=== PATIENT | female | born 1935 | race Caucasian/White ===

== ENCOUNTER 2017-09-01 16:14 | Emergency (ER) | payer MEDICARE, BC ==
[~2017-09-01 16:14] MED LIST: ATEN50TA PO; ATOR40TA16 PO; Aspirin Chew PO; BOSW5TAB PO; COQ-50CA2 PO; FOLI5CAP PO; LOSA100T PO; METH2.5T PO; PLAV75TA29 PO; VESI10TA PO
[2017-09-01 16:17] VITALS: BP 142/68; PULSE 52; RESP 18; TEMP 97.7; O2SAT 95
--- NOTE | 2017-09-01 17:00 | PD ---
HPI Chief Complaint: Skin Problem Time Seen by Provider: 16:46 Travel History International Travel<30 days: No Contact w/Intl Traveler<30days: No Traveled to known affect area: No History of Present Illness HPI 82-year-old female here with who gives history complaining of an ulcer to the lower left leg for 3 days. She has a history of chronic venous stasis with ulceration. He states that the area has had a blister but popped and now has profuse clear drainage. Apparently she has had these before but he is concerned about the drainage today. He has tried to dress the wound but continues to leak through. She has no complaints of pain, fever, chills, chest pain, or shortness of breath. Denies trauma or injury to the area. PFSH Past Medical History Arthritis: Yes (l shoulder) Atrial Fibrillation: Yes Autoimmune Disease: Yes (ra) Heart Rhythm Problems: Yes (A FIB) Cardiac Catheterization: Yes Cardiovascular Problems: Yes (a fib) High Cholesterol: Yes Cerebrovascular Accident: No Coronary Artery Disease: Yes Diabetes: No Diminished Hearing: No Genitourinary: Yes (incontinent) Hypertension: Yes Migraines: Yes (pt says she has cluster headaches) ?: Not Para: 4 Past Surgical History Coronary Stent: Yes Eye Surgery: Yes (bilat cataracts) Gynecologic Surgery: Yes (hysterectomy) Hysterectomy: Yes Tonsillectomy: Yes Social History Alcohol Use: Yes (occ) Tobacco Use: No Substance Use: No Allergies-Medications (Allergen,Severity, Reaction): Coded Allergies: grass pollen (Unverified Allergy, Intermediate, Sneezing, 09/01/17) *MDRO Multi-Drug Resistant Organism (Verified Adverse Reaction, Unknown, 09/01/17) 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 Reported Meds & Prescriptions Reported Meds & Active Scripts Active Plavix (Clopidogrel Bisulfate) 75 Mg Tab 75 Mg PO DAILY 30 Days Reported Osteo Bi-Flex One A Day (Quyxpkbix-Rdiojwcumpm-Tgqbnfq) 1 Tab 1 Tab PO DAILY Coq-10 (Coenzyme Q10 (Ubidecarenone)) 50 Mg Cap 50 Cap PO DAILY Atorvastatin (Atorvastatin Calcium) 40 Mg Tab 40 Mg PO HS Losartan (Losartan Potassium) 100 Mg Tab 100 Mg PO DAILY Review of Systems Except as stated in HPI: all other systems reviewed are Neg Physical Exam Narrative GENERAL: Well-nourished, well-developed patient morbidly obese SKIN: Focused skin assessment warm/dry. Left medial aspect of lower extremity: 6 cm round ulcer with clear drainage, no surrounding erythema, exudate, edema, bleeding. No lymphangitic Spread. Posterior aspect of leg with slight erythema but no ulceration HEAD: Normocephalic. EYES: No scleral icterus. No injection or drainage. NECK: Supple, trachea midline. No JVD or lymphadenopathy. CARDIOVASCULAR: Regular rate and rhythm without murmurs, gallops, or rubs. RESPIRATORY: Breath sounds equal bilaterally. No accessory muscle use. MUSCULOSKELETAL: No cyanosis, or edema. Pulse motor sensory intact BACK: Nontender without obvious deformity. No CVA tenderness. Data Data Last Documented VS Vital Signs Date Time Temp Pulse Resp B/P (MAP) Pulse Ox O2 Delivery O2 Flow Rate FiO2 09/01/17 16:17 97.7 52 18 142/68 (92) 95 Orders Orders Wound Care (09/01/17 17:16) MDM Medical Decision Making Medical Screen Exam Complete: Yes Emergency Medical Condition: Yes Differential Diagnosis Left lower leg ulcer versus cellulitis versus stasis dermatitis Narrative Course brought patient here today because he was concerned about an ulcer on the medial aspect of the lower left leg. She does have a history of chronic ulcers on her legs and has been treated for this prior. He states that is draining profusely clear liquid. Patient denies any pain to the area with motor, neuro, and sensory intact. Physical exam : The aspects of left lower extremity shows a 6 cm round ulcer with perfuse clear drainage, without bleeding, exudate The posterior portion of her lower left leg appears slightly erythematous with the beginning of skin breakdown, without lymph angiopathic Spread, exudate, or bleeding. She denies fever, chills, chest pain, short of breath. states she has an appointment with a wound care clinic up at [facility] this week for this problem. I recommend he keep this appointment for her and establish care with wound care. Diagnosis Primary Impression: Leg wound, left Qualified Codes: S81.802A - Unspecified open wound, left lower leg, initial encounter Referrals: [facility] Primary Care Physician Additional Instructions: Keep area dry. Change to dry dressings multiple times a day. Keep the appointment for wound care this week. Keep the leg elevated to reduce the leg and be mindful of pressure on the skin. If she develops increased redness, swelling, or pain or develops a fever return to the emergency department for treatment evaluation. Disposition: 01 DISCHARGE HOME Condition: Stable Jessica Hicks Sep 01, 2017 17:00
[2017-09-06] MEDS ORDERED: ATOR10TA15 PO (14:55)
[2017-09-06] MEDS ORDERED: CARV3.12 PO (14:55)
[2017-09-13] MEDS ORDERED: LEVA750T9 PO (12:04)
== END 2017-09-01 17:43 | disposition home or self-care (01) ==
LOC: PHED 16:14
DX: S81.802A Unspecified open wound, left lower leg, initial encounter (principal); I10 Essential (primary) hypertension; E78.00 Pure hypercholesterolemia, unspecified; Z87.39 Personal history of other diseases of the musculoskeletal system and connective tissue; Z86.2 Personal history of diseases of the blood and blood-forming organs and certain disorders involving the immune mechanism; Z86.79 Personal history of other diseases of the circulatory system; Z87.448 Personal history of other diseases of urinary system; Z86.69 Personal history of other diseases of the nervous system and sense organs; X58.XXXA Exposure to other specified factors, initial encounter
CPT/HCPCS: 99282

== ENCOUNTER 2017-11-05 14:18 | Emergency (ER) | payer MEDICARE, BC ==
[~2017-11-05 14:18] MED LIST changes: -ATEN50TA PO; +ATOR10TA15 PO; -ATOR40TA16 PO; -Aspirin Chew PO; +CARV3.12 PO; -FOLI5CAP PO; -METH2.5T PO; -VESI10TA PO
[2017-11-05 14:23] VITALS: BP 174/87; PULSE 50; RESP 22; TEMP 97.6; O2SAT 90
[2017-11-05] MEDS ORDERED: SILVER NITR/POTASSIUM NITRATE APPLICATORS TOPICAL ONE (15:00)
[2017-11-05] MEDS ORDERED: GELATIN 12 MM/7 MM FOAM TOPICAL ONE (15:00)
--- NOTE | 2017-11-05 15:03 | PD ---
HPI Chief Complaint: Bleeding Time Seen by Provider: 14:51 Travel History International Travel<30 days: No Contact w/Intl Traveler<30days: No Traveled to known affect area: No History of Present Illness HPI The patient was seen and examined in the presence of the nurse. This patient complains of bleeding from her chronic left leg ulcer. She's had her ulcer for 2 months and goes to wound care regularly. was changing the dressing about an hour ago and it started to bleed. They couldn't get the bleeding to stop so came in. She does take daily Plavix. No other blood thinners. No injury to it. She did not complain of being dyspneic but she looks short of breath. Symptoms severity is moderate. No alleviating factors. Symptoms exacerbated by her Plavix therapy. Denies ever smoking. Denies fever or cough or chest pain. PFSH Past Medical History Hx Anticoagulant Therapy: Yes (PLAVIX) Arthritis: Yes (l shoulder) Atrial Fibrillation: Yes Autoimmune Disease: Yes (ra) Heart Rhythm Problems: Yes (A FIB) Cardiac Catheterization: Yes Cardiovascular Problems: Yes (HI) High Cholesterol: Yes Cerebrovascular Accident: No Coronary Artery Disease: Yes Diabetes: No Diminished Hearing: No Genitourinary: Yes (incontinent) Hypertension: Yes Migraines: Yes (pt says she has cluster headaches) Tetanus Vaccination: < 5 Years Influenza Vaccination: Yes Para: 4 Past Surgical History Coronary Stent: Yes Eye Surgery: Yes (bilat cataracts) Gynecologic Surgery: Yes (hysterectomy) Hysterectomy: Yes Tonsillectomy: Yes Other Surgery: Yes Social History Alcohol Use: No Tobacco Use: No Substance Use: No Allergies-Medications (Allergen,Severity, Reaction): Coded Allergies: grass pollen (Verified Allergy, Intermediate, Sneezing, 11/05/17) *MDRO Multi-Drug Resistant Organism (Verified Adverse Reaction, Unknown, 11/05/17) 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 Reported Meds & Prescriptions Reported Meds & Active Scripts Active Plavix (Clopidogrel Bisulfate) 75 Mg Tab 75 Mg PO DAILY 30 Days Reported Atorvastatin (Atorvastatin Calcium) 10 Mg Tab 10 Mg PO HS Carvedilol 3.125 Mg Tab 3.125 Mg PO BID Osteo Bi-Flex One A Day (Ldiiforpe-Phbydjexfoi-Kcisjce) 1 Tab 1 Tab PO DAILY Coq-10 (Coenzyme Q10 (Ubidecarenone)) 50 Mg Cap 50 Cap PO DAILY Losartan (Losartan Potassium) 100 Mg Tab 100 Mg PO DAILY Review of Systems General / Constitutional: No: Fever Eyes: No: Visual changes HENT: No: Headaches Cardiovascular: No: Chest Pain or Discomfort Respiratory: No: Shortness of Breath Gastrointestinal: No: Abdominal Pain Genitourinary: No: Dysuria Musculoskeletal: No: Pain Skin: No Rash Neurologic: No: Weakness Psychiatric: No: Depression Endocrine: No: Polydipsia Hematologic/Lymphatic: No: Easy Bruising Physical Exam Narrative GENERAL: Well-nourished, well-developed patient who is short of breath . SKIN: Focused skin assessment reveals no rash and nodules. Skin is Warm and dry. HEAD: Atraumatic. Normocephalic. EYES: Pupils equal and round. No scleral icterus. No injection or drainage. ENT: No nasal bleeding or discharge. Mucous membranes pink and moist. NECK: Trachea midline. No JVD. CARDIOVASCULAR: Regular rate and rhythm. No murmur appreciated. RESPIRATORY: Positive accessory muscle use. Clear to auscultation. Breath sounds equal bilaterally. GASTROINTESTINAL: Abdomen soft, morbidly obese, non-tender, nondistended. Hepatic and splenic margins not palpable. MUSCULOSKELETAL: No obvious deformities. No clubbing. No cyanosis. Symmetric edema the feet and legs. Patient has a ulcer on the medial aspect of the left lower leg. This 2 areas of scant oozing. No sign of infection NEUROLOGICAL: Awake and alert. No obvious cranial nerve deficits. Motor grossly within normal limits. Normal speech. PSYCHIATRIC: Appropriate mood and affect; insight and judgment normal. Data Data Last Documented VS Vital Signs Date Time Temp Pulse Resp B/P (MAP) Pulse Ox O2 Delivery O2 Flow Rate FiO2 11/05/17 16:17 60 16 173/72 (105) 96 Nasal Cannula 2.00 11/05/17 14:23 97.6 Orders Orders Silver Nitrate Applicators (Silver Nitra (11/05/17 15:00) Gelatin 12 Mm/7 Mm Top (Gelfoam 12 Mm/7 (11/05/17 15:00) Electrocardiogram (11/05/17 ) Iv Access Insert/Monitor (11/05/17 15:19) Complete Blood Count With Diff (11/05/17 15:19) Basic Metabolic Panel (Bmp) (11/05/17 15:19) B-Type Natriuretic Peptide (11/05/17 15:19) Chest, Single Ap (11/05/17 ) Furosemide Inj (Lasix Inj) (11/05/17 16:00) Labs Laboratory Tests Test 11/05/17 15:51 White Blood Count 5.8 TH/MM3 Red Blood Count 4.42 MIL/MM3 Hemoglobin 12.4 GM/DL Hematocrit 38.0 % Mean Corpuscular Volume 85.9 FL Mean Corpuscular Hemoglobin 28.0 PG Mean Corpuscular Hemoglobin Concent 32.6 % Red Cell Distribution Width 14.9 % Platelet Count 193 TH/MM3 Mean Platelet Volume 10.0 FL Neutrophils (%) (Auto) 63.8 % Lymphocytes (%) (Auto) 19.7 % Monocytes (%) (Auto) 13.7 % Eosinophils (%) (Auto) 2.0 % Basophils (%) (Auto) 0.8 % Neutrophils # (Auto) 3.8 TH/MM3 Lymphocytes # (Auto) 1.1 TH/MM3 Monocytes # (Auto) 0.8 TH/MM3 Eosinophils # (Auto) 0.1 TH/MM3 Basophils # (Auto) 0.0 TH/MM3 CBC Comment DIFF FINAL Differential Comment Blood Urea Nitrogen 15 MG/DL Creatinine 0.72 MG/DL Random Glucose 117 MG/DL Calcium Level 9.7 MG/DL Sodium Level 143 MEQ/L Potassium Level 4.1 MEQ/L Chloride Level 108 MEQ/L Carbon Dioxide Level 28.2 MEQ/L Anion Gap 7 MEQ/L Estimat Glomerular Filtration Rate 78 ML/MIN B-Type Natriuretic Peptide 394 PG/ML MDM Medical Decision Making Medical Screen Exam Complete: Yes Emergency Medical Condition: Yes Medical Record Reviewed: Yes Differential Diagnosis Chronic wound, medication side effect, abrasion Narrative Course I have reviewed the patient's electronic medical record. Reviewed her last wound care visit which was about 2 weeks ago Procedure note: I used 3 silver nitrate sticks to chemically cauterize the 2 areas that were oozing blood. I then applied a layer of Gelfoam to each I then padded with 4 x 4's and wrapped with Millicent in a slight pressure dressing The patient is visibly dyspneic so I have evaluated that I reviewed her chest x-ray which shows cardiomegaly with a slight positive fluid balance I reviewed her EKG which shows bradycardia with a PVC but no ST elevation CBC and metabolic profile reviewed and reasonably normal I ordered 40 g IV Lasix but patient has been refused as they do not want to urinate here says she's been like this for years and is no different than her baseline A lot of this is body habitus I believe. She is morbidly obese. May have a slight degree of pulmonary edema I wrote her 5 days of oral Lasix She should discuss this with her primary physician. Diagnosis Primary Impression: Varicose veins of lower extremities with ulcer Qualified Codes: I83.029 - Varicose veins of left lower extremity with ulcer of unspecified site Additional Impressions: Hemorrhage of skin lesion Pulmonary edema Qualified Codes: J81.1 - Chronic pulmonary edema Morbid obesity Additional Instructions: The patient was advised to follow up with their physician and return if they worsen. Med/Other Pt SpecificInfo: Prescription(s) given Scripts Furosemide (Lasix) 20 Mg Tab 20 MG PO DAILY, #5 TAB 0 Refills Prov: Fab Powell MD 11/05/17 Disposition: 01 DISCHARGE HOME Condition: Stable Fab Powell MD Nov 05, 2017 15:03
--- NOTE | 2017-11-05 15:44 | RADRPT ---
EXAM DATE/TIME: 11/05/2017 15:28 [facility] COMPARISON: CHEST SINGLE AP, October 11, 2016, 23:40. INDICATIONS : Shortness of breath. MEDICAL HISTORY : Hypertension. Myocardial infarction. Cholelithiasis. SURGICAL HISTORY : None. ENCOUNTER: Initial ACUITY: 1 year PAIN SCORE: 0/10 LOCATION: Bilateral chest FINDINGS: Prominent cardiomegaly with prominent central pulmonary arteries. Mild stable diffuse interstitial pr ominence. Remainder of the exam is unchanged. CONCLUSION: 1. Prominent cardiomegaly with mild positive fluid balance. Damon Villanueva MD on November 05, 2017 at 15:41 Board Certified Radiologist. This report was verified electronically.
[2017-11-05 15:59] LABS: AUTOMATED NEUTROPHIL # 3.8 TH/MM3 (1.8-7.7); BASOPHIL % 0.8 % (0.0-2.0); EOSINOPHIL # 0.1 TH/MM3 (0-0.4); HEMO FLAGS DIFF FINAL; LYMPH % 19.7 % (9.0-44.0); LYMPHOCYTE # 1.1 TH/MM3 (1.0-4.8); MEAN CELL VOLUME 85.9 FL (80.0-100.0); MEAN CORPUSCULAR HGB CONC 32.6 % (32.0-36.0); MONO % 13.7 % (0.0-8.0); NEUT % 63.8 % (16.0-70.0); PLATELET COUNT 193 TH/MM3 (150-450); RED BLOOD COUNT 4.42 MIL/MM3 (4.00-5.30); RED CELL DISTRIBUTION WIDTH 14.9 % (11.6-17.2); WHITE BLOOD COUNT 5.8 TH/MM3 (4.0-11.0)
[2017-11-05] MEDS ORDERED: FUROSEMIDE 40 MG/4 ML VIAL IV PUSH ONE (16:00)
[2017-11-05 16:07] LABS: POTASSIUM 4.1 MEQ/L (3.5-5.1)
[2017-11-05 16:10] LABS: BICARBONATE 28.2 MEQ/L (21.0-32.0)
[2017-11-05 16:17] VITALS: BP 173/72; PULSE 60; RESP 16; O2SAT 96
[2017-11-05] MEDS ORDERED: FURO1TAB62 PO (16:23)
--- NOTE | 2017-11-06 15:51 | EKG ---
Date Performed: 11/05/2017 Time Performed: 16:02:02 PTAGE: 82 years EKG: SUPRAVENTRICULAR BRADYCARDIA MARKED LEFT AXIS DEVIATION POSSIBLE ANTERIOR MYOCARDIAL INFARC TION ABNORMAL ECG PREVIOUS TRACING : 10/13/2016 10.15 DOCTOR: Wilian Potter Interpretating Date/Time 11/06/2017 15:49:36
== END 2017-11-05 16:52 | disposition home or self-care (01) ==
LOC: PHED 14:18
DX: I83.029 Varicose veins of left lower extremity with ulcer of unspecified site (principal); L97.929 Non-pressure chronic ulcer of unspecified part of left lower leg with unspecified severity; J81.1 Chronic pulmonary edema; E66.01 Morbid (severe) obesity due to excess calories; E78.00 Pure hypercholesterolemia, unspecified; I10 Essential (primary) hypertension; R06.02 Shortness of breath; Z79.02 Long term (current) use of antithrombotics/antiplatelets
CPT/HCPCS: 17250; 71010; 80048; 83880; 85025; 93005; 96374; 99285; J1940

== ENCOUNTER 2017-11-25 14:31 | Inpatient (IN) | payer MEDICARE, BC ==
[~2017-11-25] VITALS: Ht 170.2 cm; Wt 116.0 kg
[2017-11-25] VITALS (16 sets, daily range): BP systolic 87–152; BP diastolic 49–112; PULSE 40–62; RESP 15–32; TEMP 97.5–97.8; O2SAT 90–100
[~2017-11-25 14:31] MED LIST changes: +FURO1TAB62 PO; +GADODIAMIDE PF 287 MG/ML 20 ML VIAL (for RAD MRI) IV PUSH ONE
--- NOTE | 2017-11-25 14:57 | PD ---
HPI Chief Complaint: Altered Mental Status Time Seen by Provider: 14:47 Travel History International Travel<30 days: No Contact w/Intl Traveler<30days: No Traveled to known affect area: No History of Present Illness HPI The patient is a 82-year-old female who presents to the emergency department via EMS from home for altered mental status. According to EMS the patient was not feeling well on Saturday, slept most of Saturday and Saturday. The patient's family attempted to awaken her today and stated that she had an altered mental status and possible facial droop. EMS arrived the patient was hypoxic, satting in the low 80s on room air. The patient was placed on a nonrebreather which brought her saturation levels up into the 90s. The patient' s blood glucose upon arrival was just greater than 100. Upon arrival the patient is somewhat lethargic, will open eyes to commands and follows some simple commands, but is lethargic. The patient is somewhat altered, does not give a good review of systems or history. PFSH Past Medical History Hx Anticoagulant Therapy: Yes Arthritis: Yes (l shoulder) Atrial Fibrillation: Yes Autoimmune Disease: Yes (ra) Heart Rhythm Problems: Yes (A FIB) Cardiac Catheterization: Yes Cardiovascular Problems: Yes ([place]) High Cholesterol: Yes Cerebrovascular Accident: No Coronary Artery Disease: Yes Diabetes: No Diminished Hearing: No Genitourinary: Yes (incontinent) Hypertension: Yes Migraines: Yes (pt says she has cluster headaches) Para: 4 Past Surgical History Coronary Stent: Yes Eye Surgery: Yes (bilat cataracts) Gynecologic Surgery: Yes (hysterectomy) Hysterectomy: Yes Tonsillectomy: Yes Other Surgery: Yes Social History Alcohol Use: No Tobacco Use: No Substance Use: No Allergies-Medications (Allergen,Severity, Reaction): Coded Allergies: grass pollen (Verified Allergy, Intermediate, Sneezing, 11/08/17) *MDRO Multi-Drug Resistant Organism (Verified Adverse Reaction, Unknown, 11/08/17) 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 Reported Meds & Prescriptions Reported Meds & Active Scripts Active Plavix (Clopidogrel Bisulfate) 75 Mg Tab 75 Mg PO DAILY 30 Days Reported Melatonin 5 Mg Tab 5 Mg PO HS Atorvastatin (Atorvastatin Calcium) 10 Mg Tab 10 Mg PO HS Carvedilol 3.125 Mg Tab 3.125 Mg PO BID Osteo Bi-Flex One A Day (Rdxwmdzqm-Riauhkgueoq-Oobkltb) 1 Tab 1 Tab PO DAILY Coq-10 (Coenzyme Q10 (Ubidecarenone)) 50 Mg Cap 50 Cap PO DAILY Losartan (Losartan Potassium) 100 Mg Tab 100 Mg PO DAILY Review of Systems ROS Limitations: Clinical Condition, Altered Mental Status Except as stated in HPI: all other systems reviewed are Neg Neurologic: Positive: Change in Mentation Physical Exam Narrative GENERAL: Eyes closed, lethargic, 82-year-old female appears her stated age. SKIN: Edematous, swelling noted in the periorbital area as well as the lower extremities bilaterally. HEAD: Atraumatic. Normocephalic. EYES: Periorbital edema. Pupils are 2 mm bilateral. ENT: No nasal bleeding or discharge. Dry mucous membranes. NECK: Trachea midline. No JVD. CARDIOVASCULAR: Regular rate and rhythm. No murmur appreciated. Heart rate in the 60s. RESPIRATORY: No accessory muscle use. Diminished breath sounds in the bases. GASTROINTESTINAL: Abdomen soft, large pannus. Back: Stage I sacral decubitus ulcer noted. MUSCULOSKELETAL: Edema to lower extremity is bilateral. Lesion noted on the posterior aspect the left lower extremity with mild crusting. NEUROLOGICAL: Eyes closed, will open to command. Lethargic. Speaks in one to 2 word sentences, does not answer questions appropriately. Squeezes hands bilaterally to command. Draw was legs to pain. PSYCHIATRIC: Unable to assess. Data Data Last Documented VS Vital Signs Date Time Temp Pulse Resp B/P (MAP) Pulse Ox O2 Delivery O2 Flow Rate FiO2 11/25/17 17:14 44 107/56 (73) 11/25/17 16:59 100 11/25/17 16:55 26 98 11/25/17 16:03 6.00 11/25/17 14:54 Nasal Cannula 11/25/17 14:46 97.5 Orders Orders Electrocardiogram (11/25/17 14:48) Ammonia (11/25/17 14:48) Complete Blood Count With Diff (11/25/17 14:48) Comprehensive Metabolic Panel (11/25/17 14:48) Creatine Kinase (Cpk) (11/25/17 14:48) Prothrombin Time / Inr (Pt) (11/25/17 14:48) Act Partial Throm Time (Ptt) (11/25/17 14:48) Troponin I (11/25/17 14:48) Thyroid Stimulating Hormone (11/25/17 14:48) Urinalysis - C+S If Indicated (11/25/17 14:48) Lactic Acid Sepsis Protocol (11/25/17 14:48) Arterial Blood Gas (Abg) (11/25/17 14:48) Blood Culture (11/25/17 14:48) Chest, Single Ap (11/25/17 14:48) Ct Brain W/O Iv Contrast(Rout) (11/25/17 14:48) Blood Glucose (11/25/17 14:48) Ecg Monitoring (11/25/17 14:48) Iv Access Insert/Monitor (11/25/17 14:48) Oximetry (11/25/17 14:48) Sodium Chloride 0.9% Flush (Ns Flush) (11/25/17 15:00) Drug Screen, Random Urine (11/25/17 14:48) Alcohol (Ethanol) (11/25/17 14:48) Urine Culture (11/25/17 15:03) B-Type Natriuretic Peptide (11/25/17 15:44) Etomidate Inj (Amidate Inj) (11/25/17 17:00) Succinylcholine Inj (Quelicin Inj) (11/25/17 17:00) Etomidate Inj (Amidate Inj) (11/25/17 16:48) Succinylcholine Inj (Quelicin Inj) (11/25/17 16:48) Chest, Single Ap (11/25/17 ) Sodium Chlorid 0.9% 500 Ml Inj (Ns 500 M (11/25/17 17:15) Propofol 1000 Mg/100 Ml Inj (Diprivan 10 (11/25/17 17:15) ^ Infusion (11/25/17 17:01) RASS (11/25/17 17:01) Neurological Rass Scale RUBINA.Q2H (11/25/17 17:01) Bart-Gastric Tube Insert/Mon (11/25/17 17:02) Urinary Catheter Insert/Apply (11/25/17 17:02) Admit Order (Ed Use Only) (11/25/17 17:12) Labs Laboratory Tests Test 11/25/17 14:55 11/25/17 14:57 11/25/17 15:03 11/25/17 15:30 White Blood Count 8.3 TH/MM3 Red Blood Count 4.52 MIL/MM3 Hemoglobin 13.2 GM/DL Hematocrit 40.3 % Mean Corpuscular Volume 89.1 FL Mean Corpuscular Hemoglobin 29.1 PG Mean Corpuscular Hemoglobin Concent 32.7 % Red Cell Distribution Width 16.3 % Platelet Count 179 TH/MM3 Mean Platelet Volume 10.5 FL Neutrophils (%) (Auto) 74.7 % Lymphocytes (%) (Auto) 13.8 % Monocytes (%) (Auto) 11.0 % Eosinophils (%) (Auto) 0.1 % Basophils (%) (Auto) 0.4 % Neutrophils # (Auto) 6.2 TH/MM3 Lymphocytes # (Auto) 1.1 TH/MM3 Monocytes # (Auto) 0.9 TH/MM3 Eosinophils # (Auto) 0.0 TH/MM3 Basophils # (Auto) 0.0 TH/MM3 CBC Comment DIFF FINAL Differential Comment Prothrombin Time 11.8 SEC Prothromb Time International Ratio 1.2 RATIO Activated Partial Thromboplast Time 23.6 SEC Blood Urea Nitrogen 30 MG/DL Creatinine 0.90 MG/DL Random Glucose 139 MG/DL Total Protein 6.9 GM/DL Albumin 3.5 GM/DL Calcium Level 9.8 MG/DL Alkaline Phosphatase 100 U/L Aspartate Amino Transf (AST/SGOT) 29 U/L Alanine Aminotransferase (ALT/SGPT) 33 U/L Total Bilirubin 0.7 MG/DL Sodium Level 145 MEQ/L Potassium Level 4.5 MEQ/L Chloride Level 109 MEQ/L Carbon Dioxide Level 32.2 MEQ/L Anion Gap 4 MEQ/L Estimat Glomerular Filtration Rate 60 ML/MIN Total Creatine Kinase 50 U/L Troponin I 0.04 NG/ML Thyroid Stimulating Hormone 3rd Gen 2.640 uIU/ML Ethyl Alcohol Level LESS THAN 3 MG/DL Lactic Acid Level 1.2 mmol/L Ammonia 25 MCMOL/L Urine Color DARK-YELLOW Urine Turbidity HAZY Urine pH 6.0 Urine Specific [place] 1.027 Urine Protein 100 mg/dL Urine Glucose (UA) NEG mg/dL Urine Ketones TRACE mg/dL Urine Occult Blood NEG Urine Nitrite NEG Urine Bilirubin NEG Urine Urobilinogen LESS THAN 2.0 MG/DL Urine Leukocyte Esterase SMALL Urine WBC 3 /hpf Urine Squamous Epithelial Cells 3 /hpf Urine Bacteria OCC /hpf Urine Hyaline Casts 6 /lpf Urine Granular Casts 4 /lpf Urine Mucus FEW /lpf Microscopic Urinalysis Comment CATH-CULTURE IND Urine Opiates Screen NEG Urine Barbiturates Screen NEG Urine Amphetamines Screen NEG Urine Benzodiazepines Screen NEG Urine Cocaine Screen NEG Urine Cannabinoids Screen NEG Test 11/25/17 16:04 Blood Gas Puncture Site RT RADIAL Blood Gas Patient Temperature 98.6 Blood Gas HCO3 32 mmol/L Blood Gas Base Excess 5.3 mmol/L Blood Gas Oxygen Saturation 86 % Arterial Blood pH 7.24 Arterial Blood Partial Pressure CO2 79 mmHg Arterial Blood Partial Pressure O2 64 mmHG Arterial Blood Oxygen Content 15.7 Vol % Arterial Blood Carboxyhemoglobin 1.5 % Arterial Blood Methemoglobin 0.4 % Blood Gas Hemoglobin 12.9 G/DL Oxygen Delivery Device ROOM AIR Blood Gas Inspired Oxygen 21 % [facility] Medical Decision Making Medical Screen Exam Complete: Yes Emergency Medical Condition: Yes Medical Record Reviewed: Yes Interpretation(s) EKG reveals supraventricular bradycardia. No visible P waves. QRS slightly enlarged at 118 seconds. May be junctional rhythm. Last Impressions Head CT 11/25/17 1448 Signed Impressions: Service Date/Time: Saturday, November 25, 2017 15:17 - CONCLUSION: Slight atrophic and small vessel ischemic changes without any evidence for acute hemorrhage or mass effect. Karan Modi MD Chest X-Ray 11/25/17 1448 Signed Impressions: Service Date/Time: Saturday, November 25, 2017 15:28 - CONCLUSION: Worsening pulmonary edema. Karan Modi MD Laboratory Tests Test 11/25/17 14:55 11/25/17 14:57 11/25/17 15:03 11/25/17 15:30 White Blood Count 8.3 TH/MM3 Red Blood Count 4.52 MIL/MM3 Hemoglobin 13.2 GM/DL Hematocrit 40.3 % Mean Corpuscular Volume 89.1 FL Mean Corpuscular Hemoglobin 29.1 PG Mean Corpuscular Hemoglobin Concent 32.7 % Red Cell Distribution Width 16.3 % Platelet Count 179 TH/MM3 Mean Platelet Volume 10.5 FL Neutrophils (%) (Auto) 74.7 % Lymphocytes (%) (Auto) 13.8 % Monocytes (%) (Auto) 11.0 % Eosinophils (%) (Auto) 0.1 % Basophils (%) (Auto) 0.4 % Neutrophils # (Auto) 6.2 TH/MM3 Lymphocytes # (Auto) 1.1 TH/MM3 Monocytes # (Auto) 0.9 TH/MM3 Eosinophils # (Auto) 0.0 TH/MM3 Basophils # (Auto) 0.0 TH/MM3 CBC Comment DIFF FINAL Differential Comment Prothrombin Time 11.8 SEC Prothromb Time International Ratio 1.2 RATIO Activated Partial Thromboplast Time 23.6 SEC Blood Urea Nitrogen 30 MG/DL Creatinine 0.90 MG/DL Random Glucose 139 MG/DL Total Protein 6.9 GM/DL Albumin 3.5 GM/DL Calcium Level 9.8 MG/DL Alkaline Phosphatase 100 U/L Aspartate Amino Transf (AST/SGOT) 29 U/L Alanine Aminotransferase (ALT/SGPT) 33 U/L Total Bilirubin 0.7 MG/DL Sodium Level 145 MEQ/L Potassium Level 4.5 MEQ/L Chloride Level 109 MEQ/L Carbon Dioxide Level 32.2 MEQ/L Anion Gap 4 MEQ/L Estimat Glomerular Filtration Rate 60 ML/MIN Total Creatine Kinase 50 U/L Troponin I 0.04 NG/ML Thyroid Stimulating Hormone 3rd Gen 2.640 uIU/ML Ethyl Alcohol Level LESS THAN 3 MG/DL Lactic Acid Level 1.2 mmol/L Ammonia 25 MCMOL/L Urine Color DARK-YELLOW Urine Turbidity HAZY Urine pH 6.0 Urine Specific [place] 1.027 Urine Protein 100 mg/dL Urine Glucose (UA) NEG mg/dL Urine Ketones TRACE mg/dL Urine Occult Blood NEG Urine Nitrite NEG Urine Bilirubin NEG Urine Urobilinogen LESS THAN 2.0 MG/DL Urine Leukocyte Esterase SMALL Urine WBC 3 /hpf Urine Squamous Epithelial Cells 3 /hpf Urine Bacteria OCC /hpf Urine Hyaline Casts 6 /lpf Urine Granular Casts 4 /lpf Urine Mucus FEW /lpf Microscopic Urinalysis Comment CATH-CULTURE IND Urine Opiates Screen NEG Urine Barbiturates Screen NEG Urine Amphetamines Screen NEG Urine Benzodiazepines Screen NEG Urine Cocaine Screen NEG Urine Cannabinoids Screen NEG Test 11/25/17 16:04 Blood Gas Puncture Site RT RADIAL Blood Gas Patient Temperature 98.6 Blood Gas HCO3 32 mmol/L Blood Gas Base Excess 5.3 mmol/L Blood Gas Oxygen Saturation 86 % Arterial Blood pH 7.24 Arterial Blood Partial Pressure CO2 79 mmHg Arterial Blood Partial Pressure O2 64 mmHG Arterial Blood Oxygen Content 15.7 Vol % Arterial Blood Carboxyhemoglobin 1.5 % Arterial Blood Methemoglobin 0.4 % Blood Gas Hemoglobin 12.9 G/DL Oxygen Delivery Device ROOM AIR Blood Gas Inspired Oxygen 21 % Differential Diagnosis Differential diagnosis includes delirium, subdural hemorrhage, STEMI, ACS, hyponatremia, UTI, pneumonia, medication side effect, CVA. Narrative Course IV was established, labs are drawn and sent, and the patient was placed on cardiac telemetry monitoring and continuous pulse oximetry monitoring. EKG was ordered and interpreted. Chest x-rays obtained. CT the brain was obtained. Chest x-rays reveals pulmonary edema, however, this may be related to CHF, the patient is not hypoxic and has elevated CO2. CT of the brain is negative. Laboratory evaluation is unremarkable except for elevated BUN. However, ABG does reveal CO2 of 79 with bicarbonate which is within normal range. I reviewed an old ABG, patient is not a chronic retainer, appears to have acute CO2 narcosis. I do discussion with the at bedside, he states the patient does not smoke and has never had this problem before. The patient was given a trial of BiPAP, however, did not tolerated, was hypoxic in the 80s. The patient was hard to arouse, therefore, was intubated for airway protection and to help alleviate the CO2 narcosis. The also states the patient does not use opiates. The patient continued to be altered, unarousable, therefore, the patient was intubated to protect her airway. Post intubation chest x-ray was obtained. The patient wasn't ministered IV fluids and an oral gastric tube was placed. Singh catheter was placed. Post intubation chest x-ray was obtained. The patient was placed on a propofol drip. The on-call telegraph service rater was paged for admission. The patient has CO2 narcosis, may be secondary to brainstem infarct as there is no other obvious reason a CO2 narcosis. I discussed the possibility of CTA versus MRI/MRA with the telegraph service rater. The patient's Critical Care Narrative Aggregate critical care time was 45 minutes. Time to perform other separately billable procedures was not included in the critical care time. My time did not include minutes spent treating any other patients simultaneously or on activities that did not directly contribute to the patient's treatment. The services I provided to this patient were to treat and/or prevent clinically significant deterioration that could result in: Anoxia, hypoxia, aspiration, . I provided critical care services requiring my management, as noted below: Chart data review, documentation time, medication orders and management, vital sign assessments/reviewing monitor data, ordering and reviewing lab tests, ordering and interpreting/reviewing x-rays and diagnostic studies, care of the patient and discussion of the patient with the admitting physicians. Procedures Procedure Narrative INTUBATION: The patient was put in optimal position for the procedure. Rapid sequence intubation was initiated by me using 20 milligrams of etomidate IV and 100 milligrams of succinylcholine IV. The patient was intubated with a 7.5 cuffed endotracheal tube. Tube placement was confirmed by visualization of the tube and balloon passing through the cords, capnometry and subsequent chest x- ray. Breath sounds were equal and well aerated bilaterally postintubation. No breath sounds over stomach. Patient tolerated procedure well. Physician Communication Physician Communication The on-call telegraph service rater was paged for admission. I discussed the patient with Dr. Dawson who agrees with admission. Diagnosis Primary Impression: CO2 narcosis Additional Impression: Altered mental status Qualified Codes: R41.82 - Altered mental status, unspecified Admitting Information Admitting Physician Requests: Admit Condition: Serious Good Pérez MD Nov 25, 2017 14:57
[2017-11-25 15:25] LABS: INTERNATIONAL NORMALIZED RATIO 1.2 RATIO; PROTHROMBIN TIME - PATIENT 11.8 SEC (9.8-11.6)
[2017-11-25 15:26] LABS: AUTOMATED NEUTROPHIL # 6.2 TH/MM3 (1.8-7.7); BASOPHIL % 0.4 % (0.0-2.0); EOSINOPHIL % 0.1 % (0.0-4.0); HEMATOCRIT 40.3 % (35.0-46.0); HEMOGLOBIN 13.2 GM/DL (11.6-15.3); LYMPH % 13.8 % (9.0-44.0); LYMPHOCYTE # 1.1 TH/MM3 (1.0-4.8); MEAN CELL VOLUME 89.1 FL (80.0-100.0); MEAN CORPUSCULAR HEMOGLOBIN 29.1 PG (27.0-34.0); MEAN CORPUSCULAR HGB CONC 32.7 % (32.0-36.0); MEAN PLATELET VOLUME 10.5 FL (7.0-11.0); MONOCYTE # 0.9 TH/MM3 (0-0.9); NEUT % 74.7 % (16.0-70.0); PLATELET COUNT 179 TH/MM3 (150-450); RED BLOOD COUNT 4.52 MIL/MM3 (4.00-5.30); RED CELL DISTRIBUTION WIDTH 16.3 % (11.6-17.2); WHITE BLOOD COUNT 8.3 TH/MM3 (4.0-11.0)
[2017-11-25] MEDS ORDERED: MELA5 PO (15:29)
[2017-11-25 15:30] LABS: ALBUMIN 3.5 GM/DL (3.4-5.0); ALT (GPT) 33 U/L (10-53); AST (GOT) 29 U/L (15-37); BICARBONATE 32.2 MEQ/L (21.0-32.0); BLOOD UREA NITROGEN 30 MG/DL (7-18); CALCIUM 9.8 MG/DL (8.5-10.1); CHLORIDE 109 MEQ/L (98-107); GLOMERULAR FILTRATION RATE 60 ML/MIN (>89); GLUCOSE,RANDOM 139 MG/DL (74-106); SODIUM (NA) 145 MEQ/L (136-145)
[2017-11-25 15:30] LABS: BACTERIA, URINE OCC /hpf; BILIRUBIN, URINE NEG (NEG); BLOOD, URINE NEG (NEG); GLUCOSE,URINE NEG (NEG); HYALINE CAST, URINE 6 /lpf (RARE); KETONE, URINE TRACE mg/dL (NEG); MUCUS URINE FEW /lpf (OCC); NITRITE,URINE NEG (NEG); SQUAMOUS EPITHELIAL CELL URINE 3 /hpf (0-5); URINE COLOR DARK-YELLOW (YELLW/STRAW); URINE LEUKOCYTE ESTERASE SMALL (NEG)
[2017-11-25 15:40] LABS: ALKALINE PHOSPHATASE 100 U/L (45-117); TOTAL BILIRUBIN ADULT 0.7 MG/DL (0.2-1.0); TOTAL PROTEIN 6.9 GM/DL (6.4-8.2); TROPONIN I 0.04 NG/ML (0.02-0.05)
--- NOTE | 2017-11-25 15:43 | RADRPT ---
EXAM DATE/TIME: 11/25/2017 15:17 [facility] COMPARISON: No previous studies available for comparison. INDICATIONS : Altered mental status. RADIATION DOSE: 40.82 CTDIvol (mGy) MEDICAL HISTORY : Cardiovascular disease. Rheumatoid arthritis. Hypertension. SURGICAL HISTORY : Hysterectomy. ENCOUNTER: Initial ACUITY: 1 day PAIN SCALE: Non-responsive LOCATION: cranial TECHNIQUE: Multiple contiguous axial images were obtained of the head. Using automated exposure control and adj ustment of the mA and/or kV according to patient size, radiation dose was kept as low as reasonably a chievable to obtain optimal diagnostic quality images. DICOM format image data is available electro nically for review and comparison. FINDINGS: There is no evidence for intracranial hemorrhage, mass effect, mass lesions, or edema. The visualize d bony structures appear intact. Slight degree of brain atrophy is seen. Slight periventricular whit e matter changes are seen nonspecific mostly consistent with chronic small vessel ischemic changes. There are no signs of acute infarction for technique. CONCLUSION: Slight atrophic and small vessel ischemic changes without any evidence for acute hemorrhage or mass effect. Karan Modi MD on November 25, 2017 at 15:39 Board Certified Radiologist. This report was verified electronically.
--- NOTE | 2017-11-25 15:48 | RADRPT ---
EXAM DATE/TIME: 11/25/2017 15:28 [facility] COMPARISON: CHEST SINGLE AP, November 05, 2017, 15:28. INDICATIONS : Shortness of breath. MEDICAL HISTORY : Hypertension. Myocardial infarction. Cholelithiasis. SURGICAL HISTORY : None. ENCOUNTER: Initial ACUITY: 1 day PAIN SCORE: Non-responsive. LOCATION: Bilateral chest FINDINGS: There is worsening of bilateral parenchymal process mostly worsening pulmonary edema to a moderate de gree. Slight cardiomegaly has not changed. CONCLUSION: Worsening pulmonary edema. Karan Modi MD on November 25, 2017 at 15:45 Board Certified Radiologist. This report was verified electronically.
[2017-11-25] MEDS ORDERED: SUCCINYLCHOLINE CHLORIDE 200 MG/10 ML VIAL ONE (16:48)
[2017-11-25] MEDS ORDERED: ETOMIDATE 40 MG/20 ML VIAL ONE (16:48)
[2017-11-25] MEDS: SODIUM CHLORIDE 0.9% FLUSH 10 ML FLUSH IV FLUSH PRN (16:59)
[2017-11-25] MEDS ORDERED: ETOMIDATE 20 MG/10 ML VIAL IV PUSH ONE (17:00)
[2017-11-25] MEDS ORDERED: SUCCINYLCHOLINE CHLORIDE 200 MG/10 ML VIAL IV PUSH ONE (17:00)
[2017-11-25] MEDS ORDERED: SODIUM CHLORID 0.9% 500 ML INJ 500 ML IV ONE (17:15)
[2017-11-25] MEDS ORDERED: PROPOFOL 1000 MG/100 ML INJ 100 ML IV PRN (17:15)
--- NOTE | 2017-11-25 17:23 | HHI.HP ---
[facility] Service Critical Care Medicine Primary Care Physician Santiago Sethi, DO Admission Diagnosis CO2 narcosis, AMS, rule out basilar infarct Diagnosis: Chief Complaint: altered mental status Travel History International Travel<30 Days: No Contact w/Intl Traveler <30 Da: No Traveled to Known Affected Are: No History of Present Illness This is an 82-year-old female who has history of a prior NE back in 2016 as well as chronic orthopedic problems of her left shoulder as well as a non-'s healing wound on her left foot who was last seen normal on Saturday. Her reports that on Saturday she was lethargic and difficult to arouse and laid in bed all day. Today he reports that she was nearly unarousable and difficult to get into a wheelchair. He called 911 and EMS brought the patient in. Upon arrival to the emergency department, the patient was hypoxic with SPO2 in the low 80s on room air. ABG done in the emergency department had a pH of 7.24, PCO2 79, PO2 64. She was emergently intubated for declining mental status. Chest x-ray shows bilateral pulmonary opacities which are concerning for pulmonary edema. In addition she has significant sinus bradycardia although this is hemodynamically stable. CT brain was negative for acute bleed. Due to her significant altered mental status, MRI, MRA, MRV were done without significant abnormality. Unfortunately no definite information is available from the patient due to her altered mental status and intubation. ROS is unobtainable. I did talk to her who denies her having any recent changes in medical status, no fevers, no chills, no chest pain, shortness breath, nausea, vomiting, diarrhea, or any other symptoms that concerned him, and he states that she was in her usual state of health up until Saturday. 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 Past Medical History Left shoulder arthritis Atrial fibrillation Rheumatoid arthritis Prior NE in 2016 High cholesterol Coronary artery disease Urinary incontinence Hypertension Migraines Past Surgical History Hysterectomy Tonsillectomy Bilateral cataracts Coronary stents Reported Medications Plavix (Clopidogrel Bisulfate) 75 Mg Tab 75 Mg PO DAILY 30 Days Melatonin 5 Mg Tab 5 Mg PO HS Atorvastatin (Atorvastatin Calcium) 10 Mg Tab 10 Mg PO HS Carvedilol 3.125 Mg Tab 3.125 Mg PO BID Osteo Bi-Flex One A Day (Ewnheripm-Gnubmhfpkly-Bjwtqmx) 1 Tab 1 Tab PO DAILY Coq-10 (Coenzyme Q10 (Ubidecarenone)) 50 Mg Cap 50 Cap PO DAILY Losartan (Losartan Potassium) 100 Mg Tab 100 Mg PO DAILY Active Ordered Medications See MAR Family History Reviewed by the and found to be noncontributory to her acute illness. Social History denies tobacco, EtOH, drugs of abuse Physical Exam Vital Signs Vital Signs Date Time Temp Pulse Resp B/P (MAP) Pulse Ox O2 Delivery O2 Flow Rate FiO2 11/25/17 17:14 44 107/56 (73) 11/25/17 16:59 100 11/25/17 16:55 56 26 87/49 (62) 98 11/25/17 16:03 48 20 131/61 (84) 94 6.00 11/25/17 14:54 90 Nasal Cannula 4.00 11/25/17 14:46 97.5 62 32 135/68 (90) 91 Physical Exam GENERAL: Elderly female, obese, lying in bed, acutely ill, intubated, obtunded HEENT: Normocephalic. Atraumatic. Pupils equal, round, reactive, conjugate. Mucous membranes are moist NECK: Trachea is midline. No JVD. CHEST: Chest rise. Bilateral coarse rales. FiO2 100%. SPO2 98%. CARDIOVASCULAR: Bradycardic rate, appears regular rhythm. Heart rate in the low 30s. Blood pressure 117 systolic. ABDOMEN: Obese, Soft, nontender, nondistended. No guarding. MUSCULOSKELETAL: Pulses 2+. 1+ pitting edema peripherally. NEUROLOGICAL: RASS -4. Recently intubated. Patient does not open eyes to deep stimulation. However, on sternal rub with multiple reorientation attempts, patient will give bilateral thumbs up follows commands intermittently. Moves all 4 extremity spontaneously. Positive cough. Positive gag. Laboratory Laboratory Tests Test 11/25/17 14:55 11/25/17 14:57 11/25/17 15:03 11/25/17 15:30 White Blood Count 8.3 Red Blood Count 4.52 Hemoglobin 13.2 Hematocrit 40.3 Mean Corpuscular Volume 89.1 Mean Corpuscular Hemoglobin 29.1 Mean Corpuscular Hemoglobin Concent 32.7 Red Cell Distribution Width 16.3 Platelet Count 179 Mean Platelet Volume 10.5 Neutrophils (%) (Auto) 74.7 Lymphocytes (%) (Auto) 13.8 Monocytes (%) (Auto) 11.0 Eosinophils (%) (Auto) 0.1 Basophils (%) (Auto) 0.4 Neutrophils # (Auto) 6.2 Lymphocytes # (Auto) 1.1 Monocytes # (Auto) 0.9 Eosinophils # (Auto) 0.0 Basophils # (Auto) 0.0 CBC Comment DIFF FINAL Differential Comment Prothrombin Time 11.8 Prothromb Time International Ratio 1.2 Activated Partial Thromboplast Time 23.6 Blood Urea Nitrogen 30 Creatinine 0.90 Random Glucose 139 Total Protein 6.9 Albumin 3.5 Calcium Level 9.8 Alkaline Phosphatase 100 Aspartate Amino Transf (AST/SGOT) 29 Alanine Aminotransferase (ALT/SGPT) 33 Total Bilirubin 0.7 Sodium Level 145 Potassium Level 4.5 Chloride Level 109 Carbon Dioxide Level 32.2 Anion Gap 4 Estimat Glomerular Filtration Rate 60 Total Creatine Kinase 50 Troponin I 0.04 Thyroid Stimulating Hormone 3rd Gen 2.640 Ethyl Alcohol Level LESS THAN 3 Lactic Acid Level 1.2 Ammonia 25 Urine Color DARK-YELLOW Urine Turbidity HAZY Urine pH 6.0 Urine Specific [place] 1.027 Urine Protein 100 Urine Glucose (UA) NEG Urine Ketones TRACE Urine Occult Blood NEG Urine Nitrite NEG Urine Bilirubin NEG Urine Urobilinogen LESS THAN 2.0 Urine Leukocyte Esterase SMALL Urine WBC 3 Urine Squamous Epithelial Cells 3 Urine Bacteria OCC Urine Hyaline Casts 6 Urine Granular Casts 4 Urine Mucus FEW Microscopic Urinalysis Comment CATH-CULTURE IND Urine Opiates Screen NEG Urine Barbiturates Screen NEG Urine Amphetamines Screen NEG Urine Benzodiazepines Screen NEG Urine Cocaine Screen NEG Urine Cannabinoids Screen NEG Test 11/25/17 16:04 Blood Gas Puncture Site RT RADIAL Blood Gas Patient Temperature 98.6 Blood Gas HCO3 32 Blood Gas Base Excess 5.3 Blood Gas Oxygen Saturation 86 Arterial Blood pH 7.24 Arterial Blood Partial Pressure CO2 79 Arterial Blood Partial Pressure O2 64 Arterial Blood Oxygen Content 15.7 Arterial Blood Carboxyhemoglobin 1.5 Arterial Blood Methemoglobin 0.4 Blood Gas Hemoglobin 12.9 Oxygen Delivery Device ROOM AIR Blood Gas Inspired Oxygen 21 Date/Time Source Procedure Growth Status 11/25/17 15:00 Blood Peripheral Aerobic Blood Culture Pending Received 11/25/17 15:00 Blood Peripheral Anaerobic Blood Culture Pending Received 11/25/17 15:03 Urine Clean Catch Urine Culture Pending Received Result Diagram: 11/25/17 1455 11/25/17 1455 Imaging Last Impressions Head CT 11/25/17 1448 Signed Impressions: Service Date/Time: Saturday, November 25, 2017 15:17 - CONCLUSION: Slight atrophic and small vessel ischemic changes without any evidence for acute hemorrhage or mass effect. Karan Modi MD Chest X-Ray 11/25/17 1448 Signed Impressions: Service Date/Time: Saturday, November 25, 2017 15:28 - CONCLUSION: Worsening pulmonary edema. Karan Modi MD Neck Magnetic Resonance Angiography 11/25/17 0000 Signed Impressions: Service Date/Time: Saturday, November 25, 2017 18:46 - CONCLUSION: Normal examination. Karan Modi MD Head Magnetic Resonance Angiography 11/25/17 0000 Signed Impressions: Service Date/Time: Saturday, November 25, 2017 18:46 - CONCLUSION: Normal examination. Karan Modi MD Brain MRI 11/25/17 0000 Signed Impressions: Service Date/Time: Saturday, November 25, 2017 18:46 - CONCLUSION: Chronic atrophic changes without any evidence for acute hemorrhage or mass effect. MD Mu Boyer VTE Risk Assessment Joãorini VTE Risk Assessment: Mod/High Risk (score >= 2) Caprini Risk Assessment Model Point Value = 1 Point Value = 2 Point Value = 3 Point Value = 5 Age 41-60 Minor surgery BMI > 25 kg/m2 Swollen legs Varicose veins or History of unexplained or recurrent spontaneous Oral contraceptives or hormone replacement Sepsis (< 1 month) Serious lung disease, including pneumonia (< 1 month) Abnormal pulmonary function Acute myocardial infarction Congestive heart failure (< 1 month) History of inflammatory bowel disease Medical patient at bed rest Age 61-74 Arthroscopic surgery Major open surgery (> 45 min) Laparoscopic surgery (> 45 min) Malignancy Confined to bed (> 72 hours) Immobilizing plaster cast Central venous access Age >= 75 History of VTE Family history of VTE Factor V Leiden Prothrombin [id number] Lupus anticoagulant Anticardiolipin antibodies Elevated serum homocysteine Heparin-induced thrombocytopenia Other congenital or acquired thrombophilia Stroke (< 1 month) Elective arthroplasty Hip, pelvis, or leg fracture Acute spinal cord injury (< 1 month) Prophylaxis Regimen Total Risk Factor Score Risk Level Prophylaxis Regimen 0-1 Low Early ambulation 2 Moderate Order ONE of the following: *Sequential Compression Device (SCD) *Heparin 5000 units SQ BID 3-4 Higher Order ONE of the following medications: *Heparin 5000 units SQ TID *Enoxaparin/Lovenox 40 mg SQ daily (WT < 150 kg, CrCl > 30 mL/min) *Enoxaparin/Lovenox 30 mg SQ daily (WT < 150 kg, CrCl > 10-29 mL/min) *Enoxaparin/Lovenox 30 mg SQ BID (WT < 150 kg, CrCl > 30 mL/min) AND/OR *Sequential Compression Device (SCD) 5 or more Highest Order ONE of the following medications: *Heparin 5000 units SQ TID (Preferred with Epidurals) *Enoxaparin/Lovenox 40 mg SQ daily (WT < 150 kg, CrCl > 30 mL/min) *Enoxaparin/Lovenox 30 mg SQ daily (WT < 150 kg, CrCl > 10-29 mL/min) *Enoxaparin/Lovenox 30 mg SQ BID (WT < 150 kg, CrCl > 30 mL/min) AND *Sequential Compression Device (SCD) Assessment and Plan Assessment and Plan Assessment: 82-year-old female with no prior history of CVA or mental status changes presents with acute encephalopathy of unknown etiology along with acute hypercarbic and hypoxic respiratory failure, what appears to be pulmonary edema , and bradycardia. This certainly could be CHF exacerbation with hypercarbia leading to CO2 narcosis and hypercarbic encephalopathy. However, the patient does not have a history of CHF exacerbation. BNP is slightly elevated. We'll obtain 2-D echo. We'll gently diuresis. Patient's bradycardia is not hemodynamically significant or symptomatic at the moment. We'll monitor clinically. Remains critically ill. We'll admit to ICU. Active problems: Acute encephalopathy Acute hypoxic and hypercarbic respiratory failure Pulmonary edema- acute, unknown etiology Possible congestive heart failure exacerbation Acute bradycardia- unknown etiology Plan: Admit to ICU Frequent neuro checks Avoid long-acting sedating meds Fentanyl IV for sedation Wean FiO2 for goal SPO2 greater than 90% No wheezing mechanical ventilation until mental status improves Vent bundle Head of bed at 30 Nebs 2-D echo Atropine if bradycardia become symptomatic Trend troponins. First set is negative Follow-up TSH, free T4 Lasix 40 MG IV [address] orogastric tube to suction ICU electrolyte protocol Daily BMP, CBC Sliding scale insulin, medium scale, every 6 Subcutaneous heparin, SCDs, IV Pepcid Discussed her care at length with the ER physician as well as the patient's at bedside. This patient remains critically ill with one or more organ systems which are or may become a threat to life. I have spent in excess of 58 minutes discontinuously in the care and management of this patient. This time is exclusive of procedures, and includes, but is not limited to, evaluation of the patient, review of the medical record, discussions with family, consultants, nursing staff, or respiratory therapy, and documentation in the medical record. Jose Daniel Dawson MD Nov 25, 2017 17:23
[2017-11-25] MEDS ORDERED: CHLORHEXIDINE GLUCONATE 2 % 1 PACK (2 CLOTHS) TOP PRN (17:30)
[2017-11-25] MEDS ORDERED: POTASSIUM PHOSPHATE INJ 30 MMOL in SODIUM CHLOR 0.9% 250 ML INJ 250 ML IV PRN (17:30)
[2017-11-25] MEDS ORDERED: POTASSIUM CHLOR 40 MEQ PREMIX 100 ML IV PRN ×2 (17:30)
[2017-11-25] MEDS ORDERED: POTASSIUM CHLOR 20 MEQ PREMIX 100 ML IV PRN ×2 (17:30)
[2017-11-25] MEDS ORDERED: MAGNESIUM OXIDE 400 MG TAB PO PRN (17:30)
[2017-11-25] MEDS ORDERED: MAGNESIUM SULFATE INJ 2 GM in SODIUM CHLORIDE 0.9% INJ 96 ML IV PRN (17:30)
[2017-11-25] MEDS ORDERED: SODIUM PHOSPHATE INJ 30 MMOL in SODIUM CHLOR 0.9% 250 ML INJ 240 ML IV PRN (17:30)
[2017-11-25] MEDS ORDERED: POTASSIUM PHOSPHATE MONOBASIC 500 MG TAB PO PRN (17:30)
[2017-11-25] MEDS ORDERED: MAGNESIUM HYDROXIDE SUSP 30 ML CUP PO PRN (17:30)
[2017-11-25] MEDS ORDERED: POTASSIUM CHLORIDE 25 MEQ EFFERVESCENT TAB PO PRN (17:30)
[2017-11-25] MEDS ORDERED: MISCELLANEOUS NURSING INFORMATION XX SCH (17:30)
[2017-11-25] MEDS ORDERED: MAGNESIUM SULFATE INJ 4 GM in SODIUM CHLORIDE 0.9% INJ 92 ML IV PRN (17:30)
[2017-11-25] MEDS ORDERED: RESP: ALBUTEROL 2.5 MG/IPRATROPIUM 0.5 MG NEB (PRN) INH (17:30)
[2017-11-25] MEDS ORDERED: DEXTROSE 50% IN WATER 50 ML VIAL(D50) IV PUSH PRN (17:30)
[2017-11-25] MEDS ORDERED: ONDANSETRON HCL 4 MG/2 ML VIAL IV PUSH PRN (17:30)
[2017-11-25] MEDS ORDERED: POTASSIUM PHOSPHATE MONOBASIC 500 MG TAB PO/TUBE PRN (17:30)
[2017-11-25] MEDS ORDERED: CEFEPIME INJ 1,000 MG in SODIUM CHLORIDE 0.9% INJ 100 ML IV ONE (17:45)
[2017-11-25] MEDS ORDERED: FUROSEMIDE 40 MG/4 ML VIAL IV PUSH ONE ×2 (17:45→23:59)
[2017-11-25] MEDS ORDERED: AZITHROMYCIN INJ 500 MG in SODIUM CHLOR 0.9% 250 ML INJ 250 ML IV ONE (17:45)
--- NOTE | 2017-11-25 17:53 | RADRPT ---
EXAM DATE/TIME: 11/25/2017 17:10 [facility] COMPARISON: CHEST SINGLE AP, November 25, 2017, 15:28. INDICATIONS : Post intubation MEDICAL HISTORY : Hypertension. Myocardial infarction. Cholelithiasis SURGICAL HISTORY : None. ENCOUNTER: Subsequent ACUITY: 1 day PAIN SCORE: Non-responsive. LOCATION: Bilateral chest FINDINGS: ET tube is present with tip overlapping approximately 1 cm above the sandra. Cardiomegaly has not tien nged, however there is further progression of air space process bilaterally mainly in the right lung. CONCLUSION: Worsening airspace process probably worsening pulmonary edema. Karan Modi MD on November 25, 2017 at 17:50 Board Certified Radiologist. This report was verified electronically.
[2017-11-25] MEDS ORDERED: fentaNYL DRIP 250 ML IV PRN (18:00)
[2017-11-25] MEDS ORDERED: SODIUM CHLOR 0.9% 1000 ML INJ 1,000 ML IV SCH (18:00)
[2017-11-25] MEDS ORDERED: ATROPINE SULFATE 1 MG/ML VIAL ONE (18:21)
--- NOTE | 2017-11-25 19:36 | RADRPT ---
EXAM DATE/TIME: 11/25/2017 18:46 [facility] COMPARISON: CT BRAIN W/O CONTRAST, November 25, 2017, 15:17. INDICATIONS : CVA. MEDICAL HISTORY : Rheumatoid arthritis. Hypertension. SURGICAL HISTORY : Hysterectomy. Coronary artery stent. Tonsillectomy. ENCOUNTER: Initial ACUITY: 1 day PAIN SCORE: 0/10 LOCATION: cranial TECHNIQUE: Multiplanar, multisequence MRI of the brain was performed without contrast. FINDINGS: There is no evidence for intracranial hemorrhage, mass effect, mass lesions, edema, or extra-axial fl uid collections. There are no signs of acute infarction for technique. The diffusion portion is unre markable. Slight degree of brain atrophy is seen. Slight opacification of the mastoid air cells is id entified chronic in nature. CONCLUSION: Chronic atrophic changes without any evidence for acute hemorrhage or mass effect. Karan Modi MD on November 25, 2017 at 19:32 Board Certified Radiologist. This report was verified electronically.
--- NOTE | 2017-11-25 19:39 | RADRPT ---
EXAM DATE/TIME: 11/25/2017 18:46 [place] Corrected on: November 25, 2017; [facility] COMPARISON: No previous studies available for comparison. INDICATIONS : CVA. MEDICAL HISTORY : Hypertension. Rheumatoid arthritis. SURGICAL HISTORY : Hysterectomy. Coronary artery stent. Tonsillectomy. ENCOUNTER: Initial ACUITY: 1 day PAIN SCORE: 0/10 LOCATION: cranial Please note a normal MRA of the brain does not entirely exclude the possibility of a small aneurysm, nor the possibility of distal intracranial vessel disease. TECHNIQUE: 3D time of flight MRA was performed. Source images, multiplanar STS MIP, and 3D volume MIP reconstru ctions were reviewed. FINDINGS: There is excellent visualization of the major intracranial arteries out to the second-order branch ve ssels. There is no evidence for aneurysm, vessel truncation or stenosis, and no evidence for vascula r malformation. CONCLUSION: Normal examination. Karan Modi MD on November 25, 2017 at 19:45 Board Certified Radiologist. This report was verified electronically.
--- NOTE | 2017-11-25 19:46 | RADRPT ---
EXAM DATE/TIME: 11/25/2017 18:46 [facility] COMPARISON: MRA BRAIN W/O CONTRAST, November 25, 2017, 18:46. MRI BRAIN W/O CONTRAST, November 25, 2017, 18:46. INDICATIONS : CVA. CONTRAST: 20 cc Omniscan (gadodiamide) IV MEDICAL HISTORY : Rheumatoid arthritis. Hypertension. SURGICAL HISTORY : Coronary artery stent. Hysterectomy. Tonsillectomy. ENCOUNTER: Initial ACUITY: 1 day PAIN SCORE: 0/10 LOCATION: neck Percent stenosis is calculated using the diameter of the stenotic region over the diameter of the nor mal distal internal carotid artery. TECHNIQUE: Bolus infused MRA of the extracranial circulation was performed using a neurovascular coil. Post pro cessing was performed including rotating subvolume maximum intensity projections of each carotid benny ry, rotating full volume maximum intensity projections of both carotid arteries, sagittal and coronal sliding thin slab reformations of each carotid artery, and left oblique sliding thin slab reformatio n through the aortic arch to include the origin of the arch branch vessels. FINDINGS: AORTIC ARCH: There is a three vessel origin of the great vessels from the aorta. No evidence of ostial narrowing. RIGHT CAROTID: The common carotid artery is intact. The carotid bulb has a normal configuration without ulceration or narrowing. The internal carotid artery lumen is smooth without stenosis. The external carotid ar tejal is intact. LEFT CAROTID: The common carotid artery is intact. The carotid bulb has a normal configuration without ulceration or narrowing. The internal carotid artery lumen is smooth without stenosis. The external carotid ar tejal is intact. VERTEBRALS: The vertebral arteries have a symmetric diameter. No stenotic lesions are seen. CONCLUSION: Normal examination. Karan Modi MD on November 25, 2017 at 19:43 Board Certified Radiologist. This report was verified electronically.
[2017-11-25] MEDS: INSULIN NovoLIN REGULAR SUPPLEMENTAL SCALE SQ SCH ×2 (20:00→22:17)
[2017-11-25] MEDS: CHLORHEXIDINE 0.12% (ORAL KIT) 15 ML CUP MT SCH (21:25)
[2017-11-25] MEDS: DOCUSATE SODIUM 50 MG/SENNA 8.6 MG TAB PO SCH (21:26)
[2017-11-25] MEDS: FAMOTIDINE 20 MG/2 ML VIAL IV PUSH SCH (21:26)
[2017-11-25] MEDS ORDERED: ASPIRIN 81 MG CHEW TAB CHEW ONE (21:30)
[2017-11-25] MEDS: RESP: ALBUTEROL 2.5 MG/IPRATROPIUM 0.5 MG NEB (SCH) INH (21:44)
[2017-11-25 21:47] LABS: TROPONIN I 0.03 NG/ML (0.02-0.05)
[2017-11-25] MEDS ORDERED: POTASSIUM CHLORIDE 25 MEQ EFFERVESCENT TAB OG-TUBE ONE (22:00)
[2017-11-25] MEDS: ENOXAPARIN SODIUM 60 MG/0.6 ML SYRINGE SQ SCH (22:02)
[2017-11-25 22:25] LABS: MAGNESIUM 2.3 MG/DL (1.5-2.5)
[2017-11-25 22:42] LABS: FREE T4 1.06 NG/DL (0.76-1.46)
[2017-11-25] MEDS ORDERED: OSELTAMIVIR PHOSPHATE 6 MG/ML 60 ML SUSP OG-TUBE SCH (23:45)
[2017-11-26] VITALS (15 sets, daily range): BP systolic 99–143; BP diastolic 54–63; PULSE 39–54; RESP 15–27; TEMP 97.3–98.8; O2SAT 94–100
[2017-11-26] MEDS: OSELTAMIVIR PHOSPHATE 75 MG CAP OG-TUBE SCH ×3 (01:52→19:58)
[2017-11-26] MEDS: RESP: ALBUTEROL 2.5 MG/IPRATROPIUM 0.5 MG NEB (SCH) INH ×4 (03:07→19:47)
[2017-11-26] MEDS: CHLORHEXIDINE GLUCONATE 2 % 1 PACK (2 CLOTHS) TOP SCH (04:00)
--- NOTE | 2017-11-26 04:52 | RADRPT ---
EXAM DATE/TIME: 11/26/2017 03:49 [facility] COMPARISON: CHEST SINGLE AP, November 25, 2017, 17:10. INDICATIONS : Short of breath. MEDICAL HISTORY : Hypertension. Myocardial infarction. Cholelithiasis SURGICAL HISTORY : None. ENCOUNTER: Subsequent ACUITY: 2 days PAIN SCORE: 0/10 LOCATION: Bilateral chest FINDINGS: A single portable frontal view the chest shows an endotracheal tube with the tip 1 cm from the sandra . Nasogastric tube courses off the inferior margin of the film. Some worsening of bilateral intra-fahad eolar infiltrates most pronounced within the right base. No effusions. Significant cardiomegaly. CONCLUSION: Slight worsening of bilateral pulmonary infiltrates. Pete Kearney Jr., MD on November 26, 2017 at 4:49 Board Certified Radiologist. This report was verified electronically.
[2017-11-26] MEDS: INSULIN NovoLIN REGULAR SUPPLEMENTAL SCALE SQ SCH ×4 (05:25→23:59)
[2017-11-26 05:31] LABS: BICARBONATE 34.8 MEQ/L (21.0-32.0); CALCIUM 10.3 MG/DL (8.5-10.1); CREATININE 0.93 MG/DL (0.50-1.00)
[2017-11-26 05:35] LABS: TROPONIN I 0.04 NG/ML (0.02-0.05)
[2017-11-26 08:09] LABS: HEMATOCRIT 36.5 % (35.0-46.0); HEMOGLOBIN 12.2 GM/DL (11.6-15.3); MEAN CELL VOLUME 87.9 FL (80.0-100.0); MEAN CORPUSCULAR HEMOGLOBIN 29.3 PG (27.0-34.0); MEAN CORPUSCULAR HGB CONC 33.3 % (32.0-36.0); MEAN PLATELET VOLUME 10.2 FL (7.0-11.0); PLATELET COUNT 145 TH/MM3 (150-450); RED BLOOD COUNT 4.15 MIL/MM3 (4.00-5.30); WHITE BLOOD COUNT 8.4 TH/MM3 (4.0-11.0)
[2017-11-26] MEDS: CLOPIDOGREL 75 MG TAB PO SCH (08:40)
[2017-11-26] MEDS: DOCUSATE SODIUM 50 MG/SENNA 8.6 MG TAB PO SCH ×2 (08:40→19:59)
[2017-11-26] MEDS: CHLORHEXIDINE 0.12% (ORAL KIT) 15 ML CUP MT SCH ×2 (08:41→19:57)
[2017-11-26] MEDS: FAMOTIDINE 20 MG/2 ML VIAL IV PUSH SCH ×2 (08:41→19:58)
[2017-11-26] MEDS: FREE WATER G-TUBE SCH ×2 (16:58→19:59)
[2017-11-26] MEDS ORDERED: FUROSEMIDE 40 MG/4 ML VIAL IV PUSH ONE (17:00)
--- NOTE | 2017-11-26 17:55 | EKG ---
Date Performed: 11/25/2017 Time Performed: 15:08:17 PTAGE: 82 years EKG: SUPRAVENTRICULAR BRADYCARDIA MARKED RIGHT AXIS DEVIATION POSSIBLE ANTERIOR MYOCARDIAL INFAR CTION ABNORMAL ECG PREVIOUS TRACING 11/05/2017 @ 16.02.02 Compared to prior tracing no significant change DOCTOR: Edna Landers Interpretating Date/Time 11/26/2017 17:54:03
--- NOTE | 2017-11-26 19:09 | HHI.CCPN ---
Subjective Remarks/Hospital Course Hospital Course: This is an 82-year-old female who has history of a prior [place] back in 2016 as well as chronic orthopedic problems of her left shoulder as well as a non-'s healing wound on her left foot who was last seen normal on Saturday. Her reports that on Saturday she was lethargic and difficult to arouse and laid in bed all day. Today he reports that she was nearly unarousable and difficult to get into a wheelchair. He called 911 and EMS brought the patient in. Upon arrival to the emergency department, the patient was hypoxic with SPO2 in the low 80s on room air. ABG done in the emergency department had a pH of 7.24, PCO2 79, PO2 64. She was emergently intubated for declining mental status. Chest x-ray shows bilateral pulmonary opacities which are concerning for pulmonary edema. In addition she has significant sinus bradycardia although this is hemodynamically stable. CT brain was negative for acute bleed. Due to her significant altered mental status, MRI, MRA, MRV were done without significant abnormality. Unfortunately no definite information is available from the patient due to her altered mental status and intubation. ROS is unobtainable. I did talk to her who denies her having any recent changes in medical status, no fevers, no chills, no chest pain, shortness breath, nausea, vomiting, diarrhea, or any other symptoms that concerned him, and he states that she was in her usual state of health up until Saturday. Subjective: 11/26: flu+. also with chf and elevated bnp. diuresed successfully overnight. abg improving. hypoxia improving. following commands. remainder of neuro workup negative. Objective Vital Signs Date Time Temp Pulse Resp B/P (MAP) Pulse Ox O2 Delivery O2 Flow Rate FiO2 11/26/17 18:00 50 11/26/17 17:30 Nasal Cannula 4 11/26/17 17:30 96 11/26/17 16:00 98.8 25 115/56 (75) 11/26/17 16:00 40 Intake and Output 11/26/17 11/26/17 11/27/17 08:00 16:00 00:00 Intake Total 39 ml 125 ml Output Total 4550 ml 400 ml Balance -4511 ml -275 ml Result Diagram: 11/26/17 0737 11/26/17 0445 Other Results Microbiology Date/Time Source Procedure Growth Status 11/25/17 20:00 Nasal Aspirate Influenza Types A,B Antigen ([place]) - Final Positive For Flu A Antigen Complete 11/25/17 21:45 Urine Catheterized Urine Legionella Antigen - Final PRESUMPTIVE NEGATIVE FOR LEGIONELLA P... Complete Laboratory Tests Test 11/25/17 21:30 Blood Gas Puncture Site RT RADIAL Blood Gas Patient Temperature 98.6 Blood Gas HCO3 31 mmol/L (22-26) Blood Gas Base Excess 6.9 mmol/L (-2-2) Blood Gas Oxygen Saturation 94 % (90-100) Arterial Blood pH 7.42 (7.380-7.420) Arterial Blood Partial Pressure CO2 49 mmHg (38-42) Arterial Blood Partial Pressure O2 79 mmHg (61-120) Arterial Blood Oxygen Content 16.5 Vol % (12.0-20.0) Arterial Blood Carboxyhemoglobin 1.2 % (0-4) Arterial Blood Methemoglobin 1.1 % (0-2) Blood Gas Hemoglobin 12.5 G/DL (12.0-16.0) Oxygen Delivery Device VENTILATOR Blood Gas Ventilator Setting AC15/500/5PEEP/40% Blood Gas Inspired Oxygen 40 % Imaging Last Impressions Head CT 11/25/17 1448 Signed Impressions: Service Date/Time: Saturday, November 25, 2017 15:17 - CONCLUSION: Slight atrophic and small vessel ischemic changes without any evidence for acute hemorrhage or mass effect. Karan Modi MD Chest X-Ray 11/25/17 1448 Signed Impressions: Service Date/Time: Saturday, November 25, 2017 15:28 - CONCLUSION: Worsening pulmonary edema. Karan Modi MD Neck Magnetic Resonance Angiography 11/25/17 0000 Signed Impressions: Service Date/Time: Saturday, November 25, 2017 18:46 - CONCLUSION: Normal examination. Karan Modi MD Head Magnetic Resonance Angiography 11/25/17 0000 Signed Impressions: Service Date/Time: Saturday, November 25, 2017 18:46 - CONCLUSION: Normal examination. Karan Modi MD Brain MRI 11/25/17 0000 Signed Impressions: Service Date/Time: Saturday, November 25, 2017 18:46 - CONCLUSION: Chronic atrophic changes without any evidence for acute hemorrhage or mass effect. Karan Modi MD Objective Remarks GENERAL: Elderly female, obese, lying in bed, acutely ill, intubated HEENT: Normocephalic. Atraumatic. Pupils equal, round, reactive, conjugate. Mucous membranes are moist NECK: Trachea is midline. No JVD. CHEST: Chest rise. Bilateral coarse rales improving. FiO2 40% CARDIOVASCULAR: Bradycardic rate, appears regular rhythm. Heart rate in the 50s. ABDOMEN: Obese, Soft, nontender, nondistended. No guarding. MUSCULOSKELETAL: Pulses 2+. 1+ pitting edema peripherally. NEUROLOGICAL: RASS -2. follows commands intermittently. A/P Assessment and Plan Assessment: 82-year-old female with Influenza pneumonia and CHF exacerbation and associated hypoxic respiratory failure. remains critically ill, hypoxic, and with multiple organ dysfunction. not improving and off pathway. Active problems: Acute encephalopathy- improving Acute hypoxic and hypercarbic respiratory failure Pulmonary edema- acute congestive heart failure exacerbation- unknown type Acute bradycardia- improving Influenza pneumonia Plan: remain in ICU Frequent neuro checks Avoid long-acting sedating meds Fentanyl IV for sedation Wean FiO2 for goal SPO2 greater than 90% start daily sbt's Vent bundle Head of bed at 30 Nebs 2-D echo still pending. Lasix 40 MG IV 1 Diamox 500mg iv x 1. start tube feeds. ICU electrolyte protocol Daily BMP, CBC Sliding scale insulin, medium scale, every 6 Subcutaneous heparin, SCDs, IV Pepcid Tamiflu This patient remains critically ill with one or more organ systems which are or may become a threat to life. I have spent in excess of 31 minutes discontinuously in the care and management of this patient. This time is exclusive of procedures, and includes, but is not limited to, evaluation of the patient, review of the medical record, discussions with family, consultants, nursing staff, or respiratory therapy, and documentation in the medical record. Jose Daniel Dawson MD Nov 26, 2017 19:09
[2017-11-26] MEDS: ATORVASTATIN 10 MG TAB PO SCH (19:58)
[2017-11-26] MEDS: ENOXAPARIN SODIUM 60 MG/0.6 ML SYRINGE SQ SCH (21:34)
[2017-11-27] VITALS (10 sets, daily range): BP systolic 117–148; BP diastolic 58–89; PULSE 49–77; RESP 9–32; TEMP 97.5–98.3; O2SAT 93–100
[2017-11-27] MEDS: RESP: ALBUTEROL 2.5 MG/IPRATROPIUM 0.5 MG NEB (SCH) INH ×2 (02:52→07:53)
[2017-11-27] MEDS: CHLORHEXIDINE GLUCONATE 2 % 1 PACK (2 CLOTHS) TOP SCH (04:00)
[2017-11-27 05:19] LABS: HEMATOCRIT 37.5 % (35.0-46.0); HEMOGLOBIN 12.4 GM/DL (11.6-15.3); MEAN CELL VOLUME 88.2 FL (80.0-100.0); MEAN CORPUSCULAR HEMOGLOBIN 29.2 PG (27.0-34.0); MEAN CORPUSCULAR HGB CONC 33.1 % (32.0-36.0); MEAN PLATELET VOLUME 10.8 FL (7.0-11.0); PLATELET COUNT 145 TH/MM3 (150-450); RED BLOOD COUNT 4.25 MIL/MM3 (4.00-5.30); RED CELL DISTRIBUTION WIDTH 15.9 % (11.6-17.2); WHITE BLOOD COUNT 7.1 TH/MM3 (4.0-11.0)
[2017-11-27 05:40] LABS: BICARBONATE 36.7 MEQ/L (21.0-32.0); CALCIUM 9.5 MG/DL (8.5-10.1); CREATININE 0.92 MG/DL (0.50-1.00)
[2017-11-27] MEDS: INSULIN NovoLIN REGULAR SUPPLEMENTAL SCALE SQ SCH ×3 (06:00→21:00)
[2017-11-27] MEDS: FREE WATER G-TUBE SCH (06:00)
[2017-11-27] MEDS ORDERED: POTASSIUM CHLORIDE 25 MEQ EFFERVESCENT TAB PO ONE (07:30)
[2017-11-27] MEDS ORDERED: MAGNESIUM SULFATE 4 GM PREMIX 100 ML IV ONE (07:30)
--- NOTE | 2017-11-27 07:30 | HHI.CCPN ---
Subjective Remarks/Hospital Course Hospital Course: This is an 82-year-old female who has history of a prior AK back in 2016 as well as chronic orthopedic problems of her left shoulder as well as a non-'s healing wound on her left foot who was last seen normal on Saturday. Her reports that on Saturday she was lethargic and difficult to arouse and laid in bed all day. Today he reports that she was nearly unarousable and difficult to get into a wheelchair. He called 911 and EMS brought the patient in. Upon arrival to the emergency department, the patient was hypoxic with SPO2 in the low 80s on room air. ABG done in the emergency department had a pH of 7.24, PCO2 79, PO2 64. She was emergently intubated for declining mental status. Chest x-ray shows bilateral pulmonary opacities which are concerning for pulmonary edema. In addition she has significant sinus bradycardia although this is hemodynamically stable. CT brain was negative for acute bleed. Due to her significant altered mental status, MRI, MRA, MRV were done without significant abnormality. Unfortunately no definite information is available from the patient due to her altered mental status and intubation. ROS is unobtainable. I did talk to her who denies her having any recent changes in medical status, no fevers, no chills, no chest pain, shortness breath, nausea, vomiting, diarrhea, or any other symptoms that concerned him, and he states that she was in her usual state of health up until Saturday. Subjective: 1: flu+. also with chf and elevated bnp. diuresed successfully overnight. abg improving. hypoxia improving. following commands. remainder of neuro workup negative. 11/27: self-extubated overnight. on 3L nc. doing well. good diuresis yesterday. hypokalemia with small run of v. tach this AM. ordered K and Mg replacements. passed nursing bedside swallow eval. Objective Vital Signs Date Time Temp Pulse Resp B/P (MAP) Pulse Ox O2 Delivery O2 Flow Rate FiO2 11/27/17 04:00 98.1 52 9 117/61 (79) 96 11/27/17 02:52 Nasal Cannula 4.00 11/26/17 16:00 40 Intake and Output 11/27/17 11/27/17 11/27/17 07:59 15:59 23:59 Intake Total 0 ml Output Total 950 ml Balance -950 ml Result Diagram: 11/27/17 0346 11/27/17 0346 Other Results Microbiology Date/Time Source Procedure Growth Status 11/25/17 20:00 Nasal Aspirate Influenza Types A,B Antigen ([facility]) - Final Positive For Flu A Antigen Complete 11/25/17 21:45 Urine Catheterized Urine Legionella Antigen - Final PRESUMPTIVE NEGATIVE FOR LEGIONELLA P... Complete Imaging Last Impressions Head CT 11/25/17 1448 Signed Impressions: Service Date/Time: Saturday, November 25, 2017 15:17 - CONCLUSION: Slight atrophic and small vessel ischemic changes without any evidence for acute hemorrhage or mass effect. Karan Modi MD Chest X-Ray 11/25/17 1448 Signed Impressions: Service Date/Time: Saturday, November 25, 2017 15:28 - CONCLUSION: Worsening pulmonary edema. Karan Modi MD Neck Magnetic Resonance Angiography 11/25/17 0000 Signed Impressions: Service Date/Time: Saturday, November 25, 2017 18:46 - CONCLUSION: Normal examination. Karan Modi MD Head Magnetic Resonance Angiography 11/25/17 0000 Signed Impressions: Service Date/Time: Saturday, November 25, 2017 18:46 - CONCLUSION: Normal examination. Karan Modi MD Brain MRI 11/25/17 0000 Signed Impressions: Service Date/Time: Saturday, November 25, 2017 18:46 - CONCLUSION: Chronic atrophic changes without any evidence for acute hemorrhage or mass effect. Karan Modi MD Objective Remarks GENERAL: Elderly female, obese, sitting in bed, no acute distress. HEENT: Normocephalic. Atraumatic. Pupils equal, round, reactive, conjugate. Mucous membranes are moist NECK: Trachea is midline. No JVD. CHEST: nc o2. equal chest rise. unlabored. CARDIOVASCULAR: normal rate, regular rhythm. sinus by tele. ABDOMEN: Obese, Soft, nontender, nondistended. No guarding. MUSCULOSKELETAL: Pulses 2+. 1+ pitting edema peripherally. NEUROLOGICAL: RASS 0. follows commands. A/P Assessment and Plan Assessment: 82-year-old female with Influenza pneumonia and CHF exacerbation and associated hypoxic respiratory failure. now improving. replacing electrolytes. advance diet. PT consult. OOB. aggressive pulmonary toilet. continue Tamiflu. Active problems: Acute encephalopathy- resolved. Acute hypoxic and hypercarbic respiratory failure - improving. Pulmonary edema- acute, improving. congestive heart failure exacerbation- unknown type Acute bradycardia- resolved. Influenza pneumonia Hypokalemia with frequent PVCs/short run of v. Tach Contraction metabolic alkalosis Plan: advance diet PT consult OOB aggressive pulmonary toilet. wean o2 by nc for goal spo2 > 90% kcl 50meq PO + 60 meq iv magnesium sulfate 4gm iv recheck electrolytes diamox 500mg iv q8h x 3 doses may need further diuresis, but will hold pending electrolyte replacement continue tele. Nebs 2-D echo still pending. Daily BMP, CBC Sliding scale insulin, medium scale, every 6 Subcutaneous heparin, SCDs Tamiflu If remains stable throughout the morning without further dysrhythmias, can transfer out of ICU. will consult hospitalist service for ongoing management. Jose Daniel Dawson MD Nov 27, 2017 07:30
[2017-11-27] MEDS: CHLORHEXIDINE 0.12% (ORAL KIT) 15 ML CUP MT SCH ×2 (07:52→20:00)
[2017-11-27] MEDS: CLOPIDOGREL 75 MG TAB PO SCH (07:54)
[2017-11-27] MEDS: OSELTAMIVIR PHOSPHATE 75 MG CAP OG-TUBE SCH ×2 (07:54→20:39)
[2017-11-27] MEDS: DOCUSATE SODIUM 50 MG/SENNA 8.6 MG TAB PO SCH ×2 (07:54→20:40)
[2017-11-27] MEDS: FAMOTIDINE 20 MG/2 ML VIAL IV PUSH SCH ×2 (07:54→20:39)
[2017-11-27] MEDS: SODIUM CHLORIDE 0.9% FLUSH 10 ML FLUSH IV FLUSH PRN (07:55)
[2017-11-27] MEDS ORDERED: MAGNESIUM SULFATE INJ 4 GM in SODIUM CHLORIDE 0.9% INJ 92 ML IV ONE (08:15)
[2017-11-27] MEDS: POTASSIUM CHLOR 20 MEQ PREMIX 100 ML IV SCH ×3 (08:27→12:11)
--- NOTE | 2017-11-27 13:14 | ECHRPT ---
Indication: HEART FAILURE CONCLUSIONS The left ventricular systolic function is low normal with an estimated ejection fraction in the rang e of 50- 55%. Normal left ventricular size. Moderate concentric left ventricular hypertrophy. No regional wall motion abnormalities are present. Mild thickening of the mitral valve leaflets. Trace mitral valve regurgitation. Mild mitral annular calcification. Aortic valve sclerosis is present. Mild pulmonary valve regurgitation. BP: 114 / 54 HR: 39 Rhythm: Atrial fibrillation MEASUREMENTS (Male / Female) Normal Values Technical Quality:Fair 2D ECHO LV Diastolic Diameter PLAX 3.6 cm 4.2 - 5.9 / 3.9 - 5.3 cm LV Systolic Diameter PLAX 2.5 cm IVS Diastolic Thickness 1.7 cm 0.6 - 1.0 / 0.6 - 0.9 cm LVPW Diastolic Thickness 1.7 cm 0.6 - 1.0 / 0.6 - 0.9 cm LV Relative Wall Thickness 0.9 RV Internal Dim ED PLAX 2.6 cm LVOT Diameter 1.9 cm LV Ejection Fraction MOD 4C 52.9 % LV Cardiac Index MOD 4C 590.5 cm/minm LV Ejection Fraction 4C AL 57.9 % LV Cardiac Index 4C AL 664.3 cm/minm M-MODE Aortic Root Diameter MM 3.2 cm LA Systolic Diameter MM 3.7 cm LA Ao Ratio MM 1.2 AV Cusp Separation MM 2.0 cm DOPPLER AV Peak Velocity 166.0 cm/s AV Peak Gradient 11.0 mmHg LVOT Peak Velocity 110.0 cm/s LVOT Peak Gradient 4.8 mmHg AV Area Cont Eq pk 1.9 cm MV Area PHT 2.9 cm LV E' Lateral Velocity 7.4 cm/s LV E' Septal Velocity 3.5 cm/s PV Peak Velocity 136.0 cm/s PV Peak Gradient 7.4 mmHg FINDINGS LEFT VENTRICLE The left ventricular systolic function is low normal with an estimated ejection fraction in the rang e of 50- 55%. Normal left ventricular size. Moderate concentric left ventricular hypertrophy. No regional wall motion abnormalities are present. RIGHT VENTRICLE Normal right ventricular size and systolic function. LEFT ATRIUM The left atrial size is normal. RIGHT ATRIUM The right atrial size is normal. ATRIAL SEPTUM Normal atrial septal thickness without atrial level shunting by limited color doppler interrogation. AORTA The aortic root and proximal ascending aorta are normal in size on limited imaging. MITRAL VALVE Mild thickening of the mitral valve leaflets. Trace mitral valve regurgitation. Mild mitral annular calcification. AORTIC VALVE Trileaflet aortic valve. Aortic valve sclerosis is present. TRICUSPID VALVE Structurally normal tricuspid valve. No tricuspid valve stenosis or regurgitation. PULMONARY VALVE Mild pulmonary valve regurgitation. VESSELS The inferior vena cava is normal in size. PERICARDIUM No pericardial effusion. Ubaldo Pearl MD (Electronically Signed) Final Date:27 November 2017 13:13
[2017-11-27] MEDS: ENOXAPARIN SODIUM 60 MG/0.6 ML SYRINGE SQ SCH (20:40)
[2017-11-27] MEDS: ATORVASTATIN 10 MG TAB PO SCH (20:40)
[2017-11-28] VITALS (12 sets, daily range): BP systolic 125–149; BP diastolic 58–87; PULSE 55–69; RESP 16–23; TEMP 97.8–98.8; O2SAT 93–100
[2017-11-28] MEDS: CHLORHEXIDINE GLUCONATE 2 % 1 PACK (2 CLOTHS) TOP SCH (04:00)
[2017-11-28 04:52] LABS: BICARBONATE 32.7 MEQ/L (21.0-32.0); CALCIUM 9.3 MG/DL (8.5-10.1); CREATININE 0.76 MG/DL (0.50-1.00)
[2017-11-28 04:56] LABS: HEMATOCRIT 39.4 % (35.0-46.0); HEMOGLOBIN 12.6 GM/DL (11.6-15.3); MEAN CELL VOLUME 89.8 FL (80.0-100.0); MEAN CORPUSCULAR HEMOGLOBIN 28.8 PG (27.0-34.0); MEAN CORPUSCULAR HGB CONC 32.1 % (32.0-36.0); MEAN PLATELET VOLUME 10.6 FL (7.0-11.0); PLATELET COUNT 137 TH/MM3 (150-450); RED BLOOD COUNT 4.38 MIL/MM3 (4.00-5.30); RED CELL DISTRIBUTION WIDTH 16.4 % (11.6-17.2); WHITE BLOOD COUNT 6.2 TH/MM3 (4.0-11.0)
[2017-11-28] MEDS: INSULIN NovoLIN REGULAR SUPPLEMENTAL SCALE SQ SCH ×2 (06:00)
[2017-11-28] MEDS: CHLORHEXIDINE 0.12% (ORAL KIT) 15 ML CUP MT SCH ×2 (08:00→21:10)
[2017-11-28] MEDS: CLOPIDOGREL 75 MG TAB PO SCH (08:56)
[2017-11-28] MEDS: DOCUSATE SODIUM 50 MG/SENNA 8.6 MG TAB PO SCH ×2 (08:56→21:03)
[2017-11-28] MEDS: OSELTAMIVIR PHOSPHATE 75 MG CAP OG-TUBE SCH ×2 (08:56→21:03)
[2017-11-28] MEDS: SODIUM CHLORIDE 0.9% FLUSH 10 ML FLUSH IV FLUSH PRN (08:57)
[2017-11-28] MEDS: FAMOTIDINE 20 MG/2 ML VIAL IV PUSH SCH ×2 (08:57→21:09)
--- NOTE | 2017-11-28 09:54 | HHI.PR ---
Subjective Remarks The patient appeared comfortable. She had no acute complaints. Her was at the bedside and seemed interested in hospice services. He said the patient has been quite difficult to take care of at home prior to getting sick. Discussed with nursing. Objective Vitals Vital Signs Date Time Temp Pulse Resp B/P (MAP) Pulse Ox O2 Delivery O2 Flow Rate FiO2 11/28/17 09:09 98.6 67 16 125/63 (83) 98 11/28/17 05:45 98.8 69 23 134/84 (101) 96 11/28/17 00:00 97.9 68 21 130/75 (93) 98 11/27/17 21:00 98.1 70 20 133/80 (97) 100 11/27/17 19:30 98 Simple Mask 6.00 11/27/17 19:03 97.5 73 22 136/89 (105) 93 11/27/17 16:00 97.6 76 32 148/73 (98) 94 11/27/17 12:00 97.9 77 29 118/63 (81) 96 I/O 11/27/17 11/27/17 11/27/17 11/28/17 11/28/17 11/28/17 07:00 15:00 23:00 07:00 15:00 23:00 Intake Total 0 ml 400 ml 600 ml 100 ml Output Total 950 ml 525 ml 400 ml Balance -950 ml 400 ml 75 ml -300 ml Intake Oral 0 ml 600 ml 100 ml IV Total 400 ml Output Urine Total 950 ml 525 ml 400 ml # Bowel Movements 0 0 0 Result Diagram: 11/28/17 0356 11/28/17 0356 Imaging Last Impressions Chest X-Ray 11/26/17 0600 Signed Impressions: Service Date/Time: Sunday, November 26, 2017 03:49 - CONCLUSION: Slight worsening of bilateral pulmonary infiltrates. Pete Kearney Jr., MD Head CT 11/25/17 1448 Signed Impressions: Service Date/Time: Saturday, November 25, 2017 15:17 - CONCLUSION: Slight atrophic and small vessel ischemic changes without any evidence for acute hemorrhage or mass effect. Karan Modi MD Neck Magnetic Resonance Angiography 11/25/17 0000 Signed Impressions: Service Date/Time: Saturday, November 25, 2017 18:46 - CONCLUSION: Normal examination. Karan Modi MD Head Magnetic Resonance Angiography 11/25/17 0000 Signed Impressions: Service Date/Time: Saturday, November 25, 2017 18:46 - CONCLUSION: Normal examination. Karan Modi MD Brain MRI 11/25/17 0000 Signed Impressions: Service Date/Time: Saturday, November 25, 2017 18:46 - CONCLUSION: Chronic atrophic changes without any evidence for acute hemorrhage or mass effect. Karan Modi MD Objective Remarks GENERAL: Elderly female in no acute distress. HEENT: Normocephalic. Atraumatic. Pupils equal, round, reactive, conjugate. Mucous membranes are moist NECK: Trachea is midline. No JVD. CHEST: Decreased breath sounds. CARDIOVASCULAR: normal rate, regular rhythm. ABDOMEN: Obese, Soft, nontender, nondistended. No guarding. MUSCULOSKELETAL: Pulses 2+. 1+ pitting edema peripherally. NEUROLOGICAL: Awake and alert. Follows commands. Procedures Intubation Medications and IVs Current Medications Medications (Trade) Dose Ordered Sig/Rodri Route Start Time Stop Time Status Last Admin (NS Flush) 2 ml UNSCH PRN IV FLUSH 11/25/17 15:00 11/28/17 08:57 (Peridex 0.12% Liq) 15 ml BID@08,20 MT 11/25/17 20:00 11/26/17 08:41 (D50w (Vial) Inj) 25 ml UNSCH PRN IV PUSH 11/25/17 17:30 (NovoLIN R SUPPLEMENTAL SCALE) 1 Q6HR SQ 11/25/17 18:00 (Duoneb Neb) 1 ampule Q2HR NEB PRN INH 11/25/17 17:30 (Pepcid Inj) 20 mg Q12HR IV PUSH 11/25/17 21:00 11/28/17 08:57 (Zofran Inj) 4 mg Q6H PRN IV PUSH 11/25/17 17:30 Miscellaneous Information 1 Q361D XX 11/25/17 17:30 11/25/17 20:00 (Chlorhexidine 2% Cloth) 3 pack Taper DAILY@04 TOP 11/26/17 04:00 11/22/18 03:59 11/27/17 04:00 (Chlorhexidine 2% Cloth) 3 pack UNSCH PRN TOP 11/25/17 17:30 (Kami-Colace) 1 tab BID PO 11/25/17 21:00 11/28/17 08:56 (Milk Of Magnesia Liq) 30 ml Q12H PRN PO 11/25/17 17:30 (Lipitor) 10 mg HS PO 11/26/17 21:00 11/27/17 20:40 (Plavix) 75 mg DAILY PO 11/26/17 09:00 11/28/17 08:56 (Lovenox Inj) 50 mg Q24H SQ 11/25/17 22:00 11/27/17 20:40 (Tamiflu) 75 mg BID OG-TUBE 11/25/17 23:50 11/28/17 08:56 A/P Assessment and Plan Acute hypoxic and hypercarbic respiratory failure/ Acute diastolic CHF The pt had worsening bilateral infiltrates and pulmonary edema. The pt is Flu positive. She was intubated and self-extubated. Repeat ABG with elevated PCO2. Repeat chest x-ray with parenchymal changes indicating vascular congestion. Echocardiogram with ejection fraction 50-55%. - Resume BiPAP. May need to transfer back to intensive care unit. - Diuresis with IV Lasix. - nebs. - Continue Tamiflu. - aggressive pulmonary toilet. Acute encephalopathy The pt continues to act confused. Secondary to elevated CO2 level. - PT/ OT. - neuro checks. - treatment as above. Bradycardia With frequent PVCs/short run of v. Tach. Seems resolved. - hold Coreg. - replete electrolytes and monitor. - telemetry. Contraction metabolic alkalosis Improving. - s/p Diamox 500mg iv q8h x 3 doses. - Monitor BMP while diuresing. Goals of care The patient's seems interested in hospice services. - Palliative care consult requested. PPx: Subcutaneous heparin, SCDs Discharge Planning Palliative care consult requested Trevon Steele DO Nov 28, 2017 09:54
[2017-11-28] MEDS ORDERED: POTASSIUM CHLORIDE 25 MEQ EFFERVESCENT TAB PO ONE (10:00)
--- NOTE | 2017-11-28 10:33 | RADRPT ---
EXAM DATE/TIME: 11/28/2017 09:59 [facility] COMPARISON: CHEST SINGLE AP, October 11, 2016, 23:40. CHEST SINGLE AP, November 26, 2017, 3:49. INDICATIONS : Short of breath. MEDICAL HISTORY : Rheumatoid arthritis. Hypertension. SURGICAL HISTORY : Hysterectomy. Coronary artery stent. Tonsillectomy. ENCOUNTER: Subsequent ACUITY: 3 days PAIN SCORE: 0/10 LOCATION: Bilateral chest FINDINGS: The heart is enlarged. There is prominence of the pulmonary circulation bilaterally suggesting pulmon piter artery hypertension. There is diffuse interstitial prominence and small effusions suggesting stephen estive failure. The patient has been extubated since previous of 11/26/17. The overall appearance of t he pulmonary parenchyma has improved since that time. CONCLUSION: 1. Cardiomegaly with pleural-parenchymal changes as above. The appearance of the parenchyma has impro demarco since previous exam. Jackson Ware MD on November 28, 2017 at 10:29 Board Certified Radiologist. This report was verified electronically.
[2017-11-28] MEDS ORDERED: FUROSEMIDE 40 MG/4 ML VIAL IV PUSH ONE (11:00)
--- NOTE | 2017-11-28 12:00 | PD.CONS ---
Consult Service Palliative Care . Consult Requested By Dr. Steele . Primary Care Physician Santiago Sethi DO . Reason for Consultation a. To assist with evaluation and management of symptoms including: dyspnea, debility b. To assist medical decision maker(s) with: better understanding of current medical conditions; weighing benefits/burdens of medical treatment options; making medical treatment decisions. HPI History of Present Illness Ms. Villarreal is an 82 year old female with arthritis, atrial fibrillation, prior [place] in 2016, high cholesterol, nonhealing wound on left foot CAD, hypertension and migraines who presented to [facility] ED on 11/25/2017 for evaluation of altered mental status. Patient was last seen normal the morning before. Family reported the patient slept most of the day Saturday and Saturday, and when they attempt to wake her they noted her altered mental status and possible facial droop. EMS reports the patient was hypoxic upon their arrival with oxygen saturations in the low 80s on room air. Patient was placed on a non-rebreather and her oxygen saturations increased into the 90s. ABG done in the emergency department had a pH of 7.24, PCO2 79, PO2 64. She was emergently intubated for declining mental status. Chest x-ray shows bilateral pulmonary opacities which are concerning for pulmonary edema. In addition she has significant sinus bradycardia although this is hemodynamically stable. CT brain was negative for acute bleed. Due to her significant altered mental status, MRI, MRA, MRV were done without significant abnormality. + Influenza; additionally CHF exacerbation with elevated BNP. Patient was diuresed overnight, hypoxia is improving. Patient self-extubated overnight on 11/27/2017; oxygen saturation stable on 3 L via nasal cannula. Patient is hypokalemic having dysrhythmias in the a.m, receiving electrolyte replacements. Patient transferred to the floor; spouse verbalizing concerns has had an ongoing decline and is becoming difficult to care for. Palliative Care was consulted to assist with symptom management and to discuss with the family the benefits and burdens of her current illnesses and the options regarding future care. . Function/Cognitive Trajectory Patient lives with her , Brady who reports the patient has been nonambulatory for 4 years and requires moderate to maximum assist to transfer. Requiring increased assistance. He reported she has had increased confusion over the past 2-3 months and requiring more assistance with ADLs. The patient has had 2 falls in the past year, rolling out of bed and when attempting to stand to transfer. Patient's reporting the patient has been having an ongoing decline. 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 Past Medical History Left shoulder arthritis Atrial fibrillation Rheumatoid arthritis Prior [place] in 2016 High cholesterol Coronary artery disease Urinary incontinence Hypertension Migraines . Past Surgical History Hysterectomy Tonsillectomy Bilateral cataracts Coronary stents . Reported Medications Plavix (Clopidogrel Bisulfate) 75 Mg Tab 75 Mg PO DAILY 30 Days Melatonin 5 Mg Tab 5 Mg PO HS Atorvastatin (Atorvastatin Calcium) 10 Mg Tab 10 Mg PO HS Carvedilol 3.125 Mg Tab 3.125 Mg PO BID Osteo Bi-Flex One A Day (Ermvvnlkq-Idiubsiqatg-Hliwqer) 1 Tab 1 Tab PO DAILY Coq-10 (Coenzyme Q10 (Ubidecarenone)) 50 Mg Cap 50 Cap PO DAILY Losartan (Losartan Potassium) 100 Mg Tab 100 Mg PO DAILY . Current Medications Medications (Trade) Dose Ordered Sig/Rodri Route Start Time Stop Time Status Last Admin (NS Flush) 2 ml UNSCH PRN IV FLUSH 11/25/17 15:00 11/28/17 08:57 (Peridex 0.12% Liq) 15 ml BID@08,20 MT 11/25/17 20:00 11/28/17 08:00 (D50w (Vial) Inj) 25 ml UNSCH PRN IV PUSH 11/25/17 17:30 (Duoneb Neb) 1 ampule Q2HR NEB PRN INH 11/25/17 17:30 (Pepcid Inj) 20 mg Q12HR IV PUSH 11/25/17 21:00 11/28/17 08:57 (Zofran Inj) 4 mg Q6H PRN IV PUSH 11/25/17 17:30 Miscellaneous Information 1 Q361D XX 11/25/17 17:30 11/25/17 20:00 (Chlorhexidine 2% Cloth) 3 pack Taper DAILY@04 TOP 11/26/17 04:00 11/22/18 03:59 11/27/17 04:00 (Chlorhexidine 2% Cloth) 3 pack UNSCH PRN TOP 11/25/17 17:30 (Kami-Colace) 1 tab BID PO 11/25/17 21:00 11/28/17 08:56 (Milk Of Magnesia Liq) 30 ml Q12H PRN PO 11/25/17 17:30 (Lipitor) 10 mg HS PO 11/26/17 21:00 11/27/17 20:40 (Plavix) 75 mg DAILY PO 11/26/17 09:00 11/28/17 08:56 (Lovenox Inj) 50 mg Q24H SQ 11/25/17 22:00 11/27/17 20:40 (Tamiflu) 75 mg BID OG-TUBE 11/25/17 23:50 11/28/17 08:56 (Lasix Inj) 20 mg BID@ IV PUSH 11/28/17 18:00 . Family History Pending further conversation with family . Substance Use Tobacco: None known Alcohol: None known Prescription med abuse: None known Illicits: None known . Psychosocial History Pending conversation with family. . Spiritual/Cultural Factors [employer] [facility] . Documented care wishes: No documented care wishes are available at this time. . Today's verbally stated goals: Patient having increasing respiratory distress, placed on BiPAP with limited insight/judgment of her current clinical conditions and some confusion. Unable to verbalize medical treatment goals at this time. . Family/friends goals: Pending conversation with family . Ethical and Legal Issues No known ethical and legal issues impacting care at this time. . Physical Exam Vital Signs Date Time Temp Pulse Resp B/P (MAP) Pulse Ox O2 Delivery O2 Flow Rate FiO2 11/28/17 09:09 98.6 67 16 125/63 (83) 98 11/28/17 05:45 98.8 69 23 134/84 (101) 96 11/28/17 00:00 97.9 68 21 130/75 (93) 98 11/27/17 21:00 98.1 70 20 133/80 (97) 100 11/27/17 19:30 98 Simple Mask 6.00 11/27/17 19:03 97.5 73 22 136/89 (105) 93 11/27/17 16:00 97.6 76 32 148/73 (98) 94 11/27/17 12:00 97.9 77 29 118/63 (81) 96 . . Exam CONSTITUTIONAL/GENERAL: This is an adequately nourished elderly, female patient on BiPAP. TUBES/LINES/DRAINS: SKIN: No jaundice, rashes, or lesions. Ecchymoses on upper extremities. No wounds seen anteriorly. Skin temperature appropriate. Not diaphoretic. HEAD: Atraumatic. Normocephalic. EYES: Pupils equal and round and reactive. Extraocular motions intact. No scleral icterus. No injection or drainage. . ENT: Hearing grossly normal. Nose without bleeding or purulent drainage. NECK: Trachea midline. CARDIOVASCULAR: Regular rate and rhythm without murmurs, gallops, or rubs. No JVD. Peripheral pulses symmetric. RESPIRATORY/CHEST: Symmetric, unlabored respirations. Clear to auscultation. Breath sounds decreased bilaterally. No wheezes, rales, or rhonchi. GASTROINTESTINAL: Abdomen soft, non-tender, nondistended. No hepato-splenomegaly , or palpable masses. No guarding. Bowel sounds present. GENITOURINARY: Without palpable bladder distension. Singh catheter in place. MUSCULOSKELETAL: Extremities without clubbing, cyanosis, or edema. No mottling or clubbing. LYMPHATICS: No palpable cervical or supraclavicular adenopathy. NEUROLOGICAL: Awake, slightly confused. Having difficulty following simple commands. PSYCHIATRIC: No obvious anxiety/depression. no apparent hallucinations or other psychotic thought process. . Diagnostic Tests Laboratory Laboratory Tests Test 11/25/17 14:55 11/25/17 14:57 11/25/17 15:03 11/25/17 15:30 White Blood Count 8.3 TH/MM3 (4.0-11.0) Red Blood Count 4.52 MIL/MM3 (4.00-5.30) Hemoglobin 13.2 GM/DL (11.6-15.3) Hematocrit 40.3 % (35.0-46.0) Mean Corpuscular Volume 89.1 FL (80.0-100.0) Mean Corpuscular Hemoglobin 29.1 PG (27.0-34.0) Mean Corpuscular Hemoglobin Concent 32.7 % (32.0-36.0) Red Cell Distribution Width 16.3 % (11.6-17.2) Platelet Count 179 TH/MM3 (150-450) Mean Platelet Volume 10.5 FL (7.0-11.0) Neutrophils (%) (Auto) 74.7 % (16.0-70.0) Lymphocytes (%) (Auto) 13.8 % (9.0-44.0) Monocytes (%) (Auto) 11.0 % (0.0-8.0) Eosinophils (%) (Auto) 0.1 % (0.0-4.0) Basophils (%) (Auto) 0.4 % (0.0-2.0) Neutrophils # (Auto) 6.2 TH/MM3 (1.8-7.7) Lymphocytes # (Auto) 1.1 TH/MM3 (1.0-4.8) Monocytes # (Auto) 0.9 TH/MM3 (0-0.9) Eosinophils # (Auto) 0.0 TH/MM3 (0-0.4) Basophils # (Auto) 0.0 TH/MM3 (0-0.2) CBC Comment DIFF FINAL Differential Comment Prothrombin Time 11.8 SEC (9.8-11.6) Prothromb Time International Ratio 1.2 RATIO Activated Partial Thromboplast Time 23.6 SEC (24.3-30.1) Blood Urea Nitrogen 30 MG/DL (7-18) Creatinine 0.90 MG/DL (0.50-1.00) Random Glucose 139 MG/DL (74-106) Total Protein 6.9 GM/DL (6.4-8.2) Albumin 3.5 GM/DL (3.4-5.0) Calcium Level 9.8 MG/DL (8.5-10.1) Alkaline Phosphatase 100 U/L (45-117) Aspartate Amino Transf (AST/SGOT) 29 U/L (15-37) Alanine Aminotransferase (ALT/SGPT) 33 U/L (10-53) Total Bilirubin 0.7 MG/DL (0.2-1.0) Sodium Level 145 MEQ/L (136-145) Potassium Level 4.5 MEQ/L (3.5-5.1) Chloride Level 109 MEQ/L (98-107) Carbon Dioxide Level 32.2 MEQ/L (21.0-32.0) Anion Gap 4 MEQ/L (5-15) Estimat Glomerular Filtration Rate 60 ML/MIN (>89) Total Creatine Kinase 50 U/L (26-192) Troponin I 0.04 NG/ML (0.02-0.05) Free Thyroxine 1.06 NG/DL (0.76-1.46) Thyroid Stimulating Hormone 3rd Gen 2.640 uIU/ML (0.358-3.740) Ethyl Alcohol Level LESS THAN 3 MG/DL (0-5) Lactic Acid Level 1.2 mmol/L (0.4-2.0) Ammonia 25 MCMOL/L (11-32) Urine Color DARK-YELLOW (YELLW/STRAW) Urine Turbidity HAZY (CLEAR) Urine pH 6.0 (5.0-8.5) Urine Specific [place] 1.027 (1.002-1.035) Urine Protein 100 mg/dL (NEG-TRACE) Urine Glucose (UA) NEG mg/dL (NEG) Urine Ketones TRACE mg/dL (NEG) Urine Occult Blood NEG (NEG) Urine Nitrite NEG (NEG) Urine Bilirubin NEG (NEG) Urine Urobilinogen LESS THAN 2.0 MG/DL (LESS Urine Leukocyte Esterase SMALL (NEG) Urine WBC 3 /hpf (0-5) Urine Squamous Epithelial Cells 3 /hpf (0-5) Urine Bacteria OCC /hpf (NONE) Urine Hyaline Casts 6 /lpf (RARE) Urine Granular Casts 4 /lpf (NONE) Urine Mucus FEW /lpf (OCC) Microscopic Urinalysis Comment CATH-CULTURE IND Urine Opiates Screen NEG (NEG) Urine Barbiturates Screen NEG (NEG) Urine Amphetamines Screen NEG (NEG) Urine Benzodiazepines Screen NEG (NEG) Urine Cocaine Screen NEG (NEG) Urine Cannabinoids Screen NEG (NEG) B-Type Natriuretic Peptide 467 PG/ML (0-100) Test 11/25/17 16:04 11/25/17 19:45 11/25/17 21:17 11/25/17 21:30 Blood Gas Puncture Site RT RADIAL RT RADIAL Blood Gas Patient Temperature 98.6 98.6 Blood Gas HCO3 32 mmol/L (22-26) 31 mmol/L (22-26) Blood Gas Base Excess 5.3 mmol/L (-2-2) 6.9 mmol/L (-2-2) Blood Gas Oxygen Saturation 86 % (90-100) 94 % (90-100) Arterial Blood pH 7.24 (7.380-7.420) 7.42 (7.380-7.420) Arterial Blood Partial Pressure CO2 79 mmHg (38-42) 49 mmHg (38-42) Arterial Blood Partial Pressure O2 64 mmHG (61-120) 79 mmHg (61-120) Arterial Blood Oxygen Content 15.7 Vol % (12.0-20.0) 16.5 Vol % (12.0-20.0) Arterial Blood Carboxyhemoglobin 1.5 % (0-4) 1.2 % (0-4) Arterial Blood Methemoglobin 0.4 % (0-2) 1.1 % (0-2) Blood Gas Hemoglobin 12.9 G/DL (12.0-16.0) 12.5 G/DL (12.0-16.0) Oxygen Delivery Device ROOM AIR VENTILATOR Blood Gas Inspired Oxygen 21 % 40 % Nasal Screen MRSA (PCR) MRSA NOT DETECTED (NOT Magnesium Level 2.3 MG/DL (1.5-2.5) Troponin I 0.03 NG/ML (0.02-0.05) Blood Gas Ventilator Setting AC15/500/5PEEP/40% Test 11/26/17 04:45 11/26/17 07:37 11/26/17 09:55 11/27/17 03:46 Blood Urea Nitrogen 28 MG/DL (7-18) 24 MG/DL (7-18) Creatinine 0.93 MG/DL (0.50-1.00) 0.92 MG/DL (0.50-1.00) Random Glucose 76 MG/DL (74-106) 81 MG/DL (74-106) Calcium Level 10.3 MG/DL (8.5-10.1) 9.5 MG/DL (8.5-10.1) Sodium Level 146 MEQ/L (136-145) 145 MEQ/L (136-145) Potassium Level 3.8 MEQ/L (3.5-5.1) 2.9 MEQ/L (3.5-5.1) Chloride Level 107 MEQ/L (98-107) 104 MEQ/L (98-107) Carbon Dioxide Level 34.8 MEQ/L (21.0-32.0) 36.7 MEQ/L (21.0-32.0) Anion Gap 4 MEQ/L (5-15) 4 MEQ/L (5-15) Estimat Glomerular Filtration Rate 58 ML/MIN (>89) 59 ML/MIN (>89) Troponin I 0.04 NG/ML (0.02-0.05) 0.05 NG/ML (0.02-0.05) White Blood Count 8.4 TH/MM3 (4.0-11.0) 7.1 TH/MM3 (4.0-11.0) Red Blood Count 4.15 MIL/MM3 (4.00-5.30) 4.25 MIL/MM3 (4.00-5.30) Hemoglobin 12.2 GM/DL (11.6-15.3) 12.4 GM/DL (11.6-15.3) Hematocrit 36.5 % (35.0-46.0) 37.5 % (35.0-46.0) Mean Corpuscular Volume 87.9 FL (80.0-100.0) 88.2 FL (80.0-100.0) Mean Corpuscular Hemoglobin 29.3 PG (27.0-34.0) 29.2 PG (27.0-34.0) Mean Corpuscular Hemoglobin Concent 33.3 % (32.0-36.0) 33.1 % (32.0-36.0) Red Cell Distribution Width 16.0 % (11.6-17.2) 15.9 % (11.6-17.2) Platelet Count 145 TH/MM3 (150-450) 145 TH/MM3 (150-450) Mean Platelet Volume 10.2 FL (7.0-11.0) 10.8 FL (7.0-11.0) Test 11/28/17 03:56 11/28/17 10:19 White Blood Count 6.2 TH/MM3 (4.0-11.0) Red Blood Count 4.38 MIL/MM3 (4.00-5.30) Hemoglobin 12.6 GM/DL (11.6-15.3) Hematocrit 39.4 % (35.0-46.0) Mean Corpuscular Volume 89.8 FL (80.0-100.0) Mean Corpuscular Hemoglobin 28.8 PG (27.0-34.0) Mean Corpuscular Hemoglobin Concent 32.1 % (32.0-36.0) Red Cell Distribution Width 16.4 % (11.6-17.2) Platelet Count 137 TH/MM3 (150-450) Mean Platelet Volume 10.6 FL (7.0-11.0) Blood Urea Nitrogen 20 MG/DL (7-18) Creatinine 0.76 MG/DL (0.50-1.00) Random Glucose 133 MG/DL (74-106) Calcium Level 9.3 MG/DL (8.5-10.1) Sodium Level 146 MEQ/L (136-145) Potassium Level 3.5 MEQ/L (3.5-5.1) Chloride Level 108 MEQ/L (98-107) Carbon Dioxide Level 32.7 MEQ/L (21.0-32.0) Anion Gap 5 MEQ/L (5-15) Estimat Glomerular Filtration Rate 73 ML/MIN (>89) Blood Gas Puncture Site RT RADIAL Blood Gas Patient Temperature 98.6 Blood Gas HCO3 31 mmol/L (22-26) Blood Gas Base Excess 5.5 mmol/L (-2-2) Blood Gas Oxygen Saturation 91 % (90-100) Arterial Blood pH 7.32 (7.380-7.420) Arterial Blood Partial Pressure CO2 62 mmHg (38-42) Arterial Blood Partial Pressure O2 69 mmHg (61-120) Arterial Blood Oxygen Content 15.7 Vol % (12.0-20.0) Arterial Blood Carboxyhemoglobin 1.5 % (0-4) Arterial Blood Methemoglobin 0.8 % (0-2) Blood Gas Hemoglobin 12.3 G/DL (12.0-16.0) Oxygen Delivery Device NASAL CANNULA Blood Gas Liter Flow 3 L/M Result Diagram: 11/28/17 0356 11/28/17 0356 Microbiology Microbiology Date/Time Source Procedure Growth Status 11/25/17 15:00 Blood Peripheral Aerobic Blood Culture - Preliminary NO GROWTH IN 3 DAYS Resulted 11/25/17 15:00 Blood Peripheral Anaerobic Blood Culture - Preliminary NO GROWTH IN 3 DAYS Resulted 11/25/17 14:55 Blood Peripheral Aerobic Blood Culture - Preliminary NO GROWTH IN 3 DAYS Resulted 11/25/17 14:55 Blood Peripheral Anaerobic Blood Culture - Preliminary NO GROWTH IN 3 DAYS Resulted 11/25/17 20:00 Nasal Aspirate Influenza Types A,B Antigen ([place]) - Final Positive For Flu A Antigen Complete 11/25/17 21:45 Urine Catheterized Urine Legionella Antigen - Final PRESUMPTIVE NEGATIVE FOR LEGIONELLA P... Complete 11/25/17 15:03 Urine Clean Catch Urine Culture - Final <10,000 CFU/ML GRAM POSITIVE LUDIN Complete Imaging Last 72 hours Impressions Chest X-Ray 11/28/17 0000 Signed Impressions: Service Date/Time: November 09:59 - CONCLUSION: 1. Cardiomegaly with pleural-parenchymal changes as above. The appearance of the parenchyma has improved since previous exam. Jackson Ware MD Chest X-Ray 11/26/17 0600 Signed Impressions: Service Date/Time: Sunday, November 26, 2017 03:49 - CONCLUSION: Slight worsening of bilateral pulmonary infiltrates. Pete Kearney Jr., MD . Procedures 11/25/2017: Intubation 11/27/2017: Self extubation . Patient/Family Conference Issues Discussed: . Assessment and Plan Disease Oriented Problem List: (1) Acute encephalopathy (2) Influenza (3) CHF (congestive heart failure) (4) Acute respiratory failure with hypoxia and hypercarbia (5) CO2 narcosis (6) Atrial fibrillation Symptom Scale: (1) Debility 0-10 Scale: Unable to quantify (2) Dyspnea 0-10 Scale: Unable to quantify Pertinent Non-Medical Issues Psychosocial: Pending conversation with family. Spiritual: [facility] Legal: Per [place] statutes, in the absence of written advanced directives healthcare proxy decision-making falls to the patient's spouse Ethical issues impacting care: No known ethical issues impacting care at this time. . Important Contacts Christopher Villarreal, spouse: [phone] Alba Gregorio, daughter: [phone] . Code Status: Full Code Plan * FULL CODE * Decision-making: Per [place] statutes, in the absence of written advanced directives healthcare proxy decision-making falls to the patient's . * Goals remain aggressive pending further conversations with patient/family. * Palliative care and bedside nurse (Daisy) attempted to contact patient's and daughter several times. Messages were left on the patient's 's voicemail with palliative care contact information; unable to leave a message with the patient's daughter. * Patient was transferred to critical care this afternoon secondary to increasing respiratory distress, going attempts to reach which patient's family. * Care will continue to follow this patient throughout her hospitalization to establish trust, assist with symptom management. . Thank you for the opportunity to participate in the care of Ms. Villarreal. . Attestation To help prompt me to consider important information that might be impacting today's encounter and assessment, information from prior notes written by myself or my colleagues may have been "brought forward" into today's note. My signature on this note, however, is an attestation that I personally performed the exam, history, and/or decision-making noted today, and, unless otherwise indicated, the interactions with patient, family, and staff as well as the review of records all occurred today. I also attest that the listed assessment and stated plan reflect my best clinical judgment today based on the combination of historical information, prior notes, and today's exam/ interactions. When time spent is documented, it refers only to time spent today by the signer, or if indicated, combined time spent today by collaborating physician/nurse practitioner. . Michelle Garcia Nov 28, 2017 11:59
[2017-11-28] MEDS: FUROSEMIDE 20 MG/2 ML VIAL IV PUSH SCH (17:39)
[2017-11-28] MEDS: ATORVASTATIN 10 MG TAB PO SCH (21:03)
[2017-11-28] MEDS: ENOXAPARIN SODIUM 60 MG/0.6 ML SYRINGE SQ SCH (21:09)
[2017-11-29] VITALS (23 sets, daily range): BP systolic 108–165; BP diastolic 58–84; PULSE 53–84; RESP 17–33; TEMP 97.9–98.3; O2SAT 83–100
[2017-11-29 01:14] LABS: CALCIUM 9.3 MG/DL (8.5-10.1); CREATININE 0.71 MG/DL (0.50-1.00)
[2017-11-29] MEDS ORDERED: POTASSIUM CHLORIDE 25 MEQ EFFERVESCENT TAB PO ONE ×3 (01:30→17:15)
[2017-11-29] MEDS: CHLORHEXIDINE GLUCONATE 2 % 1 PACK (2 CLOTHS) TOP SCH (04:00)
[2017-11-29 04:29] LABS: HEMATOCRIT 38.3 % (35.0-46.0); HEMOGLOBIN 12.5 GM/DL (11.6-15.3); MEAN CELL VOLUME 88.8 FL (80.0-100.0); MEAN CORPUSCULAR HGB CONC 32.7 % (32.0-36.0); MEAN PLATELET VOLUME 10.2 FL (7.0-11.0); PLATELET COUNT 144 TH/MM3 (150-450); RED BLOOD COUNT 4.32 MIL/MM3 (4.00-5.30); RED CELL DISTRIBUTION WIDTH 15.6 % (11.6-17.2); WHITE BLOOD COUNT 5.6 TH/MM3 (4.0-11.0)
[2017-11-29 04:46] LABS: BICARBONATE 34.7 MEQ/L (21.0-32.0); CALCIUM 9.5 MG/DL (8.5-10.1); CREATININE 0.77 MG/DL (0.50-1.00); MAGNESIUM 2.1 MG/DL (1.5-2.5)
[2017-11-29] MEDS: CHLORHEXIDINE 0.12% (ORAL KIT) 15 ML CUP MT SCH ×2 (08:00→20:43)
[2017-11-29] MEDS: FAMOTIDINE 20 MG/2 ML VIAL IV PUSH SCH ×2 (09:00→20:43)
[2017-11-29] MEDS: OSELTAMIVIR PHOSPHATE 75 MG CAP OG-TUBE SCH ×2 (09:00→20:43)
[2017-11-29] MEDS: DOCUSATE SODIUM 50 MG/SENNA 8.6 MG TAB PO SCH ×2 (09:49→20:43)
[2017-11-29] MEDS: FUROSEMIDE 20 MG/2 ML VIAL IV PUSH SCH ×2 (09:49→18:47)
[2017-11-29] MEDS: CLOPIDOGREL 75 MG TAB PO SCH (09:50)
--- NOTE | 2017-11-29 11:03 | RADRPT ---
EXAM DATE/TIME: 11/29/2017 10:14 [facility] COMPARISON: CHEST SINGLE AP, November 28, 2017, 9:59. INDICATIONS : Respiratory failure MEDICAL HISTORY : Chronic obstructive pulmonary disease. SURGICAL HISTORY : None. ENCOUNTER: Subsequent ACUITY: 4 - 6 days PAIN SCORE: Non-responsive. LOCATION: Bilateral chest FINDINGS: The heart is enlarged. Perihilar and bibasilar patchiness is noted consistent with pulmonary vascular congestion or pneumonia. Clinical correlation is recommended. Degenerative changes and scoliosis of the thoracic spine are noted. CONCLUSION: 1. Perihilar and bibasilar patchiness consistent with pulmonary vascular congestion or pneumonia. Cli nical correlation is recommended. 2. Cardiomegaly. 3. Degenerative changes and scoliosis of the thoracic spine. Anshul Beck MD on November 29, 2017 at 10:52 Board Certified Radiologist. This report was verified electronically.
--- NOTE | 2017-11-29 11:27 | HHI.PR ---
Subjective Remarks The patient had no acute concerns. She says she was breathing well. She denied any pain. Discussed with nursing at the bedside. Objective Vitals Vital Signs Date Time Temp Pulse Resp B/P (MAP) Pulse Ox O2 Delivery O2 Flow Rate FiO2 11/29/17 06:00 84 11/29/17 04:00 98.3 59 17 110/58 (75) 98 11/29/17 04:00 98 Partial Non-Rebreather 15.00 11/29/17 04:00 59 11/29/17 03:13 99 Non-Rebreather 15.00 11/29/17 02:00 57 11/29/17 00:00 93 Bi-Pap 50 11/29/17 00:00 60 11/29/17 00:00 98.0 60 18 112/61 (78) 97 11/28/17 23:00 95 Non-Rebreather 15.00 11/28/17 20:00 97.8 67 16 128/77 (94) 93 11/28/17 20:00 93 Bi-Pap 50 11/28/17 19:29 98 BiPAP 11/28/17 19:23 98 50 11/28/17 16:00 96 Bi-Pap 50 11/28/17 16:00 98.3 55 21 128/58 (81) 94 11/28/17 15:00 94 Bi-Pap 50 11/28/17 14:23 98 40 11/28/17 12:24 98 BiPAP 40 11/28/17 12:23 98 40 11/28/17 12:00 98.6 65 18 149/87 (107) 100 I/O 11/28/17 11/28/17 11/28/17 11/29/17 11/29/17 11/29/17 07:00 15:00 23:00 07:00 15:00 23:00 Intake Total 100 ml 120 ml Output Total 400 ml 850 ml 600 ml Balance -300 ml -850 ml -480 ml Intake Oral 100 ml 120 ml Output Urine Total 400 ml 850 ml 600 ml # Bowel Movements 0 0 Result Diagram: 11/29/17 0322 11/29/17 0322 Imaging Last Impressions Chest X-Ray 11/29/17 0000 Signed Impressions: Service Date/Time: Wednesday, November 29, 2017 10:14 - CONCLUSION: 1. Perihilar and bibasilar patchiness consistent with pulmonary vascular congestion or pneumonia. Clinical correlation is recommended. 2. Cardiomegaly. 3. Degenerative changes and scoliosis of the thoracic spine. Anshul Beck MD Head CT 11/25/17 1448 Signed Impressions: Service Date/Time: Saturday, November 25, 2017 15:17 - CONCLUSION: Slight atrophic and small vessel ischemic changes without any evidence for acute hemorrhage or mass effect. Karan Modi MD Neck Magnetic Resonance Angiography 11/25/17 0000 Signed Impressions: Service Date/Time: Saturday, November 25, 2017 18:46 - CONCLUSION: Normal examination. Karan Modi MD Head Magnetic Resonance Angiography 11/25/17 0000 Signed Impressions: Service Date/Time: Saturday, November 25, 2017 18:46 - CONCLUSION: Normal examination. Karan Modi MD Brain MRI 11/25/17 0000 Signed Impressions: Service Date/Time: Saturday, November 25, 2017 18:46 - CONCLUSION: Chronic atrophic changes without any evidence for acute hemorrhage or mass effect. Karan Modi MD Objective Remarks GENERAL: Elderly female in no acute distress. HEENT: Normocephalic. Atraumatic. Pupils equal, round, reactive, conjugate. Mucous membranes are moist NECK: Trachea is midline. No JVD. CHEST: Decreased breath sounds. CARDIOVASCULAR: normal rate, regular rhythm. ABDOMEN: Obese, Soft, nontender, nondistended. No guarding. MUSCULOSKELETAL: Pulses 2+. 1+ pitting edema peripherally. NEUROLOGICAL: Awake and alert. Follows commands. Procedures Intubation Medications and IVs Current Medications Medications (Trade) Dose Ordered Sig/Rodri Route Start Time Stop Time Status Last Admin (NS Flush) 2 ml UNSCH PRN IV FLUSH 11/25/17 15:00 11/28/17 08:57 (Peridex 0.12% Liq) 15 ml BID@08,20 MT 11/25/17 20:00 11/28/17 21:10 (D50w (Vial) Inj) 25 ml UNSCH PRN IV PUSH 11/25/17 17:30 (Duoneb Neb) 1 ampule Q2HR NEB PRN INH 11/25/17 17:30 (Pepcid Inj) 20 mg Q12HR IV PUSH 11/25/17 21:00 11/28/17 21:09 (Zofran Inj) 4 mg Q6H PRN IV PUSH 11/25/17 17:30 Miscellaneous Information 1 Q361D XX 11/25/17 17:30 11/25/17 20:00 (Chlorhexidine 2% Cloth) 3 pack Taper DAILY@04 TOP 11/26/17 04:00 11/22/18 03:59 11/29/17 04:00 (Chlorhexidine 2% Cloth) 3 pack UNSCH PRN TOP 11/25/17 17:30 (Kami-Colace) 1 tab BID PO 11/25/17 21:00 11/29/17 09:49 (Milk Of Magnronni Liq) 30 ml Q12H PRN PO 11/25/17 17:30 (Lipitor) 10 mg HS PO 11/26/17 21:00 11/28/17 21:03 (Plavix) 75 mg DAILY PO 11/26/17 09:00 11/29/17 09:50 (Lovenox Inj) 50 mg Q24H SQ 11/25/17 22:00 11/28/17 21:09 (Tamiflu) 75 mg BID OG-TUBE 11/25/17 23:50 11/28/17 21:03 (Lasix Inj) 20 mg BID@ IV PUSH 11/28/17 18:00 11/29/17 09:49 A/P Assessment and Plan Acute hypoxic and hypercarbic respiratory failure/ Acute diastolic CHF The pt had worsening bilateral infiltrates and pulmonary edema. The pt is Flu positive. She was intubated and self-extubated. Repeat ABG with elevated PCO2. Repeat chest x-ray with parenchymal changes indicating vascular congestion. Echocardiogram with ejection fraction 50-55%. Latest ABG with PCO2 of 72. - Resume BiPAP. Increase FiO2. - Diuresis with IV Lasix. - nebs. - Continue Tamiflu. - aggressive pulmonary toilet. Acute encephalopathy The pt continues to act confused. Secondary to elevated CO2 level. - PT/ OT. - neuro checks. - treatment as above. Bradycardia With frequent PVCs/short run of v. Tach. Seems resolved. - hold Coreg. - replete electrolytes and monitor. - telemetry. Contraction metabolic alkalosis Improving. - s/p Diamox 500mg iv q8h x 3 doses. - Monitor BMP while diuresing. Goals of care The patient's seems interested in hospice services. - Palliative care consult appreciated. PPx: Subcutaneous heparin, SCDs Discharge Planning Reconsult class b driver if respiratory status does not improve on BiPAP. Keep in ICU. Trevon Steele DO Nov 29, 2017 11:27
[2017-11-29 16:05] LABS: BICARBONATE 36.1 MEQ/L (21.0-32.0); CALCIUM 9.7 MG/DL (8.5-10.1); CREATININE 0.7 MG/DL (0.50-1.00)
--- NOTE | 2017-11-29 17:48 | HHI.HCPN ---
Reason for visit a. To assist with evaluation and management of symptoms including: dyspnea, debility b. To assist medical decision maker(s) with: better understanding of current medical conditions; weighing benefits/burdens of medical treatment options; making medical treatment decisions. Subjective/Interval History Follow-up visit for symptom management and clarification of medical treatment goals. Patient admitted on with acute hypoxic and hypercarbic respiratory failure/acute diastolic CHF; she is influenza positive. Most recent echocardiogram with EF 50-55%. Patient was transferred to [facility] from the floor on 11/28/2017 secondary to increasing respiratory distress. Earlier this morning the patient was tolerating 15 L via nonrebreather but had to BP placed back on the BiPAP. A follow-up chest x-ray today showed perihilar and bibasilar patchiness consistent with pulmonary vascular congestion or pneumonia and cardiomegaly. Lab work reviewed: =WBC: 5.6, hemoglobin 12.5, hematocrit 38.3, platelets 144 =Sodium: 145, potassium 3.5, chloride 105, carbon dioxide 36.1, glucose 86, calcium 9.7 =BUN: 20, creatinine 0.70, GFR 81 Patient lives with her , Brady who reports the patient has been nonambulatory for 4 years and requires moderate to maximum assist to transfer. Requiring increased assistance. He reported she has had increased confusion over the past 2-3 months and requiring more assistance with ADLs. The patient has had 2 falls in the past year, rolling out of bed and when attempting to stand to transfer. Patient's reporting the patient has been having an ongoing decline. She is pleasantly confused, able to answer some simple questions appropriately. CT head on one/one was negative for acute process; due to her significant altered mental status on exam, MRI, MRA, MRV were done without significant abnormality. . Family/friend interactions Met with patient's and the family conference room. We discussed patient 's baseline cognition and performance status in addition to the current hospitalization. Patient's spouse verbalized his plan was to get her back to home as soon as possible; he stated he had no idea how ill his and was appropriately tearful. Mr. Villarreal verbalizes ongoing aggressive goals. He states should the patient have increasing respiratory distress he would want her re-intubated, and he would want everything done to keep her going. Hospice was introduced, and the patient was amenable to this discussion. He states his has declined a significantly over recent months but he does not feel she or he is ready for hospice at this time. . Advance Directives Advance Directive Specifics Documented care wishes: No documented care wishes are available at this time. . Significant change in goals: Goals remain aggressive up to and including cardiopulmonary resuscitation. . Objective Vital Signs Date Time Temp Pulse Resp B/P (MAP) Pulse Ox O2 Delivery O2 Flow Rate FiO2 11/29/17 13:00 94 60 11/29/17 06:00 84 11/29/17 04:00 98.3 59 17 110/58 (75) 98 11/29/17 04:00 98 Partial Non-Rebreather 15.00 11/29/17 04:00 59 11/29/17 03:13 99 Non-Rebreather 15.00 11/29/17 02:00 57 11/29/17 00:00 93 Bi-Pap 50 11/29/17 00:00 60 11/29/17 00:00 98.0 60 18 112/61 (78) 97 11/28/17 23:00 95 Non-Rebreather 15.00 11/28/17 20:00 97.8 67 16 128/77 (94) 93 11/28/17 20:00 93 Bi-Pap 50 11/28/17 19:29 98 BiPAP 11/28/17 19:23 98 50 Intake & Output 11/29/17 11/29/17 07:00 19:00 Intake Total 120 ml Output Total 600 ml Balance -480 ml Intake Oral 120 ml Output Urine Total 600 ml # Bowel Movements 0 . Physical Exam CONSTITUTIONAL/GENERAL: This is an adequately nourished elderly, female patient on BiPAP. TUBES/LINES/DRAINS: PIV 2, BiPAP, per weight catheter SKIN: Left lower leg wound redness, open to air. Left inner arm forearm ecchymosis. Skin temperature appropriate. Not diaphoretic. HEAD: Atraumatic. Normocephalic. EYES: Pupils equal and round and reactive. Extraocular motions intact. No scleral icterus. No injection or drainage. . ENT: Hearing grossly normal. Nose without bleeding or purulent drainage. NECK: Trachea midline. CARDIOVASCULAR: Atrial fibrillation. Peripheral pulses symmetric. RESPIRATORY/CHEST: On BiPAP. Coarse air exchange throughout; upper lobes diminished bilaterally. GASTROINTESTINAL: Abdomen soft, non-tender, nondistended. No guarding. Bowel sounds present. GENITOURINARY: Without palpable bladder distension. MUSCULOSKELETAL: Extremities without clubbing, cyanosis. No mottling or clubbing. LYMPHATICS: No palpable cervical or supraclavicular adenopathy. NEUROLOGICAL: Awake, slightly confused. Having difficulty following simple commands. PSYCHIATRIC: No obvious anxiety/depression. no apparent hallucinations or other psychotic thought process. . Diagnostic Tests Laboratory Laboratory Tests Test 11/27/17 03:46 11/28/17 03:56 11/28/17 10:19 11/29/17 00:19 White Blood Count 7.1 TH/MM3 (4.0-11.0) 6.2 TH/MM3 (4.0-11.0) Red Blood Count 4.25 MIL/MM3 (4.00-5.30) 4.38 MIL/MM3 (4.00-5.30) Hemoglobin 12.4 GM/DL (11.6-15.3) 12.6 GM/DL (11.6-15.3) Hematocrit 37.5 % (35.0-46.0) 39.4 % (35.0-46.0) Mean Corpuscular Volume 88.2 FL (80.0-100.0) 89.8 FL (80.0-100.0) Mean Corpuscular Hemoglobin 29.2 PG (27.0-34.0) 28.8 PG (27.0-34.0) Mean Corpuscular Hemoglobin Concent 33.1 % (32.0-36.0) 32.1 % (32.0-36.0) Red Cell Distribution Width 15.9 % (11.6-17.2) 16.4 % (11.6-17.2) Platelet Count 145 TH/MM3 (150-450) 137 TH/MM3 (150-450) Mean Platelet Volume 10.8 FL (7.0-11.0) 10.6 FL (7.0-11.0) Blood Urea Nitrogen 24 MG/DL (7-18) 20 MG/DL (7-18) 19 MG/DL (7-18) Creatinine 0.92 MG/DL (0.50-1.00) 0.76 MG/DL (0.50-1.00) 0.71 MG/DL (0.50-1.00) Random Glucose 81 MG/DL (74-106) 133 MG/DL (74-106) 92 MG/DL (74-106) Calcium Level 9.5 MG/DL (8.5-10.1) 9.3 MG/DL (8.5-10.1) 9.3 MG/DL (8.5-10.1) Sodium Level 145 MEQ/L (136-145) 146 MEQ/L (136-145) 146 MEQ/L (136-145) Potassium Level 2.9 MEQ/L (3.5-5.1) 3.5 MEQ/L (3.5-5.1) 3.4 MEQ/L (3.5-5.1) Chloride Level 104 MEQ/L (98-107) 108 MEQ/L (98-107) 107 MEQ/L (98-107) Carbon Dioxide Level 36.7 MEQ/L (21.0-32.0) 32.7 MEQ/L (21.0-32.0) 35.0 MEQ/L (21.0-32.0) Anion Gap 4 MEQ/L (5-15) 5 MEQ/L (5-15) 4 MEQ/L (5-15) Estimat Glomerular Filtration Rate 59 ML/MIN (>89) 73 ML/MIN (>89) 79 ML/MIN (>89) Blood Gas Puncture Site RT RADIAL Blood Gas Patient Temperature 98.6 Blood Gas HCO3 31 mmol/L (22-26) Blood Gas Base Excess 5.5 mmol/L (-2-2) Blood Gas Oxygen Saturation 91 % (90-100) Arterial Blood pH 7.32 (7.380-7.420) Arterial Blood Partial Pressure CO2 62 mmHg (38-42) Arterial Blood Partial Pressure O2 69 mmHg (61-120) Arterial Blood Oxygen Content 15.7 Vol % (12.0-20.0) Arterial Blood Carboxyhemoglobin 1.5 % (0-4) Arterial Blood Methemoglobin 0.8 % (0-2) Blood Gas Hemoglobin 12.3 G/DL (12.0-16.0) Oxygen Delivery Device NASAL CANNULA Blood Gas Liter Flow 3 L/M Test 11/29/17 03:22 11/29/17 09:10 11/29/17 15:15 White Blood Count 5.6 TH/MM3 (4.0-11.0) Red Blood Count 4.32 MIL/MM3 (4.00-5.30) Hemoglobin 12.5 GM/DL (11.6-15.3) Hematocrit 38.3 % (35.0-46.0) Mean Corpuscular Volume 88.8 FL (80.0-100.0) Mean Corpuscular Hemoglobin 29.0 PG (27.0-34.0) Mean Corpuscular Hemoglobin Concent 32.7 % (32.0-36.0) Red Cell Distribution Width 15.6 % (11.6-17.2) Platelet Count 144 TH/MM3 (150-450) Mean Platelet Volume 10.2 FL (7.0-11.0) Blood Urea Nitrogen 20 MG/DL (7-18) 20 MG/DL (7-18) Creatinine 0.77 MG/DL (0.50-1.00) 0.70 MG/DL (0.50-1.00) Random Glucose 92 MG/DL (74-106) 86 MG/DL (74-106) Calcium Level 9.5 MG/DL (8.5-10.1) 9.7 MG/DL (8.5-10.1) Magnesium Level 2.1 MG/DL (1.5-2.5) Sodium Level 145 MEQ/L (136-145) 145 MEQ/L (136-145) Potassium Level 3.1 MEQ/L (3.5-5.1) 3.4 MEQ/L (3.5-5.1) Chloride Level 105 MEQ/L (98-107) 105 MEQ/L (98-107) Carbon Dioxide Level 34.7 MEQ/L (21.0-32.0) 36.1 MEQ/L (21.0-32.0) Anion Gap 5 MEQ/L (5-15) 4 MEQ/L (5-15) Estimat Glomerular Filtration Rate 72 ML/MIN (>89) 81 ML/MIN (>89) Blood Gas Puncture Site RT RADIAL Blood Gas Patient Temperature 98.6 Blood Gas HCO3 34 mmol/L (22-26) Blood Gas Base Excess 7.4 mmol/L (-2-2) Blood Gas Oxygen Saturation 97 % (90-100) Arterial Blood pH 7.30 (7.380-7.420) Arterial Blood Partial Pressure CO2 72 mmHg (38-42) Arterial Blood Partial Pressure O2 212 mmHg (61-120) Arterial Blood Oxygen Content 16.5 Vol % (12.0-20.0) Arterial Blood Carboxyhemoglobin 0.9 % (0-4) Arterial Blood Methemoglobin 1.1 % (0-2) Blood Gas Hemoglobin 11.7 G/DL (12.0-16.0) Oxygen Delivery Device Non-Rebreathing Mask Blood Gas Liter Flow 15 L/M Blood Gas Inspired Oxygen 100 % . Result Diagram: 11/29/17 0322 11/29/17 1515 Imaging Last 72 hours Impressions Chest X-Ray 11/29/17 0000 Signed Impressions: Service Date/Time: Wednesday, November 29, 2017 10:14 - CONCLUSION: 1. Perihilar and bibasilar patchiness consistent with pulmonary vascular congestion or pneumonia. Clinical correlation is recommended. 2. Cardiomegaly. 3. Degenerative changes and scoliosis of the thoracic spine. Anshul Beck MD Chest X-Ray 11/28/17 0000 Signed Impressions: Service Date/Time: November 09:59 - CONCLUSION: 1. Cardiomegaly with pleural-parenchymal changes as above. The appearance of the parenchyma has improved since previous exam. Jackson Ware MD . Procedures 11/25/2017: Intubation 11/27/2017: Self extubation . Assessment and Plan Disease Oriented Problem List: (1) Acute encephalopathy (2) Influenza (3) CHF (congestive heart failure) (4) Acute respiratory failure with hypoxia and hypercarbia (5) CO2 narcosis (6) Atrial fibrillation Symptom Scale: (1) Debility 0-10 Scale: Unable to quantify (2) Dyspnea 0-10 Scale: Unable to quantify Pertinent Non-Medical Issues Psychosocial: Pending conversation with family. Spiritual: [employer] Legal: Per [place] statutes, in the absence of written advanced directives healthcare proxy decision-making falls to the patient's spouse Ethical issues impacting care: No known ethical issues impacting care at this time. . Important Contacts Christopher Villarreal, spouse: [phone] Alba Gregorio, daughter: [phone] . Code Status: Full Code Plan * FULL CODE * Decision-making: Per [place] statutes, in the absence of written advanced directives healthcare proxy decision-making falls to the patient's . * Discussed patient with bedside nurse, Naila * Met with patient's and the family conference room. We discussed patient's baseline cognition and performance status in addition to the current hospitalization. Patient's spouse verbalized his plan was to get her back to home as soon as possible; he stated he had no idea how ill his and was appropriately tearful. Mr. Villarreal verbalizes ongoing aggressive goals. He states should the patient have increasing respiratory distress he would want her re-intubated, and he would want everything done to keep her going. Hospice was introduced, and the patient was amenable to this discussion. He states his has declined a significantly over recent months but he does not feel she or he is ready for hospice at this time. AGGRESSIVE GOALS * Symptom management- dyspnea: Patient admitted on with acute hypoxic and hypercarbic respiratory failure/acute diastolic CHF. + Influenza. Intubated on 11/25/17; self extubated 11/27/17 and transfer to floor; transferred back to [facility] on 11/28/17 on 12/27 increasing respiratory distress. On BiPAP this morning. A follow-up chest x-ray today showed perihilar and bibasilar patchiness consistent with pulmonary vascular congestion or pneumonia and cardiomegaly. * Symptom management - debility: Patient lives with her , Brady who reports the patient has been nonambulatory for 4 years and requires moderate to maximum assist to transfer. Requiring increased assistance. He reported she has had increased confusion over the past 2-3 months and requiring more assistance with ADLs. The patient has had 2 falls in the past year, rolling out of bed and when attempting to stand to transfer. Spouse hopes to bring patient home upon discharge. However if patient survives hospitalization and goals remain aggressive, she will likely need placement at SNF for rehabilitation. * Palliative Care will continue to follow this patient throughout her hospitalization to establish trust, assist with symptom management. . Attestation To help prompt me to consider important information that might be impacting today's encounter and assessment, information from prior notes written by myself or my colleagues may have been "brought forward" into today's note. My signature on this note, however, is an attestation that I personally performed the exam, history, and/or decision-making noted today, and, unless otherwise indicated, the interactions with patient, family, and staff as well as the review of records all occurred today. I also attest that the listed assessment and stated plan reflect my best clinical judgment today based on the combination of historical information, prior notes, and today's exam/ interactions. When time spent is documented, it refers only to time spent today by the signer, or if indicated, combined time spent today by collaborating physician/nurse practitioner. Michelle Garcia Nov 29, 2017 17:48
[2017-11-29] MEDS: ATORVASTATIN 10 MG TAB PO SCH (20:43)
[2017-11-29] MEDS: ENOXAPARIN SODIUM 60 MG/0.6 ML SYRINGE SQ SCH (20:44)
[2017-11-30] VITALS (17 sets, daily range): BP systolic 102–149; BP diastolic 52–92; PULSE 70–91; RESP 16–30; TEMP 97.5–98.3; O2SAT 93–100
[2017-11-30] MEDS: CHLORHEXIDINE GLUCONATE 2 % 1 PACK (2 CLOTHS) TOP SCH (04:00)
[2017-11-30 06:02] LABS: HEMATOCRIT 37.7 % (35.0-46.0); HEMOGLOBIN 12.2 GM/DL (11.6-15.3); MEAN CELL VOLUME 88.7 FL (80.0-100.0); MEAN CORPUSCULAR HEMOGLOBIN 28.7 PG (27.0-34.0); MEAN CORPUSCULAR HGB CONC 32.3 % (32.0-36.0); MEAN PLATELET VOLUME 10.3 FL (7.0-11.0); PLATELET COUNT 132 TH/MM3 (150-450); RED BLOOD COUNT 4.25 MIL/MM3 (4.00-5.30); WHITE BLOOD COUNT 4.4 TH/MM3 (4.0-11.0)
[2017-11-30 06:33] LABS: CALCIUM 9.6 MG/DL (8.5-10.1); CREATININE 0.71 MG/DL (0.50-1.00)
[2017-11-30] MEDS: CHLORHEXIDINE 0.12% (ORAL KIT) 15 ML CUP MT SCH ×2 (08:00→20:00)
[2017-11-30] MEDS: DOCUSATE SODIUM 50 MG/SENNA 8.6 MG TAB PO SCH ×2 (10:07→22:58)
[2017-11-30] MEDS: OSELTAMIVIR PHOSPHATE 75 MG CAP OG-TUBE SCH ×2 (10:07→22:58)
[2017-11-30] MEDS: FAMOTIDINE 20 MG/2 ML VIAL IV PUSH SCH ×2 (10:08→22:59)
[2017-11-30] MEDS: CLOPIDOGREL 75 MG TAB PO SCH (10:08)
[2017-11-30] MEDS: FUROSEMIDE 20 MG/2 ML VIAL IV PUSH SCH (10:08)
[2017-11-30] MEDS ORDERED: POLYETHYLENE GLYCOL 17 GM PKG PO ONE (11:30)
[2017-11-30] MEDS ORDERED: LACTULOSE SYRUP 20 GM/30 ML CUP PO ONE (11:30)
--- NOTE | 2017-11-30 11:30 | HHI.PR ---
Subjective Remarks The patient was on BiPAP. She was confused as to where she was and what happened to her. Discussed with nursing who had no acute concerns and reported good urine output. Objective Vitals Vital Signs Date Time Temp Pulse Resp B/P (MAP) Pulse Ox O2 Delivery O2 Flow Rate FiO2 11/30/17 10:00 81 11/30/17 09:26 93 Nasal Cannula 4.00 11/30/17 08:16 100 45 11/30/17 08:00 81 11/30/17 08:00 98.3 77 16 130/85 (100) 96 11/30/17 08:00 81 11/30/17 08:00 Bi-Pap 60 11/30/17 06:00 81 11/30/17 04:00 98.3 70 16 102/52 (69) 96 11/30/17 04:00 Bi-Pap 60 11/30/17 04:00 70 11/30/17 03:03 98 BiPAP 11/30/17 02:58 98 60 11/30/17 02:00 78 11/30/17 00:00 91 11/30/17 00:00 Bi-Pap 60 11/30/17 00:00 98.0 91 18 120/72 (88) 97 11/29/17 23:12 95 60 11/29/17 22:00 73 11/29/17 20:00 97.9 65 20 140/77 (98) 95 11/29/17 20:00 Bi-Pap 60 11/29/17 20:00 65 11/29/17 19:38 98 BiPAP 11/29/17 19:34 98 60 11/29/17 18:00 63 28 94 11/29/17 18:00 Bi-Pap 60 11/29/17 18:00 63 11/29/17 17:00 56 29 165/79 (107) 100 11/29/17 17:00 56 11/29/17 16:00 Bi-Pap 60 11/29/17 16:00 60 11/29/17 16:00 60 29 98 11/29/17 15:00 68 33 98 11/29/17 15:00 68 11/29/17 14:00 Bi-Pap 60 11/29/17 14:00 60 11/29/17 14:00 60 22 11/29/17 13:00 94 60 11/29/17 13:00 63 24 147/70 (95) 95 11/29/17 13:00 63 11/29/17 12:01 66 25 147/84 (105) 86 11/29/17 12:01 66 11/29/17 12:00 Bi-Pap 60 11/29/17 12:00 61 26 85 11/29/17 12:00 61 I/O 11/29/17 11/29/17 11/29/17 11/30/17 11/30/17 11/30/17 07:00 15:00 23:00 07:00 15:00 23:00 Intake Total 120 ml 240 ml 400 ml Output Total 600 ml 800 ml 700 ml Balance -480 ml -560 ml -300 ml Intake Oral 120 ml 240 ml 400 ml Output Urine Total 600 ml 800 ml 700 ml # Bowel Movements 0 0 0 Result Diagram: 11/30/17 0505 11/30/17 0505 Imaging Last Impressions Chest X-Ray 11/29/17 0000 Signed Impressions: Service Date/Time: Wednesday, November 29, 2017 10:14 - CONCLUSION: 1. Perihilar and bibasilar patchiness consistent with pulmonary vascular congestion or pneumonia. Clinical correlation is recommended. 2. Cardiomegaly. 3. Degenerative changes and scoliosis of the thoracic spine. Anshul Beck MD Head CT 11/25/17 1448 Signed Impressions: Service Date/Time: Saturday, November 25, 2017 15:17 - CONCLUSION: Slight atrophic and small vessel ischemic changes without any evidence for acute hemorrhage or mass effect. Karan Modi MD Neck Magnetic Resonance Angiography 11/25/17 0000 Signed Impressions: Service Date/Time: Saturday, November 25, 2017 18:46 - CONCLUSION: Normal examination. Karan Modi MD Head Magnetic Resonance Angiography 11/25/17 0000 Signed Impressions: Service Date/Time: Saturday, November 25, 2017 18:46 - CONCLUSION: Normal examination. Karan Modi MD Brain MRI 11/25/17 0000 Signed Impressions: Service Date/Time: Saturday, November 25, 2017 18:46 - CONCLUSION: Chronic atrophic changes without any evidence for acute hemorrhage or mass effect. Karan Modi MD Objective Remarks GENERAL: Elderly female in no acute distress. HEENT: Normocephalic. Atraumatic. Pupils equal, round, reactive, conjugate. Mucous membranes are moist NECK: Trachea is midline. No JVD. CHEST: Decreased breath sounds. CARDIOVASCULAR: normal rate, regular rhythm. ABDOMEN: Obese, Soft, nontender, nondistended. No guarding. MUSCULOSKELETAL: Pulses 2+. 1+ pitting edema peripherally. NEUROLOGICAL: Awake and alert. Follows commands. Procedures Intubation Medications and IVs Current Medications Medications (Trade) Dose Ordered Sig/Rodri Route Start Time Stop Time Status Last Admin (NS Flush) 2 ml UNSCH PRN IV FLUSH 11/25/17 15:00 11/28/17 08:57 (Peridex 0.12% Liq) 15 ml BID@08,20 MT 11/25/17 20:00 11/30/17 08:00 (D50w (Vial) Inj) 25 ml UNSCH PRN IV PUSH 11/25/17 17:30 (Duoneb Neb) 1 ampule Q2HR NEB PRN INH 11/25/17 17:30 (Pepcid Inj) 20 mg Q12HR IV PUSH 11/25/17 21:00 11/30/17 10:08 (Zofran Inj) 4 mg Q6H PRN IV PUSH 11/25/17 17:30 Miscellaneous Information 1 Q361D XX 11/25/17 17:30 11/25/17 20:00 (Chlorhexidine 2% Cloth) 3 pack Taper DAILY@04 TOP 11/26/17 04:00 11/22/18 03:59 11/30/17 04:00 (Chlorhexidine 2% Cloth) 3 pack UNSCH PRN TOP 11/25/17 17:30 (Kami-Colace) 1 tab BID PO 11/25/17 21:00 11/30/17 10:07 (Milk Of Magnesia Liq) 30 ml Q12H PRN PO 11/25/17 17:30 (Lipitor) 10 mg HS PO 11/26/17 21:00 11/29/17 20:43 (Plavix) 75 mg DAILY PO 11/26/17 09:00 11/30/17 10:08 (Lovenox Inj) 50 mg Q24H SQ 11/25/17 22:00 11/29/17 20:44 (Tamiflu) 75 mg BID OG-TUBE 11/25/17 23:50 11/30/17 10:07 (Lasix Inj) 20 mg BID@09,18 IV PUSH 11/28/17 18:00 11/30/17 10:08 A/P Assessment and Plan Acute hypoxic and hypercarbic respiratory failure/ Acute diastolic CHF The pt had worsening bilateral infiltrates and pulmonary edema. The pt is Flu positive. She was intubated and self-extubated. Repeat ABG with elevated PCO2. Repeat chest x-ray with parenchymal changes indicating vascular congestion. Echocardiogram with ejection fraction 50-55%. Latest ABG with PCO2 of 72. - wean BiPAP as tolerated. - Diuresis with IV Lasix. - nebs. - Continue Tamiflu as the pt remains critically ill. - aggressive pulmonary toilet. - repeat ABG now and CXR in AM. Acute encephalopathy The pt continues to act confused. Secondary to elevated CO2 level. - PT/ OT. - neuro checks. - treatment as above. Bradycardia With frequent PVCs/short run of v. Tach. Seems resolved. - resume Coreg with holding parameters. - replete electrolytes and monitor. - telemetry. Contraction metabolic alkalosis S/t diuresis. - s/p Diamox 500mg iv q8h x 3 doses. - Monitor BMP while diuresing. Goals of care The patient's seems interested in hospice services. - Palliative care consult appreciated. PPx: Jaspreet Pinedo Discharge Planning Reconsult contractor buyer if respiratory status does not improve on BiPAP. Keep in ICU. Trevon Steele DO Nov 30, 2017 11:30
[2017-11-30] MEDS: CARVEDILOL 3.125 MG TAB PO SCH ×2 (12:56→22:59)
[2017-11-30] MEDS: ATORVASTATIN 10 MG TAB PO SCH (22:58)
[2017-11-30] MEDS: ENOXAPARIN SODIUM 40 MG/0.4 ML SYRINGE SQ SCH (22:58)
[2017-12-01] VITALS (13 sets, daily range): BP systolic 123–166; BP diastolic 60–86; PULSE 68–87; RESP 26–33; TEMP 97.9–98.8; O2SAT 92–96
[2017-12-01] MEDS: CHLORHEXIDINE GLUCONATE 2 % 1 PACK (2 CLOTHS) TOP SCH (04:00)
--- NOTE | 2017-12-01 04:52 | RADRPT ---
EXAM DATE/TIME: 12/01/2017 03:25 [facility] COMPARISON: CHEST SINGLE AP, November 29, 2017, 10:14. INDICATIONS : Shortness of breath, possible pulmonary disease. MEDICAL HISTORY : Chronic obstructive pulmonary disease. SURGICAL HISTORY : None. ENCOUNTER: Subsequent ACUITY: 1 week PAIN SCORE: Non-responsive. LOCATION: Bilateral chest FINDINGS: Single AP view of the chest. Persistent cardiac silhouette enlargement or in bilateral perihilar pulm onary opacity. No significant interval change. No evidence of pleural effusion or pneumothorax. CONCLUSION: 1. Persistent bilateral pulmonary opacity likely representing pulmonary vascular congestion/pulmonary edema with possible superimposed infection. 2. Severe left glenohumeral joint arthrosis and inferior subluxation of the left humeral head are chr onic findings. Luis Ramachandran MD on December 01, 2017 at 4:48 Board Certified Radiologist. This report was verified electronically.
[2017-12-01 06:51] LABS: HEMATOCRIT 39.1 % (35.0-46.0); HEMOGLOBIN 12.7 GM/DL (11.6-15.3); MEAN CELL VOLUME 88.5 FL (80.0-100.0); MEAN CORPUSCULAR HEMOGLOBIN 28.8 PG (27.0-34.0); MEAN CORPUSCULAR HGB CONC 32.5 % (32.0-36.0); MEAN PLATELET VOLUME 10.5 FL (7.0-11.0); PLATELET COUNT 148 TH/MM3 (150-450); RED BLOOD COUNT 4.42 MIL/MM3 (4.00-5.30); WHITE BLOOD COUNT 5.4 TH/MM3 (4.0-11.0)
[2017-12-01 06:54] LABS: BICARBONATE 33.8 MEQ/L (21.0-32.0); CALCIUM 9.8 MG/DL (8.5-10.1); CREATININE 0.6 MG/DL (0.50-1.00)
[2017-12-01] MEDS: CHLORHEXIDINE 0.12% (ORAL KIT) 15 ML CUP MT SCH ×2 (08:00→20:00)
[2017-12-01] MEDS: FAMOTIDINE 20 MG/2 ML VIAL IV PUSH SCH (09:00)
[2017-12-01] MEDS: OSELTAMIVIR PHOSPHATE 75 MG CAP OG-TUBE SCH ×2 (09:00→21:42)
[2017-12-01] MEDS: DOCUSATE SODIUM 50 MG/SENNA 8.6 MG TAB PO SCH ×2 (09:38→21:00)
[2017-12-01] MEDS: CLOPIDOGREL 75 MG TAB PO SCH (09:38)
[2017-12-01] MEDS: FUROSEMIDE 20 MG/2 ML VIAL IV PUSH SCH ×3 (09:39→18:05)
[2017-12-01] MEDS: CARVEDILOL 3.125 MG TAB PO SCH ×2 (09:39→21:42)
--- NOTE | 2017-12-01 09:44 | HHI.PR ---
Subjective Remarks The patient was breathing comfortably on nasal cannula. She denied any pain. She has been having bowel movements. Discussed with nursing at the bedside. Objective Vitals Vital Signs Date Time Temp Pulse Resp B/P (MAP) Pulse Ox O2 Delivery O2 Flow Rate FiO2 12/01/17 08:39 94 Nasal Cannula 4.00 12/01/17 06:00 71 12/01/17 04:00 97.9 69 26 127/76 (93) 96 12/01/17 04:00 96 Nasal Cannula 4.00 12/01/17 04:00 69 12/01/17 03:50 92 Nasal Cannula 4.00 12/01/17 02:00 68 12/01/17 01:29 92 45 12/01/17 00:00 93 Nasal Cannula 4.00 12/01/17 00:00 70 12/01/17 00:00 98.8 70 26 149/60 (89) 93 11/30/17 22:00 83 11/30/17 20:00 77 11/30/17 20:00 95 Nasal Cannula 4.00 11/30/17 20:00 97.5 77 30 149/63 (91) 95 11/30/17 19:38 95 Nasal Cannula 4.00 11/30/17 16:00 81 11/30/17 16:00 98.1 83 20 146/92 (110) 96 11/30/17 16:00 Bi-Pap 60 11/30/17 14:00 81 11/30/17 12:00 98.3 73 20 129/60 (83) 96 11/30/17 12:00 81 11/30/17 12:00 Bi-Pap 60 11/30/17 10:00 81 I/O 11/30/17 11/30/17 11/30/17 12/01/17 12/01/17 12/01/17 07:00 15:00 23:00 07:00 15:00 23:00 Intake Total 400 ml 240 ml Output Total 700 ml 100 ml Balance -300 ml 140 ml Intake Oral 400 ml 240 ml Output Urine Total 700 ml 100 ml # Voids 3 # Bowel Movements 0 0 Result Diagram: 12/01/17 0525 12/01/17 0525 Imaging Last Impressions Chest X-Ray 12/01/17 06 Signed Impressions: Service Date/Time: Friday, December 01, 2017 03:25 - CONCLUSION: 1. Persistent bilateral pulmonary opacity likely representing pulmonary vascular congestion/pulmonary edema with possible superimposed infection. 2. Severe left glenohumeral joint arthrosis and inferior subluxation of the left humeral head are chronic findings. Luis Ramachandran MD Head CT 11/25/17 1448 Signed Impressions: Service Date/Time: Saturday, November 25, 2017 15:17 - CONCLUSION: Slight atrophic and small vessel ischemic changes without any evidence for acute hemorrhage or mass effect. Karan Modi MD Neck Magnetic Resonance Angiography 11/25/17 0000 Signed Impressions: Service Date/Time: Saturday, November 25, 2017 18:46 - CONCLUSION: Normal examination. Karan Modi MD Head Magnetic Resonance Angiography 11/25/17 0000 Signed Impressions: Service Date/Time: Saturday, November 25, 2017 18:46 - CONCLUSION: Normal examination. Karan Modi MD Brain MRI 11/25/17 0000 Signed Impressions: Service Date/Time: Saturday, November 25, 2017 18:46 - CONCLUSION: Chronic atrophic changes without any evidence for acute hemorrhage or mass effect. Karan Modi MD Objective Remarks GENERAL: Elderly female in no acute distress. HEENT: Normocephalic. Atraumatic. Pupils equal, round, reactive, conjugate. Mucous membranes are moist NECK: Trachea is midline. No JVD. CHEST: Decreased breath sounds. CARDIOVASCULAR: normal rate, regular rhythm. ABDOMEN: Obese, Soft, nontender, nondistended. No guarding. MUSCULOSKELETAL: Pulses 2+. 1+ pitting edema peripherally. NEUROLOGICAL: Awake and alert. Follows commands. Procedures Intubation Medications and IVs Current Medications Medications (Trade) Dose Ordered Sig/Rodri Route Start Time Stop Time Status Last Admin (NS Flush) 2 ml UNSCH PRN IV FLUSH 11/25/17 15:00 11/28/17 08:57 (Peridex 0.12% Liq) 15 ml BID@08,20 MT 11/25/17 20:00 11/30/17 08:00 (D50w (Vial) Inj) 25 ml UNSCH PRN IV PUSH 11/25/17 17:30 (Duoneb Neb) 1 ampule Q2HR NEB PRN INH 11/25/17 17:30 (Pepcid Inj) 20 mg Q12HR IV PUSH 11/25/17 21:00 11/30/17 22:59 (Zofran Inj) 4 mg Q6H PRN IV PUSH 11/25/17 17:30 Miscellaneous Information 1 Q361D XX 11/25/17 17:30 11/25/17 20:00 (Chlorhexidine 2% Cloth) Taper DAILY@04 TOP 11/26/17 04:00 11/22/18 03:59 12/01/17 04:00 (Chlorhexidine 2% Cloth) 3 pack UNSCH PRN TOP 11/25/17 17:30 (Kami-Colace) 1 tab BID PO 11/25/17 21:00 11/30/17 22:58 (Milk Of Magnronni Liq) 30 ml Q12H PRN PO 11/25/17 17:30 (Lipitor) 10 mg HS PO 11/26/17 21:00 11/30/17 22:58 (Plavix) 75 mg DAILY PO 11/26/17 09:00 11/30/17 10:08 (Tamiflu) 75 mg BID OG-TUBE 11/25/17 23:50 11/30/17 22:58 (Lasix Inj) 20 mg BID@ IV PUSH 11/28/17 18:00 11/30/17 10:08 (Coreg) 3.125 mg Q12HR PO 11/30/17 11:30 11/30/17 22:59 (Lovenox Inj) 40 mg Q24H SQ 11/30/17 22:00 11/30/17 22:58 A/P Assessment and Plan Acute hypoxic and hypercarbic respiratory failure/ Acute diastolic CHF The pt had worsening bilateral infiltrates and pulmonary edema. The pt is Flu positive. She was intubated and self-extubated. Repeat ABG with elevated PCO2. Repeat chest x-ray with parenchymal changes indicating vascular congestion. Echocardiogram with ejection fraction 50-55%. Latest ABG with PCO2 of 72. Repeat CXR noted. - wean BiPAP as tolerated. Currently on NC. Check another ABG. - Diuresis with IV Lasix. - nebs. - Continue Tamiflu as the pt remains critically ill. - aggressive pulmonary toilet. - consult pulmonology for further assistance with management. Acute encephalopathy The pt continues to act confused. Secondary to elevated CO2 level. - PT/ OT. - neuro checks. - treatment as above. Bradycardia With frequent PVCs/short run of v. Tach. Seems resolved. - resume Coreg with holding parameters. - replete electrolytes and monitor. - telemetry. Contraction metabolic alkalosis S/t diuresis. - s/p Diamox 500mg iv q8h x 3 doses. - Monitor BMP while diuresing. Stable. Goals of care The patient's seems interested in hospice services. - Palliative care consult appreciated. PPx: Lovenox, SCDs Discharge Planning May transfer to floor if stable today. Awaiting pulmonology evaluation. Pt will likely need placement. Trevon Steele DO Dec 01, 2017 09:44
[2017-12-01] MEDS: LEVOFLOXACIN 750 MG PREMIX INJ 150 ML IV SCH (11:13)
[2017-12-01] MEDS: POTASSIUM CHLORIDE 20 MEQ CONTROLLED RELEASE TAB PO SCH (12:11)
--- NOTE | 2017-12-01 13:55 | EKG ---
Date Performed: 12/01/2017 Time Performed: 10:33:35 PTAGE: 82 years EKG: ATRIAL FIBRILLATION MARKED LEFT AXIS DEVIATION POSSIBLE ANTERIOR MYOCARDIAL INFARCTION , OF INDETERMINATE AGE ABNORMAL ECG PREVIOUS TRACING : 11/25/2017 15.08 Since previous tracing, this rhythm is irregular and appear s to be atrial fibrillation. Previous rhythm appears to be some type of junctional bradycardia. DOCTOR: Sukhdev Allen Interpretating Date/Time 12/01/2017 13:54:28
--- NOTE | 2017-12-01 17:30 | MB ---
cc: MARNI HARRINGTON MD DATE OF CONSULTATION 12/01/2017 REASON FOR CONSULTATION Hypoxia, possible pneumonia. HISTORY OF THE PRESENT ILLNESS The patient is a 82-year-old female who came to the hospital. She was diagnosed with the flu and she needed to go on a mechanical ventilator after which she ____ extubated, she is doing well right now. However, apparently she is having a bit more hypoxia and she is having ____ in her lungs. There is a concern for possible pneumonia. The patient right now is doing okay, however, she is not giving any good history. There is no documentation of finding fevers or chills. The patient is having coughing. PAST MEDICAL HISTORY Her past medical history was reviewed in detail. Positive for a history of: 1. Atrial fibrillation. 2. Rheumatoid arthritis. 3. History of coronary artery disease. 4. Hypertension. 5. Migraine. PAST SURGICAL HISTORY Reviewed in detail and positive for: 1. Hysterectomy. 2. Tonsillectomy. 3. Cataracts. 4. And coronary artery stenting. MEDICATIONS At home and in the hospital were reviewed in detail. SOCIAL HISTORY No documentation of alcohol use or drug use. REVIEW OF SYSTEMS Very limited. PHYSICAL EXAMINATION VITAL SIGNS: Show a temperature of 98.7, pulse is 86, respiratory rate 26, blood pressure 138/66. She is sating 96% on 4 liters. HEENT: Atraumatic, normocephalic. Obese. NECK: Trachea is midline. LUNGS: Bilateral crackles more on the right side. HEART: Normal S1-S2. ABDOMEN: Obese. Soft. It is nontender. EXTREMITIES: No edema. NEUROLOGIC: Alert. She moves all extremities. Follows commands. LABORATORY DATA Showed ABGs, the last ABG done today pH is 7.41, PCO2 55, pao2 is 93. WBC is 5.4, hemoglobin 12.7. Her BUN is 21, creatinine 0.6. IMAGING Her chest x-ray did show bilateral pulmonary infiltrates more on the right side. ASSESSMENT AND PLAN 1. Status post ventilator dependent respiratory failure. 2. Possible pneumonia. 3. Obesity. 4. History of bradycardia. I do believe the patient overall is doing better. I agree with the addition of the antibiotics, however, I would like to order a procalcitonin level to help us guide her antimicrobials. I would like to wean off the FIO2 for O2 sat more than or equal to 89%. Non invasive positive pressure ventilation would be helpful for her because of her hypercapnia. I will continue all of the other treatment. I will be back tomorrow, will check on her decisions accordingly at that time. MD BENITEZ Mckeon/KK /4:20 PM /4:54 PM
--- NOTE | 2017-12-01 19:00 | HHI.PR ---
Subjective Remarks NOT seen Objective Vitals Vital Signs Date Time Temp Pulse Resp B/P (MAP) Pulse Ox O2 Delivery O2 Flow Rate FiO2 12/01/17 16:00 96 Nasal Cannula 4.00 12/01/17 16:00 98.0 83 26 126/61 (82) 96 12/01/17 12:00 98.7 86 26 138/66 (90) 96 12/01/17 12:00 96 Nasal Cannula 4.00 12/01/17 08:39 94 Nasal Cannula 4.00 12/01/17 08:00 96 Nasal Cannula 4.00 12/01/17 08:00 98.0 74 26 166/86 (112) 96 12/01/17 06:00 71 12/01/17 04:00 97.9 69 26 127/76 (93) 96 12/01/17 04:00 96 Nasal Cannula 4.00 12/01/17 04:00 69 12/01/17 03:50 92 Nasal Cannula 4.00 12/01/17 02:00 68 12/01/17 01:29 92 45 12/01/17 00:00 93 Nasal Cannula 4.00 12/01/17 00:00 70 12/01/17 00:00 98.8 70 26 149/60 (89) 93 11/30/17 22:00 83 11/30/17 20:00 77 11/30/17 20:00 95 Nasal Cannula 4.00 11/30/17 20:00 97.5 77 30 149/63 (91) 95 11/30/17 19:38 95 Nasal Cannula 4.00 I/O 11/30/17 11/30/17 11/30/17 12/01/17 12/01/17 12/01/17 07:00 15:00 23:00 07:00 15:00 23:00 Intake Total 400 ml 240 ml 320 ml Output Total 700 ml 100 ml 400 ml Balance -300 ml 140 ml -80 ml Intake Oral 400 ml 240 ml 320 ml Output Urine Total 700 ml 100 ml 400 ml # Voids 3 4 # Bowel Movements 0 0 3 Result Diagram: 12/01/17 0525 12/01/17 0525 Imaging Last Impressions Chest X-Ray 12/01/17 0600 Signed Impressions: Service Date/Time: Friday, December 01, 2017 03:25 - CONCLUSION: 1. Persistent bilateral pulmonary opacity likely representing pulmonary vascular congestion/pulmonary edema with possible superimposed infection. 2. Severe left glenohumeral joint arthrosis and inferior subluxation of the left humeral head are chronic findings. Luis Ramachandran MD Head CT 11/25/17 1448 Signed Impressions: Service Date/Time: Saturday, November 25, 2017 15:17 - CONCLUSION: Slight atrophic and small vessel ischemic changes without any evidence for acute hemorrhage or mass effect. Karan Modi MD Neck Magnetic Resonance Angiography 11/25/17 0000 Signed Impressions: Service Date/Time: Saturday, November 25, 2017 18:46 - CONCLUSION: Normal examination. Karan Modi MD Head Magnetic Resonance Angiography 11/25/17 0000 Signed Impressions: Service Date/Time: Saturday, November 25, 2017 18:46 - CONCLUSION: Normal examination. Karan Modi MD Brain MRI 11/25/17 0000 Signed Impressions: Service Date/Time: Saturday, November 25, 2017 18:46 - CONCLUSION: Chronic atrophic changes without any evidence for acute hemorrhage or mass effect. Karan Modi MD Objective Remarks GENERAL: Elderly female in no acute distress. HEENT: Normocephalic. Atraumatic. Pupils equal, round, reactive, conjugate. Mucous membranes are moist NECK: Trachea is midline. No JVD. CHEST: Decreased breath sounds. CARDIOVASCULAR: normal rate, regular rhythm. ABDOMEN: Obese, Soft, nontender, nondistended. No guarding. MUSCULOSKELETAL: Pulses 2+. 1+ pitting edema peripherally. NEUROLOGICAL: Awake and alert. Follows commands. Procedures Intubation A/P Problem List: (1) Altered mental status ICD Code: R41.82 - Altered mental status, unspecified Status: Acute (2) CHF (congestive heart failure) ICD Code: I50.9 - Heart failure, unspecified (3) Influenza ICD Code: J11.1 - Influenza due to unidentified influenza virus with other respiratory manifestations (4) Acute encephalopathy ICD Code: G93.40 - Encephalopathy, unspecified Assessment and Plan Acute hypoxic and hypercarbic respiratory failure/ Acute diastolic CHF The pt had worsening bilateral infiltrates and pulmonary edema. The pt is Flu positive. She was intubated and self-extubated. Repeat ABG with elevated PCO2. Repeat chest x-ray with parenchymal changes indicating vascular congestion. Echocardiogram with ejection fraction 50-55%. Latest ABG with PCO2 of 72. Repeat CXR noted. - wean BiPAP as tolerated. Currently on NC. Check another ABG. - Diuresis with IV Lasix. - nebs. - Continue Tamiflu as the pt remains critically ill. - aggressive pulmonary toilet. - consult pulmonology for further assistance with management. Acute encephalopathy The pt continues to act confused. Secondary to elevated CO2 level. - PT/ OT. - neuro checks. - treatment as above. Bradycardia With frequent PVCs/short run of v. Tach. Seems resolved. - resume Coreg with holding parameters. - replete electrolytes and monitor. - telemetry. Contraction metabolic alkalosis S/t diuresis. - s/p Diamox 500mg iv q8h x 3 doses. - Monitor BMP while diuresing. Stable. Goals of care The patient's seems interested in hospice services. - Palliative care consult appreciated. PPx: Lovenox, SCDs Discharge Planning May transfer to floor if stable today. Awaiting pulmonology evaluation. Pt will likely need placement. Problem Qualifiers (1) Altered mental status: Qualified Codes: R41.82 - Altered mental status, unspecified Anthony Cazares MD Dec 01, 2017 18:59
[2017-12-01] MEDS: FAMOTIDINE 20 MG TAB PO SCH (21:42)
[2017-12-01] MEDS: ATORVASTATIN 10 MG TAB PO SCH (21:42)
[2017-12-01] MEDS: ENOXAPARIN SODIUM 40 MG/0.4 ML SYRINGE SQ SCH (21:42)
[2017-12-02] VITALS (22 sets, daily range): BP systolic 108–159; BP diastolic 55–102; PULSE 59–93; RESP 21–55; TEMP 98.1–98.8; O2SAT 88–100
[2017-12-02] MEDS: CHLORHEXIDINE GLUCONATE 2 % 1 PACK (2 CLOTHS) TOP SCH (04:00)
[2017-12-02 05:50] LABS: HEMATOCRIT 36.6 % (35.0-46.0); HEMOGLOBIN 12.2 GM/DL (11.6-15.3); MEAN CELL VOLUME 88.1 FL (80.0-100.0); MEAN CORPUSCULAR HEMOGLOBIN 29.3 PG (27.0-34.0); MEAN CORPUSCULAR HGB CONC 33.3 % (32.0-36.0); MEAN PLATELET VOLUME 11.1 FL (7.0-11.0); PLATELET COUNT 139 TH/MM3 (150-450); RED BLOOD COUNT 4.16 MIL/MM3 (4.00-5.30); WHITE BLOOD COUNT 5.7 TH/MM3 (4.0-11.0)
[2017-12-02 06:09] LABS: CALCIUM 9.8 MG/DL (8.5-10.1); CREATININE 0.66 MG/DL (0.50-1.00)
[2017-12-02] MEDS: CHLORHEXIDINE 0.12% (ORAL KIT) 15 ML CUP MT SCH ×2 (08:00→20:00)
[2017-12-02] MEDS: DOCUSATE SODIUM 50 MG/SENNA 8.6 MG TAB PO SCH ×2 (09:00→23:12)
[2017-12-02] MEDS: OSELTAMIVIR PHOSPHATE 75 MG CAP OG-TUBE SCH ×2 (09:20→23:13)
[2017-12-02] MEDS: CARVEDILOL 3.125 MG TAB PO SCH ×2 (09:20→23:12)
[2017-12-02] MEDS: POTASSIUM CHLORIDE 20 MEQ CONTROLLED RELEASE TAB PO SCH ×2 (09:20→23:13)
[2017-12-02] MEDS: FAMOTIDINE 20 MG TAB PO SCH ×2 (09:20→23:12)
[2017-12-02] MEDS: FUROSEMIDE 20 MG/2 ML VIAL IV PUSH SCH ×2 (09:20→18:13)
[2017-12-02] MEDS: CLOPIDOGREL 75 MG TAB PO SCH (09:20)
[2017-12-02] MEDS: LEVOFLOXACIN 750 MG PREMIX INJ 150 ML IV SCH (09:21)
--- NOTE | 2017-12-02 15:11 | HHI.PR ---
Subjective Remarks Follow-up influenza and respiratory failure. Patient was in respiratory distress this morning improved with BiPAP currently on nasal cannula. She refused BiPAP overnight. Discussed with RN Objective Vitals Vital Signs Date Time Temp Pulse Resp B/P (MAP) Pulse Ox O2 Delivery O2 Flow Rate FiO2 12/02/17 13:01 68 24 110/58 (75) 99 12/02/17 12:01 98.3 75 27 125/69 (87) 100 12/02/17 11:01 74 22 108/55 (72) 97 12/02/17 10:01 78 29 156/96 (116) 88 12/02/17 09:00 70 26 132/59 (83) 100 12/02/17 08:02 98 45 12/02/17 08:00 Bi-Pap 45 12/02/17 08:00 98.2 75 26 146/81 (102) 97 12/02/17 06:00 59 12/02/17 04:00 97 Nasal Cannula 4.00 12/02/17 04:00 75 12/02/17 04:00 98.8 78 22 159/74 (102) 97 12/02/17 02:00 85 12/02/17 00:00 97 Nasal Cannula 4.00 12/02/17 00:00 93 12/02/17 00:00 98.1 93 29 148/80 (102) 97 12/01/17 22:00 87 12/01/17 20:11 96 Nasal Cannula 4.00 12/01/17 20:00 91 Nasal Cannula 4.00 12/01/17 20:00 80 12/01/17 20:00 98.8 80 33 123/71 (88) 92 12/01/17 16:00 96 Nasal Cannula 4.00 12/01/17 16:00 98.0 83 26 126/61 (82) 96 I/O 12/01/17 12/01/17 12/01/17 12/02/17 12/02/17 12/02/17 07:00 15:00 23:00 07:00 15:00 23:00 Intake Total 240 ml 470 ml 120 ml Output Total 100 ml 400 ml 325 ml Balance 140 ml 70 ml -205 ml Intake Oral 240 ml 320 ml 120 ml IV Total 150 ml Output Urine Total 100 ml 400 ml 325 ml # Voids 3 4 # Bowel Movements 0 3 1 Result Diagram: 12/02/17 0354 12/02/17 0354 Imaging Last Impressions Chest X-Ray 12/01/17 0600 Signed Impressions: Service Date/Time: Friday, December 01, 2017 03:25 - CONCLUSION: 1. Persistent bilateral pulmonary opacity likely representing pulmonary vascular congestion/pulmonary edema with possible superimposed infection. 2. Severe left glenohumeral joint arthrosis and inferior subluxation of the left humeral head are chronic findings. Luis Ramachandran MD Head CT 11/25/17 1448 Signed Impressions: Service Date/Time: Saturday, November 25, 2017 15:17 - CONCLUSION: Slight atrophic and small vessel ischemic changes without any evidence for acute hemorrhage or mass effect. Karan Modi MD Neck Magnetic Resonance Angiography 11/25/17 0000 Signed Impressions: Service Date/Time: Saturday, November 25, 2017 18:46 - CONCLUSION: Normal examination. Karan Modi MD Head Magnetic Resonance Angiography 11/25/17 0000 Signed Impressions: Service Date/Time: Saturday, November 25, 2017 18:46 - CONCLUSION: Normal examination. Karan Modi MD Brain MRI 11/25/17 0000 Signed Impressions: Service Date/Time: Saturday, November 25, 2017 18:46 - CONCLUSION: Chronic atrophic changes without any evidence for acute hemorrhage or mass effect. Kraan Modi MD Objective Remarks GENERAL: Elderly female in no acute distress on nasal cannula. HEENT: Normocephalic. Atraumatic. Pupils equal, round, reactive, conjugate. Mucous membranes are moist NECK: Trachea is midline. No JVD. CHEST: Decreased breath sounds with scattered rhonchi. CARDIOVASCULAR: normal rate, regular rhythm. ABDOMEN: Obese, Soft, nontender, nondistended. No guarding. MUSCULOSKELETAL: Pulses 2+. 1+ pitting edema peripherally. NEUROLOGICAL: Awake and alert. Follows commands. Procedures Intubation A/P Problem List: (1) Altered mental status ICD Code: R41.82 - Altered mental status, unspecified Status: Acute (2) CHF (congestive heart failure) ICD Code: I50.9 - Heart failure, unspecified (3) Influenza ICD Code: J11.1 - Influenza due to unidentified influenza virus with other respiratory manifestations (4) Acute encephalopathy ICD Code: G93.40 - Encephalopathy, unspecified Assessment and Plan Acute hypoxic and hypercarbic respiratory failure/ Acute diastolic CHF The pt had worsening bilateral infiltrates and pulmonary edema. The pt is Flu positive. She was intubated and self-extubated. Repeat ABG with elevated PCO2. Repeat chest x-ray with parenchymal changes indicating vascular congestion. Echocardiogram with ejection fraction 50-55%. Latest ABG with PCO2 of 72. Repeat CXR noted. - wean BiPAP as tolerated. Currently on NC. - Diuresis with IV Lasix. We'll give extra dose of IV Lasix - nebs. - Continue Tamiflu total 7 days - aggressive pulmonary toilet. - consulted pulmonology for further assistance with management. - procalcitonin within normal limits we'll discontinue IV Levaquin Acute encephalopathy secondary to elevated CO2 level. Improving - PT/ OT. - neuro checks. - treatment as above. Bradycardia With frequent PVCs/short run of v. Tach. Seems resolved. - resume Coreg with holding parameters. - replete electrolytes and monitor. - telemetry. Contraction metabolic alkalosis S/t diuresis. - s/p Diamox 500mg iv q8h x 3 doses. - Monitor BMP while diuresing. Stable. Goals of care The patient's seems interested in hospice services. - Palliative care consult appreciated. PPx: Lovenox, SCDs Discharge Planning Keep in ICU today high likelihood of decompensation Problem Qualifiers (1) Altered mental status: Qualified Codes: R41.82 - Altered mental status, unspecified Anthony Cazares MD Dec 02, 2017 15:11
[2017-12-02] MEDS ORDERED: FUROSEMIDE 20 MG/2 ML VIAL IV PUSH ONE (16:00)
[2017-12-02] MEDS ORDERED: POTASSIUM CHLORIDE 20 MEQ CONTROLLED RELEASE TAB PO ONE (16:00)
--- NOTE | 2017-12-02 20:10 | HHI.PR ---
Subjective Remarks better still needs NIPPV on and off she has confusion Objective Vital Signs Date Time Temp Pulse Resp B/P (MAP) Pulse Ox O2 Delivery O2 Flow Rate FiO2 12/02/17 19:26 98 Nasal Cannula 2.00 12/02/17 19:00 87 41 149/94 (112) 92 12/02/17 18:11 80 36 149/102 (118) 91 12/02/17 17:04 77 55 146/66 (92) 95 12/02/17 16:00 98.3 74 29 128/65 (86) 97 12/02/17 16:00 Nasal Cannula 4.00 12/02/17 15:00 75 32 132/67 (88) 92 12/02/17 14:00 77 21 126/71 (89) 93 12/02/17 13:01 68 24 110/58 (75) 99 12/02/17 12:01 98.3 75 27 125/69 (87) 100 12/02/17 12:00 Nasal Cannula 4.00 12/02/17 11:01 74 22 108/55 (72) 97 12/02/17 10:01 78 29 156/96 (116) 88 12/02/17 09:00 70 26 132/59 (83) 100 12/02/17 08:02 98 45 12/02/17 08:00 Bi-Pap 45 12/02/17 08:00 98.2 75 26 146/81 (102) 97 12/02/17 06:00 59 12/02/17 04:00 97 Nasal Cannula 4.00 12/02/17 04:00 75 12/02/17 04:00 98.8 78 22 159/74 (102) 97 12/02/17 02:00 85 12/02/17 00:00 97 Nasal Cannula 4.00 12/02/17 00:00 93 12/02/17 00:00 98.1 93 29 148/80 (102) 97 12/01/17 22:00 87 12/01/17 20:11 96 Nasal Cannula 4.00 I/O 12/01/17 12/01/17 12/01/17 12/02/17 12/02/17 12/02/17 07:00 15:00 23:00 07:00 15:00 23:00 Intake Total 240 ml 470 ml 120 ml 900 ml Output Total 100 ml 400 ml 325 ml 1600 ml Balance 140 ml 70 ml -205 ml -700 ml Intake Oral 240 ml 320 ml 120 ml 900 ml IV Total 150 ml Output Urine Total 100 ml 400 ml 325 ml 1600 ml # Voids 3 4 # Bowel Movements 0 3 1 2 Result Diagram: 12/02/1735312/02/17353 Other Results . HEENT: Atraumatic, normocephalic. Obese. NECK: Trachea is midline. LUNGS: Bilateral crackles more on the right side. HEART: Normal S1-S2. ABDOMEN: Obese. Soft. It is nontender. EXTREMITIES: No edema. NEUROLOGIC: Alert. She moves all extremities. Follows commands. Assessment and Plan Assessment and Plan ASSESSMENT AND PLAN 1. Status post ventilator dependent respiratory failure. 2. Possible pneumonia. 3. Obesity. 4. History of bradycardia. better no need for ABX NIPPV prn She will need Trilogy vent upon discharge due to her Hypercapnea aggressive pt/ot will need placment Warren Krishnamurthy MD Dec 02, 2017 20:10
[2017-12-02] MEDS: ATORVASTATIN 10 MG TAB PO SCH (23:12)
[2017-12-02] MEDS: ENOXAPARIN SODIUM 40 MG/0.4 ML SYRINGE SQ SCH (23:13)
[2017-12-03] VITALS (23 sets, daily range): BP systolic 109–156; BP diastolic 56–95; PULSE 67–90; RESP 25–58; TEMP 97.9–98.6; O2SAT 93–98
[2017-12-03] MEDS: CHLORHEXIDINE GLUCONATE 2 % 1 PACK (2 CLOTHS) TOP SCH (04:00)
[2017-12-03 07:08] LABS: BICARBONATE 32.8 MEQ/L (21.0-32.0); CALCIUM 9.7 MG/DL (8.5-10.1); CREATININE 0.74 MG/DL (0.50-1.00); MAGNESIUM 1.8 MG/DL (1.5-2.5)
[2017-12-03] MEDS: CHLORHEXIDINE 0.12% (ORAL KIT) 15 ML CUP MT SCH ×2 (08:00→20:00)
[2017-12-03] MEDS: FUROSEMIDE 20 MG/2 ML VIAL IV PUSH SCH ×2 (08:21→17:19)
[2017-12-03] MEDS: POTASSIUM CHLORIDE 20 MEQ CONTROLLED RELEASE TAB PO SCH ×2 (08:21→21:25)
[2017-12-03] MEDS: CARVEDILOL 3.125 MG TAB PO SCH ×2 (08:21→21:25)
[2017-12-03] MEDS: FAMOTIDINE 20 MG TAB PO SCH ×2 (08:21→21:26)
[2017-12-03] MEDS: CLOPIDOGREL 75 MG TAB PO SCH (08:21)
[2017-12-03] MEDS: DOCUSATE SODIUM 50 MG/SENNA 8.6 MG TAB PO SCH ×2 (08:22→21:00)
--- NOTE | 2017-12-03 14:37 | HHI.PR ---
Subjective Remarks Follow-up respiratory failure she denies shortness of breath tolerating nasal cannula. Also did not use BiPAP last night. Discussed with RN, patient developed labial irritation from Purewick female cath Objective Vitals Vital Signs Date Time Temp Pulse Resp B/P (MAP) Pulse Ox O2 Delivery O2 Flow Rate FiO2 12/03/17 13:01 78 32 134/71 (92) 93 12/03/17 12:00 Nasal Cannula 2.00 12/03/17 12:00 98.6 74 35 147/77 (100) 95 12/03/17 11:01 80 34 146/70 (95) 94 12/03/17 10:01 67 26 109/56 (73) 94 12/03/17 09:16 93 Nasal Cannula 3.00 12/03/17 09:00 90 39 156/95 (115) 93 12/03/17 08:01 98.0 76 50 137/72 (93) 98 12/03/17 08:00 Nasal Cannula 2.00 12/03/17 06:00 75 12/03/17 04:34 95 Nasal Cannula 3.00 12/03/17 04:01 98.1 73 25 123/58 (79) 97 12/03/17 04:00 Nasal Cannula 4.00 12/03/17 04:00 74 12/03/17 02:52 98 BiPAP 12/03/17 02:49 98 45 12/03/17 02:00 75 12/03/17 00:00 Bi-Pap 45 12/03/17 00:00 85 12/03/17 00:00 98.2 85 30 135/75 (95) 97 12/02/17 23:41 97 45 12/02/17 22:00 80 12/02/17 20:01 98.4 85 39 155/67 (96) 93 12/02/17 20:00 Nasal Cannula 4.00 12/02/17 20:00 84 12/02/17 19:26 98 Nasal Cannula 2.00 12/02/17 19:00 87 41 149/94 (112) 92 12/02/17 18:11 80 36 149/102 (118) 91 12/02/17 17:04 77 55 146/66 (92) 95 12/02/17 16:00 98.3 74 29 128/65 (86) 97 12/02/17 16:00 Nasal Cannula 4.00 12/02/17 15:00 75 32 132/67 (88) 92 I/O 12/02/17 12/02/17 12/02/17 12/03/17 12/03/17 12/03/17 06:59 14:59 22:59 06:59 14:59 22:59 Intake Total 120 ml 150 ml 900 ml 50 ml Output Total 325 ml 1600 ml 900 ml Balance -205 ml 150 ml -700 ml -850 ml Intake Oral 120 ml 900 ml 50 ml IV Total 150 ml Output Urine Total 325 ml 1600 ml 900 ml # Bowel Movements 1 2 1 Result Diagram: 12/02/17 0354 12/03/17 0429 Imaging Last Impressions Chest X-Ray 12/01/17 0600 Signed Impressions: Service Date/Time: Friday, December 01, 2017 03:25 - CONCLUSION: 1. Persistent bilateral pulmonary opacity likely representing pulmonary vascular congestion/pulmonary edema with possible superimposed infection. 2. Severe left glenohumeral joint arthrosis and inferior subluxation of the left humeral head are chronic findings. Luis Ramachandran MD Head CT 11/25/17 1448 Signed Impressions: Service Date/Time: Saturday, November 25, 2017 15:17 - CONCLUSION: Slight atrophic and small vessel ischemic changes without any evidence for acute hemorrhage or mass effect. Karan Modi MD Neck Magnetic Resonance Angiography 11/25/17 0000 Signed Impressions: Service Date/Time: Saturday, November 25, 2017 18:46 - CONCLUSION: Normal examination. Karan Modi MD Head Magnetic Resonance Angiography 11/25/17 0000 Signed Impressions: Service Date/Time: Saturday, November 25, 2017 18:46 - CONCLUSION: Normal examination. Karan Modi MD Brain MRI 11/25/17 0000 Signed Impressions: Service Date/Time: Saturday, November 25, 2017 18:46 - CONCLUSION: Chronic atrophic changes without any evidence for acute hemorrhage or mass effect. Karan Modi MD Objective Remarks GENERAL: Elderly female in no acute distress on nasal cannula. HEENT: Normocephalic. Atraumatic. Pupils equal, round, reactive, conjugate. Mucous membranes are moist NECK: Trachea is midline. No JVD. CHEST: Decreased breath sounds with scattered rhonchi. CARDIOVASCULAR: normal rate, regular rhythm. ABDOMEN: Obese, Soft, nontender, nondistended. No guarding. MUSCULOSKELETAL: Pulses 2+. 1+ pitting edema peripherally which is stable. NEUROLOGICAL: Awake and alert. Follows commands. Procedures Intubation A/P Problem List: (1) Altered mental status ICD Code: R41.82 - Altered mental status, unspecified Status: Acute (2) CHF (congestive heart failure) ICD Code: I50.9 - Heart failure, unspecified (3) Influenza ICD Code: J11.1 - Influenza due to unidentified influenza virus with other respiratory manifestations (4) Acute encephalopathy ICD Code: G93.40 - Encephalopathy, unspecified Assessment and Plan Acute hypoxic and hypercarbic respiratory failure/ Acute diastolic CHF. Improving The pt had worsening bilateral infiltrates and pulmonary edema. The pt is Flu positive. She was intubated and self-extubated. Repeat ABG with elevated PCO2. Repeat chest x-ray with parenchymal changes indicating vascular congestion. Echocardiogram with ejection fraction 50-55%. Latest ABG with PCO2 of 72. Repeat CXR noted. - wean BiPAP as tolerated. Currently on NC. - Diuresis with IV Lasix. - nebs. - Status post Tamiflu - aggressive pulmonary toilet. - consulted pulmonology for further assistance with management. Recommended tripod vent outpatient - procalcitonin within normal limits discontinued IV Levaquin Acute encephalopathy secondary to elevated CO2 level. Improving - PT/ OT. - neuro checks. - treatment as above. Bradycardia With frequent PVCs/short run of v. Tach. Seems resolved. - resume Coreg with holding parameters. - replete electrolytes and monitor. - telemetry. Contraction metabolic alkalosis S/t diuresis. - s/p Diamox 500mg iv q8h x 3 doses. - Monitor BMP while diuresing. Stable. Goals of care The patient's seems interested in hospice services. - Palliative care consult appreciated. PPx: Lovenox, SCDs Discharge Planning Stable for transfer to floor then rehabilitation. Consulted case management. Problem Qualifiers (1) Altered mental status: Qualified Codes: R41.82 - Altered mental status, unspecified Anthony Cazares MD Dec 03, 2017 14:37
[2017-12-03] MEDS ORDERED: POTA20TA5 PO (17:21)
[2017-12-03] MEDS ORDERED: FURO1TAB62 PO (17:21)
--- NOTE | 2017-12-03 17:22 | HHI.DCPOC ---
Discharge Care Plan Diagnosis: (1) Acute encephalopathy Your Health Problems Are: Difficulty with ADL Exercise Tolerance Goals to Promote Your Health * To prevent worsening of your condition and complications * To maintain your health at the optimal level Directions to Meet Your Goals Take your medications as prescribed Follow your dietary instruction Follow activity as directed Keep your appointments as scheduled Take your immunizations and boosters as scheduled If your symptoms worsen call your PCP, if no PCP go to Urgent Care Center or Emergency Room Smoking is Dangerous to Your Health. Avoid second hand smoke Call the 24-hour hour crisis hotline for domestic abuse at Anthony Cazares MD Dec 03, 2017 17:22
--- NOTE | 2017-12-03 19:40 | HHI.PR ---
Subjective Remarks better still needs NIPPV on and off she has confusion ready for transfer out of icu Objective Vital Signs Date Time Temp Pulse Resp B/P (MAP) Pulse Ox O2 Delivery O2 Flow Rate FiO2 12/03/17 18:00 74 36 152/73 (99) 95 12/03/17 17:01 69 58 127/58 (81) 97 12/03/17 16:00 Nasal Cannula 2.00 12/03/17 16:00 98.5 67 36 136/65 (88) 97 12/03/17 15:00 76 37 129/62 (84) 96 12/03/17 14:00 76 38 137/74 (95) 95 12/03/17 13:01 78 32 134/71 (92) 93 12/03/17 12:00 Nasal Cannula 2.00 12/03/17 12:00 98.6 74 35 147/77 (100) 95 12/03/17 11:01 80 34 146/70 (95) 94 12/03/17 10:01 67 26 109/56 (73) 94 12/03/17 09:16 93 Nasal Cannula 3.00 12/03/17 09:00 90 39 156/95 (115) 93 12/03/17 08:01 98.0 76 50 137/72 (93) 98 12/03/17 08:00 Nasal Cannula 2.00 12/03/17 06:00 75 12/03/17 04:34 95 Nasal Cannula 3.00 12/03/17 04:01 98.1 73 25 123/58 (79) 97 12/03/17 04:00 Nasal Cannula 4.00 12/03/17 04:00 74 12/03/17 02:52 98 BiPAP 12/03/17 02:49 98 45 12/03/17 02:00 75 12/03/17 00:00 Bi-Pap 45 12/03/17 00:00 85 12/03/17 00:00 98.2 85 30 135/75 (95) 97 12/02/17 23:41 97 45 12/02/17 22:00 80 12/02/17 20:01 98.4 85 39 155/67 (96) 93 12/02/17 20:00 Nasal Cannula 4.00 12/02/17 20:00 84 I/O 1/8/18 1/812/02/17 12/03/17 12/03/17 12/03/17 07:00 15:00 23:00 07:00 15:00 23:00 Intake Total 120 ml 150 ml 900 ml 50 ml 600 ml Output Total 325 ml 1600 ml 900 ml 1200 ml Balance -205 ml 150 ml -700 ml -850 ml -600 ml Intake Oral 120 ml 900 ml 50 ml 600 ml IV Total 150 ml Output Urine Total 325 ml 1600 ml 900 ml 1200 ml # Bowel Movements 1 2 1 2 Result Diagram: 12/02/17 0354 12/03/17 0429 Assessment and Plan Assessment and Plan ASSESSMENT AND PLAN 1. Status post ventilator dependent respiratory failure. 2. Possible pneumonia. 3. Obesity. 4. History of bradycardia. better d/c put of icu NIPPV prn She will need Trilogy vent upon discharge due to her Hypercapnea aggressive pt/ot will need placment will need to follow up in office Warren Krishnamurthy MD Dec 03, 2017 19:40
[2017-12-03] MEDS: ENOXAPARIN SODIUM 40 MG/0.4 ML SYRINGE SQ SCH (21:26)
[2017-12-03] MEDS: ATORVASTATIN 10 MG TAB PO SCH (21:26)
[2017-12-04] VITALS (9 sets, daily range): BP systolic 130–144; BP diastolic 68–80; PULSE 59–79; RESP 22–30; TEMP 98–98.9; O2SAT 94–97
[2017-12-04] MEDS: CHLORHEXIDINE GLUCONATE 2 % 1 PACK (2 CLOTHS) TOP SCH (04:00)
[2017-12-04 06:04] LABS: BICARBONATE 36.1 MEQ/L (21.0-32.0); CALCIUM 9.4 MG/DL (8.5-10.1); CREATININE 0.61 MG/DL (0.50-1.00); MAGNESIUM 1.7 MG/DL (1.5-2.5)
[2017-12-04] MEDS: CHLORHEXIDINE 0.12% (ORAL KIT) 15 ML CUP MT SCH (08:00)
[2017-12-04] MEDS: SODIUM CHLORIDE 0.9% FLUSH 10 ML FLUSH IV FLUSH PRN (08:52)
[2017-12-04] MEDS: POTASSIUM CHLORIDE 20 MEQ CONTROLLED RELEASE TAB PO SCH (08:52)
[2017-12-04] MEDS: FUROSEMIDE 20 MG/2 ML VIAL IV PUSH SCH (08:52)
[2017-12-04] MEDS: FAMOTIDINE 20 MG TAB PO SCH (08:52)
[2017-12-04] MEDS: CARVEDILOL 3.125 MG TAB PO SCH ×2 (08:52→09:00)
[2017-12-04] MEDS: CLOPIDOGREL 75 MG TAB PO SCH (08:52)
[2017-12-04] MEDS: DOCUSATE SODIUM 50 MG/SENNA 8.6 MG TAB PO SCH (08:52)
[2017-12-04] MEDS ORDERED: POTASSIUM CHLORIDE 20 MEQ CONTROLLED RELEASE TAB PO ONE (09:15)
--- NOTE | 2017-12-04 10:18 | HHI.PR ---
Subjective Remarks f.u resp failure. Denies SOB. No BIPAP for 2 days. On NC. Dw , mental status is at baseline with poor memory for mos dw RN Objective Vitals Vital Signs Date Time Temp Pulse Resp B/P (MAP) Pulse Ox O2 Delivery O2 Flow Rate FiO2 12/04/17 10:00 78 12/04/17 09:30 97 Nasal Cannula 3.00 12/04/17 08:00 95 Nasal Cannula 2.00 12/04/17 08:00 69 12/04/17 08:00 98.2 69 22 144/70 (94) 95 12/04/17 06:00 69 12/04/17 04:00 Nasal Cannula 2.00 12/04/17 04:00 62 12/04/17 04:00 98.0 62 29 95 12/04/17 02:00 60 12/04/17 00:00 70 12/04/17 00:00 Nasal Cannula 2.00 12/04/17 00:00 98.9 70 30 132/80 (97) 94 12/03/17 22:00 68 12/03/17 20:07 96 Nasal Cannula 3.00 12/03/17 20:00 Nasal Cannula 2.00 12/03/17 20:00 72 12/03/17 20:00 97.9 72 30 140/74 (96) 97 12/03/17 18:00 74 36 152/73 (99) 95 12/03/17 17:01 69 58 127/58 (81) 97 12/03/17 16:00 Nasal Cannula 2.00 12/03/17 16:00 98.5 67 36 136/65 (88) 97 12/03/17 15:00 76 37 129/62 (84) 96 12/03/17 14:00 76 38 137/74 (95) 95 12/03/17 13:01 78 32 134/71 (92) 93 12/03/17 12:00 Nasal Cannula 2.00 12/03/17 12:00 98.6 74 35 147/77 (100) 95 12/03/17 11:01 80 34 146/70 (95) 94 I/O 12/03/17 12/03/17 12/03/17 12/04/17 12/04/17 12/04/17 07:00 15:00 23:00 07:00 15:00 23:00 Intake Total 50 ml 600 ml Output Total 900 ml 1200 ml 700 ml Balance -850 ml -600 ml -700 ml Intake Oral 50 ml 600 ml Output Urine Total 900 ml 1200 ml 700 ml # Bowel Movements 1 2 0 Result Diagram: 12/02/17 0354 12/04/17 0412 Objective Remarks GENERAL: Elderly female in no acute distress on nasal cannula. HEENT: Normocephalic. Atraumatic. Pupils equal, round, reactive, conjugate. Mucous membranes are moist NECK: Trachea is midline. No JVD. CHEST: Decreased breath sounds CARDIOVASCULAR: normal rate, regular rhythm. ABDOMEN: Obese, Soft, nontender, nondistended. No guarding. MUSCULOSKELETAL: Pulses 2+. 1+ pitting edema peripherally which is stable. NEUROLOGICAL: Awake and alert. Follows commands. Procedures Intubation A/P Problem List: (1) Altered mental status ICD Code: R41.82 - Altered mental status, unspecified Status: Acute (2) CHF (congestive heart failure) ICD Code: I50.9 - Heart failure, unspecified (3) Influenza ICD Code: J11.1 - Influenza due to unidentified influenza virus with other respiratory manifestations (4) Acute encephalopathy ICD Code: G93.40 - Encephalopathy, unspecified Assessment and Plan Acute hypoxic and hypercarbic respiratory failure/ Acute diastolic CHF. Improving The pt had worsening bilateral infiltrates and pulmonary edema. The pt is Flu positive. She was intubated and self-extubated. Repeat ABG with elevated PCO2. Repeat chest x-ray with parenchymal changes indicating vascular congestion. Echocardiogram with ejection fraction 50-55%. Latest ABG with PCO2 of 72. Repeat CXR noted. - wean BiPAP as tolerated. Currently on NC. - Diuresis with IV Lasix switch to po in am. - nebs. - Status post Tamiflu - aggressive pulmonary toilet. - consulted pulmonology for further assistance with management. Recommended tripod vent outpatient - procalcitonin within normal limits discontinued IV Levaquin Acute encephalopathy secondary to elevated CO2 level. Improving. states she is back to her baseline with poor memory. BMRI no acute findings. Tsh on check B12 and RPR. MCI vs dementia - PT/ OT. - neuro checks. - treatment as above. Bradycardia With frequent PVCs/short run of v. Tach. Seems resolved. - resume Coreg with holding parameters. - replete electrolytes and monitor. - telemetry. Contraction metabolic alkalosis S/t diuresis. - s/p Diamox 500mg iv q8h x 3 doses. - Monitor BMP while diuresing. Stable. Goals of care The patient's seems interested in hospice services. - Palliative care consult appreciated. PPx: Lovenox, SCDs Discharge Planning Stable for dc Problem Qualifiers (1) Altered mental status: Qualified Codes: R41.82 - Altered mental status, unspecified Anthony Cazares MD Dec 04, 2017 10:18
--- NOTE | 2017-12-04 11:50 | HHI.HCPN ---
Reason for visit a. To assist with evaluation and management of symptoms including: dyspnea, debility, confusion. b. To assist medical decision maker(s) with: better understanding of current medical conditions; weighing benefits/burdens of medical treatment options; making medical treatment decisions. Subjective/Interval History Patient admitted on 11/25/2017 with acute hypoxic and hypercarbic respiratory failure/acute diastolic CHF; influenza positive. Follow-up visit for symptom management and clarification of treatment goals. [place] [facility] [place] has no complaints. Denies shortness of breath, denies pain. Patient has not required BiPAP 2 days. She is tolerating 3L oxygen via nasal cannula with oxygen saturation in the high 90s, however saturations drop into the mid 80s on room air. Follow-up chest x-ray on 12/01/2017 showing persistent bilateral pulmonary opacity likely representing pulmonary vascular congestion/pulmonary edema with possible superimposed infection. Sodium 142, potassium 3.6, chloride 101, carbon dioxide 36.1, glucose 93, calcium 9.4, magnesium 1.7, BUN: 16, creatinine 0.61, GFR 94 Patient is pleasantly confused. Smiling and answering questions; follows some simple commands. Oriented to self only. Patient does not know she is in the hospital; she states she her (of 50+ years) years 9 years ago. Apparently the patient has some confusion at baseline which has progressively worsened over the past 2-[address] head on 11/25/2017 was negative for acute process; due to her significant altered mental status on exam, MRI, MRA, MRV were done without significant abnormality. Physical therapy and occupational therapy continue to follow patient who is debilitated at baseline. She continues to require maximum assist for mobility; she is able to sit upright with assistance. Patient requires moderate to maximum assist for self-care (facial hygiene and brushing hair ). Patient lives with her , Brady who reports the patient has been nonambulatory for 4 years , requiring increased assistance with ADLs. The patient has had 2 falls in the past year, rolling out of bed and when attempting to stand to transfer. Goals remain aggressive at this time; patient will need placement in SNF for rehabilitation upon discharge. [facility]errals to [facility] are pending. . Family/friend interactions Patient's spouse was present for a portion of exam. Reviewed patient's clinical course and discussed overall prognosis. Plan for discharge to SNF for rehabilitation with the goal of returning home. Mr. Villarreal is concerned his may require home oxygen in the future, explained that the patient would be re-assessed prior to returning home to determine needs. . Advance Directives Advance Directive Specifics Documented care wishes: No documented care wishes are available at this time. . Objective Vital Signs Date Time Temp Pulse Resp B/P (MAP) Pulse Ox O2 Delivery O2 Flow Rate FiO2 12/04/17 10:00 78 12/04/17 09:30 97 Nasal Cannula 3.00 12/04/17 08:00 95 Nasal Cannula 2.00 12/04/17 08:00 69 12/04/17 08:00 98.2 69 22 144/70 (94) 95 12/04/17 06:00 69 12/04/17 04:00 Nasal Cannula 2.00 12/04/17 04:00 62 12/04/17 04:00 98.0 62 29 95 12/04/17 02:00 60 12/04/17 00:00 70 12/04/17 00:00 Nasal Cannula 2.00 12/04/17 00:00 98.9 70 30 132/80 (97) 94 12/03/17 22:00 68 12/03/17 20:07 96 Nasal Cannula 3.00 12/03/17 20:00 Nasal Cannula 2.00 12/03/17 20:00 72 12/03/17 20:00 97.9 72 30 140/74 (96) 97 12/03/17 18:00 74 36 152/73 (99) 95 12/03/17 17:01 69 58 127/58 (81) 97 12/03/17 16:00 Nasal Cannula 2.00 12/03/17 16:00 98.5 67 36 136/65 (88) 97 12/03/17 15:00 76 37 129/62 (84) 96 12/03/17 14:00 76 38 137/74 (95) 95 12/03/17 13:01 78 32 134/71 (92) 93 12/03/17 12:00 Nasal Cannula 2.00 12/03/17 12:00 98.6 74 35 147/77 (100) 95 Intake & Output 12/04/17 12/04/17 07:00 19:00 Output Total 700 ml Balance -700 ml Output Urine Total 700 ml # Bowel Movements 0 . Physical Exam CONSTITUTIONAL/GENERAL: This is an adequately nourished elderly, female patient on 3L oxygen via NC TUBES/LINES/DRAINS: PIV, NC, urinary catheter SKIN: Left lower leg wound redness, open to air. Left inner arm forearm ecchymosis. Skin temperature appropriate. Not diaphoretic. HEAD: Atraumatic. Normocephalic. EYES: Pupils 3mm equal and round and reactive. No scleral icterus. No injection or drainage. . ENT: Hearing grossly normal. Nose without bleeding or purulent drainage. NECK: Trachea midline. CARDIOVASCULAR: Irregular rhythm. Capillary refill <2 seconds. Peripheral pulses symmetric. RESPIRATORY/CHEST: Tolerating 3L via nasal cannula. Diminished air exchange throughout. Scattered rhonchi. GASTROINTESTINAL: Abdomen soft, non-tender, nondistended. No guarding. Bowel sounds present. GENITOURINARY: Without palpable bladder distension. MUSCULOSKELETAL: Extremities without clubbing, cyanosis. No mottling or clubbing. LYMPHATICS: No palpable cervical or supraclavicular adenopathy. NEUROLOGICAL: Pleasantly confused. Oriented to self only. Does not know she is hospitalized, does not remember how long she has been . PSYCHIATRIC: No obvious anxiety/depression. no apparent hallucinations or other psychotic thought process. .. Diagnostic Tests Laboratory Laboratory Tests Test 12/01/17 20:58 12/02/17 03:54 12/03/17 04:29 12/04/17 04:12 Procalcitonin 0.06 ng/mL (0.00-0.08) White Blood Count 5.7 TH/MM3 (4.0-11.0) Red Blood Count 4.16 MIL/MM3 (4.00-5.30) Hemoglobin 12.2 GM/DL (11.6-15.3) Hematocrit 36.6 % (35.0-46.0) Mean Corpuscular Volume 88.1 FL (80.0-100.0) Mean Corpuscular Hemoglobin 29.3 PG (27.0-34.0) Mean Corpuscular Hemoglobin Concent 33.3 % (32.0-36.0) Red Cell Distribution Width 16.0 % (11.6-17.2) Platelet Count 139 TH/MM3 (150-450) Mean Platelet Volume 11.1 FL (7.0-11.0) Blood Urea Nitrogen 17 MG/DL (7-18) 17 MG/DL (7-18) 16 MG/DL (7-18) Creatinine 0.66 MG/DL (0.50-1.00) 0.74 MG/DL (0.50-1.00) 0.61 MG/DL (0.50-1.00) Random Glucose 103 MG/DL (74-106) 106 MG/DL (74-106) 93 MG/DL (74-106) Calcium Level 9.8 MG/DL (8.5-10.1) 9.7 MG/DL (8.5-10.1) 9.4 MG/DL (8.5-10.1) Sodium Level 142 MEQ/L (136-145) 139 MEQ/L (136-145) 142 MEQ/L (136-145) Potassium Level 3.4 MEQ/L (3.5-5.1) 4.1 MEQ/L (3.5-5.1) 3.6 MEQ/L (3.5-5.1) Chloride Level 102 MEQ/L (98-107) 99 MEQ/L (98-107) 101 MEQ/L (98-107) Carbon Dioxide Level 35.0 MEQ/L (21.0-32.0) 32.8 MEQ/L (21.0-32.0) 36.1 MEQ/L (21.0-32.0) Anion Gap 5 MEQ/L (5-15) 7 MEQ/L (5-15) 5 MEQ/L (5-15) Estimat Glomerular Filtration Rate 86 ML/MIN (>89) 76 ML/MIN (>89) 94 ML/MIN (>89) Magnesium Level 1.9 MG/DL (1.5-2.5) 1.8 MG/DL (1.5-2.5) 1.7 MG/DL (1.5-2.5) . Result Diagram: 12/02/17 0354 12/04/17 0412 Procedures 11/25/2017: Intubation 11/27/2017: Self extubation . Assessment and Plan Disease Oriented Problem List: (1) Acute encephalopathy (2) Influenza (3) CHF (congestive heart failure) (4) Acute respiratory failure with hypoxia and hypercarbia (5) CO2 narcosis (6) Atrial fibrillation Symptom Scale: (1) Debility 0-10 Scale: Unable to quantify (2) Dyspnea 0-10 Scale: Unable to quantify (3) Confusion Pertinent Non-Medical Issues Psychosocial: Patient has been to spouse Christopher for 50+ years; he is her primary electrician helper powerhouse. Spiritual: [employer] Legal: Per [place] statutes, in the absence of written advanced directives healthcare proxy decision-making falls to the patient's spouse Ethical issues impacting care: No known ethical issues impacting care at this time. . Important Contacts Christopher Villarreal, spouse: [phone] Alba Gregorio, daughter: [phone] . Prognosis Patient is an 82 yo female who is debilitated and confused at baseline. She is currently hospitalized for management of acute respiratory failure and CHF exacerbation. + Influenza. Having persistent pulmonary edema with superimposed infection. Will require SNF placement for rehabilitation at discharge; however it is unclear if the patient will tolerate rehabilitation. Patient is high risk for ongoing decline and complications due to her advanced age, multiple comorbid conditions and debility at baseline. . Code Status: Full Code Plan * FULL CODE * Decision-making: Per [place] statutes, in the absence of written advanced directives healthcare proxy decision-making falls to the patient's . * Discussed patient with bedside nurse (Zuly) and [facility] rehab nurse (Felicitas). * AGGRESSIVE GOALS * Spoke with patient's who is cautiously optimistic. Plan to discharge to SNF for rehabilitation. remains hopeful that the patient will be able to return home at some point in the future. * Symptom management- dyspnea: Patient admitted on with acute hypoxic and hypercarbic respiratory failure/acute diastolic CHF. + Influenza. Intubated on 11/25/17; self extubated 11/27/17 and transfer to floor; [place] [facility] [place] 2/2 increasing respiratory distress. Currently tolerating 3L oxygen via nasal cannula with oxygen saturations in the high 90s; patient desats into the mid 80s on room air. Follow-up chest x-ray on 12/01/2017 showing persistent bilateral pulmonary opacity likely representing pulmonary vascular congestion/pulmonary edema with possible superimposed infection. * Symptom management - debility: Patient is debilitated at baseline. Brady ( spouse) reports the patient has been nonambulatory for 4 years, now requiring increased assistance with ADLs. The patient has had 2 falls in the past year, rolling out of bed and when attempting to stand to transfer. Per PT and OT report, patient requires maximum assist with mobility and moderate to maximum assist with self-care. Patient will need placement in SNF for rehabilitation upon discharge but may not tolerate rehabilitation due to significant deconditioning. [facility] are [facility]. * Symptom management-confusion: Patient is pleasantly confused. Smiling and answering questions; follows some simple commands. Oriented to self only. Patient does not know she is in the hospital; she states she her (of 50+ years) years 9 years ago. Apparently the patient has some confusion at baseline which has progressively worsened over the past 2-[address] head on 11/25/2017 was negative for acute process; due to her significant altered mental status on exam, MRI, MRA, MRV were done without significant abnormality. * Palliative Care will continue to follow this patient throughout her hospitalization to establish trust, assist with symptom management. . Attestation To help prompt me to consider important information that might be impacting today's encounter and assessment, information from prior notes written by myself or my colleagues may have been "brought forward" into today's note. My signature on this note, however, is an attestation that I personally performed the exam, history, and/or decision-making noted today, and, unless otherwise indicated, the interactions with patient, family, and staff as well as the review of records all occurred today. I also attest that the listed assessment and stated plan reflect my best clinical judgment today based on the combination of historical information, prior notes, and today's exam/ interactions. When time spent is documented, it refers only to time spent today by the signer, or if indicated, combined time spent today by collaborating physician/nurse practitioner. . Michelle Garcia Dec 04, 2017 11:50
--- NOTE | 2017-12-05 15:13 | HHI.DS ---
Discharge Summary Admission Date Nov 25, 2017 at 17:14 Discharge Date: Dec 04, 2017 Admitting Diagnosis CO2 narcosis, AMS, rule out basilar infarct (1) Altered mental status ICD Code: R41.82 - Altered mental status, unspecified Diagnosis: Principal Status: Acute (2) CHF (congestive heart failure) ICD Code: I50.9 - Heart failure, unspecified Diagnosis: Principal (3) Influenza ICD Code: J11.1 - Influenza due to unidentified influenza virus with other respiratory manifestations Diagnosis: Principal (4) Acute encephalopathy ICD Code: G93.40 - Encephalopathy, unspecified Diagnosis: Principal Procedures Intubation Brief History - From Admission This is an 82-year-old female who has history of a prior [place] back in 2016 as well as chronic orthopedic problems of her left shoulder as well as a non-'s healing wound on her left foot who was last seen normal on Saturday. Her reports that on Saturday she was lethargic and difficult to arouse and laid in bed all day. Today he reports that she was nearly unarousable and difficult to get into a wheelchair. He called 911 and EMS brought the patient in. Upon arrival to the emergency department, the patient was hypoxic with SPO2 in the low 80s on room air. ABG done in the emergency department had a pH of 7.24, PCO2 79, PO2 64. She was emergently intubated for declining mental status. Chest x-ray shows bilateral pulmonary opacities which are concerning for pulmonary edema. In addition she has significant sinus bradycardia although this is hemodynamically stable. CT brain was negative for acute bleed. Due to her significant altered mental status, MRI, MRA, MRV were done without significant abnormality. Unfortunately no definite information is available from the patient due to her altered mental status and intubation. ROS is unobtainable. I did talk to her who denies her having any recent changes in medical status, no fevers, no chills, no chest pain, shortness breath, nausea, vomiting, diarrhea, or any other symptoms that concerned him, and he states that she was in her usual state of health up until Saturday. CBC/BMP: 12/02/17 0354 12/04/17 0412 Significant Findings Laboratory Tests Test 12/03/17 04:29 12/04/17 04:12 12/04/17 12:47 Carbon Dioxide Level 32.8 MEQ/L (21.0-32.0) 36.1 MEQ/L (21.0-32.0) Estimat Glomerular Filtration Rate 76 ML/MIN (>89) Vitamin B12 Level 1169 PG/ML (193-986) Imaging Last Impressions Chest X-Ray 12/01/17 0600 Signed Impressions: Service Date/Time: Friday, December 01, 2017 03:25 - CONCLUSION: 1. Persistent bilateral pulmonary opacity likely representing pulmonary vascular congestion/pulmonary edema with possible superimposed infection. 2. Severe left glenohumeral joint arthrosis and inferior subluxation of the left humeral head are chronic findings. Luis Ramachandran MD Head CT 11/25/17 1448 Signed Impressions: Service Date/Time: Saturday, November 25, 2017 15:17 - CONCLUSION: Slight atrophic and small vessel ischemic changes without any evidence for acute hemorrhage or mass effect. Karan Modi MD Neck Magnetic Resonance Angiography 11/25/17 0000 Signed Impressions: Service Date/Time: Saturday, November 25, 2017 18:46 - CONCLUSION: Normal examination. Karan Modi MD Head Magnetic Resonance Angiography 11/25/17 0000 Signed Impressions: Service Date/Time: Saturday, November 25, 2017 18:46 - CONCLUSION: Normal examination. Karan Modi MD Brain MRI 11/25/17 0000 Signed Impressions: Service Date/Time: Saturday, November 25, 2017 18:46 - CONCLUSION: Chronic atrophic changes without any evidence for acute hemorrhage or mass effect. Karan Modi MD PE at Discharge GENERAL: Elderly female in no acute distress on nasal cannula. HEENT: Normocephalic. Atraumatic. Pupils equal, round, reactive, conjugate. Mucous membranes are moist NECK: Trachea is midline. No JVD. CHEST: Decreased breath sounds CARDIOVASCULAR: normal rate, regular rhythm. ABDOMEN: Obese, Soft, nontender, nondistended. No guarding. MUSCULOSKELETAL: Pulses 2+. 1+ pitting edema peripherally which is stable. NEUROLOGICAL: Awake and alert. Follows commands. Hospital Course Acute hypoxic and hypercarbic respiratory failure/ Acute diastolic CHF. Improving The pt had worsening bilateral infiltrates and pulmonary edema. The pt is Flu positive. She was intubated and self-extubated. Repeat ABG with elevated PCO2. Repeat chest x-ray with parenchymal changes indicating vascular congestion. Echocardiogram with ejection fraction 50-55%. Latest ABG with PCO2 of 72. Repeat CXR noted. - wean BiPAP as tolerated. Currently on NC. - Diuresis with IV Lasix switch to po in am. - nebs. - Status post Tamiflu - aggressive pulmonary toilet. - consulted pulmonology for further assistance with management. Recommended tripod vent outpatient - procalcitonin within normal limits discontinued IV Levaquin Acute encephalopathy secondary to elevated CO2 level. Improving. states she is back to her baseline with poor memory. BMRI no acute findings. Tsh on check B12 and RPR. MCI vs dementia - PT/ OT. - neuro checks. - treatment as above. Bradycardia With frequent PVCs/short run of v. Tach. Seems resolved. - resume Coreg with holding parameters. - replete electrolytes and monitor. - telemetry. Contraction metabolic alkalosis S/t diuresis. - s/p Diamox 500mg iv q8h x 3 doses. - Monitor BMP while diuresing. Stable. Goals of care The patient's seems interested in hospice services. - Palliative care consult appreciated. PPx: Jaspreet Pinedo Pt Condition on Discharge: Stable Discharge Disposition: Discharge to SNF Discharge Time: > 30 minutes Discharge Instructions DIET: Follow Instructions for: Heart Healthy Diet Activities you can perform: Regular-No Restrictions Activities to Avoid: Driving Follow up Referrals: PCP Follow-up - 1 Week Pulmonology - 1 Week New Medications: Furosemide (Lasix) 20 Mg Tab 20 MG PO DAILY for Prevent Heart Failure, #30 TAB 0 Refills Potassium Chloride Microencaps (Potassium Chloride Microencaps) 20 Meq Tab 20 MEQ PO QD for Electrolyte Replacement, #30 TAB Continued Medications: Atorvastatin (Atorvastatin) 10 Mg Tab 10 MG PO HS for Cholesterol Management, #30 TAB 0 Refills Ywjkbepov-Bdvmdojbeah-Paxqpmt (Osteo Bi-Flex One A Day) 1 Tab 1 TAB PO DAILY, TAB Carvedilol (Carvedilol) 3.125 Mg Tab 3.125 MG PO BID, #60 TAB 0 Refills Clopidogrel (Plavix) 75 Mg Tab 75 MG PO DAILY for blood prevention for 30 Days, TAB Coenzyme Q10 (Ubidecarenone) (Coq-10) 50 Mg Cap 50 CAP PO DAILY Losartan (Losartan) 100 Mg Tab 100 MG PO DAILY for Blood Pressure Management, #30 TAB 0 Refills Melatonin (Melatonin) 5 Mg Tab 5 MG PO HS for Provide Good Sleep, TAB 0 Refills Anthony Cazares MD Dec 05, 2017 15:13
== END 2017-12-04 16:22 | DRG 208 ==
LOC: NEPC 14:31 → NEDA 17:14 → HIMW 19:30 → N05A 11-27 18:41 → HIMW 11-28 14:20
PROVIDERS: ADMIT Internal Medicine; ATTEND Internal Medicine
PROC: 5A1945Z Respiratory Ventilation, 24-96 Consecutive Hours (ICD-10-PCS; principal; 2017-11-25)
PROC: 0BH17EZ Insertion of Endotracheal Airway into Trachea, Via Natural or Artificial Opening (ICD-10-PCS; 2017-11-28)
PROC: 5A09457 Assistance with Respiratory Ventilation, 24-96 Consecutive Hours, Continuous Positive Airway Pressure (ICD-10-PCS; 2017-11-28)
DX: J96.01 Acute respiratory failure with hypoxia (principal); J96.02 Acute respiratory failure with hypercapnia; J11.00 Influenza due to unidentified influenza virus with unspecified type of pneumonia; G93.40 Encephalopathy, unspecified; I11.0 Hypertensive heart disease with heart failure; I50.33 Acute on chronic diastolic (congestive) heart failure; L89.151 Pressure ulcer of sacral region, stage 1; E87.3 Alkalosis; R00.1 Bradycardia, unspecified; Z68.41 Body mass index [BMI] 40.0-44.9, adult; E66.9 Obesity, unspecified; M06.9 Rheumatoid arthritis, unspecified; M19.012 Primary osteoarthritis, left shoulder; E78.00 Pure hypercholesterolemia, unspecified; I25.10 Atherosclerotic heart disease of native coronary artery without angina pectoris; Z95.5 Presence of coronary angioplasty implant and graft; I25.2 Old myocardial infarction; Z79.02 Long term (current) use of antithrombotics/antiplatelets; G43.909 Migraine, unspecified, not intractable, without status migrainosus; S91.302A Unspecified open wound, left foot, initial encounter; E87.6 Hypokalemia
CPT/HCPCS: 31500; 36600; 70450; 70544; 70548; 70551; 71045; 76937; 80048; 80053; 80307; 81001; 82140; 82550; 82607; 82805; 82948; 83605; 83735; 83880; 84145; 84439; 84443; 84484; 85025; 85027; 85610; 85730; 86592; 87040; 87086; 87449; 87641; 87804; 93005; 93306; 94002; 94003; 94150; 94640; 94664; 94667; 94668; 96374; A9579; J0330; J0461; J0692; J1120; J1650; J1940; J1956; J3010; J3475; J3480; J7040

== ENCOUNTER 2018-03-25 01:17 | Inpatient (IN) | payer MEDICARE, BC ==
[2018-03-25] VITALS (28 sets, daily range): BP systolic 106–160; BP diastolic 52–93; PULSE 57–73; RESP 12–14; TEMP 97.3–99; O2SAT 98–100
[~2018-03-25] VITALS: Ht 157.5 cm; Wt 97.5 kg
[~2018-03-25 01:17] MED LIST changes: -GADODIAMIDE PF 287 MG/ML 20 ML VIAL (for RAD MRI) IV PUSH ONE; +MELA5 PO; +POTA20TA5 PO
[2018-03-25] MEDS ORDERED: SODIUM CHLORIDE 0.9% FLUSH 10 ML FLUSH IVF PRN (01:30)
[2018-03-25] MEDS ORDERED: PROPOFOL 200 MG/20 ML AMP IV ONE (01:30)
[2018-03-25] MEDS: PROPOFOL 1000 MG/100 ML INJ 100 ML IV PRN ×4 (01:30→09:59)
--- NOTE | 2018-03-25 01:49 | PD ---
HPI Chief Complaint: Respiratory Distress Time Seen by Provider: 01:20 Travel History International Travel<30 days: No Contact w/Intl Traveler<30days: No Traveled to known affect area: No History of Present Illness HPI 82-year-old female patient with previous history of [place], A. fib, multiple medical issues, presents to the ER today brought in by EMS, apparently had respiratory distress, was struggling to breathe and EMS put her on BiPAP initially, but then the patient became more disoriented and they intubated her for airway protection. She is not able to give me any further history. Modifying Factors: None Associated Signs & Symptoms: Respiratory distress, intubated Risk Factors: Elderly, cardiac disease PFSH Past Medical History Hx Anticoagulant Therapy: Yes Arthritis: Yes (L shoulder) Atrial Fibrillation: Yes Autoimmune Disease: Yes (RA) Heart Rhythm Problems: Yes (A FIB) Cardiac Catheterization: Yes Cardiovascular Problems: Yes ([place]) High Cholesterol: Yes Cerebrovascular Accident: No Coronary Artery Disease: Yes Diabetes: No Diminished Hearing: No Genitourinary: Yes (incontinent) Hypertension: Yes Reproductive: No Migraines: Yes (pt says she has cluster headaches) Myocardial Infarction: Yes (september 2016) ?: Not Para: 4 Past Surgical History Coronary Stent: Yes Eye Surgery: Yes (bilat cataracts) Gynecologic Surgery: Yes (hysterectomy) Hysterectomy: Yes Tonsillectomy: Yes Other Surgery: Yes Social History Alcohol Use: No Tobacco Use: No Substance Use: No Allergies-Medications (Allergen,Severity, Reaction): Coded Allergies: grass pollen (Verified Allergy, Intermediate, Sneezing, 11/08/17) *MDRO Multi-Drug Resistant Organism (Verified Adverse Reaction, Unknown, 11/08/17) 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 Reported Meds & Prescriptions Reported Meds & Active Scripts Active Lasix (Furosemide) 20 Mg Tab 20 Mg PO DAILY Potassium Chloride Microencaps 20 Meq Tab 20 Meq PO QD Plavix (Clopidogrel Bisulfate) 75 Mg Tab 75 Mg PO DAILY 30 Days Reported Melatonin 5 Mg Tab 5 Mg PO HS Atorvastatin (Atorvastatin Calcium) 10 Mg Tab 10 Mg PO HS Carvedilol 3.125 Mg Tab 3.125 Mg PO BID Osteo Bi-Flex One A Day (Bjkjjuzwn-Nmdlatmspfa-Kctwkxc) 1 Tab 1 Tab PO DAILY Coq-10 (Coenzyme Q10 (Ubidecarenone)) 50 Mg Cap 50 Cap PO DAILY Losartan (Losartan Potassium) 100 Mg Tab 100 Mg PO DAILY Review of Systems ROS Limitations: Intubated (Unable to obtain further history) Physical Exam Narrative GENERAL: Well-developed obese elderly white female patient currently unresponsive to pain, intubated. I SKIN: Focused skin assessment warm/dry. HEAD: Atraumatic. Normocephalic. EYES: Pupils small, equal and round. No scleral icterus. No injection or drainage. ENT: No nasal bleeding or discharge. Mucous membranes pink and moist. NECK: Trachea midline. No JVD. CARDIOVASCULAR: Regular rate and rhythm. No murmur appreciated. RESPIRATORY: No accessory muscle use. Clear to auscultation. Breath sounds equal bilaterally. GASTROINTESTINAL: Abdomen soft, obese, pitting edema of the abdominal wall, non- tender, nondistended. Hepatic and splenic margins not palpable. MUSCULOSKELETAL: No obvious deformities. No clubbing. No cyanosis. Bilateral pitting edema. NEUROLOGICAL: Not responsive to pain. Face appears to be symmetrical, unresponsive currently and cannot follow commands to do neuro exam. PSYCHIATRIC: Intubated, unresponsive, unable to be evaluated Data Data Last Documented VS Vital Signs Date Time Temp Pulse Resp B/P (MAP) Pulse Ox O2 Delivery O2 Flow Rate FiO2 03/25/18 01:51 100 03/25/18 01:35 100 03/25/18 01:33 Ventilator 03/25/18 01:23 97.6 60 12 121/57 (78) Orders Orders Complete Blood Count With Diff (03/25/18 01:20) Comprehensive Metabolic Panel (03/25/18 01:20) B-Type Natriuretic Peptide (03/25/18 01:20) Act Partial Throm Time (Ptt) (03/25/18 01:20) Prothrombin Time / Inr (Pt) (03/25/18 01:20) Ckmb (Isoenzyme) Profile (03/25/18 01:20) Troponin I (03/25/18 01:20) Arterial Blood Gas (Abg) (03/25/18 01:20) Iv Access Insert/Monitor (03/25/18 01:20) Electrocardiogram (03/25/18 01:20) Ecg Monitoring (03/25/18 01:20) Oximetry (03/25/18 01:20) Oxygen Administration (03/25/18 01:20) Chest, Single Ap (03/25/18 01:20) Sodium Chloride 0.9% Flush (Ns Flush) (03/25/18 01:30) Propofol 200 Mg/20 Ml Inj (Diprivan 200 (03/25/18 01:30) Propofol 1000 Mg/100 Ml Inj (Diprivan 10 (03/25/18 01:45) Admit Order (Ed Use Only) (03/25/18 02:39) Labs Laboratory Tests Test 03/25/18 01:40 03/25/18 01:42 White Blood Count 6.6 TH/MM3 Red Blood Count 4.26 MIL/MM3 Hemoglobin 12.7 GM/DL Hematocrit 38.6 % Mean Corpuscular Volume 90.7 FL Mean Corpuscular Hemoglobin 29.8 PG Mean Corpuscular Hemoglobin Concent 32.8 % Red Cell Distribution Width 14.7 % Platelet Count 247 TH/MM3 Mean Platelet Volume 9.8 FL Neutrophils (%) (Auto) 60.8 % Lymphocytes (%) (Auto) 20.9 % Monocytes (%) (Auto) 16.5 % Eosinophils (%) (Auto) 1.1 % Basophils (%) (Auto) 0.7 % Neutrophils # (Auto) 4.0 TH/MM3 Lymphocytes # (Auto) 1.4 TH/MM3 Monocytes # (Auto) 1.1 TH/MM3 Eosinophils # (Auto) 0.1 TH/MM3 Basophils # (Auto) 0.0 TH/MM3 CBC Comment DIFF FINAL Differential Comment Blood Gas Puncture Site RT RADIAL Blood Gas Patient Temperature 98.6 Blood Gas HCO3 29 mmol/L Blood Gas Base Excess 3.1 mmol/L Blood Gas Oxygen Saturation 98 % Arterial Blood pH 7.29 Arterial Blood Partial Pressure CO2 62 mmHg Arterial Blood Partial Pressure O2 227 mmHG Arterial Blood Oxygen Content 17.4 Vol % Arterial Blood Carboxyhemoglobin 1.2 % Arterial Blood Methemoglobin 0.3 % Blood Gas Hemoglobin 12.3 G/DL Oxygen Delivery Device VENT Blood Gas Ventilator Setting PRVC/AC Blood Gas Inspired Oxygen 100 % MDM Medical Decision Making Medical Screen Exam Complete: Yes Emergency Medical Condition: Yes Medical Record Reviewed: Yes Interpretation(s) EKG shows A. fib with occasional PAC, rate 69 bpm. No signs of acute ST elevations or depressions. Laboratory Tests Test 03/25/18 01:40 03/25/18 01:42 Monocytes (%) (Auto) 16.5 % (0.0-8.0) Monocytes # (Auto) 1.1 TH/MM3 (0-0.9) Blood Gas HCO3 29 mmol/L (22-26) Blood Gas Base Excess 3.1 mmol/L (-2-2) Arterial Blood pH 7.29 (7.380-7.420) Arterial Blood Partial Pressure CO2 62 mmHg (38-42) Arterial Blood Partial Pressure O2 227 mmHG (61-120) Differential Diagnosis CHF exacerbation versus pneumonia versus COPD exacerbation Narrative Course Chest x-ray concerning for pulmonary edema. She has a very enlarged heart on chest x-ray. ET tube appears to be in place. Initial ABG shows that she is retaining as well. At this point, patient's PEEP was increased. Patient had been put on propofol for sedation. Planning to admit to ICU for further treatment. Case was discussed with Dr. Nguyen for admission. Aggregate critical care time was 30 minutes. Time to perform other separately billable procedures was not included in the critical care time. My time did not include minutes spent treating any other patients simultaneously or on activities that did not directly contribute to the patient's treatment. The services I provided to this patient were to treat and/or prevent clinically significant deterioration that could result in: Respiratory failure, I provided critical care services requiring my management, as noted below: Chart data review, documentation time, medication orders and management, vital sign assessments/reviewing monitor data, ordering and reviewing lab tests, ordering and interpreting/reviewing x-rays and diagnostic studies, care of the patient and discussion of the patient with the admitting physicians. Diagnosis Primary Impression: CHF (congestive heart failure) Additional Impressions: Acute respiratory failure with hypoxia and hypercarbia Endotracheally intubated Admitting Information Admitting Physician Requests: Michelle Minaya MD March 25, 2018 01:49
[2018-03-25 02:00] LABS: BASOPHIL % 0.7 % (0.0-2.0); EOSINOPHIL # 0.1 TH/MM3 (0-0.4); EOSINOPHIL % 1.1 % (0.0-4.0); HEMATOCRIT 38.6 % (35.0-46.0); HEMOGLOBIN 12.7 GM/DL (11.6-15.3); LYMPH % 20.9 % (9.0-44.0); LYMPHOCYTE # 1.4 TH/MM3 (1.0-4.8); MEAN CELL VOLUME 90.7 FL (80.0-100.0); MEAN CORPUSCULAR HEMOGLOBIN 29.8 PG (27.0-34.0); MEAN CORPUSCULAR HGB CONC 32.8 % (32.0-36.0); MEAN PLATELET VOLUME 9.8 FL (7.0-11.0); MONO % 16.5 % (0.0-8.0); MONOCYTE # 1.1 TH/MM3 (0-0.9); NEUT % 60.8 % (16.0-70.0); PLATELET COUNT 247 TH/MM3 (150-450); RED BLOOD COUNT 4.26 MIL/MM3 (4.00-5.30); RED CELL DISTRIBUTION WIDTH 14.7 % (11.6-17.2); WHITE BLOOD COUNT 6.6 TH/MM3 (4.0-11.0)
[2018-03-25 02:42] LABS: ALBUMIN 3.2 GM/DL (3.4-5.0); ALKALINE PHOSPHATASE 91 U/L (45-117); ALT (GPT) 24 U/L (10-53); AST (GOT) 43 U/L (15-37); BLOOD UREA NITROGEN 13 MG/DL (7-18); CALCIUM 9.3 MG/DL (8.5-10.1); CHLORIDE 108 MEQ/L (98-107); CREATININE 1.03 MG/DL (0.50-1.00); GLOMERULAR FILTRATION RATE 52 ML/MIN (>89); GLUCOSE,RANDOM 107 MG/DL (74-106); SODIUM (NA) 144 MEQ/L (136-145); TOTAL BILIRUBIN ADULT 0.7 MG/DL (0.2-1.0); TOTAL PROTEIN 6.5 GM/DL (6.4-8.2); TROPONIN I 0.04 NG/ML (0.02-0.05)
[2018-03-25] MEDS ORDERED: BISACODYL 10 MG SUPP RECTAL PRN (03:00)
[2018-03-25] MEDS ORDERED: MAGNESIUM HYDROXIDE SUSP 30 ML CUP PO PRN (03:00)
[2018-03-25] MEDS ORDERED: MORPHINE SULFATE 4 MG/ML INJ IV PUSH PRN (03:00)
[2018-03-25] MEDS ORDERED: MIDAZOLAM HCL 2 MG/2 ML VIAL IV PUSH PRN (03:00)
[2018-03-25] MEDS ORDERED: ACETAMINOPHEN 325 MG TAB PO PRN (03:00)
[2018-03-25] MEDS ORDERED: LACTULOSE SYRUP 20 GM/30 ML CUP PO PRN (03:00)
[2018-03-25] MEDS ORDERED: CHLORHEXIDINE GLUCONATE 2 % 1 PACK (2 CLOTHS) TOP PRN (03:00)
[2018-03-25] MEDS ORDERED: ONDANSETRON HCL 4 MG/2 ML VIAL IV PUSH PRN (03:00)
[2018-03-25] MEDS ORDERED: SODIUM CHLORIDE 0.9% FLUSH 10 ML FLUSH IV FLUSH PRN (03:00)
[2018-03-25] MEDS ORDERED: SENNOSIDES 8.6 MG TAB PO PRN (03:00)
[2018-03-25] MEDS ORDERED: NURSING INFORMATION XX SCH (03:00)
--- NOTE | 2018-03-25 03:09 | HHI.HP ---
[facility] Service Critical Care Medicine Primary Care Physician Santiago Sethi, DO Admission Diagnosis Pulmonary edema/respiratory failure/intubation Diagnosis: Travel History International Travel<30 Days: No Contact w/Intl Traveler <30 Da: No Traveled to Known Affected Are: No History of Present Illness 82-year-old female patient with previous history of coronary artery disease and [place] status post stent placement, atrial fibrillation, multiple medical issues, was brought in by EMS, due to respiratory distress, was struggling to breathe and EMS put her on BiPAP initially, but then the patient became more disoriented and they intubated her for an airway protection. She is not able to provide any further history. 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 Past Medical History Left shoulder arthritis Atrial fibrillation Rheumatoid arthritis Prior [place] in 2016 High cholesterol Coronary artery disease Urinary incontinence Hypertension Migraines Past Surgical History Hysterectomy Tonsillectomy Bilateral cataracts Coronary stents Reported Medications Reported Meds & Active Scripts Active Lasix (Furosemide) 20 Mg Tab 20 Mg PO DAILY Potassium Chloride Microencaps 20 Meq Tab 20 Meq PO QD Plavix (Clopidogrel Bisulfate) 75 Mg Tab 75 Mg PO DAILY 30 Days Reported Melatonin 5 Mg Tab 5 Mg PO HS Atorvastatin (Atorvastatin Calcium) 10 Mg Tab 10 Mg PO HS Carvedilol 3.125 Mg Tab 3.125 Mg PO BID Osteo Bi-Flex One A Day (Avdbbtvsy-Rbafytamqxi-Gjxbwod) 1 Tab 1 Tab PO DAILY Coq-10 (Coenzyme Q10 (Ubidecarenone)) 50 Mg Cap 50 Cap PO DAILY Losartan (Losartan Potassium) 100 Mg Tab 100 Mg PO DAILY Active Ordered Medications Current Medications Medications (Trade) Dose Ordered Sig/Rodri Route PRN Reason Start Time Stop Time Status Last Admin Dose Admin Sodium Chloride (NS Flush) 2 ml UNSCH PRN IVF FLUSH AFTER USING IV ACCESS 03/25/18 01:30 Propofol 100 ml @ 0 mls/hr TITRATE PRN IV SEDATION 03/25/18 01:45 03/25/18 01:30 Atorvastatin Calcium (Lipitor) 10 mg HS PO 03/25/18 21:00 Carvedilol (Coreg) 3.125 mg BID PO 5/1/18 09:00 Clopidogrel Bisulfate (Plavix) 75 mg DAILY PO 03/25/18 09:00 Furosemide (Lasix) 20 mg DAILY PO 03/25/18 09:00 Losartan Potassium (Cozaar) 100 mg DAILY PO 03/25/18 09:00 Family History Reviewed from the chart and found to be noncontributory to her acute illness. Social History No tobacco, EtOH, drugs of abuse Physical Exam Vital Signs Vital Signs Date Time Temp Pulse Resp B/P (MAP) Pulse Ox O2 Delivery O2 Flow Rate FiO2 03/25/18 02:57 58 12 115/61 (79) 100 Ventilator 100 03/25/18 02:30 66 12 106/53 (70) 100 Ventilator 100 03/25/18 02:15 60 12 116/52 (73) 100 Ventilator 100 03/25/18 02:00 72 12 110/64 (79) 100 Ventilator 100 03/25/18 01:51 100 03/25/18 01:45 62 12 108/71 (83) 100 Ventilator 100 03/25/18 01:35 100 100 03/25/18 01:33 99 Ventilator 100 03/25/18 01:23 97.6 60 12 121/57 (78) 100 Physical Exam GENERAL: Well-developed obese elderly white female patient sedated and intubated SKIN: Focused skin assessment warm/dry. HEAD: Atraumatic. Normocephalic. EYES: Pupils small, equal and round. No scleral icterus. No injection or drainage. ENT: No nasal bleeding or discharge. Mucous membranes pink and moist. NECK: Trachea midline. No JVD. CARDIOVASCULAR: Regular rate and rhythm. No murmur appreciated. RESPIRATORY: No accessory muscle use. Clear to auscultation. Breath sounds equal bilaterally. GASTROINTESTINAL: Abdomen soft, obese, pitting edema of the abdominal wall, non- tender, nondistended. Hepatic and splenic margins not palpable. MUSCULOSKELETAL: No obvious deformities. No clubbing. No cyanosis. Bilateral pitting edema. NEUROLOGICAL: Not responsive to pain. Face appears to be symmetrical, unresponsive currently and cannot follow commands to do neuro exam. Laboratory Laboratory Tests Test 03/25/18 01:40 03/25/18 01:42 White Blood Count 6.6 Red Blood Count 4.26 Hemoglobin 12.7 Hematocrit 38.6 Mean Corpuscular Volume 90.7 Mean Corpuscular Hemoglobin 29.8 Mean Corpuscular Hemoglobin Concent 32.8 Red Cell Distribution Width 14.7 Platelet Count 247 Mean Platelet Volume 9.8 Neutrophils (%) (Auto) 60.8 Lymphocytes (%) (Auto) 20.9 Monocytes (%) (Auto) 16.5 Eosinophils (%) (Auto) 1.1 Basophils (%) (Auto) 0.7 Neutrophils # (Auto) 4.0 Lymphocytes # (Auto) 1.4 Monocytes # (Auto) 1.1 Eosinophils # (Auto) 0.1 Basophils # (Auto) 0.0 CBC Comment DIFF FINAL Differential Comment Blood Urea Nitrogen 13 Creatinine 1.03 Random Glucose 107 Total Protein 6.5 Albumin 3.2 Calcium Level 9.3 Alkaline Phosphatase 91 Aspartate Amino Transf (AST/SGOT) 43 Alanine Aminotransferase (ALT/SGPT) 24 Total Bilirubin 0.7 Sodium Level 144 Potassium Level 4.7 Chloride Level 108 Carbon Dioxide Level 34.0 Anion Gap 2 Estimat Glomerular Filtration Rate 52 Total Creatine Kinase 61 Troponin I 0.04 Blood Gas Puncture Site RT RADIAL Blood Gas Patient Temperature 98.6 Blood Gas HCO3 29 Blood Gas Base Excess 3.1 Blood Gas Oxygen Saturation 98 Arterial Blood pH 7.29 Arterial Blood Partial Pressure CO2 62 Arterial Blood Partial Pressure O2 227 Arterial Blood Oxygen Content 17.4 Arterial Blood Carboxyhemoglobin 1.2 Arterial Blood Methemoglobin 0.3 Blood Gas Hemoglobin 12.3 Oxygen Delivery Device VENT Blood Gas Ventilator Setting PRVC/AC Blood Gas Inspired Oxygen 100 Result Diagram: 03/25/1813903/25/18139 Caprini VTE Risk Assessment Caprini VTE Risk Assessment: Mod/High Risk (score >= 2) Caprini Risk Assessment Model Point Value = 1 Point Value = 2 Point Value = 3 Point Value = 5 Age 41-60 Minor surgery BMI > 25 kg/m2 Swollen legs Varicose veins or History of unexplained or recurrent spontaneous Oral contraceptives or hormone replacement Sepsis (< 1 month) Serious lung disease, including pneumonia (< 1 month) Abnormal pulmonary function Acute myocardial infarction Congestive heart failure (< 1 month) History of inflammatory bowel disease Medical patient at bed rest Age 61-74 Arthroscopic surgery Major open surgery (> 45 min) Laparoscopic surgery (> 45 min) Malignancy Confined to bed (> 72 hours) Immobilizing plaster cast Central venous access Age >= 75 History of VTE Family history of VTE Factor V Leiden Prothrombin 17090L Lupus anticoagulant Anticardiolipin antibodies Elevated serum homocysteine Heparin-induced thrombocytopenia Other congenital or acquired thrombophilia Stroke (< 1 month) Elective arthroplasty Hip, pelvis, or leg fracture Acute spinal cord injury (< 1 month) Prophylaxis Regimen Total Risk Factor Score Risk Level Prophylaxis Regimen 0-1 Low Early ambulation 2 Moderate Order ONE of the following: *Sequential Compression Device (SCD) *Heparin 5000 units SQ BID 3-4 Higher Order ONE of the following medications: *Heparin 5000 units SQ TID *Enoxaparin/Lovenox 40 mg SQ daily (WT < 150 kg, CrCl > 30 mL/min) *Enoxaparin/Lovenox 30 mg SQ daily (WT < 150 kg, CrCl > 10-29 mL/min) *Enoxaparin/Lovenox 30 mg SQ BID (WT < 150 kg, CrCl > 30 mL/min) AND/OR *Sequential Compression Device (SCD) 5 or more Highest Order ONE of the following medications: *Heparin 5000 units SQ TID (Preferred with Epidurals) *Enoxaparin/Lovenox 40 mg SQ daily (WT < 150 kg, CrCl > 30 mL/min) *Enoxaparin/Lovenox 30 mg SQ daily (WT < 150 kg, CrCl > 10-29 mL/min) *Enoxaparin/Lovenox 30 mg SQ BID (WT < 150 kg, CrCl > 30 mL/min) AND *Sequential Compression Device (SCD) Assessment and Plan Assessment and Plan Respiratory failure -Vent bundle -CXR ABG daily -Attempt to wean as tolerated -DuoNeb scheduled and as needed -Rule out acute coronary syndrome Atrial fibrillation -Rate controlled with carvedilol Coronary artery disease -Plavix -Statins -Beta-joslyn -Series of EKGs and troponins -2D echo High cholesterol -Atorvastatin Hypertension -Coreg -Losartan DVT GI prophylaxis -Vahe's and SCDs -Subcu heparin -Pepcid Critical Care: The total critical care time was 35 minutes. Time to perform other separately billable procedures was not included in the critical care time. Conner Nguyen MD March 25, 2018 3:09 am
--- NOTE | 2018-03-25 03:17 | RADRPT ---
EXAM DATE/TIME: 03/25/2018 02:18 [place] COMPARISON: CHEST SINGLE AP, December 01, 2017, 3:25. INDICATIONS : Post intubation. MEDICAL HISTORY : None. SURGICAL HISTORY : None. ENCOUNTER: Initial ACUITY: 1 day PAIN SCORE: 0/10 LOCATION: Bilateral chest FINDINGS: A single view of the chest demonstrates the lungs to be symmetrically aerated with some air space dis ease in the right lower lung field laterally. Lungs are otherwise grossly clear. Heart size is promin ent with some interstitial prominence possibly representing some degree of vascular congestion. Endot antonio tube is identified with the tip appropriately positioned above the sandra. Osseous structures are intact. CONCLUSION: 1. Endotracheal tube appropriate position of the sandra. 2. Airspace disease laterally in the right lower lung field may represent atelectasis or early infilt rate. 3. Cardiomegaly with mild interstitial prominence Christiano Perez MD on March 25, 2018 at 3:13 Board Certified Radiologist. This report was verified electronically.
[2018-03-25] MEDS: RESP: ALBUTEROL 2.5 MG/IPRATROPIUM 0.5 MG NEB (SCH) INH ×4 (03:18→20:42)
[2018-03-25] MEDS: HEPARIN SODIUM - SQ 10,000 UNITS/ML VIAL SQ SCH ×3 (03:26→17:23)
[2018-03-25] MEDS: CHLORHEXIDINE GLUCONATE 2 % 1 PACK (2 CLOTHS) TOP SCH (04:00)
[2018-03-25 04:06] LABS: INTERNATIONAL NORMALIZED RATIO 1.2 RATIO
[2018-03-25] MEDS: ARTIFICIAL TEARS OPTH SOLN 15 ML BTL EACH EYE SCH ×3 (07:43→16:46)
[2018-03-25] MEDS: CHLORHEXIDINE 0.12% (ORAL KIT) 15 ML CUP MT SCH ×2 (07:43→20:00)
--- NOTE | 2018-03-25 07:49 | EKG ---
Date Performed: 03/25/2018 Time Performed: 01:38:04 PTAGE: 82 years EKG: atrial fibrillation MARKED RIGHT AXIS DEVIATION POSSIBLE ANTERIOR MYOCARDIAL INFARCTION ABN ORMAL ECG No significant change from prior electrocardiogram. DOCTOR: Kang Harrell Interpretating Date/Time 03/25/2018 07:48:06
[2018-03-25] MEDS: SODIUM CHLORIDE 0.9% FLUSH 10 ML FLUSH IV FLUSH SCH ×2 (08:51→20:41)
[2018-03-25] MEDS: FAMOTIDINE 20 MG/2 ML VIAL IV PUSH SCH ×2 (08:52→20:41)
[2018-03-25] MEDS: CARVEDILOL 3.125 MG TAB PO SCH ×2 (08:52→21:00)
[2018-03-25] MEDS: CLOPIDOGREL 75 MG TAB PO SCH (08:52)
[2018-03-25] MEDS: LOSARTAN 50 MG TAB PO SCH (08:53)
[2018-03-25] MEDS: DOCUSATE SODIUM 50 MG/SENNA 8.6 MG TAB PO SCH ×2 (08:53→20:41)
[2018-03-25] MEDS ORDERED: FUROSEMIDE 20 MG TAB PO SCH (09:00)
[2018-03-25 11:33] LABS: BACTERIA, URINE FEW /hpf; BILIRUBIN, URINE NEG (NEG); BLOOD, URINE LARGE (NEG); GLUCOSE,URINE NEG (NEG); HYALINE CAST, URINE 30 /lpf (RARE); KETONE, URINE NEG (NEG); MUCUS URINE MANY /lpf (OCC); NITRITE,URINE NEG (NEG); PH, URINE 5.5 (5.0-8.5); SQUAMOUS EPITHELIAL CELL URINE 1 /hpf (0-5); URINE COLOR YELLOW (YELLW/STRAW); URINE LEUKOCYTE ESTERASE LARGE (NEG); WHITE BLOOD CELL CLUMPS OCC
[2018-03-25] MEDS ORDERED: VANCOMYCIN INJ 1,000 MG in SODIUM CHLOR 0.9% 250 ML INJ 250 ML IV ONE (12:45)
[2018-03-25] MEDS ORDERED: SODIUM CHLOR 0.9% 1000 ML INJ 1,000 ML IV SCH (13:00)
[2018-03-25] MEDS: PIPERACIL-TAZO 4.5 GM PREMIX 100 ML IV SCH ×2 (13:03→17:22)
[2018-03-25] MEDS: DEXT 5%-NACL 0.9% 1000 ML INJ 1,000 ML IV SCH (13:45)
--- NOTE | 2018-03-25 15:16 | EKG ---
Date Performed: 03/25/2018 Time Performed: 09:35:38 PTAGE: 82 years EKG: Possible atrial fibrillation with PVC(s) or aberrant ventricular conduction. Severe right a xis deviation Possible anteroseptal infarct - age undetermined Low QRS voltages in precordial leads A bnormal ECG No significant change from prior electrocardiogram. PREVIOUS TRACING : 03/25/2018 03.44 DOCTOR: Kang Harrell Interpretating Date/Time 03/25/2018 15:14:49
--- NOTE | 2018-03-25 16:59 | RADRPT ---
EXAM DATE/TIME: 03/25/2018 16:25 [facility] COMPARISON: CHEST SINGLE AP, March 25, 2018, 2:18. INDICATIONS : Abnormal chest x-ray. RADIATION DOSE: 18.88 CTDIvol (mGy) MEDICAL HISTORY : Cardiovascular disease. Hypertension. Rheumatoid arthritis. SURGICAL HISTORY : Hysterectomy. ENCOUNTER: Initial ACUITY: 1 day PAIN SCALE: Non-responsive LOCATION: Bilateral chest TECHNIQUE: Volumetric scanning of the chest was performed. Using automated exposure control and adjustment of the mA and/or kV according to patient size, radiation dose was kept as low as reasonab ly achievable to obtain optimal diagnostic quality images. DICOM format image [facility] is [facility] for [facility] and comparison. Follow-up recommendations for detected pulmonary nodules are based at a minimum on nodule size and pa tient risk factors according to Fleischner Society Guidelines. FINDINGS: LUNGS: Patient is intubated with ET tube in good position. Airspace consolidation is noted in the lower lobes bilaterally as well as the posterior right upper lobe. There are air bronchograms partic ularly in the left lower lobe. There is a small right and very trace left pleural effusion with inter mediate density. There is also some volume loss on the left with mediastinal shift to the left. PLEURA: Main pulmonary artery is prominent in size measuring up to 4.4 cm. Coronary artery calcif ications. Heart is otherwise unremarkable without significant pericardial effusion. AXILLAE: Soft tissue anasarca most prominently in the left inferior axillary region. MUSCULOSKELETAL: Within normal limits for patient age. MISCELLANEOUS: Visualized portions of the upper abdomen demonstrate 3 adjacent dominant hypodense lesions in the right lobe of the liver with the largest measuring up to 5.8 cm. There is an NGT cour sing down [facility]. CONCLUSION: 1. Bilateral lower lobe airspace consolidation with small right and trace left intermediate density p leural effusions. Left lower lobe consolidation demonstrates air bronchograms. Findings are concernin g for pneumonia or aspiration. Intermediate density effusions are nonspecific given small size. 2. Mild airspace consolidation in the posterior right upper lobe which may reflect atelectasis. 3. Prominence of the main pulmonary artery consistent with some degree of pulmonary artery hypertensi on. 4. Soft tissue anasarca. 5. Three dominant indeterminate density hypodense lesions in the right lobe of the liver. These canno t be further characterized given lack of contrast. Further evaluation may be performed with contrast enhanced CT or MRI once patient is more stable. Damon Villanueva MD on March 25, 2018 at 16:44 Board Certified Radiologist. This report was verified electronically.
[2018-03-25] MEDS: FUROSEMIDE 40 MG/4 ML VIAL IV PUSH SCH (17:22)
[2018-03-25] MEDS: ATORVASTATIN 10 MG TAB PO SCH (20:41)
[2018-03-26] VITALS (19 sets, daily range): BP systolic 105–128; BP diastolic 53–75; PULSE 53–83; RESP 12–17; TEMP 97.3–99.5; O2SAT 94–100
[2018-03-26] MEDS: PIPERACIL-TAZO 4.5 GM PREMIX 100 ML IV SCH ×4 (02:17→19:00)
[2018-03-26] MEDS: HEPARIN SODIUM - SQ 10,000 UNITS/ML VIAL SQ SCH ×3 (02:17→18:12)
[2018-03-26] MEDS: RESP: ALBUTEROL 2.5 MG/IPRATROPIUM 0.5 MG NEB (SCH) INH ×4 (03:51→20:23)
[2018-03-26] MEDS: CHLORHEXIDINE GLUCONATE 2 % 1 PACK (2 CLOTHS) TOP SCH (04:00)
[2018-03-26 04:17] LABS: AUTOMATED NEUTROPHIL # 7.9 TH/MM3 (1.8-7.7); BASOPHIL % 0.2 % (0.0-2.0); EOSINOPHIL # 0.1 TH/MM3 (0-0.4); EOSINOPHIL % 1.4 % (0.0-4.0); HEMATOCRIT 35.3 % (35.0-46.0); HEMOGLOBIN 11.8 GM/DL (11.6-15.3); LYMPH % 4.3 % (9.0-44.0); LYMPHOCYTE # 0.4 TH/MM3 (1.0-4.8); MEAN CELL VOLUME 90.8 FL (80.0-100.0); MEAN CORPUSCULAR HEMOGLOBIN 30.3 PG (27.0-34.0); MEAN CORPUSCULAR HGB CONC 33.4 % (32.0-36.0); MEAN PLATELET VOLUME 9.9 FL (7.0-11.0); MONO % 8.9 % (0.0-8.0); MONOCYTE # 0.8 TH/MM3 (0-0.9); NEUT % 85.2 % (16.0-70.0); PLATELET COUNT 162 TH/MM3 (150-450); RED BLOOD COUNT 3.89 MIL/MM3 (4.00-5.30); RED CELL DISTRIBUTION WIDTH 14.7 % (11.6-17.2); WHITE BLOOD COUNT 9.3 TH/MM3 (4.0-11.0)
[2018-03-26 04:28] LABS: INTERNATIONAL NORMALIZED RATIO 1.4 RATIO; PROTHROMBIN TIME - PATIENT 13.7 SEC (9.8-11.6)
[2018-03-26 04:42] LABS: ALBUMIN 2.6 GM/DL (3.4-5.0); ALKALINE PHOSPHATASE 81 U/L (45-117); ALT (GPT) 21 U/L (10-53); AST (GOT) 27 U/L (15-37); BICARBONATE 29.9 MEQ/L (21.0-32.0); BLOOD UREA NITROGEN 13 MG/DL (7-18); CALCIUM 8.6 MG/DL (8.5-10.1); CHLORIDE 108 MEQ/L (98-107); CREATININE 0.89 MG/DL (0.50-1.00); GLOMERULAR FILTRATION RATE 61 ML/MIN (>89); GLUCOSE,RANDOM 140 MG/DL (74-106); MAGNESIUM 1.7 MG/DL (1.5-2.5); PHOSPHORUS 1.8 MG/DL (2.5-4.9); SODIUM (NA) 145 MEQ/L (136-145); TOTAL BILIRUBIN ADULT 0.9 MG/DL (0.2-1.0); TOTAL PROTEIN 5.1 GM/DL (6.4-8.2)
[2018-03-26] MEDS: PROPOFOL 1000 MG/100 ML INJ 100 ML IV PRN (05:07)
--- NOTE | 2018-03-26 05:34 | RADRPT ---
EXAM DATE/TIME: 03/26/2018 04:41 [facility] COMPARISON: CHEST SINGLE AP, March 25, 2018, 2:18. INDICATIONS : Shortness of breath. MEDICAL HISTORY : Cardiovascular disease. Hypertension. Rheumatoid arthritis SURGICAL HISTORY : Hysterectomy. ENCOUNTER: Subsequent ACUITY: 2 days PAIN SCORE: Non-responsive. LOCATION: Bilateral chest FINDINGS: A single view of the chest shows the patient now rotated leftward. This distorts the heart and medias tinal structures. I believe there is worsening bibasilar airspace disease, however. Heart size remain s prominent. Life support tubes are stable in position. CONCLUSION: 1. Leftward rotation. Worsening bibasilar airspace disease. 2. Stable position of life support tubes Christiano Perez MD on March 26, 2018 at 5:31 Board Certified Radiologist. This report was verified electronically.
[2018-03-26] MEDS: CHLORHEXIDINE 0.12% (ORAL KIT) 15 ML CUP MT SCH ×2 (08:00→21:29)
[2018-03-26] MEDS: SODIUM CHLORIDE 0.9% FLUSH 10 ML FLUSH IV FLUSH SCH ×2 (08:23→21:27)
[2018-03-26] MEDS: ARTIFICIAL TEARS OPTH SOLN 15 ML BTL EACH EYE SCH ×3 (08:23→17:33)
[2018-03-26] MEDS: CARVEDILOL 3.125 MG TAB PO SCH ×2 (09:00→21:00)
[2018-03-26] MEDS: FUROSEMIDE 40 MG/4 ML VIAL IV PUSH SCH ×2 (09:00→17:43)
[2018-03-26] MEDS: FAMOTIDINE 20 MG/2 ML VIAL IV PUSH SCH (09:07)
[2018-03-26] MEDS: CLOPIDOGREL 75 MG TAB PO SCH (09:07)
[2018-03-26] MEDS: DOCUSATE SODIUM 50 MG/SENNA 8.6 MG TAB PO SCH (09:07)
[2018-03-26] MEDS: LOSARTAN 50 MG TAB PO SCH (09:07)
[2018-03-26] MEDS ORDERED: POTASSIUM CHLOR 40 MEQ PREMIX 100 ML IV PRN ×2 (10:15)
[2018-03-26] MEDS ORDERED: MAGNESIUM OXIDE 400 MG TAB PO PRN (10:15)
[2018-03-26] MEDS ORDERED: POTASSIUM CHLOR 20 MEQ PREMIX 100 ML IV PRN (10:15)
[2018-03-26] MEDS ORDERED: MAGNESIUM SULFATE INJ 4 GM in SODIUM CHLORIDE 0.9% INJ 92 ML IV PRN (10:15)
[2018-03-26] MEDS ORDERED: SODIUM PHOSPHATE INJ 30 MMOL in SODIUM CHLOR 0.9% 250 ML INJ 240 ML IV PRN (10:15)
[2018-03-26] MEDS ORDERED: POTASSIUM PHOSPHATE MONOBASIC 500 MG TAB PO/TUBE PRN (10:15)
[2018-03-26] MEDS ORDERED: POTASSIUM CHLORIDE 25 MEQ EFFERVESCENT TAB PO PRN (10:15)
[2018-03-26] MEDS ORDERED: POTASSIUM PHOSPHATE MONOBASIC 500 MG TAB PO PRN (10:15)
[2018-03-26] MEDS ORDERED: MAGNESIUM SULFATE INJ 2 GM in SODIUM CHLORIDE 0.9% INJ 96 ML IV PRN (10:15)
[2018-03-26] MEDS ORDERED: DEXMEDETOMIDINE INJ 1,000 MCG in SODIUM CHLOR 0.9% 250 ML INJ 240 ML IV PRN (10:15)
--- NOTE | 2018-03-26 10:17 | HHI.CCPN ---
Subjective Remarks/Hospital Course 82-year-old female patient with previous history of coronary artery disease and [place] status post stent placement, atrial fibrillation, multiple medical issues, was brought in by EMS, due to respiratory distress, was struggling to breathe and EMS put her on BiPAP initially, but then the patient became more disoriented and they intubated her for an airway protection. She is not able to provide any further history. SUBJ 03/26/18: Patient remains intubated sedated. CT of the chest yesterday showed bilateral basilar infiltrates. Worsening infiltrates on chest x-ray today. Started on Zosyn and vancomycin yesterday. failed CPAP trial due to tachypnea. Patient has severe pneumonia probably not monitoring inflammatory response/ SIRS due to underlying rheumatoid arthritis Objective Vital Signs Date Time Temp Pulse Resp B/P (MAP) Pulse Ox O2 Delivery O2 Flow Rate FiO2 03/26/18 10:00 83 03/26/18 08:00 99.5 12 105/54 (71) 96 03/26/18 08:00 40 03/26/18 07:00 Mechanical Ventilator Intake and Output 03/26/18 03/26/18 03/27/18 08:00 16:00 00:00 Intake Total 1136 ml Balance 1136 ml Result Diagram: 03/26/18 0348 03/26/18 0348 Objective Remarks GENERAL: Well-developed obese elderly white female patient sedated and intubated SKIN: Focused skin assessment warm/dry. HEAD: Atraumatic. Normocephalic. EYES: Pupils small, equal and round. No scleral icterus. No injection or drainage. ENT: No nasal bleeding or discharge. Orotracheally intubated NECK: Trachea midline. No JVD. CARDIOVASCULAR: Regular rate and rhythm. No murmur appreciated. RESPIRATORY: No accessory muscle use. Air entry diminished at bilateral bases with scattered crackles GASTROINTESTINAL: Abdomen soft, obese, pitting edema of the abdominal wall. MUSCULOSKELETAL: No obvious deformities. No clubbing. No cyanosis. Bilateral pitting edema. NEUROLOGICAL: Remains intubated sedated. On sedation hold wakes up easily follows commands. No focal deficit. A/P Assessment and Plan Neuro: History of CVA in the past -Currently on propofol for sedation -Change to Precedex for weaning trials -Daily sedation vacation -Continue Plavix RESP: Acute hypoxemic and hypercarbic respiratory failure Severe multilobar pneumonia -Continue full ventilatory support, did not tolerate CPAP trials today -Vent bundle. 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 Atrial fibrillation STEMI in 2016, s/p LAD stent Ischemic cardiac myopathy -Rate controlled with carvedilol, losartan for hypertension -Plavix -Statins -2D echo -IV Lasix 40 mg every 12 started yesterday -Atorvastatin GI: -Continue tube feeds advance as tolerated -Continue Pepcid, bowel regimen HEME/ID: Severe sepsis Multilobar pneumonia -Antibiotics with vancomycin and Zosyn -Follow up on sputum culture -Check influenza AMB ENDO: Hypokalemia -Electrolyte replacement per protocol -Sliding scale insulin if needed DVT GI prophylaxis -Vahe's and SCDs -Subcu heparin -Pepcid Critical Care: The total critical care time was 35 minutes. Time to perform other separately billable procedures was not included in the critical care time. Anitha Escoto MD March 26, 2018 10:17
[2018-03-26] MEDS ORDERED: Vancomycin Consult Pharmacy 1 EA OTHER SCH (10:30)
[2018-03-26] MEDS ORDERED: POTASSIUM PHOSPHATE INJ 30 MMOL in SODIUM CHLOR 0.9% 250 ML INJ 250 ML IV ONE (10:30)
[2018-03-26] MEDS: POTASSIUM PHOSPHATE INJ 30 MMOL in SODIUM CHLOR 0.9% 250 ML INJ 250 ML IV PRN (10:36)
[2018-03-26 14:25] LABS: PHOSPHORUS 2.7 MG/DL (2.5-4.9)
[2018-03-26 14:28] LABS: MAGNESIUM 1.7 MG/DL (1.5-2.5)
[2018-03-26] MEDS: VANCOMYCIN INJ 2,000 MG in SODIUM CHLORID 0.9% 500 ML INJ 500 ML IV SCH (15:09)
[2018-03-26] MEDS: DEXT 5%-NACL 0.9% 1000 ML INJ 1,000 ML IV SCH (15:09)
[2018-03-26] MEDS: DOCUSATE SODIUM 100 MG/10 ML UDC PO SCH ×2 (15:16→21:27)
[2018-03-26] MEDS: FAMOTIDINE 20 MG TAB PO SCH (21:28)
[2018-03-26] MEDS: ATORVASTATIN 10 MG TAB PO SCH (21:28)
[2018-03-27] VITALS (16 sets, daily range): BP systolic 129–166; BP diastolic 62–75; PULSE 45–90; RESP 12–26; TEMP 98.1–98.6; O2SAT 92–100
[2018-03-27] MEDS: PIPERACIL-TAZO 4.5 GM PREMIX 100 ML IV SCH ×4 (02:07→19:00)
[2018-03-27] MEDS: HEPARIN SODIUM - SQ 10,000 UNITS/ML VIAL SQ SCH ×3 (02:09→19:00)
[2018-03-27] MEDS: RESP: ALBUTEROL 2.5 MG/IPRATROPIUM 0.5 MG NEB (SCH) INH ×4 (02:22→21:56)
[2018-03-27] MEDS: CHLORHEXIDINE GLUCONATE 2 % 1 PACK (2 CLOTHS) TOP SCH (05:32)
[2018-03-27 06:15] LABS: AUTOMATED NEUTROPHIL # 4.2 TH/MM3 (1.8-7.7); BASOPHIL % 0.5 % (0.0-2.0); EOSINOPHIL # 0.4 TH/MM3 (0-0.4); EOSINOPHIL % 5.8 % (0.0-4.0); HEMATOCRIT 36.7 % (35.0-46.0); HEMOGLOBIN 12.3 GM/DL (11.6-15.3); LYMPH % 12.6 % (9.0-44.0); LYMPHOCYTE # 0.8 TH/MM3 (1.0-4.8); MEAN CELL VOLUME 89.6 FL (80.0-100.0); MEAN CORPUSCULAR HGB CONC 33.5 % (32.0-36.0); MEAN PLATELET VOLUME 9.5 FL (7.0-11.0); MONO % 12.3 % (0.0-8.0); MONOCYTE # 0.8 TH/MM3 (0-0.9); NEUT % 68.8 % (16.0-70.0); PLATELET COUNT 150 TH/MM3 (150-450); RED BLOOD COUNT 4.09 MIL/MM3 (4.00-5.30); RED CELL DISTRIBUTION WIDTH 14.4 % (11.6-17.2); WHITE BLOOD COUNT 6.1 TH/MM3 (4.0-11.0)
--- NOTE | 2018-03-27 06:44 | RADRPT ---
EXAM DATE/TIME: 03/27/2018 05:25 [facility] COMPARISON: CHEST SINGLE AP, March 26, 2018, 4:41. INDICATIONS : Respiratory distress. MEDICAL HISTORY : Cardiovascular disease. Hypertension. Rheumatoid arthritis SURGICAL HISTORY : Hysterectomy. ENCOUNTER: Initial ACUITY: 3 days PAIN SCORE: Non-responsive. LOCATION: Bilateral chest FINDINGS: A single view of the chest demonstrates the lungs to be symmetrically aerated with bibasilar airspace disease. There may be some slight interval improvement in the right basilar aeration. Endotracheal a nd nasogastric tubes are stable in position. Heart size remains prominent. CONCLUSION: Persistent bilateral airspace disease with slight interval improvement in aeration in the right base. Christiano Perez MD on March 27, 2018 at 6:40 Board Certified Radiologist. This report was verified electronically.
--- NOTE | 2018-03-27 06:53 | EKG ---
Date Performed: 03/25/2018 Time Performed: 03:44:05 PTAGE: 82 years EKG: Probable atrial fibrillation with slow response POSSIBLE RIGHT VENTRICULAR HYPERTROPHY POSS IBLE ANTERIOR MYOCARDIAL INFARCTION ABNORMAL ECG No significant change from prior electrocardiogram. DOCTOR: Kang Harrell Interpretating Date/Time 03/27/2018 06:52:28
[2018-03-27 06:54] LABS: ALBUMIN 2.5 GM/DL (3.4-5.0); AST (GOT) 18 U/L (15-37); BICARBONATE 31.7 MEQ/L (21.0-32.0); BLOOD UREA NITROGEN 13 MG/DL (7-18); CALCIUM 8.6 MG/DL (8.5-10.1); CHLORIDE 107 MEQ/L (98-107); CREATININE 0.93 MG/DL (0.50-1.00); GLOMERULAR FILTRATION RATE 58 ML/MIN (>89); GLUCOSE,RANDOM 116 MG/DL (74-106); MAGNESIUM 1.6 MG/DL (1.5-2.5); SODIUM (NA) 146 MEQ/L (136-145)
[2018-03-27 06:55] LABS: ALT (GPT) 20 U/L (10-53); PHOSPHORUS 2.4 MG/DL (2.5-4.9)
[2018-03-27 06:57] LABS: ALKALINE PHOSPHATASE 90 U/L (45-117); TOTAL BILIRUBIN ADULT 1.1 MG/DL (0.2-1.0); TOTAL PROTEIN 5.4 GM/DL (6.4-8.2)
[2018-03-27] MEDS: CHLORHEXIDINE 0.12% (ORAL KIT) 15 ML CUP MT SCH ×2 (08:00→20:36)
[2018-03-27] MEDS: ARTIFICIAL TEARS OPTH SOLN 15 ML BTL EACH EYE SCH ×3 (09:00→17:12)
[2018-03-27] MEDS: SODIUM CHLORIDE 0.9% FLUSH 10 ML FLUSH IV FLUSH SCH ×2 (09:00→21:58)
[2018-03-27] MEDS: CARVEDILOL 3.125 MG TAB PO SCH ×2 (09:51→21:59)
[2018-03-27] MEDS: LOSARTAN 50 MG TAB PO SCH (09:51)
[2018-03-27] MEDS: FAMOTIDINE 20 MG TAB PO SCH ×2 (09:52→21:59)
[2018-03-27] MEDS: DOCUSATE SODIUM 100 MG/10 ML UDC PO SCH ×2 (09:52→21:00)
[2018-03-27] MEDS: CLOPIDOGREL 75 MG TAB PO SCH (09:52)
[2018-03-27] MEDS: FUROSEMIDE 40 MG/4 ML VIAL IV PUSH SCH ×2 (09:53→17:12)
[2018-03-27] MEDS: DEXT 5%-NACL 0.9% 1000 ML INJ 1,000 ML IV SCH (12:34)
--- NOTE | 2018-03-27 13:26 | HHI.CCPN ---
Subjective Remarks/Hospital Course 82-year-old female patient with previous history of coronary artery disease and [place] status post stent placement, atrial fibrillation, multiple medical issues, was brought in by EMS, due to respiratory distress, was struggling to breathe and EMS put her on BiPAP initially, but then the patient became more disoriented and they intubated her for an airway protection. She is not able to provide any further history. SUBJ 03/26/18: Patient remains intubated sedated. CT of the chest yesterday showed bilateral basilar infiltrates. Worsening infiltrates on chest x-ray today. Started on Zosyn and vancomycin yesterday. failed CPAP trial due to tachypnea. Patient has severe pneumonia probably not monitoring inflammatory response/ SIRS due to underlying rheumatoid arthritis 03/27/18: Tolerating CPAP better today, spontaneous tidal volumes are improved. Chest x-ray shows improvement in the right-sided infiltrates. Sputum cx negative to date. Urien cx with Group D enterococci Objective Vital Signs Date Time Temp Pulse Resp B/P (MAP) Pulse Ox O2 Delivery O2 Flow Rate FiO2 03/27/18 12:35 96 Nasal Cannula 4 03/27/18 07:52 40 03/27/18 06:00 64 03/27/18 04:00 98.6 12 129/62 (84) Intake and Output 03/27/18 03/27/18 03/28/18 08:00 16:00 00:00 Intake Total 137 ml Output Total 1900 ml Balance -1763 ml Result Diagram: 03/27/18 0604 03/27/18 0604 Other Results Microbiology Date/Time Source Procedure Growth Status 03/25/18 13:30 Sputum Endotracheal Gram Stain - Final Complete 03/25/18 13:30 Sputum Endotracheal Sputum Culture - Final HEAVY GROWTH NORMAL RESPIRATORY LUDIN Complete Laboratory Tests Test 03/27/18 11:55 Blood Gas Puncture Site RT RADIAL Blood Gas Patient Temperature 98.6 Blood Gas HCO3 31 mmol/L (22-26) Blood Gas Base Excess 7.1 mmol/L (-2-2) Blood Gas Oxygen Saturation 96 % (90-100) Arterial Blood pH 7.49 (7.380-7.420) Arterial Blood Partial Pressure CO2 41 mmHg (38-42) Arterial Blood Partial Pressure O2 111 mmHg (61-120) Arterial Blood Oxygen Content 16.9 Vol % (12.0-20.0) Arterial Blood Carboxyhemoglobin 1.3 % (0-4) Arterial Blood Methemoglobin 0.8 % (0-2) Blood Gas Hemoglobin 12.4 G/DL (12.0-16.0) Oxygen Delivery Device VENTILATOR Blood Gas Ventilator Setting CPAP8/PEEP8 Blood Gas Inspired Oxygen 30 % Objective Remarks GENERAL: Well-developed obese elderly white female patient intubated, not on sedation SKIN: Focused skin assessment warm/dry. HEAD: Atraumatic. Normocephalic. EYES: Pupils small, equal and round. No scleral icterus. No injection or drainage. ENT: No nasal bleeding or discharge. Orotracheally intubated NECK: Trachea midline. No JVD. CARDIOVASCULAR: Regular rate and rhythm. No murmur appreciated. RESPIRATORY: No accessory muscle use. Air entry diminished at bilateral bases with scattered crackles GASTROINTESTINAL: Abdomen soft, obese, pitting edema of the abdominal wall. MUSCULOSKELETAL: No obvious deformities. No clubbing. No cyanosis. Bilateral pitting edema. NEUROLOGICAL: Remains intubated wakes up easily follows commands. No focal deficit. A/P Assessment and Plan Neuro: History of CVA in the past -On Precedex for weaning trials. Hold Precedex as the patient is less anxious today -Daily sedation vacation -Continue Plavix RESP: Acute hypoxemic and hypercarbic respiratory failure Severe multilobar pneumonia -Continue full ventilatory support, CPAP trial with possible extubation -Vent bundle. 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 Atrial fibrillation STEMI in 2016, s/p LAD stent Ischemic cardiac myopathy -Rate controlled with carvedilol, losartan for hypertension -Plavix -Statins -2D echo pending -IV Lasix 40 mg every 12 started 03/25 -Atorvastatin GI: -Hold tube feeds for possible extubation -Continue Pepcid, bowel regimen HEME/ID: Severe sepsis Multilobar pneumonia UTI with Group D Enterococci -Antibiotics with vancomycin and Zosyn -Follow up on sputum culture ENDO: Hypokalemia -Electrolyte replacement per protocol -Sliding scale insulin if needed DVT GI prophylaxis -Vahe's and SCDs -Subcu heparin -Pepcid Critical Care: Level 3 Anitha Escoto MD March 27, 2018 13:26
[2018-03-27] MEDS: VANCOMYCIN INJ 2,000 MG in SODIUM CHLORID 0.9% 500 ML INJ 500 ML IV SCH (14:00)
[2018-03-27] MEDS: POTASSIUM PHOSPHATE INJ 30 MMOL in SODIUM CHLOR 0.9% 250 ML INJ 250 ML IV PRN (17:11)
--- NOTE | 2018-03-27 21:24 | ECHRPT ---
Indication: Heart failure, unspecified CONCLUSIONS The left ventricular systolic function is moderately reduced with an estimated ejection fraction in the range of 40-45%. Mild LV hypertrophy. Normal left ventricular size. There is moderate tricuspid regurgitation. The estimated pulmonary arterial pressure is 43 mmHg. BP: 160 / 93 HR: 69 Rhythm: Sinus MEASUREMENTS (Male / Female) Normal Values Technical Quality:Good 2D ECHO LV Diastolic Diameter PLAX 4.5 cm 4.2 - 5.9 / 3.9 - 5.3 cm LV Systolic Diameter PLAX 3.7 cm IVS Diastolic Thickness 1.2 cm 0.6 - 1.0 / 0.6 - 0.9 cm LVPW Diastolic Thickness 1.2 cm 0.6 - 1.0 / 0.6 - 0.9 cm LV Relative Wall Thickness 0.5 LVOT Diameter 2.0 cm M-MODE Aortic Root Diameter MM 3.1 cm LA Systolic Diameter MM 5.9 cm LA Ao Ratio MM 1.9 AV Cusp Separation MM 1.7 cm DOPPLER AV Peak Velocity 151.0 cm/s AV Peak Gradient 9.1 mmHg LVOT Peak Velocity 75.0 cm/s LVOT Peak Gradient 2.3 mmHg AV Area Cont Eq pk 1.6 cm MR Peak Velocity 284.0 cm/s MR Peak Gradient 32.3 mmHg LV E' Septal Velocity 5.5 cm/s TR Peak Velocity 285.0 cm/s TR Peak Gradient 32.5 mmHg Right Atrial Pressure 10.0 mmHg Pulmonary Artery Systolic Pressu 42.5 mmHg Right Ventricular Systolic Press 42.5 mmHg PV Peak Velocity 124.0 cm/s PV Peak Gradient 6.2 mmHg FINDINGS LEFT VENTRICLE The left ventricular systolic function is moderately reduced with an estimated ejection fraction in the range of 40-45%. Mild LV hypertrophy. Normal left ventricular size. RIGHT VENTRICLE Normal right ventricular size and systolic function. LEFT ATRIUM The left atrial size is mildly dilated. RIGHT ATRIUM The right atrial size is normal. ATRIAL SEPTUM Normal atrial septal thickness without atrial level shunting by limited color doppler interrogation. AORTA The aortic root and proximal ascending aorta are normal in size on limited imaging. MITRAL VALVE Structurally normal mitral valve. No mitral valve stenosis or regurgitation. AORTIC VALVE Trileaflet aortic valve. No aortic valve stenosis or regurgitation. TRICUSPID VALVE There is moderate tricuspid regurgitation. The estimated pulmonary arterial pressure is 42.5 mmHg. PULMONARY VALVE No pulmonary valve regurgitation or stenosis. VESSELS The inferior vena cava is normal in size. PERICARDIUM No pericardial effusion. Otakar Quadrat MD, FACC (Electronically Signed) Final Date:27 Mar 2018 21:24
[2018-03-27] MEDS: ATORVASTATIN 10 MG TAB PO SCH (21:59)
[2018-03-28] VITALS (15 sets, daily range): BP systolic 140–160; BP diastolic 67–79; PULSE 68–88; RESP 22–40; TEMP 98.6–99.8; O2SAT 93–100
[2018-03-28] MEDS: PIPERACIL-TAZO 4.5 GM PREMIX 100 ML IV SCH ×4 (00:54→18:02)
[2018-03-28] MEDS: HEPARIN SODIUM - SQ 10,000 UNITS/ML VIAL SQ SCH ×3 (03:00→18:02)
[2018-03-28] MEDS: RESP: ALBUTEROL 2.5 MG/IPRATROPIUM 0.5 MG NEB (SCH) INH ×4 (03:43→20:59)
[2018-03-28] MEDS: CHLORHEXIDINE GLUCONATE 2 % 1 PACK (2 CLOTHS) TOP SCH (05:08)
[2018-03-28] MEDS: CHLORHEXIDINE 0.12% (ORAL KIT) 15 ML CUP MT SCH ×2 (08:00→19:48)
[2018-03-28] MEDS: CLOPIDOGREL 75 MG TAB PO SCH (08:43)
[2018-03-28] MEDS: LOSARTAN 50 MG TAB PO SCH (08:43)
[2018-03-28] MEDS: CARVEDILOL 3.125 MG TAB PO SCH ×2 (08:43→19:47)
[2018-03-28] MEDS: DOCUSATE SODIUM 100 MG/10 ML UDC PO SCH ×2 (08:43→19:43)
[2018-03-28] MEDS: FAMOTIDINE 20 MG TAB PO SCH ×2 (08:44→19:48)
[2018-03-28] MEDS: SODIUM CHLORIDE 0.9% FLUSH 10 ML FLUSH IV FLUSH SCH ×2 (08:44→19:48)
[2018-03-28] MEDS: ARTIFICIAL TEARS OPTH SOLN 15 ML BTL EACH EYE SCH ×3 (08:44→17:48)
[2018-03-28] MEDS: FUROSEMIDE 40 MG/4 ML VIAL IV PUSH SCH ×2 (08:44→17:48)
--- NOTE | 2018-03-28 11:55 | HHI.CCPN ---
Subjective Remarks/Hospital Course 82-year-old female patient with previous history of coronary artery disease and [place] status post stent placement, atrial fibrillation, multiple medical issues, was brought in by EMS, due to respiratory distress, was struggling to breathe and EMS put her on BiPAP initially, but then the patient became more disoriented and they intubated her for an airway protection. She is not able to provide any further history. SUBJ 03/26/18: Patient remains intubated sedated. CT of the chest yesterday showed bilateral basilar infiltrates. Worsening infiltrates on chest x-ray today. Started on Zosyn and vancomycin yesterday. failed CPAP trial due to tachypnea. Patient has severe pneumonia probably not monitoring inflammatory response/ SIRS due to underlying rheumatoid arthritis 03/27/18: Tolerating CPAP better today, spontaneous tidal volumes are improved. Chest x-ray shows improvement in the right-sided infiltrates. Sputum cx negative to date. Urine cx with Group D enterococci 03/28/18: Extubated yesterday tolerated well initially. Currently tachypneic breathing 35-40 breaths per minute. Order given to place on BiPAP. Echo showed EF 40-45%, Mod TR Objective Vital Signs Date Time Temp Pulse Resp B/P (MAP) Pulse Ox O2 Delivery O2 Flow Rate FiO2 03/28/18 08:49 96 BiPAP 50 03/28/18 07:00 6.00 03/28/18 06:00 78 03/28/18 04:00 98.7 30 153/74 (100) Intake and Output 03/28/18 03/28/18 03/29/18 08:00 16:00 00:00 Output Total 800 ml Balance -800 ml Result Diagram: 03/27/18 0604 03/27/18 0604 Other Results Microbiology Date/Time Source Procedure Growth Status 03/25/18 13:30 Sputum Endotracheal Gram Stain - Final Complete 03/25/18 13:30 Sputum Endotracheal Sputum Culture - Final HEAVY GROWTH NORMAL RESPIRATORY LUDIN Complete Laboratory Tests Test 03/27/18 11:55 Blood Gas Puncture Site RT RADIAL Blood Gas Patient Temperature 98.6 Blood Gas HCO3 31 mmol/L (22-26) Blood Gas Base Excess 7.1 mmol/L (-2-2) Blood Gas Oxygen Saturation 96 % (90-100) Arterial Blood pH 7.49 (7.380-7.420) Arterial Blood Partial Pressure CO2 41 mmHg (38-42) Arterial Blood Partial Pressure O2 111 mmHg (61-120) Arterial Blood Oxygen Content 16.9 Vol % (12.0-20.0) Arterial Blood Carboxyhemoglobin 1.3 % (0-4) Arterial Blood Methemoglobin 0.8 % (0-2) Blood Gas Hemoglobin 12.4 G/DL (12.0-16.0) Oxygen Delivery Device VENTILATOR Blood Gas Ventilator Setting CPAP8/PEEP8 Blood Gas Inspired Oxygen 30 % Objective Remarks GENERAL: Well-developed obese elderly white female patient, on simple mask SKIN: Focused skin assessment warm/dry. HEAD: Atraumatic. Normocephalic. EYES: Pupils small, equal and round. No scleral icterus. No injection or drainage. ENT: No nasal bleeding or discharge. NECK: Trachea midline. No JVD. CARDIOVASCULAR: Regular rate and rhythm. No murmur appreciated. RESPIRATORY: Using accessory muscle use. Air entry diminished at bilateral bases with scattered crackles. Tachypneic with shallow breath breathing 35/40 breaths per min GASTROINTESTINAL: Abdomen soft, obese, pitting edema of the abdominal wall. MUSCULOSKELETAL: No obvious deformities. No clubbing. No cyanosis. Bilateral pitting edema. NEUROLOGICAL: Alert awake oriented. No focal deficits. Limited exam due to tachypnea A/P Assessment and Plan Neuro: History of CVA in the past -Off all sedation -Continue Plavix RESP: Acute hypoxemic and hypercarbic respiratory failure Severe multilobar pneumonia -Extubated yesterday but tachypnea today. 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 Atrial fibrillation STEMI in 2016, s/p LAD stent Ischemic cardiac myopathy -Rate controlled with carvedilol, losartan for hypertension -Plavix, Atorvastatin -2D echo EF 40-45%, Mod TR -IV Lasix 40 mg every 12 started 03/25, excellent diuresis GI: -Keep NPO, due to possible need for intubation -Continue Pepcid, bowel regimen HEME/ID: Severe sepsis Multilobar pneumonia UTI with Group D Enterococci -Antibiotics with vancomycin and Zosyn -Follow up on sputum culture, urine culture and sensitivity ENDO: Hypokalemia -Electrolyte replacement per protocol -Sliding scale insulin if needed DVT GI prophylaxis -Vahe's and SCDs -Subcu heparin -Pepcid Critical Care: CCT 35 Patient was extubated yesterday initially tolerated well. Currently tachypneic with increased work of breathing. Start BiPAP 08/29. Use BiPAP fails will need reintubation. Anitha Escoto MD March 28, 2018 11:55
--- NOTE | 2018-03-28 12:27 | RADRPT ---
EXAM DATE/TIME: 03/28/2018 11:41 [facility] COMPARISON: CHEST SINGLE AP, March 27, 2018, 5:25. INDICATIONS : Short of breath. MEDICAL HISTORY : Cardiovascular disease. Hypertension Rheumatoid arthritis. SURGICAL HISTORY : Hysterectomy. ENCOUNTER: Initial ACUITY: 3 days PAIN SCORE: Non-responsive. LOCATION: Bilateral chest FINDINGS: A single AP erect portable view of the chest was obtained and demonstrates interval removal of the pr evious noted nasogastric tube and endotracheal tube. The heart size remains moderately enlarged and t he patient is mildly rotated to the left. Atherosclerotic changes are present in the aorta. There are tracheal calcifications. Hazy perihilar and bibasilar opacities remain. The left costophrenic angle appears blunted. The bony thorax is intact with degenerative change and scoliosis. CONCLUSION: No significant change. Persistent airspace of opacities again noted as well as modera te cardiomegaly Trevon Calderon MD on March 28, 2018 at 12:24 Board Certified Radiologist. This report was verified electronically.
[2018-03-28] MEDS: VANCOMYCIN INJ 2,000 MG in SODIUM CHLORID 0.9% 500 ML INJ 500 ML IV SCH (14:14)
[2018-03-28 14:33] LABS: ALBUMIN 2.9 GM/DL (3.4-5.0); ALT (GPT) 24 U/L (10-53); AST (GOT) 26 U/L (15-37); BICARBONATE 35.7 MEQ/L (21.0-32.0); BLOOD UREA NITROGEN 9 MG/DL (7-18); CALCIUM 9.1 MG/DL (8.5-10.1); CHLORIDE 101 MEQ/L (98-107); CREATININE 0.96 MG/DL (0.50-1.00); GLOMERULAR FILTRATION RATE 56 ML/MIN (>89); GLUCOSE,RANDOM 91 MG/DL (74-106); SODIUM (NA) 145 MEQ/L (136-145)
[2018-03-28 14:35] LABS: ALKALINE PHOSPHATASE 96 U/L (45-117); TOTAL BILIRUBIN ADULT 1.3 MG/DL (0.2-1.0); TOTAL PROTEIN 6.3 GM/DL (6.4-8.2)
[2018-03-28] MEDS: POTASSIUM CHLOR 20 MEQ PREMIX 100 ML IV PRN ×2 (17:48→21:06)
[2018-03-28] MEDS: ATORVASTATIN 10 MG TAB PO SCH (19:48)
[2018-03-29] VITALS (16 sets, daily range): BP systolic 106–141; BP diastolic 56–71; PULSE 60–78; RESP 20–28; TEMP 97.6–98.7; O2SAT 92–97
[2018-03-29] MEDS: PIPERACIL-TAZO 4.5 GM PREMIX 100 ML IV SCH ×2 (00:30→05:03)
[2018-03-29] MEDS: RESP: ALBUTEROL 2.5 MG/IPRATROPIUM 0.5 MG NEB (SCH) INH (03:17)
[2018-03-29] MEDS: CHLORHEXIDINE GLUCONATE 2 % 1 PACK (2 CLOTHS) TOP SCH (04:00)
[2018-03-29] MEDS: HEPARIN SODIUM - SQ 10,000 UNITS/ML VIAL SQ SCH ×3 (05:03→20:08)
--- NOTE | 2018-03-29 05:28 | RADRPT ---
EXAM DATE/TIME: 03/29/2018 04:55 [facility] COMPARISON: CHEST SINGLE AP, March 28, 2018, 11:41. INDICATIONS : Respiratory disease. MEDICAL HISTORY : Cardiovascular disease. Hypertension Rheumatoid arthritis. SURGICAL HISTORY : Hysterectomy. ENCOUNTER: Subsequent ACUITY: 4 - 6 days PAIN SCORE: Non-responsive. LOCATION: Bilateral chest FINDINGS: Aeration has improved with clearance of left base consolidation to some extent. Aeration is elsewhere grossly stable. Cardiac contours are grossly stable. CONCLUSION: Slight improvement in aeration Jevon Butt MD on March 29, 2018 at 5:25 Board Certified Radiologist. This report was verified electronically.
[2018-03-29 06:38] LABS: AUTOMATED NEUTROPHIL # 2.5 TH/MM3 (1.8-7.7); BASOPHIL % 0.5 % (0.0-2.0); EOSINOPHIL # 0.3 TH/MM3 (0-0.4); EOSINOPHIL % 5.3 % (0.0-4.0); HEMATOCRIT 34.6 % (35.0-46.0); HEMOGLOBIN 11.7 GM/DL (11.6-15.3); LYMPH % 26.1 % (9.0-44.0); LYMPHOCYTE # 1.3 TH/MM3 (1.0-4.8); MEAN CELL VOLUME 88.4 FL (80.0-100.0); MEAN CORPUSCULAR HGB CONC 33.9 % (32.0-36.0); MEAN PLATELET VOLUME 10.3 FL (7.0-11.0); MONO % 17.1 % (0.0-8.0); MONOCYTE # 0.8 TH/MM3 (0-0.9); PLATELET COUNT 172 TH/MM3 (150-450); RED BLOOD COUNT 3.92 MIL/MM3 (4.00-5.30); RED CELL DISTRIBUTION WIDTH 14.2 % (11.6-17.2); WHITE BLOOD COUNT 4.8 TH/MM3 (4.0-11.0)
[2018-03-29 07:01] LABS: ALBUMIN 2.9 GM/DL (3.4-5.0); ALT (GPT) 21 U/L (10-53); AST (GOT) 24 U/L (15-37); BICARBONATE 35.1 MEQ/L (21.0-32.0); BLOOD UREA NITROGEN 8 MG/DL (7-18); CHLORIDE 99 MEQ/L (98-107); CREATININE 0.89 MG/DL (0.50-1.00); GLOMERULAR FILTRATION RATE 61 ML/MIN (>89); GLUCOSE,RANDOM 89 MG/DL (74-106); MAGNESIUM 1.5 MG/DL (1.5-2.5); SODIUM (NA) 143 MEQ/L (136-145)
[2018-03-29 07:03] LABS: ALKALINE PHOSPHATASE 92 U/L (45-117); TOTAL BILIRUBIN ADULT 0.9 MG/DL (0.2-1.0); TOTAL PROTEIN 6.1 GM/DL (6.4-8.2)
[2018-03-29] MEDS: CHLORHEXIDINE 0.12% (ORAL KIT) 15 ML CUP MT SCH ×2 (08:00→20:00)
[2018-03-29] MEDS: ARTIFICIAL TEARS OPTH SOLN 15 ML BTL EACH EYE SCH ×3 (09:00→17:58)
[2018-03-29] MEDS: DOCUSATE SODIUM 100 MG/10 ML UDC PO SCH ×2 (09:00→20:09)
[2018-03-29] MEDS: SODIUM CHLORIDE 0.9% FLUSH 10 ML FLUSH IV FLUSH SCH ×2 (09:00→20:09)
[2018-03-29] MEDS: CLOPIDOGREL 75 MG TAB PO SCH (09:35)
[2018-03-29] MEDS: CARVEDILOL 3.125 MG TAB PO SCH ×2 (09:35→20:08)
[2018-03-29] MEDS: FAMOTIDINE 20 MG TAB PO SCH ×2 (09:35→20:09)
[2018-03-29] MEDS: FUROSEMIDE 40 MG/4 ML VIAL IV PUSH SCH ×2 (09:35→18:08)
[2018-03-29] MEDS: LOSARTAN 50 MG TAB PO SCH (09:36)
--- NOTE | 2018-03-29 11:24 | HHI.CCPN ---
Subjective Remarks/Hospital Course 82-year-old female patient with previous history of coronary artery disease and [place] status post stent placement, atrial fibrillation, multiple medical issues, was brought in by EMS, due to respiratory distress, was struggling to breathe and EMS put her on BiPAP initially, but then the patient became more disoriented and they intubated her for an airway protection. She is not able to provide any further history. SUBJ 03/26/18: Patient remains intubated sedated. CT of the chest yesterday showed bilateral basilar infiltrates. Worsening infiltrates on chest x-ray today. Started on Zosyn and vancomycin yesterday. failed CPAP trial due to tachypnea. Patient has severe pneumonia probably not monitoring inflammatory response/ SIRS due to underlying rheumatoid arthritis 03/27/18: Tolerating CPAP better today, spontaneous tidal volumes are improved. Chest x-ray shows improvement in the right-sided infiltrates. Sputum cx negative to date. Urine cx with Group D enterococci 03/28/18: Extubated yesterday tolerated well initially. Currently tachypneic breathing 35-40 breaths per minute. Order given to place on BiPAP. Echo showed EF 40-45%, Mod TR 03/29: Current BiPAP intermittently yesterday but currently tolerating nasal cannula well. Breathing more comfortably. Excellent diuresis with Lasix. Chest x-ray shows improved air entry Objective Vital Signs Date Time Temp Pulse Resp B/P (MAP) Pulse Ox O2 Delivery O2 Flow Rate FiO2 03/29/18 09:12 95 Nasal Cannula 3.00 03/29/18 06:00 66 03/29/18 04:00 97.9 28 106/59 (75) 03/28/18 16:19 40 Intake and Output 03/29/18 03/29/18 03/30/18 08:00 16:00 00:00 Intake Total 640 ml Output Total 1100 ml Balance -460 ml Result Diagram: 03/29/18 0530 03/29/18 0530 Objective Remarks GENERAL: Well-developed obese elderly white female patient, on NC SKIN: Focused skin assessment warm/dry. HEAD: Atraumatic. Normocephalic. EYES: Pupils small, equal and round. No scleral icterus. No injection or drainage. ENT: No nasal bleeding or discharge. NECK: Trachea midline. No JVD. CARDIOVASCULAR: Regular rate and rhythm. No murmur appreciated. RESPIRATORY: Air entry equal bilaterally with diminished at the bases. Not using accessory muscles today GASTROINTESTINAL: Abdomen soft, obese, pitting edema of the abdominal wall. MUSCULOSKELETAL: No obvious deformities. No clubbing. No cyanosis. Bilateral pitting edema. NEUROLOGICAL: Alert awake oriented. No focal deficits. 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 Start Levaquin 750 mg once daily -Follow up on sputum culture-negative to date ENDO: Hypokalemia -Electrolyte replacement per protocol -Sliding scale insulin if needed DVT GI prophylaxis -Vahe's and SCDs -Subcu heparin -Pepcid Critical Care: Level 2 Consult [facility] to assume care in am 5/6. Transfer to Med-surg Anitha Escoto MD March 29, 2018 11:24
[2018-03-29] MEDS: LEVOFLOXACIN 750 MG PREMIX INJ 150 ML IV SCH (12:06)
[2018-03-29] MEDS ORDERED: PHARMACY ORDERED LAB ONE (13:45)
[2018-03-29] MEDS: POTASSIUM CHLOR 20 MEQ PREMIX 100 ML IV PRN ×3 (14:33→17:47)
[2018-03-29] MEDS: ATORVASTATIN 10 MG TAB PO SCH (20:09)
[2018-03-29] MEDS: RESP: ALBUTEROL 2.5 MG/IPRATROPIUM 0.5 MG NEB (PRN) INH (22:35)
--- NOTE | 2018-03-29 23:35 | MB ---
cc: Jolene Steele MD, V J MD DATE: 03/29/2018 REASON FOR CONSULTATION: Respiratory insufficiency and pulmonary edema. HISTORY OF PRESENT ILLNESS: This is an 82-year-old white female with a past history of myocardial infarct with stent placement and atrial fibrillation who was initially admitted through the emergency room with severe respiratory insufficiency and hypoxemia. The patient was placed on BiPAP and a chest x-ray did demonstrate evidence of pulmonary congestion. The patient subsequently had to be intubated and placed on ventilator support. The patient has been treated for pulmonary edema, pneumonia and subsequently now weaned off the ventilator and is on a nasal cannula at 3-4 liters. She is awake, conversing and in no acute distress but quite weak and unable to get out of bed, needs help in turning and still has some leg edema. PAST MEDICAL HISTORY: The patient's past history has included a history for atrial fibrillation and coronary artery disease, history of hypertension and history of migraines. She has had rheumatoid arthritis and a previous myocardial infarct. PAST SURGICAL HISTORY: Included hysterectomy, tonsillectomy, bilateral cataract surgery and coronary artery stenting. HABITS: The patient is a nonsmoker, no alcohol use. MEDICATIONS: 1. Lasix 20 mg a day. 2. Potassium 20 mEq daily 3. Plavix 75 mg a day. 3. Atorvastatin 10 mg hs. FAMILY HISTORY: Noncontributory. REVIEW OF SYSTEMS: The patient is overweight. She has trouble sitting up. She is short of breath with minimal activity. She has leg edema, joint pains and back pain and palpitations. She has some anxiety and depression. Denies skin lesions and other system review is negative. PHYSICAL EXAMINATION: GENERAL: This elderly, moderately obese white female is pale and mildly dyspneic at rest. VITAL SIGNS: Blood pressure is 110/70, pulse is 60, respirations 16, temperature 97.6. HEENT: Head is normocephalic. Pupils reactive and equal. Tongue is moist. Nasal mucosa edematous. Ears no inflammation. Throat was clear. NECK: Supple, no lymphadenopathy, no bruits or thyroid enlargement. CHEST: Distant breath sounds with wheezes bilaterally, prolonged expirations and crackles heard at the lung bases. HEART: The heart sounds are irregular S1 and S2. No murmur, no S3. ABDOMEN: Soft, protuberant, no mass. No organomegaly. Bowel sounds are active. EXTREMITIES: Reveal 1+ leg edema. No calf tenderness. NEUROLOGIC: Reflexes 1+ with no gross motor deficits. Cranial nerves grossly intact. RECTAL: Rectal exam is deferred. IMPRESSION: 1. Congestive heart failure, compensated. 2. Atrial fibrillation and arteriosclerotic heart disease. 3. History of coronary artery disease. 4. Hypertension. 5. Acute respiratory failure, resolved. PLAN: The patient will be placed on oxygen at 3 liters and weaned. Nebulized DuoNeb solution q.i.d. and p.r.n. Followup chest x-ray in a.m. Incentive spirometry started every 2 hours. Continue with diuretic therapy daily and continue with antibiotic therapy for possible pneumonia. We will use BiPAP at night if necessary if saturations drop below 92% christian. Thank you, Dr. Rae, for this consultation. V. Main Steele MD VJD/ , 10:55 PM , 11:34 PM
[2018-03-30] VITALS (19 sets, daily range): BP systolic 96–175; BP diastolic 52–85; PULSE 51–76; RESP 22–32; TEMP 97.5–98.2; O2SAT 91–100
[2018-03-30] MEDS: HEPARIN SODIUM - SQ 10,000 UNITS/ML VIAL SQ SCH ×3 (03:35→17:35)
--- NOTE | 2018-03-30 06:40 | RADRPT ---
EXAM DATE/TIME: 03/30/2018 05:02 [facility] COMPARISON: CHEST SINGLE AP, March 29, 2018, 4:55. INDICATIONS : Pulmonary edema. Shortness of breath. MEDICAL HISTORY : Cardiovascular disease. Hypertension Rheumatoid arthritis. SURGICAL HISTORY : Hysterectomy. ENCOUNTER: Subsequent ACUITY: 1 week PAIN SCORE: Non-responsive. LOCATION: Bilateral chest FINDINGS: Right perihilar mass or infiltrate is again noted. Bibasilar parenchymal opacities are grossly stable . Heart size is unchanged. CONCLUSION: No significant change Jevon Butt MD on March 30, 2018 at 6:38 Board Certified Radiologist. This report was verified electronically.
[2018-03-30] MEDS: CHLORHEXIDINE 0.12% (ORAL KIT) 15 ML CUP MT SCH ×2 (07:45→20:00)
[2018-03-30] MEDS: CLOPIDOGREL 75 MG TAB PO SCH (07:55)
[2018-03-30] MEDS: DOCUSATE SODIUM 100 MG/10 ML UDC PO SCH ×2 (07:55→20:18)
[2018-03-30] MEDS: FAMOTIDINE 20 MG TAB PO SCH ×2 (07:55→20:18)
[2018-03-30] MEDS: CARVEDILOL 3.125 MG TAB PO SCH ×2 (07:55→20:18)
[2018-03-30] MEDS: SODIUM CHLORIDE 0.9% FLUSH 10 ML FLUSH IV FLUSH SCH ×2 (07:56→20:18)
[2018-03-30] MEDS: FUROSEMIDE 40 MG/4 ML VIAL IV PUSH SCH ×2 (07:56→17:35)
[2018-03-30] MEDS: ARTIFICIAL TEARS OPTH SOLN 15 ML BTL EACH EYE SCH ×3 (07:56→17:35)
[2018-03-30] MEDS: LOSARTAN 50 MG TAB PO SCH (09:19)
--- NOTE | 2018-03-30 10:29 | HHI.PR ---
Subjective Remarks Follow-up respiratory failure, CHF. The patient states that she feels okay today. Denies chest pain. She does report shortness of breath. She states that at home she is supposed to be on oxygen, but does not wear it all the time. Objective Vitals Vital Signs Date Time Temp Pulse Resp B/P (MAP) Pulse Ox O2 Delivery O2 Flow Rate FiO2 03/30/18 09:39 63 03/30/18 09:39 92 Nasal Cannula 4.00 03/30/18 08:31 92 Nasal Cannula 4.00 03/30/18 08:00 97.6 64 24 175/85 (115) 93 03/30/18 04:42 Nasal Cannula 4.00 03/30/18 04:42 98.2 70 22 115/58 (77) 93 03/30/18 04:00 64 03/30/18 00:00 Nasal Cannula 4.00 03/30/18 00:00 75 03/30/18 00:00 97.9 76 22 124/57 (79) 91 03/29/18 22:36 94 Nasal Cannula 4.00 03/29/18 20:23 93 Nasal Cannula 3.00 03/29/18 20:00 66 03/29/18 20:00 98.7 71 22 133/69 (90) 95 03/29/18 20:00 Nasal Cannula 03/29/18 18:51 96 Nasal Cannula 3.00 03/29/18 18:30 98.0 60 22 131/58 (82) 97 03/29/18 18:00 78 03/29/18 16:00 98.3 68 21 141/65 (90) 92 03/29/18 16:00 68 03/29/18 14:00 69 03/29/18 12:00 66 03/29/18 12:00 97.9 66 20 119/60 (79) 96 I/O 03/29/18 03/29/18 03/29/18 03/30/18 03/30/18 03/30/18 07:00 15:00 23:00 07:00 15:00 23:00 Intake Total 740 ml 240 ml 480 ml Output Total 2900 ml 3450 ml 2500 ml Balance -2160 ml -3210 ml -2020 ml Intake Oral 240 ml 240 ml 480 ml IV Total 500 ml Output Urine Total 2900 ml 3450 ml 2500 ml # Bowel Movements 5 2 1 Result Diagram: 03/29/18 0530 03/29/18 1313 Imaging Last Impressions Chest X-Ray 03/30/18 0600 Signed Impressions: Service Date/Time: Friday, March 30, 2018 05:02 - CONCLUSION: No significant change Jevon Butt MD Chest CT 03/25/18 0000 Signed Impressions: Service Date/Time: Sunday, March 25, 2018 16:25 - CONCLUSION: 1. Bilateral lower lobe airspace consolidation with small right and trace left intermediate density pleural effusions. Left lower lobe consolidation demonstrates air bronchograms. Findings are concerning for pneumonia or aspiration. Intermediate density effusions are nonspecific given small size. 2. Mild airspace consolidation in the posterior right upper lobe which may reflect atelectasis. 3. Prominence of the main pulmonary artery consistent with some degree of pulmonary artery hypertension. 4. Soft tissue anasarca. 5. Three dominant indeterminate density hypodense lesions in the right lobe of the liver. These cannot be further characterized given lack of contrast. Further evaluation may be performed with contrast enhanced CT or MRI once patient is more stable. Damon Villanueva MD Objective Remarks General: Elderly female in no acute distress. Heart: Regular rate and rhythm. No murmur. Lungs: Diminished breath sounds at the bases. No wheezes, rales, or rhonchi. Breathing is nonlabored. Abdomen: Soft, nontender, nondistended. Extremities: 1+ bilateral lower extremity edema. Psych: Alert, answers questions appropriately. Neuro: Normal speech. No focal deficits noted. Procedures None Urinary Catheter: Yes Assessment to: Remove Vascular Central Line Catheter: No A/P Assessment and Plan 1. Acute hypoxemic and hypercarbic respiratory failure: Improved. Patient was extubated 03/27/18. Continue supplemental oxygen, bronchodilators. Appreciate pulmonology recommendations. 2. Multilobar pneumonia: Continue antibiotics, bronchodilators, supplemental oxygen. Appreciate pulmonology recommendations. 3. 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 Diuresing well. Continue carvedilol, losartan, Plavix, statin. 4. Severe sepsis: Secondary to pneumonia, UTI with group D enterococcus: Continue Levaquin. 5. Hypokalemia: Received supplementation yesterday. Labs are pending this morning. 6. History of CVA in the past: Continue Plavix. 7. GI prophylaxis: Pepcid. 8. DVT prophylaxis: SCDs, GABRIELA hose, subcutaneous heparin. Discharge Planning Pending further clinical improvement. Fab Ybarra MD March 30, 2018 10:29
[2018-03-30] MEDS: RESP: ALBUTEROL 2.5 MG/IPRATROPIUM 0.5 MG NEB (PRN) INH (11:41)
[2018-03-30] MEDS: RESP: ALBUTEROL 2.5 MG/IPRATROPIUM 0.5 MG NEB (SCH) NEB ×3 (12:00→19:33)
[2018-03-30 12:08] LABS: BICARBONATE 34.4 MEQ/L (21.0-32.0); CALCIUM 9.7 MG/DL (8.5-10.1); CREATININE 0.87 MG/DL (0.50-1.00); MAGNESIUM 1.5 MG/DL (1.5-2.5)
[2018-03-30] MEDS ORDERED: MAGNESIUM SULFATE 1 GM PREMIX 100 ML IV ONE (13:30)
--- NOTE | 2018-03-30 14:05 | HHI.PR ---
Subjective Remarks Back to ICU due to low O2 sat. She is on a NRB mask now. CXR shows Basal infiltrate and a Right parahilar density Objective Vital Signs Date Time Temp Pulse Resp B/P (MAP) Pulse Ox O2 Delivery O2 Flow Rate FiO2 03/30/18 11:30 99 15.00 100 03/30/18 09:39 63 03/30/18 09:39 92 Nasal Cannula 4.00 03/30/18 08:31 92 Nasal Cannula 4.00 03/30/18 08:00 97.6 64 24 175/85 (115) 93 03/30/18 04:42 Nasal Cannula 4.00 03/30/18 04:42 98.2 70 22 115/58 (77) 93 03/30/18 04:00 64 03/30/18 00:00 Nasal Cannula 4.00 03/30/18 00:00 75 03/30/18 00:00 97.9 76 22 124/57 (79) 91 03/29/18 22:36 94 Nasal Cannula 4.00 03/29/18 20:23 93 Nasal Cannula 3.00 03/29/18 20:00 66 03/29/18 20:00 98.7 71 22 133/69 (90) 95 03/29/18 20:00 Nasal Cannula 03/29/18 18:51 96 Nasal Cannula 3.00 03/29/18 18:30 98.0 60 22 131/58 (82) 97 03/29/18 18:00 78 03/29/18 16:00 98.3 68 21 141/65 (90) 92 03/29/18 16:00 68 I/O 03/29/18 03/29/18 03/29/18 03/30/18 03/30/18 03/30/18 07:00 15:00 23:00 07:00 15:00 23:00 Intake Total 740 ml 240 ml 480 ml Output Total 2900 ml 3450 ml 2500 ml Balance -2160 ml -3210 ml -2020 ml Intake Oral 240 ml 240 ml 480 ml IV Total 500 ml Output Urine Total 2900 ml 3450 ml 2500 ml # Bowel Movements 5 2 1 Result Diagram: 03/29/18 0530 03/30/18 1028 Objective Remarks GENERAL: This elderly, moderately obese white female is pale and mildly dyspneic at rest. HEENT: Head is normocephalic. Pupils reactive and equal. Tongue is moist. Nasal mucosa edematous. Ears no inflammation. Throat was clear. NECK: Supple, no lymphadenopathy, no bruits or thyroid enlargement. CHEST: Distant breath sounds with wheezes bilaterally, prolonged expirations and crackles heard at the lung bases. HEART: The heart sounds are irregular S1 and S2. No murmur, no S3. ABDOMEN: Soft, protuberant, no mass. No organomegaly. Bowel sounds are active. EXTREMITIES: Reveal 1+ leg edema. No calf tenderness. NEUROLOGIC: Reflexes 1+ with no gross motor deficits. Cranial nerves grossly intact. Skin is cool. Assessment and Plan Assessment and Plan IMPRESSION: 1. Congestive heart failure, compensated. 2. Atrial fibrillation and arteriosclerotic heart disease. 3. History of coronary artery disease. 4. Hypertension. 5. Acute respiratory failure, resolved. Plan : 1. Will wean O2 to ventimask 50 % 2. Cont Antibiotics . 3. Nebs qid , duoneb 4. Continue Diuretic daily. 5. CBC,BMP in am 6. BIPAP 12/5 CM , Fio2 40 % if sats <90. Jolene Steele MD March 30, 2018 14:05
[2018-03-30] MEDS: LEVOFLOXACIN 750 MG PREMIX INJ 150 ML IV SCH (14:16)
[2018-03-30] MEDS: POTASSIUM CHLOR 20 MEQ PREMIX 100 ML IV SCH ×2 (16:02→18:35)
[2018-03-30] MEDS: ATORVASTATIN 10 MG TAB PO SCH (20:18)
[2018-03-31] VITALS (37 sets, daily range): BP systolic 118–150; BP diastolic 55–87; PULSE 51–83; RESP 16–46; TEMP 97.5–98.4; O2SAT 65–100
[2018-03-31] MEDS: HEPARIN SODIUM - SQ 10,000 UNITS/ML VIAL SQ SCH ×3 (04:21→18:55)
[2018-03-31 05:51] LABS: AUTOMATED NEUTROPHIL # 2.5 TH/MM3 (1.8-7.7); BASOPHIL % 0.3 % (0.0-2.0); EOSINOPHIL # 0.1 TH/MM3 (0-0.4); EOSINOPHIL % 2.9 % (0.0-4.0); HEMATOCRIT 37.2 % (35.0-46.0); HEMOGLOBIN 12.3 GM/DL (11.6-15.3); LYMPH % 23.2 % (9.0-44.0); MEAN CELL VOLUME 89.4 FL (80.0-100.0); MEAN CORPUSCULAR HEMOGLOBIN 29.6 PG (27.0-34.0); MEAN CORPUSCULAR HGB CONC 33.1 % (32.0-36.0); MEAN PLATELET VOLUME 9.8 FL (7.0-11.0); MONO % 17.2 % (0.0-8.0); MONOCYTE # 0.8 TH/MM3 (0-0.9); NEUT % 56.4 % (16.0-70.0); PLATELET COUNT 162 TH/MM3 (150-450); RED BLOOD COUNT 4.16 MIL/MM3 (4.00-5.30); RED CELL DISTRIBUTION WIDTH 14.2 % (11.6-17.2); WHITE BLOOD COUNT 4.5 TH/MM3 (4.0-11.0)
[2018-03-31 06:16] LABS: BICARBONATE 33.8 MEQ/L (21.0-32.0); CALCIUM 9.9 MG/DL (8.5-10.1); CREATININE 0.78 MG/DL (0.50-1.00); MAGNESIUM 1.7 MG/DL (1.5-2.5)
[2018-03-31] MEDS: RESP: ALBUTEROL 2.5 MG/IPRATROPIUM 0.5 MG NEB (SCH) NEB ×4 (08:22→19:35)
[2018-03-31] MEDS: CARVEDILOL 3.125 MG TAB PO SCH ×2 (09:00→20:40)
[2018-03-31] MEDS ORDERED: POTASSIUM CHLORIDE 10 MEQ CAP PO SCH (09:00)
[2018-03-31] MEDS: FUROSEMIDE 40 MG/4 ML VIAL IV PUSH SCH ×2 (09:03→18:56)
[2018-03-31] MEDS: POTASSIUM CHLOR 20 MEQ PREMIX 100 ML IV SCH ×2 (09:03→14:03)
[2018-03-31] MEDS: SODIUM CHLORIDE 0.9% FLUSH 10 ML FLUSH IV FLUSH SCH ×2 (09:03→20:40)
[2018-03-31] MEDS: ARTIFICIAL TEARS OPTH SOLN 15 ML BTL EACH EYE SCH ×3 (09:03→18:02)
[2018-03-31] MEDS: DOCUSATE SODIUM 100 MG/10 ML UDC PO SCH ×2 (09:03→20:40)
[2018-03-31] MEDS: LOSARTAN 50 MG TAB PO SCH (09:04)
[2018-03-31] MEDS: CLOPIDOGREL 75 MG TAB PO SCH (09:04)
[2018-03-31] MEDS: FAMOTIDINE 20 MG TAB PO SCH ×2 (09:04→20:41)
[2018-03-31] MEDS: CHLORHEXIDINE 0.12% (ORAL KIT) 15 ML CUP MT SCH ×2 (09:05→20:00)
--- NOTE | 2018-03-31 09:44 | HHI.PR ---
Subjective Remarks Follow-up respiratory failure, hypokalemia. The patient has no complaints at this time. She states that she feels better than she did yesterday. Denies chest pain. Objective Vitals Vital Signs Date Time Temp Pulse Resp B/P (MAP) Pulse Ox O2 Delivery O2 Flow Rate FiO2 03/31/18 08:23 98 Nasal Cannula 4.00 03/31/18 06:00 60 30 135/59 (84) 95 03/31/18 06:00 60 03/31/18 05:31 52 27 121/58 (79) 98 03/31/18 05:30 51 25 98 03/31/18 05:01 72 30 150/78 (102) 65 03/31/18 05:00 55 32 94 03/31/18 04:30 55 30 138/63 (88) 100 03/31/18 04:00 97.5 54 28 130/71 (90) 100 03/31/18 04:00 54 03/31/18 03:30 63 28 134/85 (101) 95 03/31/18 03:01 57 29 118/55 (76) 97 03/31/18 03:00 55 28 96 03/31/18 02:30 58 31 139/65 (89) 96 03/31/18 02:00 62 03/31/18 02:00 62 31 133/65 (87) 95 03/31/18 01:31 60 24 128/60 (82) 91 03/31/18 01:30 52 29 90 03/31/18 01:00 54 30 146/63 (90) 96 03/31/18 00:30 55 31 133/63 (86) 96 03/31/18 00:01 58 29 128/59 (82) 94 03/31/18 00:00 98.4 54 30 97 03/31/18 00:00 54 03/30/18 23:30 53 30 134/61 (85) 99 03/30/18 23:00 51 29 118/56 (76) 96 03/30/18 22:30 53 29 118/64 (82) 96 03/30/18 22:00 57 03/30/18 22:00 57 26 106/53 (70) 97 03/30/18 21:30 56 30 110/54 (72) 96 03/30/18 21:00 54 28 113/54 (73) 94 03/30/18 20:00 56 03/30/18 20:00 97.5 56 28 124/65 (84) 92 03/30/18 19:00 68 32 96/72 (80) 94 03/30/18 19:00 92 Nasal Cannula 4.00 03/30/18 18:00 57 03/30/18 16:00 56 03/30/18 16:00 98.0 56 29 103/52 (69) 100 03/30/18 14:00 56 03/30/18 13:30 97.7 57 30 121/60 (80) 99 03/30/18 13:30 57 03/30/18 11:30 99 15.00 100 I/O 03/30/18 03/30/18 03/30/18 03/31/18 03/31/18 03/31/18 07:00 15:00 23:00 07:00 15:00 23:00 Intake Total 480 ml 450 ml 240 ml Output Total 2500 ml 150 ml 950 ml Balance -2020 ml 300 ml -710 ml Intake Oral 480 ml 0 ml 240 ml IV Total 450 ml Output Urine Total 2500 ml 150 ml 950 ml # Bowel Movements 1 0 1 Result Diagram: 03/31/18 0450 03/31/18 0450 Imaging Last Impressions Chest X-Ray 03/30/18 0600 Signed Impressions: Service Date/Time: Friday, March 30, 2018 05:02 - CONCLUSION: No significant change Jevon Butt MD Chest CT 03/25/18 0000 Signed Impressions: Service Date/Time: Sunday, March 25, 2018 16:25 - CONCLUSION: 1. Bilateral lower lobe airspace consolidation with small right and trace left intermediate density pleural effusions. Left lower lobe consolidation demonstrates air bronchograms. Findings are concerning for pneumonia or aspiration. Intermediate density effusions are nonspecific given small size. 2. Mild airspace consolidation in the posterior right upper lobe which may reflect atelectasis. 3. Prominence of the main pulmonary artery consistent with some degree of pulmonary artery hypertension. 4. Soft tissue anasarca. 5. Three dominant indeterminate density hypodense lesions in the right lobe of the liver. These cannot be further characterized given lack of contrast. Further evaluation may be performed with contrast enhanced CT or MRI once patient is more stable. Damon Villanueva MD Objective Remarks General: Elderly female in no acute distress. Heart: Regular rate and rhythm. No murmur. Lungs: Diminished breath sounds at the bases. No wheezes, rales, or rhonchi. Breathing is nonlabored. Abdomen: Soft, nontender, nondistended. Extremities: 1+ bilateral lower extremity edema. Psych: Alert, answers questions appropriately. Neuro: Normal speech. No focal deficits noted. Procedures None Urinary Catheter: No Vascular Central Line Catheter: No A/P Assessment and Plan 1. Acute hypoxemic and hypercarbic respiratory failure: Patient was extubated . Continue supplemental oxygen, bronchodilators. Appreciate pulmonology recommendations. Increased oxygen requirement yesterday, improved today. 2. Multilobar pneumonia: Continue antibiotics, bronchodilators, supplemental oxygen. Appreciate pulmonology recommendations. 3. 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 Diuresing well. Continue carvedilol, losartan, Plavix, statin. 4. Severe sepsis: Secondary to pneumonia, UTI with group D enterococcus. Continue Levaquin. 5. Hypokalemia: Potassium still low. Supplement and recheck labs in the morning. 6. History of CVA in the past: Continue Plavix. 7. GI prophylaxis: Pepcid. 8. DVT prophylaxis: SCDs, GABRIELA hose, subcutaneous heparin. Discharge Planning Pending further clinical improvement. Fab Ybarra MD March 31, 2018 09:44
[2018-03-31] MEDS: LEVOFLOXACIN 750 MG PREMIX INJ 150 ML IV SCH (11:50)
--- NOTE | 2018-03-31 15:02 | PD.CONS ---
HPI Service Cardiology Consult Requested By Dr Ybarra Reason for Consult Bradycardia, NSVT Primary Care Physician Santiago Sethi DO History of Present Illness The patient is an 82 year old female with a cardiac history of ASHD with LAD stent 09/2016, chronic atrial fibrillation unable to tolerate anticoagulation due to rectal bleeding history, HTN, decreased LV function, obesity and mild MR. She is severely debilitated at baseline. Her is her primary caregiver. The patient presented to the hospital for respiratory failure requiring intubation in route due to increased respiratory distress and altered mental status. Her states that 24 hours prior to admission, she had increased lethargy and slept all day. He was prompted to call EMS when he was not able to wake her up. On arrival ABG acute hypercapnic, hypoxic acidosis. No fever or leukocytosis. Troponin X 3 and EKG negative for ischemic changes. Work up revealed pneumonia, UTI, and exacerbation of systolic CHF. She was treated in ICU and then transferred to the floor. Yesterday, she was transferred back to ICU for increased respiratory insufficiency. We were consulted for bradycardia and NSVT. Today, on evaluation, she denies SOB at rest. She denies CP or palpitations. She states she is "dizzy all the time." Per the , she has chronic orthostatic symptoms in the morning when she wakes up. (Jovanna Veloz) Review of Systems Consitutional: COMPLAINS OF: Fatigue Eyes: DENIES: Amaurosis Fugax, Change in vision HEENT: COMPLAINS OF: Lightheadedness, DENIES: Change in hearing Respiratory: COMPLAINS OF: Shortness of breath, DENIES: See HPI, Cough, Snoring , Wheezing, Sputum production Cardiovascular: DENIES: See HPI, Chest pain, Palpitations, Syncope, Tachycardia Gastrointestinal: DENIES: Nausea, Vomiting, Change in bowel habits, Reflux, Bloody stools, Melena Genitourinary: DENIES: Urinary incontinence, Difficulty voiding Integumentary: DENIES: Rash Neurologic: DENIES: Tingling or numbness, Memory problems, Poor Balance, Stroke symptoms Musculoskeletal: DENIES: Joint pain, Muscle pain, Limited range of motion, Back pain Psychiatric: DENIES: Anxiety, Depression, Sleep disturbances Hematologic: DENIES: Bruising tendencies, Bleeding tendencies Endocrine: DENIES: Weight gain, Weight loss, Thyroid disease (Magdiel,Jovanna S PA ) Past Family Social History Allergies: Coded Allergies: grass pollen (Verified Allergy, Intermediate, Sneezing, 11/08/17) *MDRO Multi-Drug Resistant Organism (Verified Adverse Reaction, Unknown, 11/08/17) 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 Past Medical History Reported in the HPI Past Surgical History CATH stent LAD 2015 Reported Medications Reported Meds & Active Scripts Active Lasix (Furosemide) 20 Mg Tab 20 Mg PO DAILY Potassium Chloride Microencaps 20 Meq Tab 20 Meq PO QD Plavix (Clopidogrel Bisulfate) 75 Mg Tab 75 Mg PO DAILY 30 Days Reported Melatonin 5 Mg Tab 5 Mg PO HS Atorvastatin (Atorvastatin Calcium) 10 Mg Tab 10 Mg PO HS Carvedilol 3.125 Mg Tab 3.125 Mg PO BID Osteo Bi-Flex One A Day (Rzkaujnpd-Gxnsyxzeqbd-Uodvugw) 1 Tab 1 Tab PO DAILY Coq-10 (Coenzyme Q10 (Ubidecarenone)) 50 Mg Cap 50 Cap PO DAILY Losartan (Losartan Potassium) 100 Mg Tab 100 Mg PO DAILY Active Ordered Medications Current Medications Medications (Trade) Dose Ordered Sig/Rodri Route Start Time Stop Time Status Last Admin (Lipitor) 10 mg HS PO 03/25/18 21:00 03/30/18 20:18 (Coreg) 3.125 mg BID PO 03/25/18 09:00 03/30/18 07:55 (Plavix) 75 mg DAILY PO 03/25/18 09:00 03/31/18 09:04 (Cozaar) 100 mg DAILY PO 03/25/18 09:00 03/31/18 09:04 (NS Flush) 2 ml UNSCH PRN IV FLUSH 03/25/18 03:00 (NS Flush) 2 ml BID IV FLUSH 03/25/18 09:00 03/31/18 09:03 (Tylenol) 650 mg Q6H PRN PO 03/25/18 03:00 (Morphine Inj) 2 mg Q2H PRN IV PUSH 03/25/18 03:00 (Versed Inj) 2 mg Q1H PRN IV PUSH 03/25/18 03:00 (Tears Naturale Opth Soln) 1 drop TID EACH EYE 03/25/18 09:00 03/31/18 14:03 (Zofran Inj) 4 mg Q6H PRN IV PUSH 03/25/18 03:00 (Duoneb Neb) 1 ampule Q2HR NEB PRN INH 03/25/18 03:00 03/30/18 11:41 (Heparin Inj) 5,000 units Q8H SQ 03/25/18 03:00 03/31/18 11:49 (Milk Of Magnesia Liq) 30 ml Q12H PRN PO 03/25/18 03:00 (Senokot) 17.2 mg Q12H PRN PO 03/25/18 03:00 (Dulcolax Supp) 10 mg DAILY PRN RECTAL 03/25/18 03:00 (Lactulose Liq) 30 ml DAILY PRN PO 03/25/18 03:00 (Peridex 0.12% Liq) 15 ml BID@08,20 MT 03/25/18 08:00 03/31/18 09:05 (Lasix Inj) 40 mg BID@,18 IV PUSH 03/25/18 18:00 03/31/18 09:03 (Colace Liq) 100 mg Q12HR PO 03/26/18 10:30 03/31/18 09:03 Levofloxacin/ Dextrose 150 ml @ 100 mls/hr Q24H IV 03/29/18 12:00 03/31/18 11:50 (Pepcid) 10 mg BID PO 03/30/18 21:00 03/31/18 09:04 (Duoneb Neb) 1 ampule QID NEB NEB 03/30/18 12:00 03/31/18 11:06 (KCl) 20 meq DAILY PO 03/31/18 09:00 03/31/18 09:04 (Mycostatin Powder) 1 applic Q12HR TOPICAL 03/31/18 11:30 Family History non contributory Social History , lives at home with her who is her primary caregiver (Jovanna Veloz) Physical Exam Vital Signs Vital Signs Date Time Temp Pulse Resp B/P (MAP) Pulse Ox O2 Delivery O2 Flow Rate FiO2 03/31/18 12:00 64 03/31/18 12:00 98.1 64 25 124/65 (84) 93 03/31/18 10:00 83 03/31/18 08:23 98 Nasal Cannula 4.00 03/31/18 08:00 98.4 03/31/18 08:00 54 03/31/18 08:00 98.4 54 31 118/70 (86) 93 03/31/18 07:00 91 Nasal Cannula 2.00 03/31/18 06:00 60 30 135/59 (84) 95 03/31/18 06:00 60 03/31/18 05:31 52 27 121/58 (79) 98 03/31/18 05:30 51 25 98 03/31/18 05:01 72 30 150/78 (102) 65 03/31/18 05:00 55 32 94 03/31/18 04:30 55 30 138/63 (88) 100 03/31/18 04:00 97.5 54 28 130/71 (90) 100 03/31/18 04:00 54 03/31/18 03:30 63 28 134/85 (101) 95 03/31/18 03:01 57 29 118/55 (76) 97 03/31/18 03:00 55 28 96 03/31/18 02:30 58 31 139/65 (89) 96 03/31/18 02:00 62 03/31/18 02:00 62 31 133/65 (87) 95 03/31/18 01:31 60 24 128/60 (82) 91 03/31/18 01:30 52 29 90 03/31/18 01:00 54 30 146/63 (90) 96 03/31/18 00:30 55 31 133/63 (86) 96 03/31/18 00:01 58 29 128/59 (82) 94 03/31/18 00:00 98.4 54 30 97 03/31/18 00:00 54 03/30/18 23:30 53 30 134/61 (85) 99 03/30/18 23:00 51 29 118/56 (76) 96 03/30/18 22:30 53 29 118/64 (82) 96 03/30/18 22:00 57 03/30/18 22:00 57 26 106/53 (70) 97 03/30/18 21:30 56 30 110/54 (72) 96 18 21:00 54 28 113/54 (73) 94 18 20:00 56 03/30/18 20:00 97.5 56 28 124/65 (84) 92 03/30/18 19:00 68 32 96/72 (80) 94 03/30/18 19:00 92 Nasal Cannula 4.00 03/30/18 19:00 92 Nasal Cannula 4.00 03/30/18 18:00 57 03/30/18 16:00 56 03/30/18 16:00 98.0 56 29 103/52 (69) 100 Physical Exam GENERAL: Obese female in ICU SKIN: Warm and dry. HEAD: Atraumatic. Normocephalic. EYES: Pupils equal and round. No scleral icterus. No injection or drainage. ENT: No nasal bleeding or discharge. Mucous membranes pink and moist. NECK: Trachea midline. CARDIOVASCULAR: Irreg irreg, reg rate, systolic murmur, no edema RESPIRATORY: No accessory muscle use Breath sounds equal bilaterally. nasal cannula GASTROINTESTINAL: Abdomen soft, non-tender, nondistended. MUSCULOSKELETAL: Severe debility NEUROLOGICAL: Awake and alert. No obvious cranial nerve deficits. Normal speech. PSYCHIATRIC: Appropriate mood and affect; insight and judgment normal. Laboratory Laboratory Tests Test 03/31/18 04:50 White Blood Count 4.5 Red Blood Count 4.16 Hemoglobin 12.3 Hematocrit 37.2 Mean Corpuscular Volume 89.4 Mean Corpuscular Hemoglobin 29.6 Mean Corpuscular Hemoglobin Concent 33.1 Red Cell Distribution Width 14.2 Platelet Count 162 Mean Platelet Volume 9.8 Neutrophils (%) (Auto) 56.4 Lymphocytes (%) (Auto) 23.2 Monocytes (%) (Auto) 17.2 Eosinophils (%) (Auto) 2.9 Basophils (%) (Auto) 0.3 Neutrophils # (Auto) 2.5 Lymphocytes # (Auto) 1.0 Monocytes # (Auto) 0.8 Eosinophils # (Auto) 0.1 Basophils # (Auto) 0.0 CBC Comment DIFF FINAL Differential Comment Blood Urea Nitrogen 8 Creatinine 0.78 Random Glucose 90 Calcium Level 9.9 Magnesium Level 1.7 Sodium Level 139 Potassium Level 3.2 Chloride Level 98 Carbon Dioxide Level 33.8 Anion Gap 7 Estimat Glomerular Filtration Rate 71 Date/Time Source Procedure Growth Status 03/25/18 13:30 Sputum Endotracheal Gram Stain - Final Complete 03/25/18 13:30 Sputum Endotracheal Sputum Culture - Final HEAVY GROWTH NORMAL RESPIRATORY LUDIN Complete 03/25/18 11:00 Urine Catheterized Urine Urine Culture - Final Enterococcus Faecalis Complete (Jovanna Veloz) Result Diagram: 03/31/18 0450 03/31/18 0450 Imaging Last 72 hours Impressions Chest X-Ray 03/30/18599 Signed Impressions: Service Date/Time: Friday, March 30, 2018 05:02 - CONCLUSION: No significant change Jevon Butt MD Chest X-Ray 03/29/18599 Signed Impressions: Service Date/Time: Thursday, March 29, 2018 04:55 - CONCLUSION: Slight improvement in aeration Jevon Butt MD (Jovanna Veloz) Assessment and Plan Assessment and Plan Respiratory failure due to pneumonia and CHF. ? aspiration Recurrent hypokalemia and hypomagnesemia Nocturnal bradycardia and short runs of NSVT due to above Chronic atrial fibrillation unable to take oral anticoagulation due to rectal bleeding. Cardiomyopathy EF 40-45%, no major valvulopathy ASHD HTN Severe debility PLAN Continue coreg with hold parameters Increase K+ oral replacement and start spironolactone. Will plan to supplemental K and continue Aldactone once serum potassium improves and transition to oral diuretic. Replace mag to 2 Hydralazine PRN Pulmonary following CXR and BNP in the AM The patient was seen and evaluated by Dr Landers who completed physical exam and face to face encounter and participated in evaluation and management. (Jovanna Veloz) Assessment and Plan The exam, history, and the medical decision-making described in the above note were completed with the assistance of the mid-level provider. I reviewed and agree with the findings presented. I attest that I had a [id number] encounter with the patient on the same day, and personally performed and documented my assessment and findings in the medical record. very ill with chf and resp failure and pneumonia. (Edna Landers MD) Jovanna Veloz March 31, 2018 15:02 Edna Landers MD April 01, 2018 14:57
[2018-03-31] MEDS ORDERED: hydrALAZINE HCL 20 MG/ML VIAL IV PUSH PRN (15:15)
--- NOTE | 2018-03-31 16:23 | RADRPT ---
EXAM DATE/TIME: 03/31/2018 15:14 [facility] COMPARISON: CHEST SINGLE AP, March 25, 2018, 2:18. CHEST SINGLE AP, March 30, 2018, 5:02. INDICATIONS : SOB MEDICAL HISTORY : Cardiovascular disease. Hypertension Rheumatoid arthritis. SURGICAL HISTORY : Hysterectomy. ENCOUNTER: Subsequent ACUITY: 1 week PAIN SCORE: Non-responsive. LOCATION: Bilateral chest FINDINGS: A single view of the chest demonstrates stable prominence of the right hilar structures. Airspace pro cess in the right base shows some improvement. There is still some left basilar airspace disease but this also shows some improvement. Heart size remains prominent. Dextroscoliosis of the dorsal spine w ith marginal spurring. CONCLUSION: 1. Improving aeration in both lung bases. Still some mild airspace disease on the left. 2. Stable prominence of the right hilum may represent prominent central pulmonary vasculature. 3. Complicated cardiomegaly Christiano Perez MD on March 31, 2018 at 16:17 Board Certified Radiologist. This report was verified electronically.
[2018-03-31] MEDS: NYSTATIN 100,000 U/GM PWD 15 GM BTL TOPICAL SCH ×2 (18:02→20:41)
[2018-03-31] MEDS: SPIRONOLACTONE 25 MG TAB PO SCH (18:55)
--- NOTE | 2018-03-31 19:03 | HHI.PR ---
Subjective Remarks Awake and seems better today She is on a N/C at 4 L. Sats 96. CXR shows Basal infiltrate and a Right parahilar density, improved. Output was good. Objective Vital Signs Date Time Temp Pulse Resp B/P (MAP) Pulse Ox O2 Delivery O2 Flow Rate FiO2 03/31/18 14:00 62 03/31/18 12:00 64 03/31/18 12:00 98.1 64 25 124/65 (84) 93 03/31/18 10:00 83 03/31/18 08:23 98 Nasal Cannula 4.00 03/31/18 08:00 98.4 03/31/18 08:00 54 03/31/18 08:00 98.4 54 31 118/70 (86) 93 03/31/18 07:00 91 Nasal Cannula 2.00 03/31/18 06:00 60 30 135/59 (84) 95 03/31/18 06:00 60 03/31/18 05:31 52 27 121/58 (79) 98 03/31/18 05:30 51 25 98 03/31/18 05:01 72 30 150/78 (102) 65 03/31/18 05:00 55 32 94 03/31/18 04:30 55 30 138/63 (88) 100 03/31/18 04:00 97.5 54 28 130/71 (90) 100 03/31/18 04:00 54 03/31/18 03:30 63 28 134/85 (101) 95 03/31/18 03:01 57 29 118/55 (76) 97 03/31/18 03:00 55 28 96 03/31/18 02:30 58 31 139/65 (89) 96 03/31/18 02:00 62 03/31/18 02:00 62 31 133/65 (87) 95 03/31/18 01:31 60 24 128/60 (82) 91 03/31/18 01:30 52 29 90 03/31/18 01:00 54 30 146/63 (90) 96 03/31/18 00:30 55 31 133/63 (86) 96 03/31/18 00:01 58 29 128/59 (82) 94 03/31/18 00:00 98.4 54 30 97 03/31/18 00:00 54 03/30/18 23:30 53 30 134/61 (85) 99 03/30/18 23:00 51 29 118/56 (76) 96 03/30/18 22:30 53 29 118/64 (82) 96 03/30/18 22:00 57 03/30/18 22:00 57 26 106/53 (70) 97 03/30/18 21:30 56 30 110/54 (72) 96 03/30/18 21:00 54 28 113/54 (73) 94 03/30/18 20:00 56 03/30/18 20:00 97.5 56 28 124/65 (84) 92 I/O 03/30/18 03/30/18 03/30/18 03/31/18 03/31/18 03/31/18 07:00 15:00 23:00 07:00 15:00 23:00 Intake Total 480 ml 450 ml 240 ml 250 ml 1050 ml Output Total 2500 ml 150 ml 950 ml Balance -2020 ml 300 ml -710 ml 250 ml 1050 ml Intake Oral 480 ml 0 ml 240 ml 950 ml IV Total 450 ml 250 ml 100 ml Output Urine Total 2500 ml 150 ml 950 ml # Voids 5 # Bowel Movements 1 0 1 0 Result Diagram: 03/31/18 0450 03/31/18 045 Objective Remarks GENERAL: This elderly, moderately obese white female is pale and not dyspneic at rest. HEENT: Head is normocephalic. Pupils reactive and equal. Tongue is moist. Nasal mucosa clear. Ears no inflammation. Throat was clear. NECK: Supple, no lymphadenopathy, no bruits or thyroid enlargement. CHEST: Distant breath sounds with wheezes bilaterally, prolonged expirations and crackles heard at the lung bases. HEART: The heart sounds are irregular S1 and S2. No murmur, no S3. ABDOMEN: Soft, protuberant, no mass. No organomegaly. Bowel sounds are active. EXTREMITIES: Reveal 1+ leg edema. No calf tenderness. NEUROLOGIC: Reflexes 1+ with no gross motor deficits. Cranial nerves grossly intact. Skin is dry Assessment and Plan Assessment and Plan IMPRESSION: 1. Congestive heart failure, compensated. 2. Atrial fibrillation and arteriosclerotic heart disease. 3. History of coronary artery disease. 4. Hypertension. 5. Acute respiratory failure, resolved. Plan : 1. Will wean O2 to 3 L 2. Cont Antibiotics . 3. Nebs qid , duoneb 4. Continue lasix 40 mg BID and aldactone daily. 5. CXR CBC,BMP in am 6. BIPAP 12/5 CM , Fio2 40 % if sats <90. 7. Transfer to Jolene Fernandez MD March 31, 2018 19:03
[2018-03-31] MEDS: ATORVASTATIN 10 MG TAB PO SCH (20:41)
[2018-03-31] MEDS: POTASSIUM CHLORIDE 10 MEQ CAP PO SCH (20:41)
[2018-04-01] VITALS (26 sets, daily range): BP systolic 102–153; BP diastolic 50–70; PULSE 51–77; RESP 18–30; TEMP 97.3–98.2; O2SAT 89–100
[2018-04-01] MEDS: HEPARIN SODIUM - SQ 10,000 UNITS/ML VIAL SQ SCH ×3 (03:09→18:08)
[2018-04-01] MEDS: RESP: ALBUTEROL 2.5 MG/IPRATROPIUM 0.5 MG NEB (SCH) NEB ×4 (07:22→20:46)
[2018-04-01] MEDS: CHLORHEXIDINE 0.12% (ORAL KIT) 15 ML CUP MT SCH ×2 (08:00→20:00)
[2018-04-01] MEDS: FUROSEMIDE 40 MG/4 ML VIAL IV PUSH SCH ×2 (09:03→18:09)
[2018-04-01] MEDS: NYSTATIN 100,000 U/GM PWD 15 GM BTL TOPICAL SCH ×2 (09:03→20:55)
[2018-04-01] MEDS: ARTIFICIAL TEARS OPTH SOLN 15 ML BTL EACH EYE SCH ×3 (09:03→18:13)
[2018-04-01] MEDS: SPIRONOLACTONE 25 MG TAB PO SCH ×2 (09:04→18:09)
[2018-04-01] MEDS: POTASSIUM CHLORIDE 10 MEQ CAP PO SCH ×2 (09:04→20:55)
[2018-04-01] MEDS: CARVEDILOL 3.125 MG TAB PO SCH ×2 (09:04→20:55)
[2018-04-01] MEDS: CLOPIDOGREL 75 MG TAB PO SCH (09:05)
[2018-04-01] MEDS: LOSARTAN 50 MG TAB PO SCH (09:05)
[2018-04-01] MEDS: SODIUM CHLORIDE 0.9% FLUSH 10 ML FLUSH IV FLUSH SCH ×2 (09:05→20:56)
[2018-04-01] MEDS: DOCUSATE SODIUM 100 MG/10 ML UDC PO SCH ×2 (09:05→20:55)
[2018-04-01] MEDS: FAMOTIDINE 20 MG TAB PO SCH ×2 (09:05→20:55)
--- NOTE | 2018-04-01 10:13 | PD.CARD.PN ---
Subjective Subjective Remarks Patient is lying in bed in no acute distress. She reports feeling well, denies any chest pain, reports that her breathing has improved. (Lulu Seymour) Objective Medications Current Medications Medications (Trade) Dose Ordered Sig/Rodri Route Start Time Stop Time Status Last Admin (Lipitor) 10 mg HS PO 03/25/18 21:00 03/31/18 20:41 (Coreg) 3.125 mg BID PO 03/25/18 09:00 04/01/18 09:04 (Plavix) 75 mg DAILY PO 03/25/18 09:00 04/01/18 09:05 (Cozaar) 100 mg DAILY PO 03/25/18 09:00 04/01/18 09:05 (NS Flush) 2 ml UNSCH PRN IV FLUSH 03/25/18 03:00 (NS Flush) 2 ml BID IV FLUSH 03/25/18 09:00 04/01/18 09:05 (Tylenol) 650 mg Q6H PRN PO 03/25/18 03:00 (Morphine Inj) 2 mg Q2H PRN IV PUSH 03/25/18 03:00 (Versed Inj) 2 mg Q1H PRN IV PUSH 03/25/18 03:00 (Tears Naturale Opth Soln) 1 drop TID EACH EYE 03/25/18 09:00 04/01/18 09:03 (Zofran Inj) 4 mg Q6H PRN IV PUSH 03/25/18 03:00 (Duoneb Neb) 1 ampule Q2HR NEB PRN INH 03/25/18 03:00 03/30/18 11:41 (Heparin Inj) 5,000 units Q8H SQ 03/25/18 03:00 04/01/18 03:09 (Milk Of Magnesia Liq) 30 ml Q12H PRN PO 03/25/18 03:00 (Senokot) 17.2 mg Q12H PRN PO 03/25/18 03:00 (Dulcolax Supp) 10 mg DAILY PRN RECTAL 03/25/18 03:00 (Lactulose Liq) 30 ml DAILY PRN PO 03/25/18 03:00 (Peridex 0.12% Liq) 15 ml BID@08,20 MT 03/25/18 08:00 04/01/18 08:00 (Lasix Inj) 40 mg BID@18 IV PUSH 03/25/18 18:00 04/01/18 09:03 (Colace Liq) 100 mg Q12HR PO 03/26/18 10:30 04/01/18 09:05 Levofloxacin/ Dextrose 150 ml @ 100 mls/hr Q24H IV 03/29/18 12:00 03/31/18 11:50 (Pepcid) 10 mg BID PO 03/30/18 21:00 04/01/18 09:05 (Duoneb Neb) 1 ampule QID NEB NEB 03/30/18 12:00 04/01/18 07:22 (Mycostatin Powder) 1 applic Q12HR TOPICAL 03/31/18 11:30 04/01/18 09:03 (KCl) 20 meq BID PO 03/31/18 21:00 04/01/18 09:04 (Aldactone) 25 mg BID@18 PO 03/31/18 18:00 04/01/18 09:04 (Apresoline Inj) 20 mg Q4H PRN IV PUSH 03/31/18 15:15 Vital Signs / I&O Vital Signs Date Time Temp Pulse Resp B/P (MAP) Pulse Ox O2 Delivery O2 Flow Rate FiO2 04/01/18 07:22 94 Nasal Cannula 3.00 04/01/18 07:00 94 Nasal Cannula 4.00 04/01/18 06:00 56 04/01/18 04:30 57 29 138/60 (86) 90 04/01/18 04:01 56 18 132/67 (88) 95 04/01/18 04:00 97.5 58 19 94 04/01/18 04:00 58 04/01/18 03:31 53 25 102/50 (67) 97 04/01/18 03:30 53 24 92 04/01/18 03:00 64 24 142/70 (94) 92 04/01/18 02:31 53 23 122/61 (81) 93 04/01/18 02:30 51 25 93 04/01/18 02:00 64 04/01/18 02:00 59 30 139/70 (93) 95 04/01/18 01:31 51 23 116/56 (76) 98 04/01/18 01:30 51 24 96 04/01/18 01:00 57 20 129/60 (83) 93 04/01/18 00:31 54 25 106/56 (73) 100 04/01/18 00:30 52 24 99 04/01/18 00:00 97.8 57 24 128/60 (82) 96 04/01/18 00:00 57 03/31/18 23:30 59 28 119/57 (77) 95 03/31/18 23:01 60 32 140/67 (91) 88 03/31/18 23:00 62 46 88 03/31/18 22:30 57 27 122/66 (84) 93 03/31/18 22:00 61 03/31/18 22:00 61 23 118/64 (82) 92 03/31/18 21:30 60 29 144/62 (89) 95 03/31/18 21:00 59 29 138/64 (88) 89 03/31/18 20:30 63 29 127/65 (85) 92 03/31/18 20:00 66 03/31/18 20:00 97.8 66 19 138/65 (89) 94 03/31/18 19:35 92 Nasal Cannula 4.00 03/31/18 19:30 66 34 135/87 (103) 89 03/31/18 19:00 64 29 144/66 (92) 89 03/31/18 19:00 95 Nasal Cannula 4.00 03/31/18 18:00 55 03/31/18 16:00 98.0 64 16 119/78 (92) 94 03/31/18 16:00 64 03/31/18 14:00 62 03/31/18 12:00 64 03/31/18 12:00 98.1 64 25 124/65 (84) 93 I/O 03/31/18 03/31/18 03/31/18 04/01/18 04/01/18 04/01/18 07:00 15:00 23:00 07:00 15:00 23:00 Intake Total 240 ml 250 ml 1050 ml 150 ml Output Total 950 ml 1700 ml Balance -710 ml 250 ml 1050 ml -1550 ml Intake Oral 240 ml 950 ml 150 ml IV Total 250 ml 100 ml Output Urine Total 950 ml 1700 ml # Voids 5 # Bowel Movements 1 0 1 Physical Exam GENERAL: Elderly, obese female, in ICU SKIN: Warm and dry. HEAD: Normocephalic. EYES: No scleral icterus. No injection or drainage. NECK: Supple, trachea midline. No JVD or lymphadenopathy. CARDIOVASCULAR: irregularly, irregular, systolic murmur, no edema RESPIRATORY: Breath sounds equal bilaterally. No accessory muscle use. Nasal cannula GASTROINTESTINAL: Abdomen soft, non-tender, nondistended, obese MUSCULOSKELETAL: No cyanosis, or edema. Laboratory Last 48 hours Impressions Chest X-Ray 03/31/18 0000 Signed Impressions: Service Date/Time: Saturday, March 31, 2018 15:14 - CONCLUSION: 1. Improving aeration in both lung bases. Still some mild airspace disease on the left. 2. Stable prominence of the right hilum may represent prominent central pulmonary vasculature. 3. Complicated cardiomegaly Christiano Perez MD Laboratory Tests Test 04/01/18 05:45 B-Type Natriuretic Peptide 323 PG/ML (Lulu Seymour) Assessment and Plan Assessment and Plan Respiratory failure due to pneumonia and CHF. Recurrent hypokalemia and hypomagnesemia Nocturnal bradycardia and short runs of NSVT due to above Chronic atrial fibrillation unable to take oral anticoagulation due to rectal bleeding. Cardiomyopathy EF 40-45%, no major valvulopathy ASHD HTN Severe debility PLAN Continue coreg with hold parameters Increase K+ oral replacement, spironolactone was started. Will plan to supplemental K and continue Aldactone once serum potassium improves and transition to oral diuretic. Replace mag to 2 Hydralazine PRN Pulmonary following The patient was seen and evaluated by Dr Landers who completed physical exam and face to face encounter and participated in evaluation and management. Discussed Condition With Nurse and Dr. (Lulu Seymour) Assessment and Plan The exam, history, and the medical decision-making described in the above note were completed with the assistance of the mid-level provider. I reviewed and agree with the findings presented. I attest that I had a [id number] encounter with the patient on the same day, and personally performed and documented my assessment and findings in the medical record. Doing better breathing better. (Edna Landers MD) Lulu Seymour April 01, 2018 10:12 Edna Landers MD April 01, 2018 15:00
--- NOTE | 2018-04-01 10:48 | HHI.PR ---
Subjective Remarks Follow up respiratory failure, CHF, A. fib. The patient states that she feels good today. Denies chest pain. Shortness of breath is stable. Objective Vitals Vital Signs Date Time Temp Pulse Resp B/P (MAP) Pulse Ox O2 Delivery O2 Flow Rate FiO2 04/01/18 07:22 94 Nasal Cannula 3.00 04/01/18 07:00 94 Nasal Cannula 4.00 04/01/18 06:00 56 04/01/18 04:30 57 29 138/60 (86) 90 04/01/18 04:01 56 18 132/67 (88) 95 04/01/18 04:00 97.5 58 19 94 04/01/18 04:00 58 04/01/18 03:31 53 25 102/50 (67) 97 04/01/18 03:30 53 24 92 04/01/18 03:00 64 24 142/70 (94) 92 04/01/18 02:31 53 23 122/61 (81) 93 04/01/18 02:30 51 25 93 04/01/18 02:00 64 04/01/18 02:00 59 30 139/70 (93) 95 04/01/18 01:31 51 23 116/56 (76) 98 04/01/18 01:30 51 24 96 04/01/18 01:00 57 20 129/60 (83) 93 04/01/18 00:31 54 25 106/56 (73) 100 04/01/18 00:30 52 24 99 04/01/18 00:00 97.8 57 24 128/60 (82) 96 04/01/18 00:00 57 03/31/18 23:30 59 28 119/57 (77) 95 03/31/18 23:01 60 32 140/67 (91) 88 03/31/18 23:00 62 46 88 03/31/18 22:30 57 27 122/66 (84) 93 03/31/18 22:00 61 03/31/18 22:00 61 23 118/64 (82) 92 03/31/18 21:30 60 29 144/62 (89) 95 03/31/18 21:00 59 29 138/64 (88) 89 03/31/18 20:30 63 29 127/65 (85) 92 03/31/18 20:00 66 03/31/18 20:00 97.8 66 19 138/65 (89) 94 03/31/18 19:35 92 Nasal Cannula 4.00 03/31/18 19:30 66 34 135/87 (103) 89 03/31/18 19:00 64 29 144/66 (92) 89 03/31/18 19:00 95 Nasal Cannula 4.00 03/31/18 18:00 55 03/31/18 16:00 98.0 64 16 119/78 (92) 94 03/31/18 16:00 64 03/31/18 14:00 62 03/31/18 12:00 64 03/31/18 12:00 98.1 64 25 124/65 (84) 93 I/O 03/31/18 03/31/18 03/31/18 04/01/18 04/01/18 04/01/18 06:59 14:59 22:59 06:59 14:59 22:59 Intake Total 240 ml 250 ml 1050 ml 150 ml Output Total 950 ml 1700 ml Balance -710 ml 250 ml 1050 ml -1550 ml Intake Oral 240 ml 950 ml 150 ml IV Total 250 ml 100 ml Output Urine Total 950 ml 1700 ml # Voids 5 # Bowel Movements 1 0 1 Result Diagram: 03/31/18 0450 03/31/18 0450 Imaging Last Impressions Chest X-Ray 03/31/18 0000 Signed Impressions: Service Date/Time: Saturday, March 31, 2018 15:14 - CONCLUSION: 1. Improving aeration in both lung bases. Still some mild airspace disease on the left. 2. Stable prominence of the right hilum may represent prominent central pulmonary vasculature. 3. Complicated cardiomegaly Christiano Perez MD Chest CT 03/25/18 0000 Signed Impressions: Service Date/Time: Sunday, March 25, 2018 16:25 - CONCLUSION: 1. Bilateral lower lobe airspace consolidation with small right and trace left intermediate density pleural effusions. Left lower lobe consolidation demonstrates air bronchograms. Findings are concerning for pneumonia or aspiration. Intermediate density effusions are nonspecific given small size. 2. Mild airspace consolidation in the posterior right upper lobe which may reflect atelectasis. 3. Prominence of the main pulmonary artery consistent with some degree of pulmonary artery hypertension. 4. Soft tissue anasarca. 5. Three dominant indeterminate density hypodense lesions in the right lobe of the liver. These cannot be further characterized given lack of contrast. Further evaluation may be performed with contrast enhanced CT or MRI once patient is more stable. Damon Villanueva MD Objective Remarks General: Elderly female in no acute distress. Heart: Regular rate and rhythm. No murmur. Lungs: Diminished breath sounds at the bases with mild crackles bilaterally. Breathing is nonlabored. Abdomen: Soft, nontender, nondistended. Extremities: 1+ bilateral lower extremity edema. Psych: Alert, answers questions appropriately. Neuro: Normal speech. No focal deficits noted. Procedures None Urinary Catheter: No Vascular Central Line Catheter: No A/P Assessment and Plan 1. Acute hypoxemic and hypercarbic respiratory failure: Patient was extubated . Continue supplemental oxygen, bronchodilators. Appreciate pulmonology recommendations. Clinically improving. 2. Multilobar pneumonia: Continue antibiotics, bronchodilators, supplemental oxygen. Appreciate pulmonology recommendations. 3. 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 Diuresing well. Continue carvedilol, losartan, Plavix, statin. Strict intake/output. 4. Severe sepsis: Secondary to pneumonia, UTI with group D enterococcus. Continue Levaquin. 5. Hypokalemia: Repeat labs are pending today. 6. History of CVA in the past: Continue Plavix. 7. GI prophylaxis: Pepcid. 8. DVT prophylaxis: SCDs, GABRIELA hose, subcutaneous heparin. Discharge Planning Transfer to [facility]. Fab Ybarra MD April 01, 2018 10:48
[2018-04-01] MEDS: LEVOFLOXACIN 750 MG PREMIX INJ 150 ML IV SCH (11:32)
[2018-04-01 12:28] LABS: BICARBONATE 35.2 MEQ/L (21.0-32.0); CALCIUM 10.1 MG/DL (8.5-10.1); CREATININE 0.95 MG/DL (0.50-1.00)
[2018-04-01] MEDS ORDERED: POTASSIUM CHLORIDE 10 MEQ CONTROLLED RELEASE TAB PO ONE (16:45)
--- NOTE | 2018-04-01 18:24 | HHI.PR ---
Subjective Remarks Awake and doing well. She is on a N/C at 3 L. Sats 97. CXR shows Basal infiltrate and a Right parahilar density, improved. Output was good. Objective Vital Signs Date Time Temp Pulse Resp B/P (MAP) Pulse Ox O2 Delivery O2 Flow Rate FiO2 04/01/18 16:00 97.9 60 29 127/60 (82) 96 04/01/18 16:00 60 04/01/18 14:00 54 04/01/18 12:00 64 04/01/18 12:00 97.7 64 26 123/57 (79) 97 04/01/18 10:00 71 04/01/18 08:00 97.3 56 29 153/68 (96) 90 04/01/18 08:00 56 04/01/18 07:22 94 Nasal Cannula 3.00 04/01/18 07:00 94 Nasal Cannula 4.00 04/01/18 06:00 56 04/01/18 04:30 57 29 138/60 (86) 90 04/01/18 04:01 56 18 132/67 (88) 95 04/01/18 04:00 97.5 58 19 94 04/01/18 04:00 58 04/01/18 03:31 53 25 102/50 (67) 97 04/01/18 03:30 53 24 92 04/01/18 03:00 64 24 142/70 (94) 92 04/01/18 02:31 53 23 122/61 (81) 93 04/01/18 02:30 51 25 93 04/01/18 02:00 64 04/01/18 02:00 59 30 139/70 (93) 95 04/01/18 01:31 51 23 116/56 (76) 98 04/01/18 01:30 51 24 96 04/01/18 01:00 57 20 129/60 (83) 93 04/01/18 00:31 54 25 106/56 (73) 100 04/01/18 00:30 52 24 99 04/01/18 00:00 97.8 57 24 128/60 (82) 96 04/01/18 00:00 57 03/31/18 23:30 59 28 119/57 (77) 95 03/31/18 23:01 60 32 140/67 (91) 88 03/31/18 23:00 62 46 88 03/31/18 22:30 57 27 122/66 (84) 93 03/31/18 22:00 61 03/31/18 22:00 61 23 118/64 (82) 92 03/31/18 21:30 60 29 144/62 (89) 95 03/31/18 21:00 59 29 138/64 (88) 89 03/31/18 20:30 63 29 127/65 (85) 92 03/31/18 20:00 66 03/31/18 20:00 97.8 66 19 138/65 (89) 94 03/31/18 19:35 92 Nasal Cannula 4.00 03/31/18 19:30 66 34 135/87 (103) 89 03/31/18 19:00 64 29 144/66 (92) 89 03/31/18 19:00 95 Nasal Cannula 4.00 I/O 03/31/18 03/31/18 03/31/18 04/01/18 04/01/18 04/01/18 07:00 15:00 23:00 07:00 15:00 23:00 Intake Total 240 ml 250 ml 1050 ml 150 ml 150 ml Output Total 950 ml 1700 ml Balance -710 ml 250 ml 1050 ml -1550 ml 150 ml Intake Oral 240 ml 950 ml 150 ml IV Total 250 ml 100 ml 150 ml Output Urine Total 950 ml 1700 ml # Voids 5 # Bowel Movements 1 0 1 Result Diagram: 03/31/18 0450 04/01/18 1138 Objective Remarks GENERAL: This elderly, moderately obese white female is pale and not dyspneic at rest. HEENT: Head is normocephalic. Pupils reactive and equal. Tongue is moist. Nasal mucosa clear. Ears no inflammation. Throat was clear. NECK: Supple, no lymphadenopathy, no bruits or thyroid enlargement. CHEST: Distant breath sounds with wheezes bilaterally, prolonged expirations and Occ crackles heard at the lung bases. HEART: The heart sounds are irregular S1 and S2. No murmur, no S3. ABDOMEN: Soft, protuberant, no mass. No organomegaly. Bowel sounds are active. EXTREMITIES: Reveal 1+ leg edema. No calf tenderness. NEUROLOGIC: Reflexes 1+ with no gross motor deficits. Cranial nerves grossly intact. Skin is dry Assessment and Plan Assessment and Plan IMPRESSION: 1. Congestive heart failure, compensated. 2. Atrial fibrillation and arteriosclerotic heart disease. 3. History of coronary artery disease. 4. Hypertension. 5. Acute respiratory failure, resolved. Plan : 1. Cont O2 3 L 2. Cont Antibiotics per ID. 3. Nebs qid , duoneb 4. Continue lasix 40 mg BID and aldactone daily. 5. CBC,BMP in am 6. BIPAP 12/5 CM , Fio2 40 % if sats <90. 7. Transfer to [facility] Jolene Steele MD April 01, 2018 18:24
[2018-04-01] MEDS: ATORVASTATIN 10 MG TAB PO SCH (20:55)
[2018-04-02] VITALS (27 sets, daily range): BP systolic 125–152; BP diastolic 59–76; PULSE 52–83; RESP 16–27; TEMP 96.5–98.6; O2SAT 87–99
[2018-04-02] MEDS: HEPARIN SODIUM - SQ 10,000 UNITS/ML VIAL SQ SCH ×3 (04:19→18:25)
[2018-04-02 06:53] LABS: BICARBONATE 31.7 MEQ/L (21.0-32.0); CALCIUM 10.1 MG/DL (8.5-10.1); CREATININE 0.83 MG/DL (0.50-1.00); MAGNESIUM 1.6 MG/DL (1.5-2.5)
[2018-04-02] MEDS: CHLORHEXIDINE 0.12% (ORAL KIT) 15 ML CUP MT SCH ×2 (08:00→20:00)
[2018-04-02] MEDS: RESP: ALBUTEROL 2.5 MG/IPRATROPIUM 0.5 MG NEB (SCH) NEB ×4 (08:01→19:14)
--- NOTE | 2018-04-02 08:22 | HHI.PR ---
Subjective Remarks Follow up respiratory failure, CHF, A. fib With sob on 3L by NC Feel svery tired. Not able to eat much . Denies chest pain. No n/v/d/c. Family at bedside. Objective Vitals Vital Signs Date Time Temp Pulse Resp B/P (MAP) Pulse Ox O2 Delivery O2 Flow Rate FiO2 04/02/18 08:02 95 Nasal Cannula 6.00 04/02/18 04:00 68 04/02/18 04:00 96.5 67 18 125/66 (85) 95 04/02/18 00:30 98.6 62 20 132/70 (90) 98 04/02/18 00:30 98 Nasal Cannula 4.00 04/02/18 00:30 67 04/02/18 00:00 65 04/02/18 00:00 98.0 62 27 138/72 (94) 87 04/01/18 22:00 62 04/01/18 20:46 97 Nasal Cannula 3.00 04/01/18 20:00 63 04/01/18 20:00 98.2 77 22 131/61 (84) 89 04/01/18 19:00 98 Nasal Cannula 4.00 04/01/18 18:00 59 04/01/18 16:00 97.9 60 29 127/60 (82) 96 04/01/18 16:00 60 04/01/18 14:00 54 04/01/18 12:00 64 04/01/18 12:00 97.7 64 26 123/57 (79) 97 04/01/18 10:00 71 I/O 04/01/18 04/01/18 04/01/18 04/02/18 04/02/18 04/02/18 07:00 15:00 23:00 07:00 15:00 23:00 Intake Total 150 ml 150 ml 875 ml Output Total 1700 ml 975 ml Balance -1550 ml 150 ml -100 ml Intake Oral 150 ml 875 ml IV Total 150 ml Output Urine Total 1700 ml 975 ml # Bowel Movements 1 1 Result Diagram: 03/31/18 0450 04/02/18 0516 Imaging Last Impressions Chest X-Ray 03/31/18 0000 Signed Impressions: Service Date/Time: Saturday, March 31, 2018 15:14 - CONCLUSION: 1. Improving aeration in both lung bases. Still some mild airspace disease on the left. 2. Stable prominence of the right hilum may represent prominent central pulmonary vasculature. 3. Complicated cardiomegaly Christiano Perez MD Chest CT 03/25/18 0000 Signed Impressions: Service Date/Time: Sunday, March 25, 2018 16:25 - CONCLUSION: 1. Bilateral lower lobe airspace consolidation with small right and trace left intermediate density pleural effusions. Left lower lobe consolidation demonstrates air bronchograms. Findings are concerning for pneumonia or aspiration. Intermediate density effusions are nonspecific given small size. 2. Mild airspace consolidation in the posterior right upper lobe which may reflect atelectasis. 3. Prominence of the main pulmonary artery consistent with some degree of pulmonary artery hypertension. 4. Soft tissue anasarca. 5. Three dominant indeterminate density hypodense lesions in the right lobe of the liver. These cannot be further characterized given lack of contrast. Further evaluation may be performed with contrast enhanced CT or MRI once patient is more stable. Damon Villanueva MD Objective Remarks GENERAL: Elderly female, appears in nad. CARDIOVASCULAR: Regular rate and rhythm. RESPIRATORY: No accessory muscle use. Decreased breath sounds. Bibasilar crackles. GASTROINTESTINAL: Abdomen soft, non-tender, nondistended. Hepatic and splenic margins not palpable. MUSCULOSKELETAL: Extremities without clubbing, cyanosis, or edema. No obvious deformities. NEUROLOGICAL: Awake and alert. No obvious cranial nerve deficits. Motor grossly within normal limits. Five out of 5 muscle strength in the arms and legs. Normal speech. PSYCHIATRIC: Appropriate mood and affect; insight and judgment normal. Procedures None A/P Assessment and Plan Acute hypoxemic and hypercarbic respiratory failure: Patient was extubated . Continue supplemental oxygen, bronchodilators. Appreciate pulmonology recommendations. Clinically improving. Currently satting well on room air. Multilobar pneumonia: Continue antibiotics, bronchodilators, supplemental oxygen. Appreciate pulmonology recommendations. 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 Diuresing well. Continue carvedilol, losartan, Plavix, statin. Strict intake/output. Severe sepsis: Resolving. Secondary to pneumonia, UTI with group D enterococcus. Continue Levaquin. Hypokalemia: Repeat labs are pending today. History of CVA in the past: Continue Plavix. GI prophylaxis: Pepcid. DVT prophylaxis: SCDs, GABRIELA hose, subcutaneous heparin. Discharge Planning Pending improvement and clearance by consultants Muriel Pierre MD April 02, 2018 08:22
[2018-04-02] MEDS: SODIUM CHLORIDE 0.9% FLUSH 10 ML FLUSH IV FLUSH SCH ×2 (09:00→21:42)
[2018-04-02] MEDS: DOCUSATE SODIUM 100 MG/10 ML UDC PO SCH ×3 (09:00→21:45)
[2018-04-02] MEDS: CARVEDILOL 3.125 MG TAB PO SCH ×2 (09:00→21:00)
[2018-04-02] MEDS: FAMOTIDINE 20 MG TAB PO SCH ×2 (10:11→21:43)
[2018-04-02] MEDS: CLOPIDOGREL 75 MG TAB PO SCH (10:11)
[2018-04-02] MEDS: LOSARTAN 50 MG TAB PO SCH (10:11)
[2018-04-02] MEDS: POTASSIUM CHLORIDE 10 MEQ CAP PO SCH ×2 (10:11→21:44)
[2018-04-02] MEDS: SPIRONOLACTONE 25 MG TAB PO SCH ×2 (10:12→18:25)
--- NOTE | 2018-04-02 10:13 | RADRPT ---
EXAM DATE/TIME: 04/02/2018 09:23 [place] COMPARISON: CHEST SINGLE AP, March 31, 2018, 15:14. INDICATIONS : Short of breath. Hypoxia. MEDICAL HISTORY : Cardiovascular disease. Hypertension. Rheumatoid arthritis. SURGICAL HISTORY : Hysterectomy. ENCOUNTER: Subsequent ACUITY: 4 - 6 days PAIN SCORE: 0/10 LOCATION: Bilateral chest FINDINGS: Heart remains enlarged. There is increasing interstitial edema. Bibasilar parenchymal changes are n oted worse in the left. There is no significant fluid. The portion of the bony skeleton visualized i s unremarkable. CONCLUSION: Increasing interstitial edema. Akil Ware MD FACR on April 02, 2018 at 10:09 Board Certified Radiologist. This report was verified electronically.
[2018-04-02] MEDS: FUROSEMIDE 40 MG/4 ML VIAL IV PUSH SCH ×2 (10:14→18:25)
[2018-04-02] MEDS: NYSTATIN 100,000 U/GM PWD 15 GM BTL TOPICAL SCH ×2 (10:15→21:45)
[2018-04-02] MEDS: ARTIFICIAL TEARS OPTH SOLN 15 ML BTL EACH EYE SCH ×3 (10:18→18:00)
[2018-04-02] MEDS ORDERED: METOLAZONE 2.5 MG TAB PO ONE (13:00)
--- NOTE | 2018-04-02 13:27 | PD.CARD.PN ---
Subjective Subjective Remarks Patient is lying in bed in no acute distress. Appears very sleepy this AM. Denies chest pain or increasing SOB. Nurse reports that she developed increasing SOB while eating and her oxygen had to be increased. (Lulu Seymour) Objective Medications Current Medications Medications (Trade) Dose Ordered Sig/Rodri Route Start Time Stop Time Status Last Admin (Lipitor) 10 mg HS PO 03/25/18 21:00 04/01/18 20:55 (Coreg) 3.125 mg BID PO 03/25/18 09:00 04/01/18 09:04 (Plavix) 75 mg DAILY PO 03/25/18 09:00 04/02/18 10:11 (Cozaar) 100 mg DAILY PO 03/25/18 09:00 04/02/18 10:11 (NS Flush) 2 ml UNSCH PRN IV FLUSH 03/25/18 03:00 (NS Flush) 2 ml BID IV FLUSH 03/25/18 09:00 04/02/18 09:00 (Tylenol) 650 mg Q6H PRN PO 03/25/18 03:00 (Morphine Inj) 2 mg Q2H PRN IV PUSH 03/25/18 03:00 (Versed Inj) 2 mg Q1H PRN IV PUSH 03/25/18 03:00 (Tears Naturale Opth Soln) 1 drop TID EACH EYE 03/25/18 09:00 04/02/18 10:18 (Zofran Inj) 4 mg Q6H PRN IV PUSH 03/25/18 03:00 (Duoneb Neb) 1 ampule Q2HR NEB PRN INH 03/25/18 03:00 03/30/18 11:41 (Heparin Inj) 5,000 units Q8H SQ 03/25/18 03:00 04/02/18 10:13 (Milk Of Magnesia Liq) 30 ml Q12H PRN PO 03/25/18 03:00 (Senokot) 17.2 mg Q12H PRN PO 03/25/18 03:00 (Dulcolax Supp) 10 mg DAILY PRN RECTAL 03/25/18 03:00 (Lactulose Liq) 30 ml DAILY PRN PO 03/25/18 03:00 (Peridex 0.12% Liq) 15 ml BID@08,20 MT 03/25/18 08:00 04/01/18 08:00 (Lasix Inj) 40 mg BID@18 IV PUSH 03/25/18 18:00 04/02/18 10:14 (Colace Liq) 100 mg Q12HR PO 03/26/18 10:30 04/02/18 10:12 Levofloxacin/ Dextrose 150 ml @ 100 mls/hr Q24H IV 03/29/18 12:00 04/01/18 11:32 (Pepcid) 10 mg BID PO 03/30/18 21:00 04/02/18 10:11 (Duoneb Neb) 1 ampule QID NEB NEB 03/30/18 12:00 04/02/18 08:01 (Mycostatin Powder) 1 applic Q12HR TOPICAL 03/31/18 11:30 04/02/18 10:15 (KCl) 20 meq BID PO 03/31/18 21:00 04/02/18 10:11 (Aldactone) 25 mg BID@ PO 03/31/18 18:00 04/02/18 10:12 (Apresoline Inj) 20 mg Q4H PRN IV PUSH 03/31/18 15:15 (Zaroxolyn) 2.5 mg ONCE ONCE PO 04/02/18 12:00 04/02/18 12:01 UNV Vital Signs / I&O Vital Signs Date Time Temp Pulse Resp B/P (MAP) Pulse Ox O2 Delivery O2 Flow Rate FiO2 04/02/18 08:17 100 6.00 04/02/18 08:17 97.8 68 18 151/71 (97) 98 04/02/18 08:02 95 Nasal Cannula 6.00 04/02/18 04:00 68 04/02/18 04:00 96.5 67 18 125/66 (85) 95 04/02/18 00:30 98.6 62 20 132/70 (90) 98 04/02/18 00:30 98 Nasal Cannula 4.00 04/02/18 00:30 67 04/02/18 00:00 65 04/02/18 00:00 98.0 62 27 138/72 (94) 87 04/01/18 22:00 62 04/01/18 20:46 97 Nasal Cannula 3.00 04/01/18 20:00 63 04/01/18 20:00 98.2 77 22 131/61 (84) 89 04/01/18 19:00 98 Nasal Cannula 4.00 04/01/18 18:00 59 04/01/18 16:00 97.9 60 29 127/60 (82) 96 04/01/18 16:00 60 04/01/18 14:00 54 I/O 04/01/18 04/01/18 04/01/18 04/02/18 04/02/18 04/02/18 07:00 15:00 23:00 07:00 15:00 23:00 Intake Total 150 ml 150 ml 875 ml Output Total 1700 ml 975 ml Balance -1550 ml 150 ml -100 ml Intake Oral 150 ml 875 ml IV Total 150 ml Output Urine Total 1700 ml 975 ml # Bowel Movements 1 1 Physical Exam GENERAL: Elderly, obese female SKIN: Warm and dry. HEAD: Normocephalic. EYES: No scleral icterus. No injection or drainage. NECK: Supple, trachea midline. No JVD or lymphadenopathy. CARDIOVASCULAR: irregularly, irregular, systolic murmur, no edema RESPIRATORY: Breath sounds equal bilaterally. No accessory muscle use. Nasal cannula GASTROINTESTINAL: Abdomen soft, non-tender, nondistended, obese MUSCULOSKELETAL: No cyanosis, or edema. Laboratory Laboratory Tests Test 04/02/18 05:16 04/02/18 11:00 Blood Urea Nitrogen 12 MG/DL Creatinine 0.83 MG/DL Random Glucose 105 MG/DL Calcium Level 10.1 MG/DL Magnesium Level 1.6 MG/DL Sodium Level 141 MEQ/L Potassium Level 3.7 MEQ/L Chloride Level 101 MEQ/L Carbon Dioxide Level 31.7 MEQ/L Anion Gap 8 MEQ/L Estimat Glomerular Filtration Rate 66 ML/MIN Blood Gas Puncture Site LT RADIAL Blood Gas Patient Temperature 98.6 Blood Gas HCO3 34 mmol/L Blood Gas Base Excess 9.0 mmol/L Blood Gas Oxygen Saturation 90 % Arterial Blood pH 7.43 Arterial Blood Partial Pressure CO2 51 mmHg Arterial Blood Partial Pressure O2 66 mmHg Arterial Blood Oxygen Content 15.4 Vol % Arterial Blood Carboxyhemoglobin 1.0 % Arterial Blood Methemoglobin 1.1 % Blood Gas Hemoglobin 12.2 G/DL Oxygen Delivery Device NASAL CANNULA Blood Gas Liter Flow 3 L/M Imaging Last 24 hours Impressions Chest X-Ray 04/02/18 0000 Signed Impressions: Service Date/Time: Monday, April 02, 2018 09:23 - CONCLUSION: Increasing interstitial edema. Akil Ware MD FACR (Lulu Seymour) Assessment and Plan Assessment and Plan Respiratory failure due to pneumonia and CHF. Compensated hypercapnic respiratory insufficiency Recurrent hypokalemia and hypomagnesemia Nocturnal bradycardia and short runs of NSVT due to above Chronic atrial fibrillation unable to take oral anticoagulation due to rectal bleeding. Cardiomyopathy EF 40-45%, no major valvulopathy ASHD HTN Severe debility PLAN Being followed by pulmonary. Continue coreg with hold parameters Magensium is low-will replace, repeat labs ordered for AM. Incresed interstitial edema noted on xray, 1 time dose of metolazone ordered. Potassium 3.7 this AM. Replace mag to 2 Hydralazine PRN The patient was seen and evaluated by Dr Landers who completed physical exam and face to face encounter and participated in evaluation and management. Discussed Condition With Nurse (Lulu Seymour) Assessment and Plan The exam, history, and the medical decision-making described in the above note were completed with the assistance of the mid-level provider. I reviewed and agree with the findings presented. I attest that I had a [id number] encounter with the patient on the same day, and personally performed and documented my assessment and findings in the medical record Doing marginally worse. (Edna Landers MD) Lulu Seymour April 02, 2018 13:27 Edna Landers MD April 02, 2018 14:48
[2018-04-02] MEDS: LEVOFLOXACIN 750 MG PREMIX INJ 150 ML IV SCH (13:31)
[2018-04-02] MEDS ORDERED: MAGNESIUM SULFATE INJ 4 GM in DEXTROSE 5% IN WATER 100ML INJ 92 ML IV SCH ×2 (15:00)
[2018-04-02] MEDS ORDERED: LEVOFLOXACIN 750 MG PREMIX INJ 150 ML IV ONE (16:00)
--- NOTE | 2018-04-02 17:37 | HHI.PR ---
Subjective Remarks Awake and taking more orally. She is on a N/C at 3 L. Sats 97. CXR shows increased infiltrates Output was good, with IV lasix. Objective Vital Signs Date Time Temp Pulse Resp B/P (MAP) Pulse Ox O2 Delivery O2 Flow Rate FiO2 04/02/18 16:03 93 Nasal Cannula 3.00 04/02/18 15:52 98.6 61 18 128/62 (84) 99 04/02/18 15:00 58 04/02/18 14:00 56 04/02/18 13:52 97 Simple Mask 5.00 04/02/18 13:15 95 Simple Mask 4.00 04/02/18 13:00 56 04/02/18 12:20 97.7 60 16 152/76 (101) 99 04/02/18 12:00 52 04/02/18 11:00 63 04/02/18 10:00 56 04/02/18 09:00 54 04/02/18 08:17 100 6.00 04/02/18 08:17 97.8 68 18 151/71 (97) 98 04/02/18 08:02 95 Nasal Cannula 6.00 04/02/18 08:00 62 04/02/18 07:00 53 04/02/18 04:00 68 04/02/18 04:00 96.5 67 18 125/66 (85) 95 04/02/18 00:30 98.6 62 20 132/70 (90) 98 04/02/18 00:30 98 Nasal Cannula 4.00 04/02/18 00:30 67 04/02/18 00:00 65 04/02/18 00:00 98.0 62 27 138/72 (94) 87 04/01/18 22:00 62 04/01/18 20:46 97 Nasal Cannula 3.00 04/01/18 20:00 63 04/01/18 20:00 98.2 77 22 131/61 (84) 89 04/01/18 19:00 98 Nasal Cannula 4.00 04/01/18 18:00 59 I/O 04/01/18 04/01/18 04/01/18 04/02/18 04/02/18 04/02/18 07:00 15:00 23:00 07:00 15:00 23:00 Intake Total 150 ml 150 ml 875 ml Output Total 1700 ml 975 ml Balance -1550 ml 150 ml -100 ml Intake Oral 150 ml 875 ml IV Total 150 ml Output Urine Total 1700 ml 975 ml # Bowel Movements 1 1 Result Diagram: 03/31/18 0450 04/02/18 0516 Objective Remarks GENERAL: This elderly, moderately obese white female is pale and in no distress HEENT: Head is normocephalic. Pupils reactive and equal. Tongue is moist. Nasal mucosa clear. Ears no inflammation. Throat was clear. NECK: Supple, no lymphadenopathy, no bruits or thyroid enlargement. CHEST: Distant breath sounds with wheezes bilaterally, prolonged expirations and crackles heard at the lung bases. HEART: The heart sounds are irregular S1 and S2. No murmur, no S3. ABDOMEN: Soft, protuberant, no mass. No organomegaly. Bowel sounds are active. EXTREMITIES: Reveal 1+ leg edema. No calf tenderness. NEUROLOGIC: Reflexes 1+ with no gross motor deficits. Skin is dry and warm. Assessment and Plan Assessment and Plan IMPRESSION: 1. Congestive heart failure. 2. Atrial fibrillation and arteriosclerotic heart disease. 3. History of coronary artery disease. 4. Hypertension. 5. Acute respiratory failure, resolved. Plan : 1. Cont O2 3 L 2. Cont Antibiotics per ID. 3. Nebs qid , duoneb 4. Continue lasix 40 mg BID and aldactone daily. 5. CXR CBC,BMP in am 6. BIPAP 12/5 CM , Fio2 40 % if sats <90. 7. Up with help. Jolene Steele MD April 02, 2018 17:37
[2018-04-02] MEDS: ATORVASTATIN 10 MG TAB PO SCH (21:43)
[2018-04-03] VITALS (25 sets, daily range): BP systolic 106–143; BP diastolic 53–75; PULSE 50–97; RESP 18–20; TEMP 97.3–98.2; O2SAT 94–97
[2018-04-03] MEDS: HEPARIN SODIUM - SQ 10,000 UNITS/ML VIAL SQ SCH ×3 (04:52→17:30)
[2018-04-03 07:47] LABS: AUTOMATED NEUTROPHIL # 2.7 TH/MM3 (1.8-7.7); BASOPHIL % 0.5 % (0.0-2.0); EOSINOPHIL # 0.2 TH/MM3 (0-0.4); EOSINOPHIL % 3.1 % (0.0-4.0); HEMATOCRIT 35.5 % (35.0-46.0); HEMOGLOBIN 11.8 GM/DL (11.6-15.3); LYMPH % 24.7 % (9.0-44.0); LYMPHOCYTE # 1.3 TH/MM3 (1.0-4.8); MEAN CELL VOLUME 88.9 FL (80.0-100.0); MEAN CORPUSCULAR HEMOGLOBIN 29.6 PG (27.0-34.0); MEAN CORPUSCULAR HGB CONC 33.3 % (32.0-36.0); MEAN PLATELET VOLUME 9.7 FL (7.0-11.0); MONO % 17.7 % (0.0-8.0); MONOCYTE # 0.9 TH/MM3 (0-0.9); PLATELET COUNT 176 TH/MM3 (150-450); RED CELL DISTRIBUTION WIDTH 14.3 % (11.6-17.2); WHITE BLOOD COUNT 5.1 TH/MM3 (4.0-11.0)
[2018-04-03] MEDS: RESP: ALBUTEROL 2.5 MG/IPRATROPIUM 0.5 MG NEB (SCH) NEB (07:48)
[2018-04-03] MEDS: CHLORHEXIDINE 0.12% (ORAL KIT) 15 ML CUP MT SCH ×2 (08:00→20:00)
[2018-04-03 08:25] LABS: BICARBONATE 34.5 MEQ/L (21.0-32.0); CALCIUM 10.3 MG/DL (8.5-10.1); CREATININE 0.88 MG/DL (0.50-1.00); MAGNESIUM 2.2 MG/DL (1.5-2.5)
--- NOTE | 2018-04-03 08:56 | PD.CARD.PN ---
Subjective Subjective Remarks The patient is alert and awake. She continues to be bradycardic. Coreg held multiple days due to low HR. BP stable. Continues to have recurrent hypoxia when supplemental O2 dcd. No abdominal symptoms. No edema. (Jovanna Veloz) Objective Medications Current Medications Medications (Trade) Dose Ordered Sig/Rodri Route Start Time Stop Time Status Last Admin (Lipitor) 10 mg HS PO 03/25/18 21:00 04/02/18 21:43 (Coreg) 3.125 mg BID PO 03/25/18 09:00 04/01/18 09:04 (Plavix) 75 mg DAILY PO 03/25/18 09:00 04/02/18 10:11 (Cozaar) 100 mg DAILY PO 03/25/18 09:00 04/02/18 10:11 (NS Flush) 2 ml UNSCH PRN IV FLUSH 03/25/18 03:00 (NS Flush) 2 ml BID IV FLUSH 03/25/18 09:00 04/02/18 21:42 (Tylenol) 650 mg Q6H PRN PO 03/25/18 03:00 (Morphine Inj) 2 mg Q2H PRN IV PUSH 03/25/18 03:00 (Versed Inj) 2 mg Q1H PRN IV PUSH 03/25/18 03:00 (Tears Naturale Opth Soln) 1 drop TID EACH EYE 03/25/18 09:00 04/02/18 18:00 (Zofran Inj) 4 mg Q6H PRN IV PUSH 03/25/18 03:00 (Duoneb Neb) 1 ampule Q2HR NEB PRN INH 03/25/18 03:00 03/30/18 11:41 (Heparin Inj) 5,000 units Q8H SQ 03/25/18 03:00 04/03/18 04:52 (Milk Of Magnesia Liq) 30 ml Q12H PRN PO 03/25/18 03:00 (Senokot) 17.2 mg Q12H PRN PO 03/25/18 03:00 (Dulcolax Supp) 10 mg DAILY PRN RECTAL 03/25/18 03:00 (Lactulose Liq) 30 ml DAILY PRN PO 03/25/18 03:00 (Peridex 0.12% Liq) 15 ml BID@08,20 MT 03/25/18 08:00 04/01/18 08:00 (Lasix Inj) 40 mg BID@18 IV PUSH 03/25/18 18:00 04/02/18 18:25 (Colace Liq) 100 mg Q12HR PO 03/26/18 10:30 04/02/18 21:45 Levofloxacin/ Dextrose 150 ml @ 100 mls/hr Q24H IV 03/29/18 12:00 04/02/18 13:31 (Pepcid) 10 mg BID PO 03/30/18 21:00 04/02/18 21:43 (Duoneb Neb) 1 ampule QID NEB NEB 03/30/18 12:00 04/03/18 07:48 (Mycostatin Powder) 1 applic Q12HR TOPICAL 03/31/18 11:30 04/02/18 21:45 (KCl) 20 meq BID PO 03/31/18 21:00 04/02/18 21:44 (Aldactone) 25 mg BID@ PO 03/31/18 18:00 04/02/18 18:25 (Apresoline Inj) 20 mg Q4H PRN IV PUSH 03/31/18 15:15 Vital Signs / I&O Vital Signs Date Time Temp Pulse Resp B/P (MAP) Pulse Ox O2 Delivery O2 Flow Rate FiO2 04/03/18 07:58 98.2 59 20 125/53 (77) 94 04/03/18 07:52 96 Nasal Cannula 3.00 04/03/18 06:00 50 04/03/18 05:00 56 04/03/18 04:00 52 04/03/18 04:00 97.3 51 18 116/64 (81) 96 04/03/18 03:00 62 04/03/18 02:00 56 04/03/18 01:00 52 04/03/18 00:00 58 04/03/18 00:00 97.3 62 20 110/53 (72) 95 04/02/18 23:00 66 04/02/18 22:00 64 04/02/18 21:00 82 04/02/18 20:00 97.4 61 20 141/59 (86) 94 04/02/18 20:00 83 04/02/18 20:00 94 Nasal Cannula 4.00 04/02/18 19:17 94 Nasal Cannula 3.00 04/02/18 19:00 64 04/02/18 18:00 62 04/02/18 17:00 64 04/02/18 16:03 93 Nasal Cannula 3.00 04/02/18 16:00 64 04/02/18 15:52 98.6 61 18 128/62 (84) 99 04/02/18 15:00 58 04/02/18 14:00 56 04/02/18 13:52 97 Simple Mask 5.00 04/02/18 13:15 95 Simple Mask 4.00 04/02/18 13:00 56 04/02/18 12:20 97.7 60 16 152/76 (101) 99 04/02/18 12:00 52 04/02/18 11:00 63 04/02/18 10:00 56 04/02/18 09:00 54 I/O 04/02/18 04/02/18 04/02/18 04/03/18 04/03/18 04/03/18 07:00 15:00 23:00 07:00 15:00 23:00 Intake Total 0 ml 950 ml 580 ml Output Total 1200 ml Balance 0 ml -250 ml 580 ml Intake Oral 800 ml 580 ml IV Total 0 ml 150 ml Output Urine Total 1200 ml # Voids 3 # Bowel Movements 1 Physical Exam GENERAL: Elderly, obese, debilitated, female in [facility], awake and alert this morning. SKIN: Warm and dry. HEAD: Normocephalic. EYES: No scleral icterus. No injection or drainage. NECK: Supple, trachea midline. CARDIOVASCULAR: Bradycardia, reg rhythm. RESPIRATORY: Breath sounds equal bilaterally. No accessory muscle use. GASTROINTESTINAL: Abdomen soft, non-tender, nondistended. MUSCULOSKELETAL: No cyanosis, or edema. BACK: Nontender without obvious deformity. Laboratory Laboratory Tests Test 04/02/18 11:00 04/02/18 14:40 04/03/18 07:34 Blood Gas Puncture Site LT RADIAL LT RADIAL Blood Gas Patient Temperature 98.6 98.6 Blood Gas HCO3 34 mmol/L 34 mmol/L Blood Gas Base Excess 9.0 mmol/L 9.0 mmol/L Blood Gas Oxygen Saturation 90 % 98 % Arterial Blood pH 7.43 7.43 Arterial Blood Partial Pressure CO2 51 mmHg 51 mmHg Arterial Blood Partial Pressure O2 66 mmHg 208 mmHg Arterial Blood Oxygen Content 15.4 Vol % 16.7 Vol % Arterial Blood Carboxyhemoglobin 1.0 % 0.8 % Arterial Blood Methemoglobin 1.1 % 1.1 % Blood Gas Hemoglobin 12.2 G/DL 11.9 G/DL Oxygen Delivery Device NASAL CANNULA SM Blood Gas Liter Flow 3 L/M 5 L/M White Blood Count 5.1 TH/MM3 Red Blood Count 4.00 MIL/MM3 Hemoglobin 11.8 GM/DL Hematocrit 35.5 % Mean Corpuscular Volume 88.9 FL Mean Corpuscular Hemoglobin 29.6 PG Mean Corpuscular Hemoglobin Concent 33.3 % Red Cell Distribution Width 14.3 % Platelet Count 176 TH/MM3 Mean Platelet Volume 9.7 FL Neutrophils (%) (Auto) 54.0 % Lymphocytes (%) (Auto) 24.7 % Monocytes (%) (Auto) 17.7 % Eosinophils (%) (Auto) 3.1 % Basophils (%) (Auto) 0.5 % Neutrophils # (Auto) 2.7 TH/MM3 Lymphocytes # (Auto) 1.3 TH/MM3 Monocytes # (Auto) 0.9 TH/MM3 Eosinophils # (Auto) 0.2 TH/MM3 Basophils # (Auto) 0.0 TH/MM3 CBC Comment DIFF FINAL Differential Comment Blood Urea Nitrogen 13 MG/DL Creatinine 0.88 MG/DL Random Glucose 105 MG/DL Calcium Level 10.3 MG/DL Magnesium Level 2.2 MG/DL Sodium Level 138 MEQ/L Potassium Level 3.7 MEQ/L Chloride Level 98 MEQ/L Carbon Dioxide Level 34.5 MEQ/L Anion Gap 6 MEQ/L Estimat Glomerular Filtration Rate 62 ML/MIN Imaging Last 72 hours Impressions Chest X-Ray 04/02/18 0000 Signed Impressions: Service Date/Time: Monday, April 02, 2018 09:23 - CONCLUSION: Increasing interstitial edema. Akil Ware MD FACR (Jovanna Veloz) Assessment and Plan Assessment and Plan Respiratory failure due to pneumonia and CHF with ongoing recurrent hypoxia. Bradycardia Chronic atrial fibrillation unable to take oral anticoagulation due to rectal bleeding. Cardiomyopathy EF 40-45%, no major valvulopathy ASHD HTN Severe debility PLAN Stop Coreg Pending CXR this morning Continue diuresis IV. She received metolazone yesterday. Continue K+ and Aldactone. Transition off K+ supplement when diuretic changed to PO with follow up of electrolytes Continue ARB Incentive spirometry The patient was seen and evaluated by Dr Landers who completed physical exam and face to face encounter and participated in evaluation and management. (Jovanna Veloz) Assessment and Plan The exam, history, and the medical decision-making described in the above note were completed with the assistance of the mid-level provider. I reviewed and agree with the findings presented. I attest that I had a [id number] encounter with the patient on the same day, and personally performed and documented my assessment and findings in the medical record Doing better continue diuresis. (Edna Landers MD) Jovanna Vleoz April 03, 2018 08:56 Edna Landers MD April 03, 2018 14:47
[2018-04-03] MEDS: DOCUSATE SODIUM 100 MG/10 ML UDC PO SCH ×3 (09:00→21:00)
[2018-04-03] MEDS: SODIUM CHLORIDE 0.9% FLUSH 10 ML FLUSH IV FLUSH SCH ×2 (09:00→22:22)
[2018-04-03] MEDS: CLOPIDOGREL 75 MG TAB PO SCH (09:30)
[2018-04-03] MEDS: FUROSEMIDE 40 MG/4 ML VIAL IV PUSH SCH ×2 (09:30→17:31)
[2018-04-03] MEDS: SPIRONOLACTONE 25 MG TAB PO SCH ×2 (09:30→17:30)
[2018-04-03] MEDS: LOSARTAN 50 MG TAB PO SCH (09:31)
[2018-04-03] MEDS: FAMOTIDINE 20 MG TAB PO SCH ×2 (09:31→22:21)
[2018-04-03] MEDS: NYSTATIN 100,000 U/GM PWD 15 GM BTL TOPICAL SCH ×2 (09:31→22:22)
[2018-04-03] MEDS: ARTIFICIAL TEARS OPTH SOLN 15 ML BTL EACH EYE SCH ×3 (09:32→17:31)
[2018-04-03] MEDS: POTASSIUM CHLORIDE 10 MEQ CAP PO SCH ×2 (09:38→22:21)
--- NOTE | 2018-04-03 09:42 | RADRPT ---
EXAM DATE/TIME: 04/03/2018 09:06 [facility] COMPARISON: CT THORAX W/O CONTRAST, March 25, 2018, 16:25. CHEST SINGLE AP, April 02, 2018, 9:23. INDICATIONS : Short of breath MEDICAL HISTORY : Cardiovascular disease. Hypertension. Rheumatoid arthritis. SURGICAL HISTORY : Hysterectomy. ENCOUNTER: Subsequent ACUITY: 4 - 6 days PAIN SCORE: 0/10 LOCATION: Bilateral chest FINDINGS: There is stable vascular congestion and interstitial prominence. Cardiac contour is grossly unchanged . CONCLUSION: Stable chest appearance Jevon Butt MD on April 03, 2018 at 9:39 Board Certified Radiologist. This report was verified electronically.
--- NOTE | 2018-04-03 09:58 | HHI.PR ---
Subjective Remarks Feels better today. Mentation at baseline. Denies chest pain or shortness of breath at this time. She is on 3L by nasal cannula at this time. Not much cough. Feels tired. Change antibiotics to p.o. Levaquin. Discussed with Dr. Baldwin pulmonology. PT recommends rehab however patient is on to go to rehab and will prefer to go home. Patient to have PT daily until improves and deemed safe for discharge home with home health. Objective Vitals Vital Signs Date Time Temp Pulse Resp B/P (MAP) Pulse Ox O2 Delivery O2 Flow Rate FiO2 04/03/18 07:58 98.2 59 20 125/53 (77) 94 04/03/18 07:52 96 Nasal Cannula 3.00 04/03/18 06:00 50 04/03/18 05:00 56 04/03/18 04:00 52 04/03/18 04:00 97.3 51 18 116/64 (81) 96 04/03/18 03:00 62 04/03/18 02:00 56 04/03/18 01:00 52 04/03/18 00:00 58 04/03/18 00:00 97.3 62 20 110/53 (72) 95 04/02/18 23:00 66 04/02/18 22:00 64 04/02/18 21:00 82 04/02/18 20:00 97.4 61 20 141/59 (86) 94 04/02/18 20:00 83 04/02/18 20:00 94 Nasal Cannula 4.00 04/02/18 19:17 94 Nasal Cannula 3.00 04/02/18 19:00 64 04/02/18 18:00 62 04/02/18 17:00 64 04/02/18 16:03 93 Nasal Cannula 3.00 04/02/18 16:00 64 04/02/18 15:52 98.6 61 18 128/62 (84) 99 04/02/18 15:00 58 04/02/18 14:00 56 04/02/18 13:52 97 Simple Mask 5.00 04/02/18 13:15 95 Simple Mask 4.00 04/02/18 13:00 56 04/02/18 12:20 97.7 60 16 152/76 (101) 99 04/02/18 12:00 52 04/02/18 11:00 63 04/02/18 10:00 56 I/O 04/02/18 04/02/18 04/02/18 04/03/18 04/03/18 04/03/18 07:00 15:00 23:00 07:00 15:00 23:00 Intake Total 0 ml 950 ml 580 ml Output Total 1200 ml Balance 0 ml -250 ml 580 ml Intake Oral 800 ml 580 ml IV Total 0 ml 150 ml Output Urine Total 1200 ml # Voids 3 # Bowel Movements 1 Result Diagram: 04/03/18 0734 04/03/18 0734 Imaging Last Impressions Chest X-Ray 04/03/18 0600 Signed Impressions: Service Date/Time: March 09:06 - CONCLUSION: Stable chest appearance Jevon Butt MD Chest CT 03/25/18 0000 Signed Impressions: Service Date/Time: Sunday, March 25, 2018 16:25 - CONCLUSION: 1. Bilateral lower lobe airspace consolidation with small right and trace left intermediate density pleural effusions. Left lower lobe consolidation demonstrates air bronchograms. Findings are concerning for pneumonia or aspiration. Intermediate density effusions are nonspecific given small size. 2. Mild airspace consolidation in the posterior right upper lobe which may reflect atelectasis. 3. Prominence of the main pulmonary artery consistent with some degree of pulmonary artery hypertension. 4. Soft tissue anasarca. 5. Three dominant indeterminate density hypodense lesions in the right lobe of the liver. These cannot be further characterized given lack of contrast. Further evaluation may be performed with contrast enhanced CT or MRI once patient is more stable. Damon Villanueva MD Objective Remarks GENERAL: Elderly female, appears in nad. CARDIOVASCULAR: Regular rate and rhythm. RESPIRATORY: No accessory muscle use. Decreased breath sounds. Bibasilar crackles. GASTROINTESTINAL: Abdomen soft, non-tender, nondistended. Hepatic and splenic margins not palpable. MUSCULOSKELETAL: Extremities without clubbing, cyanosis, or edema. No obvious deformities. NEUROLOGICAL: Awake and alert. No obvious cranial nerve deficits. Motor grossly within normal limits. Five out of 5 muscle strength in the arms and legs. Normal speech. PSYCHIATRIC: Appropriate mood and affect; insight and judgment normal. Procedures None A/P Assessment and Plan Acute hypoxemic and hypercarbic respiratory failure: Patient was extubated . Resolved, now on 3L by NC. Continue supplemental oxygen, bronchodilators. Appreciate pulmonology recommendations. Clinically improving. Currently satting well on room air. Multilobar pneumonia: Continue antibiotics, bronchodilators, supplemental oxygen. Appreciate pulmonology recommendations. Change antibiotics to p.o. Levaquin. 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 Diuresing well. Continue carvedilol, losartan, Plavix, statin. Strict intake/output. Severe sepsis: Resolving. Secondary to pneumonia, UTI with group D enterococcus. Continue Levaquin, change to PO Hypokalemia: Repeat labs are pending today. History of CVA in the past: Continue Plavix. GI prophylaxis: Pepcid. DVT prophylaxis: SCDs, GABRIELA walter, subcutaneous heparin. Discharge Planning Discussed with Dr. Baldwin pulmonology [place] dpt for DC PT recommends rehab however patient is on to go to rehab and will prefer to go home. Patient to have PT daily until improves and deemed safe for discharge home with home health. Muriel Pierre MD April 03, 2018 09:58
[2018-04-03] MEDS: LEVOFLOXACIN 750 MG PREMIX INJ 150 ML IV SCH (12:12)
--- NOTE | 2018-04-03 12:48 | HHI.PR ---
Subjective Remarks Awake and taking more orally. She is on a N/C at 3 L. Sats 97. CXR better. Objective Vital Signs Date Time Temp Pulse Resp B/P (MAP) Pulse Ox O2 Delivery O2 Flow Rate FiO2 04/03/18 10:00 62 04/03/18 08:00 58 04/03/18 07:58 98.2 59 20 125/53 (77) 94 04/03/18 07:52 96 Nasal Cannula 3.00 04/03/18 07:00 97 04/03/18 07:00 94 3.00 04/03/18 06:00 50 04/03/18 05:00 56 04/03/18 04:00 52 04/03/18 04:00 97.3 51 18 116/64 (81) 96 04/03/18 03:00 62 04/03/18 02:00 56 04/03/18 01:00 52 04/03/18 00:00 58 04/03/18 00:00 97.3 62 20 110/53 (72) 95 04/02/18 23:00 66 04/02/18 22:00 64 04/02/18 21:00 82 04/02/18 20:00 97.4 61 20 141/59 (86) 94 04/02/18 20:00 83 04/02/18 20:00 94 Nasal Cannula 4.00 04/02/18 19:17 94 Nasal Cannula 3.00 04/02/18 19:00 64 04/02/18 18:00 62 04/02/18 17:00 64 04/02/18 16:03 93 Nasal Cannula 3.00 04/02/18 16:00 64 04/02/18 15:52 98.6 61 18 128/62 (84) 99 04/02/18 15:00 58 04/02/18 14:00 56 04/02/18 13:52 97 Simple Mask 5.00 04/02/18 13:15 95 Simple Mask 4.00 04/02/18 13:00 56 I/O 04/02/18 04/02/18 04/02/18 04/03/18 04/03/18 04/03/18 07:00 15:00 23:00 07:00 15:00 23:00 Intake Total 0 ml 950 ml 580 ml Output Total 1200 ml Balance 0 ml -250 ml 580 ml Intake Oral 800 ml 580 ml IV Total 0 ml 150 ml Output Urine Total 1200 ml # Voids 3 # Bowel Movements 1 Result Diagram: 04/03/18 0734 04/03/18 0734 Objective Remarks GENERAL: This elderly, moderately obese white female is pale and in no distress HEENT: Head is normocephalic. Pupils reactive and equal. Tongue is moist. Nasal mucosa clear. Ears no inflammation. Throat was clear. NECK: Supple, no lymphadenopathy, no bruits or thyroid enlargement. CHEST: Distant breath sounds with wheezes bilaterally, prolonged expirations and Occ crackles heard at the lung bases. HEART: The heart sounds are irregular S1 and S2. No murmur, no S3. ABDOMEN: Soft, protuberant, no mass. No organomegaly. Bowel sounds are active. EXTREMITIES: Reveal 1+ leg edema. No calf tenderness. NEUROLOGIC: Reflexes 1+ with no gross motor deficits. Skin is dry and warm. Assessment and Plan Assessment and Plan IMPRESSION: 1. Congestive heart failure. 2. Atrial fibrillation and arteriosclerotic heart disease. 3. History of coronary artery disease. 4. Hypertension. 5. Acute respiratory failure, resolved. Plan : 1. Cont O2 2 L and Arrange Home O2 2. Cont Antibiotics per ID. 3. Nebs BID , duoneb 4. Continue lasix 40 mg BID . 5. To rehab facility 6. Will F/U as OP in 2 weeks 7. Up with help. Jolene Steele MD April 03, 2018 12:48
[2018-04-03] MEDS ORDERED: SPIR25 PO (13:40)
--- NOTE | 2018-04-03 13:41 | HHI.DS ---
Discharge Summary Admission Date March 25, 2018 at 02:40 Admitting Diagnosis Pulmonary edema/respiratory failure/intubation Procedures None Brief History - From Admission 82-year-old female patient with previous history of coronary artery disease and DC status post stent placement, atrial fibrillation, multiple medical issues, was brought in by EMS, due to respiratory distress, was struggling to breathe and EMS put her on BiPAP initially, but then the patient became more disoriented and they intubated her for an airway protection. She is not able to provide any further history. CBC/BMP: 04/03/18 0734 04/03/18 0734 Significant Findings Laboratory Tests Test 04/01/18 05:45 04/01/18 11:38 04/02/18 05:16 04/02/18 11:00 B-Type Natriuretic Peptide 323 PG/ML (0-100) Potassium Level 3.4 MEQ/L (3.5-5.1) Carbon Dioxide Level 35.2 MEQ/L (21.0-32.0) Estimat Glomerular Filtration Rate 57 ML/MIN (>89) 66 ML/MIN (>89) Blood Gas HCO3 34 mmol/L (22-26) Blood Gas Base Excess 9.0 mmol/L (-2-2) Arterial Blood pH 7.43 (7.380-7.420) Arterial Blood Partial Pressure CO2 51 mmHg (38-42) Test 04/02/18 14:40 04/03/18 07:34 Blood Gas HCO3 34 mmol/L (22-26) Blood Gas Base Excess 9.0 mmol/L (-2-2) Arterial Blood pH 7.43 (7.380-7.420) Arterial Blood Partial Pressure CO2 51 mmHg (38-42) Arterial Blood Partial Pressure O2 208 mmHg (61-120) Blood Gas Hemoglobin 11.9 G/DL (12.0-16.0) Monocytes (%) (Auto) 17.7 % (0.0-8.0) Calcium Level 10.3 MG/DL (8.5-10.1) Carbon Dioxide Level 34.5 MEQ/L (21.0-32.0) Estimat Glomerular Filtration Rate 62 ML/MIN (>89) PE at Discharge GENERAL: Elderly female, appears in nad. CARDIOVASCULAR: Regular rate and rhythm. RESPIRATORY: No accessory muscle use. Decreased breath sounds. Bibasilar crackles. GASTROINTESTINAL: Abdomen soft, non-tender, nondistended. Hepatic and splenic margins not palpable. MUSCULOSKELETAL: Extremities without clubbing, cyanosis, or edema. No obvious deformities. NEUROLOGICAL: Awake and alert. No obvious cranial nerve deficits. Motor grossly within normal limits. Five out of 5 muscle strength in the arms and legs. Normal speech. PSYCHIATRIC: Appropriate mood and affect; insight and judgment normal. Pt Condition on Discharge: Stable Discharge Disposition: Discharge to SNF Discharge Instructions DIET: Follow Instructions for: Heart Healthy Diet Activities you can perform: Regular-No Restrictions Muriel Pierre MD April 03, 2018 13:40
[2018-04-03] MEDS ORDERED: LEVA500T33 PO (15:09)
[2018-04-03] MEDS: ATORVASTATIN 10 MG TAB PO SCH (22:21)
[2018-04-04] VITALS (17 sets, daily range): BP systolic 95–115; BP diastolic 46–60; PULSE 62–95; RESP 18–20; TEMP 97.6–98; O2SAT 91–97
[2018-04-04] MEDS: HEPARIN SODIUM - SQ 10,000 UNITS/ML VIAL SQ SCH ×2 (02:51→12:54)
[2018-04-04] MEDS: CHLORHEXIDINE 0.12% (ORAL KIT) 15 ML CUP MT SCH (08:00)
--- NOTE | 2018-04-04 08:38 | PD.CARD.PN ---
Subjective Subjective Remarks The patient is alert and awake. She denies SOB, palpitations, or edema. She has a productive cough. Does not know color of sputum. . Objective Medications Current Medications Medications (Trade) Dose Ordered Sig/Rodri Route Start Time Stop Time Status Last Admin (Lipitor) 10 mg HS PO 03/25/18 21:00 04/03/18 22:21 (Plavix) 75 mg DAILY PO 03/25/18 09:00 04/03/18 09:30 (Cozaar) 100 mg DAILY PO 03/25/18 09:00 04/03/18 09:31 (NS Flush) 2 ml UNSCH PRN IV FLUSH 03/25/18 03:00 (NS Flush) 2 ml BID IV FLUSH 03/25/18 09:00 04/03/18 22:22 (Tylenol) 650 mg Q6H PRN PO 03/25/18 03:00 (Morphine Inj) 2 mg Q2H PRN IV PUSH 03/25/18 03:00 (Versed Inj) 2 mg Q1H PRN IV PUSH 03/25/18 03:00 (Tears Naturale Opth Soln) 1 drop TID EACH EYE 03/25/18 09:00 04/03/18 17:31 (Zofran Inj) 4 mg Q6H PRN IV PUSH 03/25/18 03:00 (Duoneb Neb) 1 ampule Q2HR NEB PRN INH 03/25/18 03:00 03/30/18 11:41 (Heparin Inj) 5,000 units Q8H SQ 03/25/18 03:00 04/04/18 02:51 (Milk Of Magnesia Liq) 30 ml Q12H PRN PO 03/25/18 03:00 (Senokot) 17.2 mg Q12H PRN PO 03/25/18 03:00 (Dulcolax Supp) 10 mg DAILY PRN RECTAL 03/25/18 03:00 (Lactulose Liq) 30 ml DAILY PRN PO 03/25/18 03:00 (Peridex 0.12% Liq) 15 ml BID@08,20 MT 03/25/18 08:00 04/01/18 08:00 (Lasix Inj) 40 mg BID@,18 IV PUSH 03/25/18 18:00 04/03/18 17:31 (Colace Liq) 100 mg Q12HR PO 03/26/18 10:30 04/02/18 21:45 (Pepcid) 10 mg BID PO 03/30/18 21:00 04/03/18 22:21 (Mycostatin Powder) 1 applic Q12HR TOPICAL 03/31/18 11:30 04/03/18 22:22 (KCl) 20 meq BID PO 03/31/18 21:00 04/03/18 22:21 (Aldactone) 25 mg BID@18 PO 03/31/18 18:00 04/03/18 17:30 (Apresoline Inj) 20 mg Q4H PRN IV PUSH 03/31/18 15:15 (Levaquin) 500 mg DAILY PO 04/04/18 09:00 04/08/18 08:59 Vital Signs / I&O Vital Signs Date Time Temp Pulse Resp B/P (MAP) Pulse Ox O2 Delivery O2 Flow Rate FiO2 04/04/18 07:50 97 Nasal Cannula 4.00 04/04/18 06:00 68 04/04/18 05:00 66 04/04/18 04:00 66 04/04/18 04:00 97.8 65 20 95/46 (62) 91 04/04/18 03:00 62 04/04/18 02:00 62 04/04/18 01:55 94 Nasal Cannula 3.00 04/04/18 01:00 64 04/04/18 00:00 97.6 68 20 96/49 (65) 97 04/04/18 00:00 64 04/03/18 23:00 64 04/03/18 22:00 70 04/03/18 21:00 70 04/03/18 20:00 68 04/03/18 20:00 97.8 67 18 106/60 (75) 97 04/03/18 20:00 94 3.00 04/03/18 18:00 72 04/03/18 17:00 68 04/03/18 16:00 68 04/03/18 15:00 63 04/03/18 15:00 98.2 55 18 140/72 (94) 97 04/03/18 14:00 76 04/03/18 13:00 74 04/03/18 12:00 64 04/03/18 11:45 98.2 62 18 143/75 (97) 94 04/03/18 11:00 67 04/03/18 10:00 62 I/O 04/03/18 04/03/18 04/03/18 04/04/18 04/04/18 04/04/18 07:00 15:00 23:00 07:00 15:00 23:00 Intake Total 580 ml 980 ml Output Total 2700 ml Balance 580 ml -1720 ml Intake Oral 580 ml 980 ml Output Urine Total 2700 ml # Voids 3 1 # Bowel Movements 1 Physical Exam GENERAL: Elderly, obese, debilitated, female in [facility], awake and alert this morning. SKIN: Warm and dry. HEAD: Normocephalic. EYES: No scleral icterus. No injection or drainage. NECK: Supple, trachea midline. CARDIOVASCULAR: Reg rate, reg rhythm. RESPIRATORY: Breath sounds equal bilaterally. No accessory muscle use. GASTROINTESTINAL: Abdomen soft, non-tender, nondistended. MUSCULOSKELETAL: No cyanosis, or edema. BACK: Nontender without obvious deformity. Imaging Last 72 hours Impressions Chest X-Ray 04/03/18 0600 Signed Impressions: Service Date/Time: March 09:06 - CONCLUSION: Stable chest appearance Jevon Butt MD Chest X-Ray 04/02/18 0000 Signed Impressions: Service Date/Time: Monday, April 02, 2018 09:23 - CONCLUSION: Increasing interstitial edema. Akil Ware MD FACR Assessment and Plan Assessment and Plan Respiratory failure due to pneumonia and CHF Iatrogenic bradycardia, improved off Coreg Chronic atrial fibrillation unable to take oral anticoagulation due to rectal bleeding. Cardiomyopathy EF 40-45%, no major valvulopathy ASHD HTN Severe debility PLAN Change lasix IV to torsemide Schedule metolazone 2.5 mg q week Continue K+ and Aldactone IS/EZPAP The patient is stable from cardiac standpoint for discharge The patient was seen and evaluated by Dr Landers who completed physical exam and face to face encounter and participated in evaluation and management. Jovanna Veloz April 04, 2018 08:38
[2018-04-04] MEDS: DOCUSATE SODIUM 100 MG/10 ML UDC PO SCH (09:00)
[2018-04-04] MEDS: SODIUM CHLORIDE 0.9% FLUSH 10 ML FLUSH IV FLUSH SCH (09:00)
[2018-04-04] MEDS ORDERED: LEVOFLOXACIN 500 MG TAB PO SCH (09:00)
[2018-04-04] MEDS: POTASSIUM CHLORIDE 10 MEQ CAP PO SCH (09:01)
[2018-04-04] MEDS: LOSARTAN 50 MG TAB PO SCH (09:02)
[2018-04-04] MEDS: CLOPIDOGREL 75 MG TAB PO SCH (09:02)
[2018-04-04] MEDS: SPIRONOLACTONE 25 MG TAB PO SCH (09:02)
[2018-04-04] MEDS: NYSTATIN 100,000 U/GM PWD 15 GM BTL TOPICAL SCH (09:04)
[2018-04-04] MEDS: ARTIFICIAL TEARS OPTH SOLN 15 ML BTL EACH EYE SCH ×2 (09:04→13:00)
[2018-04-04] MEDS: FAMOTIDINE 20 MG TAB PO SCH (09:15)
[2018-04-04] MEDS ORDERED: TORSEMIDE 20 MG TAB PO SCH (10:00)
--- NOTE | 2018-04-04 12:09 | HHI.PR ---
Subjective Remarks Awake and stable on O2 . She is on a N/C at 3 L.. Will go home today. Good output Objective Vital Signs Date Time Temp Pulse Resp B/P (MAP) Pulse Ox O2 Delivery O2 Flow Rate FiO2 04/04/18 07:50 97 Nasal Cannula 4.00 04/04/18 06:00 68 04/04/18 05:00 66 04/04/18 04:00 66 04/04/18 04:00 97.8 65 20 95/46 (62) 91 04/04/18 03:00 62 04/04/18 02:00 62 04/04/18 01:55 94 Nasal Cannula 3.00 04/04/18 01:00 64 04/04/18 00:00 97.6 68 20 96/49 (65) 97 04/04/18 00:00 64 04/03/18 23:00 64 04/03/18 22:00 70 04/03/18 21:00 70 04/03/18 20:00 68 04/03/18 20:00 97.8 67 18 106/60 (75) 97 04/03/18 20:00 94 3.00 04/03/18 18:00 72 04/03/18 17:00 68 04/03/18 16:00 68 04/03/18 15:00 63 04/03/18 15:00 98.2 55 18 140/72 (94) 97 04/03/18 14:00 76 04/03/18 13:00 74 I/O 04/03/18 04/03/18 04/03/18 04/04/18 04/04/18 04/04/18 07:00 15:00 23:00 07:00 15:00 23:00 Intake Total 580 ml 980 ml Output Total 2700 ml Balance 580 ml -1720 ml Intake Oral 580 ml 980 ml Output Urine Total 2700 ml # Voids 3 1 # Bowel Movements 1 Result Diagram: 04/03/1834 04/03/18733 Objective Remarks GENERAL: This elderly, moderately obese white female is pale and in no distress HEENT: Head is normocephalic. Pupils reactive and equal. Tongue is moist. Nasal mucosa clear. Ears no inflammation. Throat was clear. NECK: Supple, no lymphadenopathy, no bruits or thyroid enlargement. CHEST: Distant breath sounds with , prolonged expirations and Occ crackles heard at the lung bases. HEART: The heart sounds are irregular S1 and S2. No murmur, no S3. ABDOMEN: Soft, protuberant, no mass. No organomegaly. Bowel sounds are active. EXTREMITIES: Reveal 1+ leg edema. No calf tenderness. NEUROLOGIC: Reflexes 1+ with no gross motor deficits. Skin is dry and warm. Assessment and Plan Assessment and Plan IMPRESSION: 1. Congestive heart failure. 2. Atrial fibrillation and arteriosclerotic heart disease. 3. History of coronary artery disease. 4. Hypertension. 5. Acute respiratory failure, resolved. Plan : 1. Cont O2 2 L and Arrange Home O2 2. Cont Antibiotics per ID. 3. Nebs BID , duoneb 4. Continue lasix 40 mg daily 5. Home today 6. F/U as OP in 3 weeks 7. Up with help. Jolene Steele MD April 04, 2018 12:09
[2018-04-04] MEDS ORDERED: Albuterol-Ipratropium Neb INH (14:19)
--- NOTE | 2018-04-04 14:21 | HHI.FF ---
Face to Face Verification Diagnosis: (1) CHF (congestive heart failure) (2) Dyspnea (3) Debility (4) Hypertension, benign (5) Acute respiratory failure with hypoxia and hypercarbia Physical Therapy Order: Evaluate and Treat Occupational Therapy Order: Evaluate and Treat Home Health Nursing Order: Medical education CHF education Nursing assessment with vital signs Home Health Aide Order: To Assist In: Bathing and personal care Assistant Director Of Admissions Order: To Evaluate: Living conditions/environment, Support services Order: To Provide: Long range planning, Community services I have seen patient Wendy Villarreal on 04/04/18. My clinical findings support the need for the requested home health care services because: Limited ability to care for self I certify that my clinical findings support that this patient is homebound because: Unsafe to leave home unassisted Santiago Mitchell MD April 04, 2018 14:21
[2018-04-04] MEDS ORDERED: OXYGENDME NAS.CANULA (14:24)
--- NOTE | 2018-04-04 14:27 | HHI.PR ---
Subjective Remarks Patient seen this afternoon. Says she is feeling all right. Denies any chest pain or shortness of breath. Says she would like to go home. says that he has a left at home if needed. Both he and say that under no circumstances will to go to SNF. Objective Vital Signs Date Time Temp Pulse Resp B/P (MAP) Pulse Ox O2 Delivery O2 Flow Rate FiO2 04/04/18 14:00 70 04/04/18 13:00 70 04/04/18 12:00 66 04/04/18 11:00 63 04/04/18 11:00 96 3.00 04/04/18 11:00 97.8 95 20 109/56 (73) 95 04/04/18 10:00 70 04/04/18 09:00 66 04/04/18 08:00 68 04/04/18 07:50 97 Nasal Cannula 4.00 04/04/18 07:00 98.0 94 18 115/60 (78) 92 04/04/18 07:00 96 3.00 04/04/18 07:00 63 04/04/18 06:00 68 04/04/18 05:00 66 04/04/18 04:00 66 04/04/18 04:00 97.8 65 20 95/46 (62) 91 04/04/18 03:00 62 04/04/18 02:00 62 04/04/18 01:55 94 Nasal Cannula 3.00 04/04/18 01:00 64 04/04/18 00:00 97.6 68 20 96/49 (65) 97 04/04/18 00:00 64 04/03/18 23:00 64 04/03/18 22:00 70 04/03/18 21:00 70 04/03/18 20:00 68 04/03/18 20:00 97.8 67 18 106/60 (75) 97 04/03/18 20:00 94 3.00 04/03/18 18:00 72 04/03/18 17:00 68 04/03/18 16:00 68 04/03/18 15:00 63 04/03/18 15:00 98.2 55 18 140/72 (94) 97 I/O 04/03/18 04/03/18 04/03/18 04/04/18 04/04/1818 06:59 14:59 22:59 06:59 14:59 22:59 Intake Total 580 ml 980 ml Output Total 2700 ml Balance 580 ml -1720 ml Intake Oral 580 ml 980 ml Output Urine Total 2700 ml # Voids 3 1 # Bowel Movements 1 Result Diagram: 04/03/18 0734 04/03/18 0734 Objective Remarks GENERAL: Patient lying in bed. Appears comfortable. SKIN: Warm and dry. HEAD: Normocephalic. EYES: No scleral icterus. No injection or drainage. NECK: Supple, trachea midline. No JVD. CARDIOVASCULAR: Regular rate and rhythm without murmurs, gallops, or rubs. RESPIRATORY: Breath sounds equal bilaterally. No accessory muscle use. GASTROINTESTINAL: Abdomen soft, non-tender, nondistended. MUSCULOSKELETAL: No cyanosis, trace peripheral edema.. BACK: Nontender without obvious deformity. No CVA tenderness. A/P Assessment and Plan //Acute hypoxemic and hypercarbic respiratory failure: Patient was extubated 03/27. Resolved, now on 3L by NC. Continue supplemental oxygen, bronchodilators. Appreciate pulmonology recommendations. Clinically improving. Currently satting well on room air. = Home oxygen walk test ordered. Home oxygen ordered. //Multilobar pneumonia: Continue antibiotics, bronchodilators, supplemental oxygen. Appreciate pulmonology recommendations. Change antibiotics to p.o. Levaquin. = Continue Levaquin to complete treatment course. 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 Diuresing well. Continue carvedilol, losartan, Plavix, statin. Strict intake/output. = Fluid restrictions at home. //Severe sepsis: Resolving. Secondary to pneumonia, UTI with group D enterococcus. Continue Levaquin, change to PO = Resolved. //Hypokalemia: Resolved. //History of CVA in the past: Continue Plavix. //GI prophylaxis: Pepcid. //DVT prophylaxis: SCDs, GABRIELA hose, subcutaneous heparin. Discharge Planning Discharge home in stable condition. Continue heart healthy diet with 1500 mL fluid restrictions. Please see discharge medication reconciliation for medication list. Follow-up with pulmonology, primary care as outpatient. Santiago Mitchell MD April 04, 2018 14:27
== END 2018-04-04 15:01 | disposition home health service (06) | DRG 208 ==
LOC: NEPC 01:17 → NEDA 02:40 → N03B 04:21 → N04A 03-29 18:29 → HIMN 03-30 13:00 → HCIS 04-02 00:27
PROVIDERS: ADMIT Internal Medicine; ATTEND Internal Medicine
PROC: 5A1945Z Respiratory Ventilation, 24-96 Consecutive Hours (ICD-10-PCS; principal; 2018-03-25)
DX: J96.01 Acute respiratory failure with hypoxia (principal); R65.20 Severe sepsis without septic shock; I50.43 Acute on chronic combined systolic (congestive) and diastolic (congestive) heart failure; I47.2 Ventricular tachycardia; J18.9 Pneumonia, unspecified organism; E87.2 Acidosis; I48.2 Chronic atrial fibrillation; I11.0 Hypertensive heart disease with heart failure; R00.1 Bradycardia, unspecified; N39.0 Urinary tract infection, site not specified; A41.9 Sepsis, unspecified organism; I34.0 Nonrheumatic mitral (valve) insufficiency; I25.5 Ischemic cardiomyopathy; M06.9 Rheumatoid arthritis, unspecified; I25.2 Old myocardial infarction; I25.10 Atherosclerotic heart disease of native coronary artery without angina pectoris; E66.9 Obesity, unspecified; M19.012 Primary osteoarthritis, left shoulder; J96.02 Acute respiratory failure with hypercapnia; E78.00 Pure hypercholesterolemia, unspecified; Z95.5 Presence of coronary angioplasty implant and graft; Z68.39 Body mass index [BMI] 39.0-39.9, adult; Z86.14 Personal history of Methicillin resistant Staphylococcus aureus infection; Z86.73 Personal history of transient ischemic attack (TIA), and cerebral infarction without residual deficits; E87.6 Hypokalemia; Z90.710 Acquired absence of both cervix and uterus
CPT/HCPCS: 31500; 36600; 51702; 71045; 71046; 71250; 76937; 80048; 80053; 80202; 81001; 82550; 82805; 82948; 83735; 83880; 84100; 84132; 84484; 85025; 85610; 85730; 87070; 87077; 87086; 87186; 87205; 87641; 93005; 93306; 94002; 94003; 94150; 94640; 94664; 96365; 96375; J1644; J1940; J1956; J2543; J3370; J3475; J3480; J7030; J7040; J7042; J7050